=== PATIENT | female | born 1950 | race Caucasian/White ===

== ENCOUNTER → 2023-02-25 | Outpatient (CLI) | payer SELFPAY ==
[2023-02-25 09:53] LABS: Mucous, Urine 0 SEEN /hpf (<or=2+)
[2023-02-25 12:23] LABS: Color, Urine Yellow (Yellow); Glucose, Dipstick Normal (Normal); Ketone-Dipstick Negative (Negative); Leukocyte Esterase-Dipstick 500 /ul (Negative); Nitrite-Dipstick Negative (Negative); Occult Blood-Urine 150 /ul (Negative); Protein-Dipstick 15 mg/dl (Negative); Urine Bilirubin Dipstick Negative (Negative); Urine Clarity Sl. Cloudy (Clear); Urine Urobilinogen Normal (Normal); Urine pH 6.5 (5.0 - 8.0)
[2023-02-25 12:37] LABS: Absolute Lymphocyte Count 1.33 X10^3/uL (0.83-4.51); Absolute Neutrophil Count 5.8 X10^3/uL (2.0-7.7); Basophil# 0.07 X10^3/uL; Basophil% 0.9 % (0-1); Eosinophils% 2.5 % (0-5); Hematocrit 42.3 % (37-47); Hemoglobin 13.6 g/dL (12.0-15.0); Lymphocyte # 1.33 X10^3/ul (0.83-4.51); Lymphocyte % 16.9 % (19-41); Mean Corp Hgb Conc 32.2 g/dL (32-36); Mean Corpuscular Hgb 31.1 pg (27.0-32.0); Mean Corpuscular Volume 96.6 fL (81-99); Mean Platelet Vol. 11.1 fl (6.2-12.0); Monocyte# 0.41 X10^3/uL; Monocyte% 5.2 % (0-10); NRBC Flagged by Analyzer 0 % (0-5); Neutrophil # 5.82 X10^3/uL (2.7-7.7); Neutrophil % 74.2 % (47-70); Platelet Count 226 K/mm3 (150-450); RBC Distribution Width CV 13.4 % (11.6-14.6); RBC Distribution Width SD 48.2 fl (35.1-43.9); Red Blood Count 4.38 M/mm3 (4.2-5.4); White Blood Count 7.9 K/mm3 (4.4-11.0)
[2023-02-25 12:39] LABS: Red Blood Cells-Urine 10-25 SEEN /hpf (0-5); Squamous Epithelial Cells - UA 0-5 SEEN /hpf (5-10); White Blood Cells 25-50 SEEN /hpf (0-5)
[2023-02-25 12:40] LABS: Bacteria 1+ /hpf (None Seen)
[2023-02-25 13:19] LABS: ALB/GLOB Ratio 1.1 RATIO (0.9-2.4); AST(SGOT) 16 U/L (15-37); Alanine Aminotransfer ALT/SGPT 20 U/L (13-56); Albumin, Serum 3.9 g/dL (3.2-5.0); Alkaline Phosphatase 78 U/L (45-117); Anion Gap 6 (5-15); BUN 14 mg/dL (7-18); BUN/Creat Ratio 16.2 RATIO (10-20); Calcium,Total 9.5 mg/dL (8.5-10.1); Chloride 108 mmol/L (98-107); Cholesterol 226 mg/dL (200); Creatinine, Serum 0.87 mg/dL (0.55-1.02); EST Glomerular Filtration Rate 68 mL/min (>60); Est Glom Filt Rate - Afr Amer 83 mL/min (>60); Globulin 3.7 g/dL (2.2-4.2); Glucose 96 mg/dL (74-106); High Density Lipoprotein 80 mg/dL; Potassium 3.9 mmol/L (3.5-5.1); Protein, Total 7.6 g/dL (6.4-8.2); Sodium Level 139 mmol/L (136-145); Triglycerides 111 mg/dL; Very Low Density Lipoprotein 22 mg/dL (5-40)
== END | disposition home or self-care (01) ==
LOC: BIMLAB 09:31
PROVIDERS: Visit Provider Internal Medicine
DX: R10.9 Unspecified abdominal pain (principal); Z13.6 Encounter for screening for cardiovascular disorders
CPT/HCPCS: 36415; 80053; 80061; 81001; 85025

== ENCOUNTER → 2023-06-05 | Outpatient (CLI) | payer SELFPAY ==
[2023-06-05 08:21] LABS: Bacteria 0 SEEN /hpf (None Seen); Mucous, Urine 0 SEEN /hpf (<or=2+); Squamous Epithelial Cells - UA 0 SEEN /hpf (5-10)
[2023-06-05 12:03] LABS: Color, Urine Yellow (Yellow); Glucose, Dipstick Normal (Normal); Ketone-Dipstick Negative (Negative); Leukocyte Esterase-Dipstick Negative /ul (Negative); Nitrite-Dipstick Negative (Negative); Occult Blood-Urine 25 /ul (Negative); Protein-Dipstick Negative (Negative); Urine Bilirubin Dipstick Negative (Negative); Urine Clarity Clear (Clear); Urine Urobilinogen Normal (Normal)
[2023-06-05 12:20] LABS: Red Blood Cells-Urine 0-5 SEEN /hpf (0-5); White Blood Cells 0-5 SEEN /hpf (0-5)
== END | disposition home or self-care (01) ==
LOC: LABSPEC 08:20
PROVIDERS: PCP Internal Medicine; Referring Provider Internal Medicine; Visit Provider Internal Medicine
DX: R10.9 Unspecified abdominal pain (principal); R31.9 Hematuria, unspecified
CPT/HCPCS: 81001; 87086; 87088

== ENCOUNTER → 2023-06-21 | Outpatient (CLI) | payer SELFPAY, OTHER ==
--- NOTE | 2023-06-21 09:43 | US_ITS ---
STUDY: ULTRASOUND TRANSVAGINAL CLINICAL: Female, 73 years old. vaginal bleeding TECHNIQUE: Transvaginal COMPARISON: None. FINDINGS: Increased uterine size measuring 10.3 x 6.3 x 8.5 cm in maximal craniocaudal dimension. There are no myometrial masses. Increased endometrial thickness measuring 38 mm. There are no endometrial masses, with a small amount of fluid in the endometrial cavity. Normal uterine cervix. The ovaries are not visualized.. There is no free fluid in the pelvis. Polycystic ovary disease: No. US/Transvaginal Non- IMPRESSION: Markedly enlarged menopausal uterus with markedly thickening of the endometrial stripe worrisome for mass. Hysteroscopy may be useful. Electronically Signed: Luis A Valenzuela MD at 22:46 EDT ,
--- NOTE | 2023-06-21 09:43 | CT_ITS ---
STUDY: CT ABDOMEN AND PELVIS WITHOUT CONTRAST REASON FOR EXAM: Female, 73 years old. hematuria, vaginal bleeding RADIATION DOSAGE (If Supplied By Facility): CTDIvol = ( 11.87 ) mGy, DLP = ( 616.70 ) mGycm TECHNIQUE: Transaxial images were obtained from the dome of the diaphragm to the symphysis pubis without oral contrast, and without intravenous contrast. Sagittal and coronal images were reconstructed. Individualized dose optimization techniques were used for this CT. COMPARISON: None. FINDINGS: The visualized lung bases are unremarkable. The visualized portions of the heart are within normal limits. Normal liver. Normal gallbladder and extrahepatic biliary system. Normal spleen. Normal pancreas. Normal bilateral adrenal glands. Normal right kidney. Normal left kidney. Normal visualized stomach. Normal small intestine. Normal colon. There is non-visualization of the appendix. Normal abdominal aorta. Normal inferior vena cava. Normal retroperitoneum. Normal urinary bladder. Enlarged heterogeneous uterus. Normal abdominal wall. Normal osseous structures. CT/Abdomen/Pelvis without Cont IMPRESSION: No renal or renal stone. Enlarged heterogeneous uterus. Electronically Signed: Luis A Valenzuela MD at 23:03 EDT ,
== END | disposition home or self-care (01) ==
PROVIDERS: PCP Internal Medicine; Referring Provider Internal Medicine; Visit Provider Internal Medicine
DX: R31.9 Hematuria, unspecified (principal); N93.9 Abnormal uterine and vaginal bleeding, unspecified
CPT/HCPCS: 74176; 76830

== ENCOUNTER → 2024-07-01 | Outpatient (CLI) | payer OTHER, SELFPAY ==
[2024-07-01 12:15] LABS: Absolute Lymphocyte Count 1.13 X10^3/uL (0.83-4.51); Absolute Neutrophil Count 4.1 X10^3/uL (2.0-7.7); Basophil# 0.08 X10^3/uL; Basophil% 1.3 % (0-1); Eosinophil# 0.25 X10^3/uL; Eosinophils% 4.2 % (0-5); Hematocrit 44.3 % (37-47); Lymphocyte # 1.13 X10^3/ul (0.83-4.51); Lymphocyte % 18.8 % (19-41); Mean Corp Hgb Conc 31.6 g/dL (32-36); Mean Corpuscular Hgb 30.7 pg (27.0-32.0); Mean Corpuscular Volume 97.1 fL (81-99); Mean Platelet Vol. 10.5 fl (6.2-12.0); Monocyte# 0.44 X10^3/uL; Monocyte% 7.3 % (0-10); NRBC Flagged by Analyzer 0 % (0-5); Neutrophil # 4.07 X10^3/uL (2.7-7.7); Neutrophil % 67.9 % (47-70); Platelet Count 222 K/mm3 (150-450); RBC Distribution Width CV 13.7 % (11.6-14.6); RBC Distribution Width SD 49.7 fl (35.1-43.9); Red Blood Count 4.56 M/mm3 (4.2-5.4)
[2024-07-01 13:08] LABS: ALB/GLOB Ratio 1.2 RATIO (0.9-2.4); AST(SGOT) 19 U/L (15-37); Alanine Aminotransfer ALT/SGPT 23 U/L (13-56); Albumin, Serum 4.2 g/dL (3.2-5.0); Alkaline Phosphatase 73 U/L (45-117); Anion Gap 4 (5-15); BUN 14 mg/dL (7-18); BUN/Creat Ratio 14.7 RATIO (10-20); Calcium,Total 10.1 mg/dL (8.5-10.1); Chloride 104 mmol/L (98-107); Cholesterol 269 mg/dL (200); Creatinine, Serum 0.95 mg/dL (0.55-1.02); EST Glomerular Filtration Rate 61 mL/min (>60); Est Glom Filt Rate - Afr Amer 74 mL/min (>60); Globulin 3.6 g/dL (2.2-4.2); Glucose 98 mg/dL (74-106); High Density Lipoprotein 96 mg/dL; Potassium 4.6 mmol/L (3.5-5.1); Protein, Total 7.8 g/dL (6.4-8.2); Sodium Level 138 mmol/L (136-145); Triglycerides 120 mg/dL; Very Low Density Lipoprotein 24 mg/dL (5-40)
== END | disposition home or self-care (01) ==
LOC: BIMLAB 09:32
PROVIDERS: PCP Internal Medicine; Referring Provider Nurse Practitioner; Visit Provider Nurse Practitioner
DX: Z00.00 Encounter for general adult medical examination without abnormal findings (principal)
CPT/HCPCS: 36415; 80053; 80061; 85025

== ENCOUNTER → 2025-01-11 | Outpatient (CLI) | payer SELFPAY, OTHER ==
--- NOTE | 2025-01-11 09:15 | PET_ITS ---
EXAM: PET/CT Study CLINICAL HISTORY: 74 y/o F with UTERINE/CERVICAL CANCER, staging. History of grade one-two endometrial cancer diagnosed in June 2023 status post hysterectomy and BSO lymph node sampling. COMPARISON: None. TECHNIQUE: PROCEDURE: Following the intravenous administration of radionucleotide, image acquisition on a dedicated PET/CT unit was performed at one hour post injection. A preliminary CT study encompassing the Skull base, neck, chest, abdomen, pelvis, and proximal thighs was performed for purposes of attenuation correction and anatomic localization. The proximal thighs were also included. The patient's blood glucose level was 124 mg/dL (allowable range: 50-180 mg/dL). RADIOPHARMACEUTICAL: 14.39 mCi 18F-FDG (Fluorodeoxyglucose F18) IV was injected into patient. FINDINGS: Reported avid SUV values (g/mL*) are maximum SUV. Average liver SUV: 2.9 HEAD/NECK: No suspicious hypermetabolic lesions. CHEST: No suspicious hypermetabolic lesions. ABDOMEN: No suspicious hypermetabolic lesions. PELVIS: Ill-defined, hypermetabolic focus along the right lower vaginal wall demonstrating a maximum SUV of 10.2. There are 2 mildly hypermetabolic foci within the right pelvis just posterior to the distal ureter subjacent to pelvic calcifications/surgical clips from prior lymph node dissection, demonstrating a max SUV of 2.5 (see axial fused images 206 and 212). Mild diffuse hypermetabolic uptake throughout the thoracic and lumbar spine. Additional CT findings: Mild coronary artery and thoracic aortic calcifications. Moderate calcific plaque of the aortoiliac vessels. Prior hysterectomy, bilateral salpingo-oophorectomy and lymph node dissection. Surgical clips along the cervical and thoracolumbar spondylosis. PET/PET/CT Tumor Base -Thigh Init IMPRESSION: 1. Ill-defined, hypermetabolic focus along the right lower vaginal wall, compat ible with lower cervical/upper vaginal neoplasm. 2. Mildly hypermetabolic foci within the right lower pelvis subjacent to foci o f calcifications, likely artifactual, however soraida metastatic disease can not be excluded given resolution of PET-CT. Recom mend pelvic MRI for further evaluation. Please note the low-dose CT scan was performed to facilitate PET image reconstr uction and anatomic localization and does not replace a diagnostic CT. Any diagnostic CT requested and performed at the time of the PET will be reported separately. Reading Location: [id number]
== END | disposition home or self-care (01) ==
LOC: ONC 08:45
PROVIDERS: PCP Internal Medicine; Referring Provider Obstetrics & Gynecology Gynecologic Oncology; Visit Provider Obstetrics & Gynecology Gynecologic Oncology
DX: C54.1 Malignant neoplasm of endometrium (principal)
CPT/HCPCS: 78815; A9552

== ENCOUNTER → 2025-01-20 | Outpatient (CLI) | payer OTHER, SELFPAY ==
--- NOTE | 2025-01-20 09:36 | MRI_ITS ---
PROCEDURE: PELVIS W/WO CONTRAST ([id number]), 01/20/2025 REASON FOR EXAM: RECURRENT ENDOMETRIAL CANCER, EVAL FOR DISEASE EXT TECHNIQUE: Multisequence multiplanar MR of the pelvis was performed with and without IV contrast. Contrast: 17 mL Clariscan COMPARISON: 01/11/2025 FINDINGS: Note diffusion sequences were not performed. Variable overall mild motion limitation. Some sequences are mild/moderately motion degraded. Visualized bowel: Grossly unremarkable. Lymph nodes: No overt lymphadenopathy within the field of view. Note that the previous findings just posterior to the distal ureter on preceding PET/CT are probably above the field of view. Vasculature: Grossly unremarkable. Peritoneum: Trace pelvic free fluid. Bladder: Underdistended and suboptimally evaluated. Bladder wall trabeculation suggesting possible chronic bladder outlet obstruction. Abutment by the below findings related to the vagina. Reproductive Organs: Hysterectomy.. Ill-defined T1 dark and T2 intermediate enhancing nodular soft tissue favored along the anterior wall of the mid to upper vagina measures 3.2 x 1.5 x 2.9 cm and probably correlates with the previous PET/CT finding. There is immediate abutment of the posterior most bladder and probably the proximal urethra without clearly preserved fat plane in some areas, however without gross invasion. Ureters are uninvolved and are located above this level. Body Wall: Operative changes.. Bones: Unremarkable. MRI/Pelvis W/WO Contrast IMPRESSION: 1. Exam limited mostly by the lack of diffusion sequences which should be perfo rmed if MR follow-up is pursued. 2. Hysterectomy with 3.2 cm nodular enhancing soft tissue favored along the ant erior wall of the mid to upper vagina probably correlates with the previous PET/CT finding and may reflect the site of reporte d recurrence. Immediate abutment of the posterior bladder and proximal urethra without gross invasion although early/microscopic involvement cannot be excluded given lack of preserved fat planes. Clinical/oncologic follow-up recommended. This should b e amenable to direct exam/tissue sampling. 3. No overt lymphadenopathy within the field of view. Note that the previous fi ndings just posterior to the distal ureter on preceding PET/CT are probably above the field of view. These would be optimall y followed by CT or PET/CT. 4. Trace pelvic free fluid, nonspecific but unexpected in a postmenopausal fema le. 5. Additional description as above. Reading Location: [id number]
== END | disposition home or self-care (01) ==
PROVIDERS: PCP Internal Medicine; Referring Provider Student in an Organized Health Care Education/Training Program; Visit Provider Student in an Organized Health Care Education/Training Program
DX: C54.1 Malignant neoplasm of endometrium (principal)
CPT/HCPCS: 72197; A9575

== ENCOUNTER → 2025-07-19 | Outpatient (CLI) | payer SELFPAY, OTHER ==
--- OUTSIDE RECORDS SUMMARY | 2025-07-19 07:27 | XMS RPT_ITS | CCD ---
Author Organization [facility] Care Team Providers Care Engineering Professor Name Role Phone Dr. Uriel Gipson Attending Provider [phone] Dr. Uriel Gipson Primary Care Provider Dr. Uriel Gipson Referring Provider [phone] Lenny Paulino MD Unavailable Uriel Gipson MD Primary Care Provider Lenny Paulino MD Unavailable Dr. Uriel Gipson MD Primary Care Provider [phone] Dr. Uriel Gipson MD Attending Provider Dr. Uriel Gipson MD Referring Provider Dr. Lenny Paulino MD Attending Provider Dr. Lenny Paulino MD Referring Provider Magnus MELO, Agustina Unavailable Mele MELO, Humaira Unavailable Sara Marrero Attending Provider Unavailable Dr. Timur Blake DO Attending Provider Dr. Timur Blake DO Referring Provider Dr. Anthony Harper MD Attending Provider Dr. Allen Nichols MD Attending Provider Mele MELO, Humaira Unavailable Uriel Gipson MD Primary Care Provider Candida MELO, Dr. Puente Attending Provider MELE, [facility] Attending Unavailable LEONELA, URIEL CHARITY Primary Care Unavailable LEONELA, URIEL CHARITY Primary Care Unavailable [facility], [facility] Attending Unavailable [facility] Referring Unavailable LEONELA, URIEL CHARITY Primary Care [facility] Referring Unavailable LEONELA, URIEL CHARITY Primary Care Unavailable [facility] Referring Unavailable LEONELA, URIEL CHARITY Primary Care Unavailable [facility] Referring Unavailable LEONELA, URIEL CHARITY Primary Care Unavailable [facility], [facility] Referring Unavailable LOENELA, URIEL CHARITY Primary Care Unavailable [facility], [facility] Referring Unavailable LEONELA, URIEL CHARITY Primary Care Unavailable [facility] Referring Unavailable LEONELA, URIEL CHARITY Primary Care Unavailable [facility], [facility] Referring Unavailable LEONELA, URIEL CHARITY Primary Care Unavailable [facility], [facility] Referring Unavailable LEONELA, URIEL CHARITY Primary Care Unavailable [facility] Referring Unavailable LEONELA, URIEL CHARITY Primary Care Unavailable [facility], [facility] Attending Unavailable [facility] Referring Unavailable LEONELA, URIEL CHARITY Primary Care Unavailable AGUSTINA AGUDELO Attending Unavailable LEONELA, URIEL Primary Care Unavailable LOUPILY Referring Unavailable LEONELA, URIEL Primary Care Unavailable PILY BLAKE Referring Unavailable MAGNUSAGUSTINA Attending Unavailable LEONELA, URIEL Primary Care Unavailable LENNY PAULINO Attending Unavailable AGUSTINA AGUDELO Attending Unavailable LEONELA, URIEL Primary Care Unavailable MAGNUSAGUSTINA Referring Unavailable Sturgis, Uriel Referring Unavailable Leonela, Uriel Attending Unavailable Leonela, Uriel Primary Care Unavailable Sturgis, Uriel Primary Care Unavailable Peña Blakee Referring Unavailable Timur Blake Attending Unavailable Timur Blake Attending Unavailable Sturgis, Uriel Primary Care Unavailable Lenny Paulino Referring Unavailable Sturgis, Uriel Primary Care Unavailable Lou Timur Referring Unavailable Peña Blakee Attending Unavailable Sturgis, Uriel Primary Care Unavailable Lou, Timur Referring Unavailable Lou Timur Attending Unavailable Lou, Timur Referring Unavailable Lou, Timur Attending Unavailable Leonela, Uriel Primary Care Unavailable Lenny Paulino Attending Unavailable Leonela, Uriel Primary Care Unavailable Lenny Paulino Referring Unavailable Timur Blake Attending Unavailable Timur Blake Referring Unavailable Sturgis, Uriel Primary Care Unavailable Sturgis, Uriel Primary Care Unavailable Lenny Paulino Attending Unavailable Lenny Paulino Referring Unavailable Timur Blake Attending Unavailable Timur Blake Referring Unavailable Sturgis, Uriel Primary Care Unavailable Timur Blake Referring Unavailable Timur Blake Attending Unavailable Sturgis, Uriel Primary Care Unavailable Timur Blake Attending Unavailable Leonela, Uriel Primary Care Unavailable Timur Blake Referring Unavailable Sturgis, Uriel Referring Unavailable Leonela, Uriel Primary Care Unavailable Anthony Harper Attending Unavailable Timur Blake Attending Unavailable Sturgis, Uriel Primary Care Unavailable Timur Blake Referring Unavailable Sturgis, Uriel Primary Care Unavailable Timur Blake Attending Unavailable Leonela, Uriel Primary Care Unavailable Sara Marrero Attending Unavailable Timur Blake Attending Unavailable Leonela, Uriel Primary Care Unavailable Timur Blake Referring Unavailable Sturgis, Uriel Referring Unavailable Sturgis, Uriel Primary Care Unavailable Timur Blake Attending Unavailable Medications Current Medications Medication Drug Class(es) Dates Sig (Normalized) Sig (Original) apixaban 2.5 mg oral tablet (20 sources) Factor Xa Inhibitor Start: 06-27-2023 End: 01-21-2025 take 1 tablet by mouth twice daily apixaban (Eliquis) 2.5 MG tablet Take 1 tablet (2.5 mg) by mouth 2 times daily for 28 days. 56 tablet 06/27/2023 Active Apple Cider Vinegar (20 sources) APPLE CIDER VINEGAR PO Take by mouth. Active APPLE CIDER VINE GAR PO Take by mouth. 0 Active APPLE CIDER VINE GAR PO Take by mouth. 0 Suspended ascorbic acid 100 mg oral tablet (20 sources) Vitamin C take 1 tablet by brenda th once daily Ascorbic Acid (vitamin C) 100 MG tablet Take 100 mg by mouth daily. Active take 1 tablet by mouth once bertha y ascorbic acid (Vitamin C) 500 mg tablet Take 1 tablet (500 mg) by mouth once daily. Active calcium ascorbate 500 mg oral tablet (9 sources) Start: 02-25-2023 take 1 tablet by mouth once daily Ascorbate Calcium (Vitamin C) 500 mg tablet Active 500 mg PO DAILY February 25, 2023 12:00am calcium carbonate 1500 mg oral tablet (20 sources) Start: 01-26-2025 take 1 tablet by mouth once daily Calcium Carbonate 600 mg calcium (1,500 mg) tablet Active 600 mg PO daily January 26, 2025 12:00am take 1 tablet by mouth twice eda ly calcium carbonate (Os-Wilton) 1,250 mg (500 mg elemental) tablet Take 1 tablet by mouth 2 times daily (morning and late afternoon). Active calcium carbonate 1250 mg / cholecalciferol 200 unt oral tablet (20 sources) Vitamin D take 1 tablet by mouth once daily calcium carbonate-vitamin D3 500 mg-5 mcg (200 unit) tablet Take 1 tablet by mouth once daily. Active calcium citrate 250 mg / cholecalciferol 100 unt oral tablet (14 sources) Vitamin D Calcium Citrate- Vitamin D 250-2.5 MG-MCG tablet Take by mouth. Active chlorhexidine gluconate 40 mg/ml medicated liquid soap (20 sources) Start: chlorhexidine (Hibiclens) 4 % external liquid Indications: Endometrial cancer (Multi) , Preoperative examination Use as directed daily preoperatively for 5 days leading up to surgery, wash body all over not on face or genital region, let sit on skin for 3 minutes before rising. 473 mL 03/15/2025 Active Start: 03-15-2025 chlorhexidine (Peridex) 0.12 % solution Indications: Endometrial cancer (Multi) , Preoperative examination Swish and spit with 15ml of solution the night before and morning of surgery. Do not swallow. 15 mL 03/15/2025 Active cholecalciferol 0.05 mg oral capsule (20 sources) Vitamin D Start: 01-26-2025 take 1 capsule by mouth once daily Cholecalciferol (Vitamin D3) 50 mcg (2,000 unit) capsule Active 50 ug PO daily January 26, 2025 12:00am take 1 capsule by mouth once eda ly cholecalciferol (Vitamin D-3) 25 MCG (1000 UT) capsule Take 1,000 Units by mouth daily. Active cider vinegar 300 mg oral tablet (20 sources) Start: 02-25-2023 apple cider vi otilia 300 mg tablet Apple Cider Vinegar 300 mg tablet Active 450 mg PO February 25, 2023 12:00am 02/25/2023 Active Start: 02-25-2023 Apple Cider Vi otilia Active 450 MG PO February 25, 2023 12:00am cranberry preparation 200 mg oral capsule (20 sources) Non-Standardized Food Allergenic Extract, Non-Standardized Plant Allergenic Extract Start: 02-25-2023 cranberry extract 200 mg capsule Cranberry Extract 200 mg capsule Active 200 mg PO DAILY February 25, 2023 12:00am administer with a meal 02/25/2023 Active Start: 02-25-2023 take 1 capsule by mo uth once daily Cranberry Extract 200 mg capsule Active 200 mg PO DAILY February 25, 2023 12:00am administer with a meal Start: 02-25-2023 take 200 mg by mouth once bertha y Cranberry Extract Active 200 MG PO DAILY February 25, 2023 12:00am administer with a meal CRANBERRY PO Sylvester e by mouth. Active CRANBERRY PO Sylvester e by mouth. 0 Active CRANBERRY PO Sylvester e by mouth. 0 Suspended docusate sodium 100 mg oral capsule (20 sources) Start: 06-26-2023 End: 06-27-2023 take 1 capsule by mouth twice daily docusate sodium (Colace) 100 MG capsule Take 1 capsule (100 mg) by mouth 2 times daily. 20 capsule 06/27/2023 Active echinacea 380 mg capsule (19 sources) Start: 02-25-2023 echinacea 380 mg capsule Echinacea 380 mg capsule Active 760 mg PO DAILY February 25, 2023 12:00am administer with meals 02/25/2023 Active Echinacea (9 sources) Start: 02-25-2023 take 1 capsule by mouth once daily at mealtime Echinacea 380 mg capsule Active 760 mg PO DAILY February 25, 2023 12:00am administer with meals Start: 02-25-2023 take 760 mg by mouth once daily at mealtime Echinacea Active 760 MG PO DAILY February 25, 2023 12:00am administer with meals ibuprofen 200 mg oral tablet (20 sources) Nonsteroidal Anti-inflammatory Drug Start: 03-21-2025 ibuprofen tablet 400 mg Start: 06-26-2023 End: 10-06-2023 take 1 tablet by mouth every six hours ibuprofen 600 MG tablet Take 1 tablet (600 mg) by mouth in the morning and 1 tablet (600 mg) at noon and 1 tablet (600 mg) in the evening and 1 tablet (600 mg) before bedtime. 60 tablet 06/27/2023 Active Magnesium (9 sources) Start: 02-25-2023 take 1 tablet by brenda th once daily Magnesium 250 mg tablet Active 250 mg PO DAILY February 25, 2023 12:00am Start: 02-25-2023 take 250 mg by mouth once bertha y Magnesium Active 250 MG PO DAILY February 25, 2023 12:00am magnesium amino acid chelate 133 mg oral tablet (20 sources) take 1 tablet by mouth once daily magnesium, amino acid chelate, 133 mg tablet Take 1 tablet (133 mg) by mouth once daily. Active magnesium gluconate 550 mg oral tablet (20 sources) take 1 tablet by mouth once daily magnesium 30 MG tablet Take 30 mg by mouth daily. Active mecobalamin 1 mg chewable tablet (9 sources) Start: 02-26-20 take 1 tablet by mouth once daily Mecobalamin (Vitamin B12) 1,000 mcg tablet,chewable Active 1000 ug PO DAILY February 25, 2023 12:00am ondansetron 4 mg oral tablet (2 sources) Serotonin-3 Receptor Antagonist Start: 06-27-20 End: 07-04-20 take 1 tablet by mouth every eight hours as needed for nausea and vomiting ondansetron (Zofran) 4 MG tablet Take 1 tablet (4 mg) by mouth every 8 hours as needed for nausea or vomiting for up to 7 days. 20 tablet 0 06/27/2023 07/04/2023 Active oxyCODONE hydrochloride 5 mg oral tablet (20 sources) Opioid Agonist Start: 03-21-20 25 oxyCODONE (Roxicodone) 5 mg immediate release tablet Indications: Encounter for antineoplastic radiation therapy Take 1 tablet (5 mg) by mouth if needed (take one tablet 30mins before the procedure, do not exceed 10mg in one dose) for up to 8 doses. 8 tablet 03/21/2025 Active Start: 06-27-2023 End: 07-02-2023 take 1 tablet by mouth every six hours as needed for pain oxyCODONE (Roxicodone) 5 MG immediate release tablet Indications: Post-menopausal bleeding Take 1 tablet (5 mg) by mouth every 6 hours as needed for severe pain (7-10) for up to 5 days. 15 tablet 0 06/27/2023 07/02/2023 Active Start: 06-25-2023 End: 06-27-2023 take 1 tablet by mouth every four hours as needed for pain oxyCODONE (Roxicodone) immediate release tablet 5 mg vitamin b12 0.1 mg oral tablet (20 sources) Vitamin B12 take 5 tablets by mouth once daily cyanocobalamin (Vitamin B-12) 100 MCG tablet Take 500 mcg by mouth daily. Active Completed/Discontinued Medications Medication Drug Class(es) Dates Sig (Normalized) Sig (Original) acetaminophen 325 mg oral tablet (20 sources) Start: 01-18-2025 End: 01-21-2025 take 1 tablet by mouth once as needed Acetaminophen (Tylenol) 325 mg tablet Discontinued 325 mg PO ONCE as needed January 18, 2025 12:00am January 21, 2025 8:29am Start: 06-27-2023 take 2 tablets by [facility] every six hours acetaminophen (Tylenol) 500 MG tablet Take 2 tablets (1,000 mg) by mouth in the morning and 2 tablets (1,000 mg) at noon and 2 tablets (1,000 mg) in the evening and 2 tablets (1,000 mg) before bedtime. 30 tablet 06/27/2023 Active Start: 06-25-2023 End: 06-27-2023 take 1 tablet by mouth every eight hours 1,000 mg, Oral, Every 8 hours, First dose on Fri06/25/23 at 1700, Maximum dose of acetaminophen is 4000 mg from all sources in 24 hours. calcium chloride 0.0014 meq/ml / potassium chloride 0.004 meq/ml / sodium chloride 0.103 meq/ml / sodium lactate 0.028 meq/ml injectable solution (4 sources) Start: 06-25-2023 End: 06-26-2023 take 75 mL intravenously every hour 75 mL/hr, IntraVENous, Continuous, Starting on Fri06/25/23 at 1700, For 10 hours Start: 06-25-2023 End: 06-25-2023 lactated Ringer's (LR) infus ion ceFAZolin 2000 mg injection (2 sources) Cephalosporin Antibacterial Start: 06-26-2023 End: 06-26-2023 take 2000 mg intravenously every eight hours 2,000 mg, IntraVENous, Administer over 30 Minutes, Every 8 hours, First dose on Shea 06/26/23 at 0000, For 2 doses, premix bag, Suspected Indication (Select all that apply): Surgical Prophylaxis 0.4 ml enoxaparin sodium 100 mg/ml prefilled syringe (2 sources) Low Molecular Weight Heparin Start: 06-26-2023 End: 06-27-2023 inject 40 mg by subcutaneous injection every twenty-four hours 40 mg, SubCUTAneous, Every 24 hours scheduled (Daily), First dose on Shea 06/26/23 at 0900, Indication of Use: Prophylaxis-DVT/PE, Indications: Prophylaxis of Venous Thromboembolism famotidine 20 mg oral tablet (2 sources) Histamine-2 Receptor Antagonist Start: 06-25-2023 End: 06-25-2023 famotidine (Pepcid) tablet 20 mg gadopiclenol (Vueway) injection 8 mL (2 sources) Start: 03-08-2025 End: 03-08-2025 take 8 mL intravenously once as needed 8 mL, IntraVENous, IMG once PRN, contrast, Starting on Fri03/08/25 at 0900, For 1 dose 1 ml HYDROmorphone hydrochloride 1 mg/ml cartridge (2 sources) Opioid Agonist Start: 06-25-2023 End: 06-25-2023 HYDROmorphone (Dilaudid) injection 0.5 mg 1 ml ketorolac tromethamine 30 mg/ml cartridge (2 sources) Nonsteroidal Anti-inflammatory Drug, Cyclooxygenase Inhibitor Start: 06-26-2023 End: 06-26-2023 15 mg, IntraVENous, Every 6 hours scheduled (4 times per day), First dose on Shea 06/26/23 at 0000, For 4 doses LORazepam 0.5 mg oral tablet (4 sources) Benzodiazepine Start: 03-21-2025 End: 03-21-2025 LORazepam (Ativan) tablet 0.5 mg Start: 03-21-2025 End: 03-21-2025 take 0.5 mg by mouth once 0.5 mg, oral, Once, On Fri at 0900, For 1 dose, 30mins before procedure Start: 03-21-2025 End: 03-21-2025 LORazepam (Ativan) tablet 0. 5 mg Start: 03-21-2025 End: 03-21-2025 take 0.5 mg by mouth once 0.5 mg, oral, Once, On Fri at 0900, For 1 dose, 30mins before procedure ondansetron ODT (Zofran-ODT) disintegrating tablet 4 mg (2 sources) Start: 06-25-2023 End: 06-27-2023 take 1 tablet by mouth every eight hours as needed for nausea and vomiting ondansetron ODT (Zofran-ODT) disintegrating tablet 4 mg polyethylene glycol 3350 [id number] mg powder for oral solution (2 sources) Osmotic Laxative Start: 06-25-2023 End: 06-27-2023 take 17 g by mouth every twenty-four hours as needed for constipation 17 g, Oral, Daily PRN, constipation, Starting on Fri06/25/23 at 1857, Phase II/On Unit, 1st line for treatment of constipation - give scheduled if no bowel movement in past 24 hours. simethicone 80 mg chewable tablet (2 sources) Start: 06-26-2023 End: 06-27-2023 simethicone (Mylicon) chewable tablet 80 mg 5 ml sodium chloride 9 mg/ml injection (6 sources) Start: 06-25-2023 End: 06-27-2023 10 mL, IntraVENous, Every 12 hours scheduled (2 times per day), First dose on Fri06/25/23 at 2100, Phase II/On Unit Start: 06-25-2023 End: 06-27-2023 take 100 mL intravenously every hour as needed, then take 20 mL intravenously every hour as needed 5-250 mL/hr, IntraVENous, PRN, if patient receiving piggyback infusions and maintenance fluids are not ordered OR KVO fluids to protect IV site / prevent frequent line interruptions/ long duration, Starting on Fri06/25/23 at 1857, Phase II/On Unit, For piggyback infusion, administer at same rate as piggyback for a total of 25 mL. Enter 25 mL into dose field and piggyback rate into rate field of order. If piggyback is infusing at a rate less than 100 mL/hr, enter 25 mL into dose field and 100 mL/hr into rate field of order. For KVO fluids, enter rate of 20 mL/hr or less into rate field of order. Start: 06-25-2023 End: 06-27-2023 take 10 mL intravenously once as needed 10 mL, IntraVENous, PRN, line care, Starting on Fri06/25/23 at 1857, Phase II/On Unit, After every IV line use Problems Active Problems Problem Classification Problem Date Documented Date Episodic/Chronic Abdominal pain (2 sources) Unspecified abdominal pain; Translations: [Abdominal pain, unspecified site] 02-25-2023 Episodic Administrative/social admission (1 source) Persons encountering health services in other specified circumstances; Translations: [Other reasons for seeking consultation] 02-25-2023 Episodic Cancer of uterus (20 sources) Malignant neoplasm of endometrium of corpus uteri ; Translations: [Malignant neoplasm of endometrium] Onset: 02-08-2025 01-03-2025 Chronic Comment on above: Discussed Locally re current endometrial cancer, treatment options including Radiation, Radiation + chemotherapy, Chemotherapy and Immunotherapy. She prefers to do Radiation therapy alone now. Reviewed NCCN guidelines. Disorders of lipid metabolism (8 sources) Mixed hyperlipidemia; Translations: [Mixed hyperlipidemia] 12-29-2024 Chronic Genitourinary symptoms and ill-defined conditions (1 source) Hematuria, unspecified; Translations: [Hematuria, unspecified] 06-05-2023 Episodic Maintenance chemotherapy; radiotherapy (4 sources) Patient encounter status; Translations: [Encounter for antineoplastic radiation therapy] Onset: 03-21-2025 03-21-2025 Chronic Menopausal disorders (4 sources) Postmenopausal bleeding; Translations: [Postmenopausal bleeding] 06-25-2023 Chronic Other circulatory disease (2 sources) Bleeding; Translations: [Hemorrhage, not elsewhere classified] 06-25-2023 Episodic Other female genital disorders (1 source) Abnormal uterine and vaginal bleeding, unspecified; Translations: [Other specified noninflammatory disorders of vagina] 06-05-2023 Chronic Other female genital disorders (6 sources) Vaginal lesion; Translations: [Other specified noninflammatory disorders of vagina] 01-03-2025 Episodic Other screening for suspected conditions (not mental disorders or infectious disease) (20 sources) Endometrium thickened; Translations: [Abnormal findings on diagnostic imaging of other specified body structures] Onset: 06-25-2023 06-24-2023 Chronic Other screening for suspected conditions (not mental disorders or infectious disease) (1 source) Encounter for screening for cardiovascular disorders; Translations: [Screening for other and unspecified cardiovascular conditions] 02-25-2023 Episodic Prolapse of female genital organs (1 source) Female genital prolapse, unspecified; Translations: [Unspecified genital prolapse] 06-05-2023 Chronic Residual codes; unclassified (1 source) Procedure and treatment not carried out because of patient's decision for unspecified reasons; Translations: [Surgical or other procedure not carried out because of patient's decision] 02-25-2023 Episodic Residual codes; unclassified (1 source) Immunization not carried out because of patient refusal; Translations: [Vaccination not carried out because of patient refusal] 02-25-2023 Episodic Residual codes; unclassified (8 sources) Colon cancer screening declined; Translations: [Procedure and treatment not carried out because of patient's decision for unspecified reasons] 12-29-2024 Episodic Residual codes; unclassified (8 sources) Medication refused; Translations: [Immunization not carried out because of patient refusal] 12-29-2024 Episodic Secondary malignancies (2 sources) Secondary malignant neoplasm of vagina; Translations: [Secondary malignant neoplasm of genital organs] 01-12-2025 Chronic Unclassified (15 sources) Recurrent carcinoma of endometrium; Translations: [C54.1 - Malignant neoplasm of endometrium] Past or Other Problems Problem Classification Problem Date Documented Date Episodic/Chronic Other female genital disorders (2 sources) Other specified noninflammatory disorders of vagina; Translations: [Other specified noninflammatory disorders of vagina] Onset: 01-03-2025 Episodic Unclassified (20 sources) Onset: 02-08-2025 02-08-2025 Results Test Name Value Interpretation Reference Range Facility 05-20-2025 36 Spoke with patient a nd per her request, order was sent via fax to [facility] for the pet scan. They stated they will call patient to get scheduled after review. [facility] 05-16-2025 36 Pt believes she need s CT before her 07/29 appt but there is no current order. Please call Pt to advise. Thank you [facility] 05-06-2025 36 Spoke to patient and she is going to see Dr. Paulino in July. She is not having any medical issues and is going to postpone that appointment for now with her PCP until she sees Dr. Paulino. [facility] 36 Patient returning mi ssed call, please contact when able, thank you [facility] 36on 05-04-2025 36 Left vm for pt to ca ll back, not sure what pcp appt is for. [facility] 36 Pt has PCP appt same week as her 07/29 appt and wanted to know if she can cancel her PCP appt or if she should still keep it since she will be followed up with here. Please call Pt to discuss. Thank you [facility] Radiation Oncology Visiton 0 04-12-2025 Radiation Oncology Visit [facility] [place] [address] OFFICE VISIT Date of Service: 04/12/25919 MR#: [id number] Acct: [id number] Name: DONI NOVA Jed Rep #: [id number] : 1950 From: Timur Blake DO Age/Sex: 75/F Location: [facility] Status: Signed Intake Vital Signs 03/14/25 08:58 04/12/25 09:21 Height 5 ft 2 in 5 ft 2 in Weight: 181 lb 179 lb 8 oz BMI 33.0 32.8 BP 148/84 H 165/88 H Blood Pressure Location Rt brachial Rt brachial Position Sitting Sitting Respiration 16 16 Pulse 61 55 L Pulse Source Monitor Monitor Temp 96.5 F L 96.9 F L Temperature Source Temporal Artery Temporal Artery Pulse Oximetry (%) 97 97 Oxygen Delivery Method room air room air Intake Visit Reasons: 1 MONTH F/U POST RT Is patient in pain?: Yes (pelvic area) Pain scale (1-10): 5 Allergies No Known Allergies Allergy (Verified 03/14/25 09:01) Medications ???Medication ???Instructions ???Recorded ???Confirmed ???Type apple cider vinegar 300 mg tablet 450 mg PO 02/25/23 04/12/25 Histo ry ascorbate calcium (vitamin C) 500 500 mg PO DAILY 02/25/23 04/12/25 History mg tablet cranberry extract 200 mg capsule 200 mg PO DAILY 02/25/23 04/12/25 History echinacea 380 mg capsule 760 mg PO DAILY 02/25/23 04/12/25 History magnesium 250 mg tablet 250 mg PO DAILY 02/25/23 04/12/25 History mecobalamin (vitamin B12) 1,000 1,000 mcg PO DAILY 02/25/23 History mcg chewable tablet calcium carbonate 600 mg PO QDAY 01/26/25 04/12/25 H istory cholecalciferol (vitamin D3) 50 50 mcg PO QDAY 01/26/25 04/12/25 H istory mcg (2,000 unit) capsule Have you fallen in the past year?: No PFSH PFS Medical History (Updated 04/12/25 @ 09:24 by Aranza Graff) History of brachytherapy Fractured coccyx History of back problems Home Medications ???Medication ???Instructions ???Recorded ???Last Taken ???Type apple cider vinegar 300 mg tablet 450 mg PO 02/25/23 Unknown Histor y ascorbate calcium (vitamin C) 500 500 mg PO DAILY 02/25/23 Unknown History mg tablet cranberry extract 200 mg capsule 200 mg PO DAILY 02/25/23 Unknown H istory echinacea 380 mg capsule 760 mg PO DAILY 02/25/23 Unknown H istory magnesium 250 mg tablet 250 mg PO DAILY 02/25/23 Unknown H istory mecobalamin (vitamin B12) 1,000 1,000 mcg PO DAILY 02/25/23 Unknow n History mcg chewable tablet calcium carbonate 600 mg PO QDAY 01/26/25 Unknown Hi story cholecalciferol (vitamin D3) 50 50 mcg PO QDAY 01/26/25 Unknown Hi story mcg (2,000 unit) capsule Allergy/AdvReac Type Severity Reaction Status Date / Time No Known Allergies Allergy Verified 03/14/25 09:01 Family History Grandmother Breast cancer Father Cancer laryngeal Myocardial infarction, Onset Age: 68 Mother CVA (cerebral vascular accident) Sister Hypertension Other Seizures Surgical History H/O total hysterectomy History of appendectomy History of surgical procedure S/P laparotomy History of back surgery Social History household members: spouse current occupational status: unemployed 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 From 02/07/2025 ??? 03/15/2025 she received salvage EBRT and completed vaginal brachytherapy on 04/01/2025. History of Present Illness: 07/07/2023: Patient completed abdominal hysterectomy and BSO with lymph node sampling for endometrial cancer.??? Pathology demonstrated grade 2 endometrioid carcinoma with myometrial invasion present with a depth of invasion 13/20 mm, there is lower uterine segment involvement, no cervical stromal involvement.??? No lymphatic or vascular invasion.??? 5 pelvic lymph nodes and 2 periaortic lymph nodes were examined and none contained metastatic disease.??? pT1b pN0 01/03/2025: Biopsy of the anterior mid vaginal wall lesion was completed.??? Patient completed vaginal biopsy.??? This demonstrated pathology consistent with endometrioid carcinoma positive for ER and DE. 01/11/2025: Patient completed PET scan.??? This demonstrated ill-defined hypermetabolic (more content not included)... Normal [facility] No Panel Informationon 04-01 Actual Fractions Delivered 5 [facility] Actual Session Delivered Dose 600 cGray [facility] Actual Total Dose 3000 cGray [facility] Course Number 1 [facility] Elapsed Days [facility] Last Date 04/01/2025 [facility] Prescribed Fractional Dose 600 cGray [facility] Prescribed Number of Fractions 5 [facility] Prescribed Total Dose 3000 cGray [facility] Prescription Pattern Comment Multi channel [facility] Start Date 03/21/2025 [facility] Treatment Site [facility] No Panel Informationon 03-30 Actual Fractions Delivered 4 [facility] Actual Session Delivered Dose 600 cGray [facility] Actual Total Dose 2400 cGray [facility] Course Number 1 [facility] Elapsed Days 9 [facility] Last Date 03/30/2025 [facility] Prescribed Fractional Dose 600 cGray [facility] Prescribed Number of Fractions 5 [facility] Prescribed Total Dose 3000 cGray [facility] Prescription Pattern Comment Multi channel [facility] Start Date 03/21/2025 [facility] Treatment Site Vaginal [facility] No Panel Informationon 03-28 Actual Fractions Delivered 3 [facility] Actual Session Delivered Dose 600 cGray [facility] Actual Total Dose 1800 cGray [facility] Course Number 1 [facility] Elapsed Days 7 [facility] Last Date 03/28/2025 [facility] Prescribed Fractional Dose 600 cGray [facility] Prescribed Number of Fractions 5 [facility] Prescribed Total Dose 3000 cGray [facility] Prescription Pattern Comment Multi channel [facility] Start Date 03/21/2025 [facility] Treatment Site Vaginal [facility] No Panel Informationon 03-24 Actual Fractions Delivered 2 [facility] Actual Session Delivered Dose 600 cGray [facility] Actual Total Dose 1200 cGray [facility] Course Number 1 [facility] Elapsed Days 3 [facility] Last Date 03/24/2025 [facility] Prescribed Fractional Dose 600 cGray [facility] Prescribed Number of Fractions 5 [facility] Prescribed Total Dose 3000 cGray [facility] Prescription Pattern Comment Multi channel [facility] Start Date 03/21/2025 [facility] Treatment Site [facility]aginal [facility] MR Prostateon 03-21-2025 These images are not reportable by radiology and will not be interpreted by Radiologists. IMAGING MR TREATMENT PLANNING PROSTA TE PELVISon 03-21-2025 MR TREATMENT PLANNING PROSTATE PELVIS These images are not reportable by radiology and will not be interpreted by Radiologists. Normal [facility] No Panel Informationon 03-21 Actual Fractions Delivered 1 [facility] Actual Session Delivered Dose 600 cGray [facility] Actual Total Dose 600 cGray [facility] Course Number 1 [facility] Elapsed Days 0 [facility] Last Date 03/21/2025 [facility] Prescribed Fractional Dose 600 cGray [facility] Prescribed Number of Fractions 5 [facility] Prescribed Total Dose 3000 cGray [facility] Prescription Pattern Comment Multi channel [facility] Start Date 03/21/2025 [facility] Treatment Site Vaginal Cuff [facility] RAD ONC CT SIM IMAGES ONLYon 03-21-[address] SIM IMAGES ONLY These images are not reportable by radiology and will not be interpreted by Radiologists. Normal [facility] Rad Onc CT Sim Imageson 02-22 These images are not reportable by radiology and will not be interpreted by Radiologists. IMAGING CBC W Auto Differential pane l (Bld)on 03-15-2025 Basophils (Bld) [#/Vol] 0.03 x10*3/uL Normal 0.00-0.10 [facility] Comment on above: Performed By: #### 5 7021-8 #### ALYSSA Hinojosa ([id number]) [facility] ([facility]) [address] [place] [address] Basophils/100 WBC (Bld) 0.7 % Normal 0.0-2.0 [facility] Comment on above: Performed By: #### 5 7021-8 #### ALYSSA Hinojosa ([id number]) [facility] ([facility]) [address] [place] [address] Eosinophils (Bld) [#/Vol] 0.10 x10*3/uL Normal 0.00-0.40 [facility] Comment on above: Performed By: #### 5 7021-8 #### ALYSSA Hinojosa ([id number]) [facility] ([facility]) [address] [place] [address] Eosinophils/100 WBC (Bld) 2.4 % Normal 0.0-6.0 [facility] Comment on above: Performed By: #### 5 7021-8 #### ALYSSA Hinojosa ([id number]) [facility] ([facility]) [address] [place] [address]198 Erythrocyte distribution width (RBC) [Ratio] 14.5 % Normal 11.5-14.5 [facility] Comment on above: Performed By: #### 5 7021-8 #### ALYSSA Hinojosa ([id number]) [facility] ([facility]) [address] [place] [address] 14766 Hematocrit (Bld) [Volume fraction] 41.4 % Normal 36.0-46.0 [facility] Comment on above: Performed By: #### 5 7021-8 #### ALYSSA Hinojosa ([id number]) [facility] ([facility]) [address] [place] [address] 45567 Hemoglobin (Bld) [Mass/Vol] 13.1 g/dL Normal 12.0-16.0 [facility] Comment on above: Performed By: #### 5 7021-8 #### ALYSSA Hinojosa ([id number]) [facility] ([facility]) [address] [place] [address] 74747 Immature granulocytes (Bld) [#/Vol] 0.02 x10*3/uL Normal 0.00-0.50 [facility] Comment on above: Performed By: #### 5 7021-8 #### ALYSSA Hinojosa ([id number]) [facility] ([facility]) [address] [place] [address] 84429 Immature granulocytes/100 WBC (Bld) 0.5 % Normal 0.0-0.9 [facility] Comment on above: Result Comment: Ekta ture Granulocyte Count (IG) includes promyelocytes, myelocytes and metamyelocytes but does not include bands. Percent differential counts (%) should be interpreted in the context of the absolute cell counts (cells/UL). Performed By: #### 5 7021-8 #### ALYSSA Hinojosa ([id number]) [facility] ([facility]) [address] [place] [address] Lymphocytes (Bld) [#/Vol] 0.34 x10*3/uL Low 0.80-3.00 [facility] Comment on above: Performed By: #### 5 7021-8 #### ALYSSA Hinojosa ([id number]) [facility] ([facility]) [address] [place] [address]473 Lymphocytes/100 WBC (Bld) 8.3 % Normal 13.0-44.0 [facility] Comment on above: Performed By: #### 5 7021-8 #### ALYSSA Hinojosa ([id number]) [facility] ([facility]) [address] [place] [address] 66062 MCH (RBC) [Entitic mass] 30.6 pg Normal 26.0-34.0 [facility] Comment on above: Performed By: #### 5 7021-8 #### ALYSSA Hinojosa ([id number]) [facility] ([facility]) [address] [place] [address] MCHC (RBC) [Mass/Vol] 31.6 g/dL Low 32.0-36.0 [facility] Comment on above: Performed By: #### 5 7021-8 #### ALYSSA Hinojosa ([id number]) [facility] ([facility]) [address] [place] [address] MCV (RBC) [Entitic vol] 97 fL Normal 80-100 [facility] Comment on above: Performed By: #### 5 7021-8 #### ALYSSA Hinojosa ([id number]) [facility] ([facility]) [address] [place] [address] Monocytes (Bld) [#/Vol] 0.41 x10*3/uL Normal 0.05-0.80 [facility] Comment on above: Performed By: #### 5 7021-8 #### ALYSSA Hinojosa ([id number]) [facility] ([facility]) [address] [place] [address] 46762 Monocytes/100 WBC (Bld) 10.0 % Normal 2.0-10.0 [facility] Comment on above: Performed By: #### 5 7021-8 #### ALYSSA Hinojosa ([id number]) [facility] ([facility]) [address] [place] [address] 23971 Neutrophils (Bld) [#/Vol] 3.21 x10*3/uL Normal 1.60-5.50 [facility] Comment on above: Result Comment: Perc ent differential counts (%) should be interpreted in the context of the absolute cell counts (cells/uL). Performed By: #### 5 7021-8 #### ALYSSA Hinojosa ([id number]) [facility] ([facility]) [address] [place] [address] 32359 Neutrophils/100 WBC (Bld) 78.1 % Normal 40.0-80.0 [facility] Comment on above: Performed By: #### 5 7021-8 #### ALYSSA Hinojosa ([id number]) [facility] ([facility]) [address] [place] [address] 04801 Nucleated RBC/100 WBC (Bld) [Ratio] 0.0 /100 WBCs Normal 0.0-0.0 [facility] Comment on above: Performed By: #### 5 7021-8 #### ALYSSA Hinojosa ([id number]) [facility] ([facility]) [address] [place] [address] Platelets (Bld) [#/Vol] 187 x10*3/uL Normal 150-450 [facility] Comment on above: Performed By: #### 5 7021-8 #### ALYSSA Hinojosa ([id number]) [facility] ([facility]) [address] [place] [address] 49113 RBC (Bld) [#/Vol] 4.28 x10*6/uL Normal 4.00-5.20 [facility] Comment on above: Performed By: #### 5 7021-8 #### ALYSSA Hinojosa ([id number]) [facility] ([facility]) [address] [place] [address] 63540 WBC (Bld) [#/Vol] 4.1 x10*3/uL Low 4.4-11.3 [facility] Comment on above: Performed By: #### 5 7021-8 #### ALYSSA Hinojosa ([id number]) [facility] ([facility]) [address] [place] [address] 26296 Comprehensive metabolic 2000 panelon 03-15-2025 Albumin BCP dye [Mass/Vol] 4.5 g/dL Normal 3.4-5.0 [facility] Comment on above: Performed By: #### 2 4323-8 #### ALYSSA Hinojosa ([id number]) [facility] ([facility]) [id number] [place] [address] 77171 ALP [Catalytic activity/Vol] 56 U/L Normal 33-136 [facility] Comment on above: Performed By: #### 2 4323-8 #### ALYSSA Hinojosa ([id number]) [facility] ([facility]) [id number] [place] [address] 88815 ALT With P-5'-P [Catalytic activity/Vol] 12 U/L Normal 7-45 [facility] Comment on above: Result Comment: Zoe ents treated with Sulfasalazine may generate falsely decreased results for ALT. Performed By: #### 2 4323-8 #### ALYSSA Hinojosa ([id number]) [facility] ([facility]) [address] [place] [address] Anion gap [Moles/Vol] 14 mmol/L Normal 10-20 [facility] Comment on above: Performed By: #### 2 4323-8 #### ALYSSA Hinojosa ([id number]) [facility] ([facility]) [id number] [place] [address] 32781 AST With P-5'-P [Catalytic activity/Vol] 17 U/L Normal 9-39 [facility] Comment on above: Performed By: #### 2 4323-8 #### ALYSSA Hinojosa ([id number]) [facility] ([facility]) [address] [place] [address] 73790 Bilirubin [Mass/Vol] 1.0 mg/dL Normal 0.0-1.2 [facility] Comment on above: Performed By: #### 2 4323-8 #### ALYSSA Hinojosa ([id number]) [facility] ([facility]) [address] [place] [address] 29706 Calcium [Mass/Vol] 9.9 mg/dL Normal 8.6-10.6 [facility] Comment on above: Performed By: #### 2 4323-8 #### ALYSSA Hinojosa ([id number]) [facility] ([facility]) [address] [place] [address] 06365 Chloride [Moles/Vol] 105 mmol/L Normal 98-107 [facility] Comment on above: Performed By: #### 2 4323-8 #### ALYSSA Hinojosa ([id number]) [facility] ([facility]) [address] [place] [address] 11036 CO2 [Moles/Vol] 25 mmol/L Normal 21-32 [facility] Comment on above: Performed By: #### 2 4323-8 #### ALYSSA Hinojosa ([id number]) [facility] ([facility]) [address] [place] [address] 66102 Creatinine [Mass/Vol] 0.80 mg/dL Normal 0.50-1.05 [facility] Comment on above: Performed By: #### 2 4323-8 #### ALYSSA Hinojosa ([id number]) [facility] ([facility]) [address] [place] [address] 35062 Glomerular filtration rate/1.73 sq M.predicted 77 mL/min/1.73m*2 Normal >60 [facility] Comment on above: Result Comment: Calc ulations of estimated GFR are performed using the 2020 CKD-EPI Study Refit equation without the race variable for the IDMS-Traceable creatinine methods. https://jasn.asnjournals.org/content//ASN.78430 83664 Performed By: #### 2 4323-8 #### ALYSSA Hinojosa ([id number]) [facility] ([facility]) [address] [place] [address] Glucose [Mass/Vol] 104 mg/dL High 74-99 [facility] Comment on above: Performed By: #### 2 4323-8 #### ALYSSA AVITIA L ([id number]) [facility] ([facility]) [address] [place] [address] 06011 Potassium [Moles/Vol] 4.3 mmol/L Normal 3.5-5.3 [facility] Comment on above: Performed By: #### 2 4323-8 #### ALYSSA AVITIA L ([id number]) [facility] ([facility]) [address] [place] [address] 22928 Protein [Mass/Vol] 7.1 g/dL Normal 6.4-8.2 [facility] Comment on above: Performed By: #### 2 4323-8 #### ALYSSA AVITIA L ([id number]) [facility] ([facility]) [address] [place] [address] 79713 Sodium [Moles/Vol] 140 mmol/L Normal 136-145 [facility] Comment on above: Performed By: #### 2 4323-8 #### ALYSSA RAMESHMOTZER L ([id number]) [facility] ([facility]) [address] [place] [address] 80258 Urea nitrogen [Mass/Vol] 14 mg/dL Normal -23 [facility] Comment on above: Performed By: #### 2 4323-8 #### ALYSSA ALONZOTZMICKIE L ([id number]) [facility] ([facility]) [address] [place] [address] 76706 Magnesiumon 03-15-2025 Magnesium [Mass/Vol] 2.40 mg/dL Normal 1.60-2.40 [facility] Comment on above: Performed By: #### 1 9123-9 #### ALYSSA Hinojosa ([id number]) [facility] ([facility]) [address] [place] [address] Phosphateon 03-15-2025 Phosphate [Mass/Vol] 3.9 mg/dL Normal 2.5-4.9 [facility] Comment on above: Performed By: #### 2 777-1 #### ALYSSA Hinojosa ([id number]) [facility] ([facility]) [address] [place] [address] SIM IMAGES ONLYon 03-15-[address] SIM IMAGES ONLY These images are not reportable by radiology and will not be interpreted by Radiologists. [facility] Rad Onc CT Sim Imageson 02-21 These images are not reportable by radiology and will not be interpreted by Radiologists. IMAGING Radiation Oncology Visiton 0 03-15-2025 Radiation Oncology Visit [address] [address] OFFICE VISIT Date of Service: 03/15/2549 MR#: [id number] Acct: [id number] Name: DONI NOVA Rep #: [id number] : 1950 From: Timur Blake DO Age/Sex: 75/F Location: [facility] Status: Signed End of Treatment Summary: Diagnosis: Doni Nova is a 75-year-old female diagnosed with FIGO stage IB (pT1b pN0 M0) endometrioid adenocarcinoma in 2022 status post surgery with CITLALLI/BSO and lymph node sampling (June 2023) now with evidence of biopsy-proven vaginal recurrence status post exam with biopsy (01/03/2025), PET scan (01/11/2025), and MRI pelvis (01/20/2025). Oncologic History: 07/07/2023: Patient completed abdominal hysterectomy and BSO with lymph node sampling for endometrial cancer.??? Pathology demonstrated grade 2 endometrioid carcinoma with myometrial invasion present with a depth of invasion 13/20 mm, there is lower uterine segment involvement, no cervical stromal involvement.??? No lymphatic or vascular invasion.??? 5 pelvic lymph nodes and 2 periaortic lymph nodes were examined and none contained metastatic disease.??? pT1b pN0 01/03/2025: Biopsy of the anterior mid vaginal wall lesion was completed.??? Patient completed vaginal biopsy.??? This demonstrated pathology consistent with endometrioid carcinoma positive for ER and DE. 01/11/2025: Patient completed PET scan.??? This demonstrated ill-defined hypermetabolic focus along the right lower vaginal wall compatible with lower cervical/upper vaginal neoplasm.??? There are mildly hypermetabolic foci within the right lower pelvis subadjacent to the foci of calcifications likely artifactual however soraida metastatic disease cannot be ruled out and recommend MRI pelvis to further evaluate. 01/20/2025: Patient completed MRI pelvis with and without contrast.??? This demonstrated hysterectomy with a 3.2 cm nodular enhancing soft tissue favored to be along the anterior wall of the mid to upper vagina probably correlating with the previous PET finding and likely reflects the site of reported recurrence.??? There is immediate abutment of the posterior bladder and proximal urethra without gross invasion although early microscopic involvement cannot be excluded.??? No overt adenopathy or other metastatic disease is appreciated. Radiation Treatment History: None The patient completed a course of external beam radiotherapy in our department. This treatment was delivered for curative intent. Treatment was given according to the following parameters: DONI NOVA received salvage radiation therapy consisting of 4500 cGy delivered in 25 fractions to the entire length of the vaginal canal, at risk pelvic adenopathy as well as bilateral inguinal lymph node stations and she is planning to proceed with brachytherapy following external beam treatment. She was treated with a VMAT plan using 10 MV photons. The patient did not receive concurrent chemotherapy. Date of First Treatment: 02/07/2025 Date of Last Treatment: 03/15/2025 Total Elapsed Days (including weekend and holidays): 36 Missed Treatments: one due to machine down Response and Tolerance: The patient tolerated this course of radiotherapy well overall. The following radiation related toxicities developed during the course of radiation therapy: * Grade 1 fatigue Total weight change during therapy: N/A Disposition: The patient tolerated the planned course of radiation therapy well without unexpected toxicity in an appropriate time course. I reviewed management of potential toxicities and discussed expected timing for toxicity resolution. I will have DONI follow-up in one month for a routine visit. DONI will maintain follow up with all other providers, she is planned for brachytherapy next week. DONI was instructed to call with any further questions or concerns in the interim. If we can provide any further information on this patient's course of care, please do not hesitate to ask. We would like to thank you very much for allowing us to participate in the care of this patient. Sincerely, Timur Blake DO, MS Microarray Analyst, Department of Radiation Oncology [facility] 03/15/25 0996 Date Timur Blake DO [facility] Signature: Date (if applicable) CC: Dr. Uriel Gipson MD [facility] Staphylococcus aureus.methic illin resistant isolateon 03-15-2025 MRSA isol Org specific cx Ql (Nose) Test: Staphylococcus aureus/MRSA colonization, Culture Specimen Source: Anterior Nares Specimen Type: Swab Specimen Date: 03/15/2025 1003 Result Date: 03/16/2025 1420 Result Status: Final result Abnormal: No Resulting Lab: [facility] [address] [place] [address] CULTURE No Staphylococcus aureus isolated [facility] Comment on above: Performed By: #### 5 2969-3 #### ALYSSA Hinojosa ([id number]) [facility] ([facility]) [id number] [place] [address] Radiation Oncology Visiton 0 03-14-2025 Radiation Oncology Visit [address] [place] [address] OFFICE VISIT Date of Service: 03/14/25 0856 MR#: [id number] Acct: [id number] Name: DONI NOVA Rep #: [id number] : 1950 From: Timur Blake DO Age/Sex: 75/F Location[place] [facility] [place] Status: Signed Intake Vital Signs 01/26/25 08:47 03/14/25 08:58 Height 5 ft 2 in 5 ft 2 in Weight: 181 lb BMI 33.0 BP 148/84 H Blood Pressure Location Rt brachial Position Sitting Respiration 16 Pulse 61 Pulse Source Monitor Temp 96.5 F L Temperature Source Temporal Artery Pulse Oximetry (%) 97 Oxygen Delivery Method room air Intake Visit Reasons: OTV Is patient in pain?: No Allergies No Known Allergies Allergy (Verified 03/14/25 09:01) Medications ???Medication ???Instructions ???Recorded ???Confirmed ???Type apple cider vinegar 300 mg tablet 450 mg PO 02/25/23 03/14/25 Histo ry ascorbate calcium (vitamin C) 500 500 mg PO DAILY 02/25/23 03/14/25 History mg tablet cranberry extract 200 mg capsule 200 mg PO DAILY 02/25/23 03/14/25 History echinacea 380 mg capsule 760 mg PO DAILY 02/25/23 03/14/25 History magnesium 250 mg tablet 250 mg PO DAILY 02/25/23 03/14/25 History mecobalamin (vitamin B12) 1,000 1,000 mcg PO DAILY 02/25/23 History mcg chewable tablet calcium carbonate 600 mg PO QDAY 01/26/25 03/14/25 H istory cholecalciferol (vitamin D3) 50 50 mcg PO QDAY 01/26/25 03/14/25 H istory mcg (2,000 unit) capsule Have you fallen in the past year?: No PFSH PFSH Medical History Fractured coccyx History of back problems Home Medications ???Medication ???Instructions ???Recorded ???Last Taken ???Type apple cider vinegar 300 mg tablet 450 mg PO 02/25/23 Unknown Histor y ascorbate calcium (vitamin C) 500 500 mg PO DAILY 02/25/23 Unknown History mg tablet cranberry extract 200 mg capsule 200 mg PO DAILY 02/25/23 Unknown H istory echinacea 380 mg capsule 760 mg PO DAILY 02/25/23 Unknown H istory magnesium 250 mg tablet 250 mg PO DAILY 02/25/23 Unknown H istory mecobalamin (vitamin B12) 1,000 1,000 mcg PO DAILY 02/25/23 Unknow n History mcg chewable tablet calcium carbonate 600 mg PO QDAY 01/26/25 Unknown Hi story cholecalciferol (vitamin D3) 50 50 mcg PO QDAY 01/26/25 Unknown Hi story mcg (2,000 unit) capsule Allergy/AdvReac Type Severity Reaction Status Date / Time No Known Allergies Allergy Verified 03/14/25 09:01 Family History Grandmother Breast cancer Father Cancer laryngeal Myocardial infarction, Onset Age: 68 Mother CVA (cerebral vascular accident) Sister Hypertension Other Seizures Surgical History H/O total hysterectomy History of appendectomy History of surgical procedure S/P laparotomy History of back surgery Social History household members: spouse current occupational status: unemployed 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 Plan: Plan was made to complete salvage radiation therapy consisting of 4500 cGy delivered in 25 fractions to the entire length of the vaginal canal, at risk pelvic adenopathy as well as bilateral inguinal lymph node stations and she is planning to proceed with brachytherapy following external beam treatment. Treatment Data: Treatment Site: Pelvis Current total dose/Total dose planned: 4320 cGy / 4500 cGy Fraction number: Chemotherapy: none Subjective: Pain: 0 / 10 Fatigue: none Skin: no erythema, rash, desquamation GI: no diarrhea/constipation. No rectal pain or bleeding. No bloating or increased gas. : no increase urinary symptoms. No dysuria or hematuria SHOULDER PUNCHER: essentially no more vaginal bleeding, Objective: Weight: 181 lbs Physical Exam: Gen: NAD Skin: no erythema, rash, desquamation. Labs: None Assessment Plan Assessment/Plan (1) Recurrent carcinoma of endometrium: PLAN: Plan Assessment: Tolerating treatment well overall.??? I reviewed and approved all treatment associated imaging. No t (more content not included)... [facility] 29on 03-11-2025 29 Encounter addended b y: Rosie Hill RN on: 03/11/2025 3:24 PM Actions taken: Clinical Note Signed [facility] Hospital Encounteron 025 Hospital Encounter [id number] Doni Nova 1950 F Date Provider Department Center 03/11/2025 [id number]-YZTAGUSTINA AGUDELO None Family History Problem Relation Age of Onset Stroke Mother Cancer Father Comments: laryngeal Heart attack Father Hypertension Sister Breast cancer Maternal Grandmother Family Status - Relation Status Age at Mother Father Sister Maternal Grandmother Level of Service:74067 DE OFFICE/OUTPATIENT ESTABLISHED MOD MDM 30 MIN [facility] Nursing Noteon 03-11-2025 Nursing Note Patient here at [facility] Rad Onc for follow up to consult with Dr. Agudelo on 01/27/2025. She is currently receiving external pelvic radiation at [facility] - Dr. Blake. She had MRI pelvis on 03/08/2025 and is here to discuss result to facilitate further treatment planning. She denies any vaginal bleeding/discharge, or urination/bowel issues. She reports mild tenderness to margoth area due to radiation. Patient prepped for pelvic exam - this RN assisted Dr. Agudelo with exam . Medications updated via patient recall. [facility] Progress Noteon 03-11-2025 Progress Note RADIATION ONCOLOGY F OLLOW UP PATIENT: Doni Nova DATE OF SERVICE: 03/11/2025 : 1950 AGE: 75 y.o. PRIMARY SITE AND HISTOPATHOLOGY: Problem List Items Addressed This Visit None Cancer Staging No matching staging information was found for the patient. HISTORY OF PRESENT ILLNESS: Doni Nova is a 75 y.o. who presents with history of pT1bN0 grade 2 endometrial cancer now with biopsy-proven anterior vaginal recurrence, who is currently undergoing external beam radiation treatment, here for follow-up. INTERVAL HISTORY: Ms. Nova presents today with and family member. She is doing well and tolerating external beam radiation well with Dr. Blake, with 2 fractions left. She does endorse some loose stools but no urinary symptoms. Interval MRI 03/08 showed significant decrease in size of anterior vaginal wall mass spanning 4.1 cm (similar to prior) and thickness now 0.9 cm from 1.8 cm previously. Anterior vaginal wall thickening abuts the posterior margin of the urethral sphincter complex but no appreciable invasion. Patient has pre-admission testing and procedure scheduled with Dr. Rosenberg at . PAST MEDICAL HISTORY: Medical History[1] PAST SURGICAL HISTORY: Surgical History[2] ALLERGIES: Allergies as of 03/11/2025 (No Known Allergies) MEDICATIONS: Current Medications[3] REVIEW OF SYSTEMS: See HPI ECOG Performance Status: 0 Objective PHYSICAL EXAM: BP (!) 143/76 Pulse 70 Temp 97.1 ?F (36.2 ?C) Resp 16 Ht 5' 2 (1.575 m) Wt 178 lb 12.8 oz (81.1 kg) LMP 06/23/2023 SpO2 98% BMI 32.70 kg/m? /Pain Score: 0 - No pain /Fatigue Assessment: Able to perform daily activities Physical Exam General: alert, no apparent distress, cooperative with exam HEENT: normocephalic, extraocular movements intact, oropharynx clear Cardiac: well-perfused extremities Pulmonary: no respiratory distress Abdomen: soft, non-tender, non-distended Neuro: alert and oriented, thought content appropriate, clear speech Psych: normal mood and affect Pelvic: nodular mass in anterior mid vagina with improvement compared to prior, minimal bleeding IMPRESSION: Doni Nova is a 75 y.o. who presents with history of pT1bN0 grade 2 endometrial cancer now with biopsy-proven anterior vaginal recurrence, who is currently undergoing external beam radiation treatment, here for follow-up. PLAN: Patient has had an excellent response to external beam treatment, with decrease in size of vaginal recurrence. However, given the thickness of residual tumor, I discussed that vaginal cylinder may not be able to encompass entire volume. I recommend interstitial brachytherapy boost. She and her family are amenable and will proceed with scheduled appointments at . She may return to our clinic as needed. I spent total time 30 minutes reviewing previous notes, test results, and face to face with the patient discussing the diagnosis and the treatment plan as well as documenting on the day of the visit. Agustina Agudelo MD [facility] [place] Department of Radiation Oncology is an Accredited Facility of the [employer] ([employer]). This document was completed utilizing speech recognition software. Grammatical errors, random word insertions, pronoun errors, and incomplete sentences are an occasional consequence of this system due to software limitations, ambient noise, and hardware issues. Any formal questions or concerns about the content, text or information contained within the body of this dictation should be directly addressed to the provider for clarification. [1] Past Medical History: Diagnosis Date Back pain Fractured coccyx (HCC) Post-menopausal bleeding [2] Past Surgical History: Procedure Laterality Date APPENDECTOMY BACK SURGERY HYSTERECTOMY LAPAROTOMY EXPLORATORY (HISTORICAL) [3] Current Outpatient Medications Medication Sig Dispense Refill APPLE CIDER VINEGAR PO Take by mouth. Ascorbic Acid (vitamin C) 100 MG tablet Take 100 mg by mouth daily. Calcium Citrate-Vitamin D 250-2.5 MG-MCG tablet Take by mouth. cholecalciferol (Vitamin D-3) 25 MCG (1000 UT) capsule Take 1,000 Units by mouth daily. CRANBERRY PO Take by mouth. cyanocobalamin (Vitamin B-12) 100 MCG tablet Take 500 mcg by mouth daily. magnesium 30 MG tablet Take 30 mg by mouth daily. acetaminophen (Tylenol) 500 MG tablet Take 2 tablets (1,000 mg) by mouth in the morning and 2 tablets (1,000 mg) at noon and 2 tablets (1,000 mg) in the evening and 2 tablets (1,000 mg) before bedtime. (Patient not taking: Reported on 03/11/2025) 30 tablet 0 apixaban (Eliquis) 2.5 MG tablet Take 1 tablet (2.5 mg) by mouth 2 times daily for 28 days. (Patient not taking: Reported on 03/11/2025) 56 tablet 0 docusate sodium (Colace) 100 MG capsule Take 1 capsule (100 mg) by mouth 2 times daily. (Patient not taking: Reported on 01/27/2025) (more content not included)... Normal [facility] Radiation Oncology Visiton 0 03-09-2025 Radiation Oncology Visit [facility] [address] [place] [address] OFFICE VISIT Date of Service: 03/09/2530 MR#: [id number] Acct: [id number] Name: DONI NOVA Rep #: [id number] : 1950 From: Timur Blake DO Age/Sex: 75/F Location: [facility] [place] Status: Signed Intake Vital Signs 01/26/25 08:47 03/09/25 08:32 Height 5 ft 2 in 5 ft 2 in Weight: 180 lb 6 oz BMI 33.0 BP 134/79 H Blood Pressure Location Lt brachial Position Sitting Respiration 18 Pulse 61 Pulse Source Monitor Temp 97.7 F L Temperature Source Temporal Artery Pulse Oximetry (%) 98 Intake Visit Reasons: OTV Is patient in pain?: No Allergies No Known Allergies Allergy (Verified 03/09/25 08:35) Medications ???Medication ???Instructions ???Recorded ???Confirmed ???Type apple cider vinegar 300 mg tablet 450 mg PO 02/25/23 03/09/25 Histo ry ascorbate calcium (vitamin C) 500 500 mg PO DAILY 02/25/23 03/09/25 History mg tablet cranberry extract 200 mg capsule 200 mg PO DAILY 02/25/23 03/09/25 History echinacea 380 mg capsule 760 mg PO DAILY 02/25/23 03/09/25 History magnesium 250 mg tablet 250 mg PO DAILY 02/25/23 03/09/25 History mecobalamin (vitamin B12) 1,000 1,000 mcg PO DAILY 02/25/23 History mcg chewable tablet calcium carbonate 600 mg PO QDAY 01/26/25 03/09/25 H istory cholecalciferol (vitamin D3) 50 50 mcg PO QDAY 01/26/25 03/09/25 H istory mcg (2,000 unit) capsule Have you fallen in the past year?: No PFSH PFSH Medical History Fractured coccyx History of back problems Home Medications ???Medication ???Instructions ???Recorded ???Last Taken ???Type apple cider vinegar 300 mg tablet 450 mg PO 02/25/23 Unknown Histor y ascorbate calcium (vitamin C) 500 500 mg PO DAILY 02/25/23 Unknown History mg tablet cranberry extract 200 mg capsule 200 mg PO DAILY 02/25/23 Unknown H istory echinacea 380 mg capsule 760 mg PO DAILY 02/25/23 Unknown H istory magnesium 250 mg tablet 250 mg PO DAILY 02/25/23 Unknown H istory mecobalamin (vitamin B12) 1,000 1,000 mcg PO DAILY 02/25/23 Unknow n History mcg chewable tablet calcium carbonate 600 mg PO QDAY 01/26/25 Unknown Hi story cholecalciferol (vitamin D3) 50 50 mcg PO QDAY 01/26/25 Unknown Hi story mcg (2,000 unit) capsule Allergy/AdvReac Type Severity Reaction Status Date / Time No Known Allergies Allergy Verified 03/09/25 08:35 Family History Grandmother Breast cancer Father Cancer laryngeal Myocardial infarction, Onset Age: 68 Mother CVA (cerebral vascular accident) Sister Hypertension Other Seizures Surgical History H/O total hysterectomy History of appendectomy History of surgical procedure S/P laparotomy History of back surgery Social History household members: spouse current occupational status: unemployed 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 Plan: Plan was made to complete salvage radiation therapy consisting of 4500 cGy delivered in 25 fractions to the entire length of the vaginal canal, at risk pelvic adenopathy as well as bilateral inguinal lymph node stations and she is planning to proceed with brachytherapy following external beam treatment. Treatment Data: Treatment Site: Pelvis Current total dose/Total dose planned: 3960 cGy / 4500 cGy Fraction number: Chemotherapy: none Subjective: Pain: 0 / 10 Fatigue: none Skin: no erythema, rash, desquamation GI: no diarrhea/constipation. No rectal pain or bleeding. No bloating or increased gas. : no increase urinary symptoms. No dysuria or hematuria SHOULDER PUNCHER: essentially no more vaginal bleeding, Objective: Weight: 180 lbs 6 oz Physical Exam: Gen: NAD Skin: no erythema, rash, desquamation. Labs: None Assessment Plan Assessment/Plan (1) Recurrent carcinoma of endometrium: PLAN: Plan Assessment: Tolerating treatment well overall.??? I reviewed and approved all treatment associated imaging. No treatment associated toxici (more content not included)... Normal [facility] Radiation Oncology Visiton 0 03-02-2025 Radiation Oncology Visit [facility] [address] [place] [id number] OFFICE VISIT Date of Service: 03/02/25 0900 MR#: [id number] Acct: [id number] Name: HEATHERDONI M Rep #: [id number] : 1950 From: Allen Nichols MD Age/Sex: 75/F Location: [facility] [place] Status: Signed Intake Vital Signs 01/26/25 08:47 03/02/25 09:02 Height 5 ft 2 in 5 ft 2 in Weight: 186 lb 4 oz BMI 34.0 BP 156/72 H Blood Pressure Location Rt brachial Position Sitting Respiration 18 Pulse 55 L Pulse Source Monitor Temp 96.9 F L Temperature Source Temporal Artery Pulse Oximetry (%) 98 Oxygen Delivery Method room air Intake Visit Reasons: OTV Is patient in pain?: No Allergies No Known Allergies Allergy (Verified 03/02/25 09:08) Medications ???Medication ???Instructions ???Recorded ???Confirmed ???Type apple cider vinegar 300 mg tablet 450 mg PO 02/25/23 03/02/25 Histo ry ascorbate calcium (vitamin C) 500 500 mg PO DAILY 02/25/23 03/02/25 History mg tablet cranberry extract 200 mg capsule 200 mg PO DAILY 02/25/23 03/02/25 History echinacea 380 mg capsule 760 mg PO DAILY 02/25/23 03/02/25 History magnesium 250 mg tablet 250 mg PO DAILY 02/25/23 03/02/25 History mecobalamin (vitamin B12) 1,000 1,000 mcg PO DAILY 02/25/23 History mcg chewable tablet calcium carbonate 600 mg PO QDAY 01/26/25 03/02/25 H istory cholecalciferol (vitamin D3) 50 50 mcg PO QDAY 01/26/25 03/02/25 H istory mcg (2,000 unit) capsule Have you fallen in the past year?: No PFSH PFSH Medical History Fractured coccyx History of back problems Home Medications ???Medication ???Instructions ???Recorded ???Last Taken ???Type apple cider vinegar 300 mg tablet 450 mg PO 02/25/23 Unknown Histor y ascorbate calcium (vitamin C) 500 500 mg PO DAILY 02/25/23 Unknown History mg tablet cranberry extract 200 mg capsule 200 mg PO DAILY 02/25/23 Unknown H istory echinacea 380 mg capsule 760 mg PO DAILY 02/25/23 Unknown H istory magnesium 250 mg tablet 250 mg PO DAILY 02/25/23 Unknown H istory mecobalamin (vitamin B12) 1,000 1,000 mcg PO DAILY 02/25/23 Unknow n History mcg chewable tablet calcium carbonate 600 mg PO QDAY 01/26/25 Unknown Hi story cholecalciferol (vitamin D3) 50 50 mcg PO QDAY 01/26/25 Unknown Hi story mcg (2,000 unit) capsule Allergy/AdvReac Type Severity Reaction Status Date / Time No Known Allergies Allergy Verified 03/02/25 09:08 Family History Grandmother Breast cancer Father Cancer laryngeal Myocardial infarction, Onset Age: 68 Mother CVA (cerebral vascular accident) Sister Hypertension Other Seizures Surgical History H/O total hysterectomy History of appendectomy History of surgical procedure S/P laparotomy History of back surgery Social History household members: spouse current occupational status: unemployed 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 Plan: Plan was made to complete salvage radiation therapy consisting of 4500 cGy delivered in 25 fractions to the entire length of the vaginal canal, at risk pelvic adenopathy as well as bilateral inguinal lymph node stations and she is planning to proceed with brachytherapy following external beam treatment. Treatment Data: Treatment Site: Pelvis Current total dose/Total dose planned: 3060 cGy / 4500 cGy Fraction number: Chemotherapy: none Subjective: Pain: 0 / 10 Fatigue: none Skin: no erythema, rash, desquamation GI: occasional diarrhea/constipation. No rectal pain or bleeding. No bloating or increased gas. Patient relates that she has gotten Imodium and has it in the house if need be has not used it today : no increase urinary symptoms. No dysuria or hematuria SHOULDER PUNCHER: essentially no more vaginal bleeding, Objective: Weight: 186 lbs 4 oz Physical Exam: Gen: NAD Skin: no erythema, rash, desquamation. Labs: None Assessment Plan Assessment/Plan (1) Recurrent carcinoma of endometrium: (more content not included)... Normal [facility] Radiation Oncology Visiton 0 02-23-2025 Radiation Oncology Visit [facility] [place] [place] [address] OFFICE VISIT Date of Service: 02/23/25921 MR#: [id number] Acct: [id number] Name: DONI NOVA Rep #: [id number] : 1950 From: Timur Blake DO Age/Sex: 75/F Location: [facility] [place] Status: Signed Intake Vital Signs 01/26/25 08:47 02/16/25 09:26 02/23/25 09:24 Height 5 ft 2 in 5 ft 2 in 5 ft 2 in Weight: 181 lb 7 oz 182 lb 6 oz BMI 33.2 33.3 BP 150/84 H 168/89 H Blood Pressure Location Rt brachial Rt brachial Position Sitting Sitting Respiration 16 16 Pulse 64 61 Pulse Source Monitor Monitor Temp 96.9 F L 97.1 F L Temperature Source Temporal Artery Temporal Artery Pulse Oximetry (%) 96 98 Oxygen Delivery Method room air room air Intake Visit Reasons: OTV Is patient in pain?: No Allergies No Known Allergies Allergy (Verified 02/23/25 09:25) Medications ???Medication ???Instructions ???Recorded ???Confirmed ???Type apple cider vinegar 300 mg tablet 450 mg PO 02/25/23 02/23/25 Histo ry ascorbate calcium (vitamin C) 500 500 mg PO DAILY 02/25/23 02/23/25 History mg tablet cranberry extract 200 mg capsule 200 mg PO DAILY 02/25/23 02/23/25 History echinacea 380 mg capsule 760 mg PO DAILY 02/25/23 02/23/25 History magnesium 250 mg tablet 250 mg PO DAILY 02/25/23 02/23/25 History mecobalamin (vitamin B12) 1,000 1,000 mcg PO DAILY 02/25/23 History mcg chewable tablet calcium carbonate 600 mg PO QDAY 01/26/25 02/23/25 H istory cholecalciferol (vitamin D3) 50 50 mcg PO QDAY 01/26/25 02/23/25 H istory mcg (2,000 unit) capsule Have you fallen in the past year?: No PFSH PFSH Medical History Fractured coccyx History of back problems Home Medications ???Medication ???Instructions ???Recorded ???Last Taken ???Type apple cider vinegar 300 mg tablet 450 mg PO 02/25/23 Unknown Histor y ascorbate calcium (vitamin C) 500 500 mg PO DAILY 02/25/23 Unknown History mg tablet cranberry extract 200 mg capsule 200 mg PO DAILY 02/25/23 Unknown H istory echinacea 380 mg capsule 760 mg PO DAILY 02/25/23 Unknown H istory magnesium 250 mg tablet 250 mg PO DAILY 02/25/23 Unknown H istory mecobalamin (vitamin B12) 1,000 1,000 mcg PO DAILY 02/25/23 Unknow n History mcg chewable tablet calcium carbonate 600 mg PO QDAY 01/26/25 Unknown Hi story cholecalciferol (vitamin D3) 50 50 mcg PO QDAY 01/26/25 Unknown Hi story mcg (2,000 unit) capsule Allergy/AdvReac Type Severity Reaction Status Date / Time No Known Allergies Allergy Verified 02/23/25 09:25 Family History Grandmother Breast cancer Father Cancer laryngeal Myocardial infarction, Onset Age: 68 Mother CVA (cerebral vascular accident) Sister Hypertension Other Seizures Surgical History H/O total hysterectomy History of appendectomy History of surgical procedure S/P laparotomy History of back surgery Social History household members: spouse current occupational status: unemployed 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 Plan: Plan was made to complete salvage radiation therapy consisting of 4500 cGy delivered in 25 fractions to the entire length of the vaginal canal, at risk pelvic adenopathy as well as bilateral inguinal lymph node stations and she is planning to proceed with brachytherapy following external beam treatment. Treatment Data: Treatment Site: Pelvis Current total dose/Total dose planned: 2160 cGy / 4500 cGy Fraction number: Chemotherapy: none Subjective: Pain: 0 / 10 Fatigue: none Skin: no erythema, rash, desquamation GI: no diarrhea/constipation. No rectal pain or bleeding. No bloating or increased gas : no increase urinary symptoms. No dysuria or hematuria SHOULDER PUNCHER: essentially no more vaginal bleeding, Objective: Weight: 182 lbs 6 oz Physical Exam: Gen: NAD Skin: no erythema, rash, desquamation. Labs: None Assessment Plan Assessment/Plan (1) Recurrent carcinoma of endomet (more content not included)... Normal [facility] Radiation Oncology Visiton 0 02-16-2025 Radiation Oncology Visit [facility] [address] [place] [address]. [place] [address] OFFICE VISIT Date of Service: 02/16/25923 MR#: [id number] Acct: [id number] Name: DONI NOVA Rep #: [id number] : 1950 From: Timur Blake DO Age/Sex: 75/F Location[place] [facility] Status: Signed Intake Vital Signs 01/26/25 08:47 02/16/25 09:26 Height 5 ft 2 in 5 ft 2 in Weight: 181 lb 7 oz BMI 33.2 BP 150/84 H Blood Pressure Location Rt brachial Position Sitting Respiration 16 Pulse 64 Pulse Source Monitor Temp 96.9 F L Temperature Source Temporal Artery Pulse Oximetry (%) 96 Oxygen Delivery Method room air Intake Visit Reasons: OTV Is patient in pain?: No Allergies No Known Allergies Allergy (Verified 02/16/25 09:25) Medications ???Medication ???Instructions ???Recorded ???Confirmed ???Type apple cider vinegar 300 mg tablet 450 mg PO 02/25/23 02/16/25 Histo ry ascorbate calcium (vitamin C) 500 500 mg PO DAILY 02/25/23 02/16/25 History mg tablet cranberry extract 200 mg capsule 200 mg PO DAILY 02/25/23 02/16/25 History echinacea 380 mg capsule 760 mg PO DAILY 02/25/23 02/16/25 History magnesium 250 mg tablet 250 mg PO DAILY 02/25/23 02/16/25 History mecobalamin (vitamin B12) 1,000 1,000 mcg PO DAILY 02/25/23 History mcg chewable tablet calcium carbonate 600 mg PO QDAY 01/26/25 02/16/25 H istory cholecalciferol (vitamin D3) 50 50 mcg PO QDAY 01/26/25 02/16/25 H istory mcg (2,000 unit) capsule Have you fallen in the past year?: No PFSH PFSH Medical History Fractured coccyx History of back problems Home Medications ???Medication ???Instructions ???Recorded ???Last Taken ???Type apple cider vinegar 300 mg tablet 450 mg PO 02/25/23 Unknown Histor y ascorbate calcium (vitamin C) 500 500 mg PO DAILY 02/25/23 Unknown History mg tablet cranberry extract 200 mg capsule 200 mg PO DAILY 02/25/23 Unknown H istory echinacea 380 mg capsule 760 mg PO DAILY 02/25/23 Unknown H istory magnesium 250 mg tablet 250 mg PO DAILY 02/25/23 Unknown H istory mecobalamin (vitamin B12) 1,000 1,000 mcg PO DAILY 02/25/23 Unknow n History mcg chewable tablet calcium carbonate 600 mg PO QDAY 01/26/25 Unknown Hi story cholecalciferol (vitamin D3) 50 50 mcg PO QDAY 01/26/25 Unknown Hi story mcg (2,000 unit) capsule Allergy/AdvReac Type Severity Reaction Status Date / Time No Known Allergies Allergy Verified 02/16/25 09:25 Family History Grandmother Breast cancer Father Cancer laryngeal Myocardial infarction, Onset Age: 68 Mother CVA (cerebral vascular accident) Sister Hypertension Other Seizures Surgical History H/O total hysterectomy History of appendectomy History of surgical procedure S/P laparotomy History of back surgery Social History household members: spouse current occupational status: unemployed 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 Plan: Plan was made to complete salvage radiation therapy consisting of 4500 cGy delivered in 25 fractions to the entire length of the vaginal canal, at risk pelvic adenopathy as well as bilateral inguinal lymph node stations and she is planning to proceed with brachytherapy following external beam treatment. Treatment Data: Treatment Site: Pelvis Current total dose/Total dose planned: 1260 cGy / 4500 cGy Fraction number: Chemotherapy: none Subjective: Pain: 0 / 10 Fatigue: none Skin: no erythema, rash, desquamation GI: no diarrhea/constipation. No rectal pain or bleeding. No bloating or increased gas : no increase urinary symptoms. No dysuria or hematuria SHOULDER PUNCHER: mild vaginal bleeding, lessening Objective: Weight: 181 lbs 7 oz Physical Exam: Gen: NAD Skin: no erythema, rash, desquamation. Labs: None Assessment Plan Assessment/Plan (1) Recurrent carcinoma of endometrium: PLAN: Plan Assessment: Tolerating treatment well overall.??? I reviewed and approved all treatment associated imagin (more content not included)... Normal [facility] Radiation Oncology Visiton 0 02-09-2025 Radiation Oncology Visit [facility] [address] [place] [address] OFFICE VISIT Date of Service: 02/09/25915 MR#: [id number] Acct: [id number] Name: DONI NOVA Rep #: [id number] : 1950 From: Timur Blake DO Age/Sex: 75/F Location[place] [facility] [place] Status: Signed Intake Vital Signs 01/26/25 08:47 02/09/25 09:18 Height 5 ft 2 in 5 ft 2 in Weight: 184 lb 8 oz 183 lb 1 oz BMI 33.7 33.5 BP 177/100 H 162/79 H Blood Pressure Location Lt brachial Rt brachial Position Sitting Sitting Respiration 16 18 Pulse 74 67 Pulse Source Monitor Monitor Temp 97.7 F L 96.7 F L Temperature Source Temporal Artery Temporal Artery Pulse Oximetry (%) 98 99 Oxygen Delivery Method room air room air Intake Visit Reasons: OTV Is patient in pain?: No Allergies No Known Allergies Allergy (Verified 02/09/25 09:18) Medications ???Medication ???Instructions ???Recorded ???Confirmed ???Type apple cider vinegar 300 mg tablet 450 mg PO 02/25/23 02/09/25 Histo ry ascorbate calcium (vitamin C) 500 500 mg PO DAILY 02/25/23 02/09/25 History mg tablet cranberry extract 200 mg capsule 200 mg PO DAILY 02/25/23 02/09/25 History echinacea 380 mg capsule 760 mg PO DAILY 02/25/23 02/09/25 History magnesium 250 mg tablet 250 mg PO DAILY 02/25/23 02/09/25 History mecobalamin (vitamin B12) 1,000 1,000 mcg PO DAILY 02/25/23 History mcg chewable tablet calcium carbonate 600 mg PO QDAY 01/26/25 02/09/25 H istory cholecalciferol (vitamin D3) 50 50 mcg PO QDAY 01/26/25 02/09/25 H istory mcg (2,000 unit) capsule Have you fallen in the past year?: No PFSH PFSH Medical History Fractured coccyx History of back problems Home Medications ???Medication ???Instructions ???Recorded ???Last Taken ???Type apple cider vinegar 300 mg tablet 450 mg PO 02/25/23 Unknown Histor y ascorbate calcium (vitamin C) 500 500 mg PO DAILY 02/25/23 Unknown History mg tablet cranberry extract 200 mg capsule 200 mg PO DAILY 02/25/23 Unknown H istory echinacea 380 mg capsule 760 mg PO DAILY 02/25/23 Unknown H istory magnesium 250 mg tablet 250 mg PO DAILY 02/25/23 Unknown H istory mecobalamin (vitamin B12) 1,000 1,000 mcg PO DAILY 02/25/23 Unknow n History mcg chewable tablet calcium carbonate 600 mg PO QDAY 01/26/25 Unknown Hi story cholecalciferol (vitamin D3) 50 50 mcg PO QDAY 01/26/25 Unknown Hi story mcg (2,000 unit) capsule Allergy/AdvReac Type Severity Reaction Status Date / Time No Known Allergies Allergy Verified 02/09/25 09:18 Family History Grandmother Breast cancer Father Cancer laryngeal Myocardial infarction, Onset Age: 68 Mother CVA (cerebral vascular accident) Sister Hypertension Other Seizures Surgical History H/O total hysterectomy History of appendectomy History of surgical procedure S/P laparotomy History of back surgery Social History household members: spouse current occupational status: unemployed 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 Plan: Plan was made to complete salvage radiation therapy consisting of 4500 cGy delivered in 25 fractions to the entire length of the vaginal canal, at risk pelvic adenopathy as well as bilateral inguinal lymph node stations and she is planning to proceed with brachytherapy following external beam treatment. Treatment Data: Treatment Site: Pelvis Current total dose/Total dose planned: 540 cGy / 4500 cGy Fraction number: Chemotherapy: none Subjective: Pain: 0 / 10 Fatigue: none Skin: no erythema, rash, desquamation GI: no diarrhea/constipation. No rectal pain or bleeding. No bloating or increased gas : no increase urinary symptoms. No dysuria or hematuria SHOULDER PUNCHER: mild vaginal bleeding, lessening Objective: Weight: 183 lbs 1 oz Physical Exam: Gen: NAD Skin: no erythema, rash, desquamation. Labs: None Assessment Plan Assessment/Plan (1) Recurrent carcinoma of endometrium: PLAN: Plan Assessment (more content not included)... Normal [facility] 37on 01-27-2025 37 Oncology Binder given Normal [facility] Cancer Antigen 125on 025 CA 125 15.4 U/mL Normal 0.0-38.1 [facility] Comment on above: Result Comment: Yi De Electrochemiluminescence Immunoassay (ECLIA) Values obtained with different assay methods or kits cannot be used interchangeably. Results cannot be interpreted as absolute evidence of the presence or absence of malignant disease. Performed at: [employer] [address] [id number] Manager Advanced: Anand Menard PhD, Phone: [phone] Performed By: #### L 3100.5000 #### [facility] [address] [place], [place], [address] Hospital Encounteron 025 Hospital Encounter [id number] Doni Nova 1950 F Date Provider Department Center 01/27/2025 [id number]-QRFAGUSTINA AGUDELO None Family History Problem Relation Age of Onset Stroke Mother Cancer Father Comments: laryngeal Heart attack Father Hypertension Sister Breast cancer Maternal Grandmother Family Status - Relation Status Age at Mother Father Sister Maternal Grandmother Level of Service:32890 DE OFFICE/OUTPATIENT [facility] 60 MINUTES Reason for Visit and Comments: Consult [484] - Consult with Dr. Agudelo. Normal [facility] Nursing Noteon 01-27-2025 Nursing Note Here alone at [facility] Ra cotton for consult with Dr. Agudelo. She reports good energy and denies pain. She was having severe lower abdominal pain and bleeding and was diagnosed with endometrial cancer in June 2023. She was treated with hysterectomy and bx. She had follow up with Dr. Waters in [place] who referred her to Dr. Paulino. She will have a PET Scan in the future - not scheduled as of yet. She denies any other hx of cancer, chemo, radiation. She denies any implantable devices/pacemaker. Medications reviewed and updated via patient recall. Normal [facility] Cancer antigen 125 (CA-125) measurementOrdered By: Anthony Harper on 01-26-2025 Cancer antigen 125 (CA-125) measurement 15.4 U/mL 0.0-38.1 [facility] Comment on above: [facility] El ectrochemiluminescence Immunoassay(ECLIA)Values obtained with different assay methods or kits cannotbe used interchangeably. Results cannot be interpreted asabsolute evidence of the presence or absence of malignantdisease.Performed at: [address] [id number] Director: Anand Menard PhD, Phone: [phone] Oncology Visit Reporton Oncology Visit Report [facility] [place] [address] OFFICE VISIT Date of Service: 01/26/25 0840 MR#: [id number] Acct: [id number] Name: DONI NOVA Rep #: [id number] : 1950 From: Anthony Harper MD Age/Sex: 74/F Location: [facility] [place] Status: Signed HPI Subjective Date of Service 01/26/25 Chief Complaint Referred for Recurrent endometrial cancer management. History of Present Illness 74-year-old woman was diagnosed with stage Ib grade 1-2 endometrial cancer in June 2023. She underwent hysterectomy, BSO with lymph nodes sampling on 06/25/2023. Pathology showed endometrioid adenocarcinoma grade 2, percentage of myometrial invasion was 65%, MMR positive, lymph nodes negative followed by observation. Observation was done after surgery. She noticed vaginal bleed and was found to have a vaginal mass, biopsy on 01/03/2025 showed endometrioid carcinoma. She is now referred to see if she will do chemotherapy with radiation therapy. She feels well. 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 [employer] Smoking Status: Never smoker Electronic Cigarette Use: not used alcohol intake: never substance use type: does not use what type of physical activity do you participate in: none do you feel safe at home: Yes ROS Constitutional Constitutional: Reports systems reviewed and no addt'l complaints, except as documented Eyes Eyes: Reports systems reviewed and no addt'l complaints, except as documented ENT HEENT: Reports systems reviewed and no addt'l complaints, except as documented Cardiovascular Cardiovascular: Reports systems reviewed and no addt'l complaints, except as documented Respiratory/Chest Respiratory/Chest: Reports systems reviewed and no addt'l complaints, except as documented Gastrointestinal Gastrointestinal: Reports systems reviewed and no addt'l complaints, except as documented Genitourinary Genitourinary: Reports systems reviewed and no addt'l complaints, except as documented Musculoskeletal Musculoskeletal: Reports systems reviewed and no addt'l complaints, except as documented Integumentary Integumentary: Reports systems reviewed and no addt'l complaints, except as documented Neurologic Neurologic: Reports systems reviewed and no addt'l complaints, except as documented Psychiatric Psychiatric: Reports systems reviewed and no addt'l complaints, except as documented Endocrine Endocrinology: Reports systems reviewed and no addt'l complaints, except as documented Hematologic/Lymphatic Hematologic/Lymphatic: Reports systems reviewed and no addt'l complaints, except as documented Allergic/Immunologic Allergic/Immunologic: Reports systems reviewed and no addt'l complaints, except as documented Intake Vital Signs 12/29/24 08:12 01/21/25 08:25 01/26/25 08:41 01/26/25 08:47 Height 5 ft 2 in 5 ft 2 in 5 ft 2 in 5 ft 2 in Weight: 83.688 kg BMI 33.7 BP 177/100 H Blood Pressure Location Lt brachial Position Sitting Respiration 16 Pulse 74 Pulse Source Monitor Temp 97.7 F L Temperature Source Temporal Artery Pulse Oximetry (%) 98 Oxygen Delivery Method room air Intake Is patient in pain?: No Allergies No Known Allergies Allergy (Verified 01/26/25 08:44) Medications ???Medication ???Instructions ???Recorded ???Confirmed ???Type apple cider vinegar 300 mg tablet 450 mg PO 02/25/23 01/21/25 Histo ry ascorbate calcium (vitamin C) 500 500 mg PO DAILY 02/25/23 01/21/25 History mg tablet cranberry extract 200 mg capsule 200 mg PO DAILY 02/25/23 01/21/25 History echinacea 380 mg capsule 760 mg PO DAILY 02/25/23 01/21/25 History magnesium 250 mg tablet 250 mg PO DAILY 02/25/23 01/21/25 History mecobalamin (vitamin B12) 1,000 1,000 mcg PO DAILY 02/25/23 History mcg chewable tablet calcium carbonate 600 mg PO QDAY 01/26/25 01/26/25 H istory cholecalciferol (vitamin D3) 50 50 mcg PO QDAY 01/26/25 01/26/25 H istory mcg (2,000 unit) capsule Have you fallen in the past year?: No Central Venous Access Central Venous Access: No Exam Physical Exam Const alert, oriented x3 a (more content not included)... Normal [facility] Radiation Oncology Visiton 0 01-21-2025 Radiation Oncology Visit [facility] [address] [place] [address] OFFICE VISIT Date of Service: 01/21/25822 MR#: [id number] Acct: [id number] Name: HEATHERDONI M Rep #: [id number] : 1950 From: Timur Blake DO Age/Sex: 74/F Location: [facility] [place] Status: Signed Intake Vital Signs 12/29/24 08:12 01/21/25 08:25 Height 5 ft 2 in 5 ft 2 in Weight: 184 lb 9 oz BMI 33.7 BP 165/89 H Blood Pressure Location Rt brachial Position Sitting Respiration 16 Pulse 60 Pulse Source Monitor Temp 96.6 F L Temperature Source Temporal Artery Pulse Oximetry (%) 98 Oxygen Delivery Method room air Intake Visit Reasons: ENDOMETRIAL CA Is patient in pain?: No Allergies No Known Allergies Allergy (Unverified 01/21/25 08:29) Medications ???Medication ???Instructions ???Recorded ???Confirmed ???Type apple cider vinegar 300 mg tablet 450 mg PO 02/25/23 01/21/25 Histo ry ascorbate calcium (vitamin C) 500 500 mg PO DAILY 02/25/23 01/21/25 History mg tablet cranberry extract 200 mg capsule 200 mg PO DAILY 02/25/23 01/21/25 History echinacea 380 mg capsule 760 mg PO DAILY 02/25/23 01/21/25 History magnesium 250 mg tablet 250 mg PO DAILY 02/25/23 01/21/25 History mecobalamin (vitamin B12) 1,000 1,000 mcg PO DAILY 02/25/23 History mcg chewable tablet Have you fallen in the past year?: No PFSH PFSH Medical History Fractured coccyx History of back problems Home Medications ???Medication ???Instructions ???Recorded ???Last Taken ???Type apple cider vinegar 300 mg tablet 450 mg PO 02/25/23 Unknown Histor y ascorbate calcium (vitamin C) 500 500 mg PO DAILY 02/25/23 Unknown History mg tablet cranberry extract 200 mg capsule 200 mg PO DAILY 02/25/23 Unknown H istory echinacea 380 mg capsule 760 mg PO DAILY 02/25/23 Unknown H istory magnesium 250 mg tablet 250 mg PO DAILY 02/25/23 Unknown H istory mecobalamin (vitamin B12) 1,000 1,000 mcg PO DAILY 02/25/23 Unknow n History mcg chewable tablet Allergy/AdvReac Type Severity Reaction Status Date / Time No Known Allergies Allergy Unverified 01/21/25 08:29 Family History Grandmother Breast cancer Father Cancer laryngeal Myocardial infarction, Onset Age: 68 Mother CVA (cerebral vascular accident) Sister Hypertension Other Seizures Surgical History H/O total hysterectomy History of appendectomy History of surgical procedure S/P laparotomy History of back surgery Social History household members: spouse current occupational status: unemployed 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 [employer] Smoking Status: Never smoker Electronic Cigarette Use: not used alcohol intake: never substance use type: does not use what type of physical activity do you participate in: none do you feel safe at home: Yes Referring Provider: Lenny Paulino MD Diagnosis: Doni Nova is a 74-year-old female diagnosed with FIGO stage IB (pT1b pN0 M0) endometrioid adenocarcinoma in 2022 status post surgery with CITLALLI/BSO and lymph node sampling (June 2023) now with evidence of biopsy-proven vaginal recurrence status post exam with biopsy (01/03/2025), PET scan (01/11/2025), and MRI pelvis (01/20/2025). History of Present Illness: 07/07/2023: Patient completed abdominal hysterectomy and BSO with lymph node sampling for endometrial cancer.??? Pathology demonstrated grade 2 endometrioid carcinoma with myometrial invasion present with a depth of invasion 13/20 mm, there is lower uterine segment involvement, no cervical stromal involvement.??? No lymphatic or vascular invasion.??? 5 pelvic lymph nodes and 2 periaortic lymph nodes were examined and none contained metastatic disease.??? pT1b pN0 01/03/2025: Biopsy of the anterior mid vaginal wall lesion was completed.??? Patient completed vaginal biopsy.??? This demonstrated pathology consistent with endometrioid carcinoma positive for ER and DE. 01/11/2025: Patient completed PET scan.??? This demonstrated ill-defined hypermetabolic focus along the right lower vaginal wall compatible with lower cervical/upper vaginal neoplasm.??? There are mildly hypermetabolic foci within the right lower pelvis subadjacent to the foci of calcifications likely artifactual however soraida metastatic disease cannot be ruled out and recommend MRI pelvis to further evaluate. 01/20/2025: Patient completed MRI pelvis with and without contrast.??? This demonstrated hysterectomy with a 3.2 cm nodular enhancing soft tissue favored to be along the anterior wall of the mid to upper vagina probably correlat (more content not included)... Normal [facility] Pelvis W/WO Contraston 01-20 Pelvis W/WO Contrast [facility] [address] [place] [address] Pelvis W/WO Contrast MR#: [id number] Acct: [id number] Name: DONI NOVA Rep #: [id number] : 1950 F 74 From: Baljinder Rae MD PCP: Dr. Uriel Gipson MD Status: REG CLI Study: Pelvis W/WO Contrast Date of Exam: 01/20/25 Exam# [id number] Ordering Dr: Timur Blake DO PROCEDURE: PELVIS W/WO CONTRAST ([id number]), 01/20/2025 REASON FOR EXAM: RECURRENT ENDOMETRIAL CANCER, EVAL FOR DISEASE EXT TECHNIQUE: Multisequence multiplanar MR of the pelvis was performed with and without IV contrast. Contrast: 17 mL Clariscan COMPARISON: 01/11/2025 FINDINGS: Note diffusion sequences were not performed. Variable overall mild motion limitation. Some sequences are mild/moderately motion degraded. Visualized bowel: Grossly unremarkable. Lymph nodes: No overt lymphadenopathy within the field of view. Note that the previous findings just posterior to the distal ureter on preceding PET/CT are probably above the field of view. Vasculature: Grossly unremarkable. Peritoneum: Trace pelvic free fluid. Bladder: Underdistended and suboptimally evaluated. Bladder wall trabeculation suggesting possible chronic bladder outlet obstruction. Abutment by the below findings related to the vagina. Reproductive Organs: Hysterectomy.. Ill-defined T1 dark and T2 intermediate enhancing nodular soft tissue favored along the anterior wall of the mid to upper vagina measures 3.2 x 1.5 x 2.9 cm and probably correlates with the previous PET/CT finding. There is immediate abutment of the posterior most bladder and probably the proximal urethra without clearly preserved fat plane in some areas, however without gross invasion. Ureters are uninvolved and are located above this level. Body Wall: Operative changes.. Bones: Unremarkable. MRI/Pelvis W/WO Contrast IMPRESSION: 1. Exam limited mostly by the lack of diffusion sequences which should be performed if MR follow-up is pursued. 2. Hysterectomy with 3.2 cm nodular enhancing soft tissue favored along the anterior wall of the mid to upper vagina probably correlates with the previous PET/CT finding and may reflect the site of reported recurrence. Immediate abutment of the posterior bladder and proximal urethra without gross invasion although early/microscopic involvement cannot be excluded given lack of preserved fat planes. Clinical/oncologic follow-up recommended. This should be amenable to direct exam/tissue sampling. 3. No overt lymphadenopathy within the field of view. Note that the previous findings just posterior to the distal ureter on preceding PET/CT are probably above the field of view. These would be optimally followed by CT or PET/CT. 4. Trace pelvic free fluid, nonspecific but unexpected in a postmenopausal female. 5. Additional description as above. Reading Location: [id number] CC: Dr. Uriel Gipson MD; Dr. Timur Blake DO [employer] Workflow Consultant: Signed Normal [place] [id number] 01-18-2025 36 Pt called with PET [place] [id number] 01-12-[address] Blake at [phone] via [employer]fax. Confirmation scanned within media [facility] 36 ----- Message from Rodney Paulino MD sent at 01/12/2025 2:31 PM EDT ----- Plz fax to Dr Timur Blake Rad Onc at [facility] ----- Message ----- From: [employer] Janet UserPadmini Sent: 01/12/2025 9:31 AM EDT To: Lenny Paulino MD [facility] 36 [email or web address] [facility] PET/CT Tumor Base -Thigh Ini ton 01-11-2025 PET/CT Tumor Base -Thigh Init [facility] [facility] Imaging Services [address] [place] [address] PET/CT Tumor Base -Thigh Init MR#: [id number] Acct: [id number] Name: DONI NOVA Rep #: [id number] : 1950 F 74 From: Sheree Bronson nd, MD PCP: Dr. Uriel Gipson MD Status: REG CLI Study: PET/CT Tumor Base -Thigh Init Date of Exam: Exam# [id number] Ordering Dr: Lenny Paulino MD EXAM: PET/CT Study CLINICAL HISTORY: 74 y/o F with UTERINE/CERVICAL CANCER, staging. History of grade one-two endometrial cancer diagnosed in June 2023 status post hysterectomy and BSO lymph node sampling. COMPARISON: None. TECHNIQUE: PROCEDURE: Following the intravenous administration of radionucleotide, image acquisition on a dedicated PET/CT unit was performed at one hour post injection. A preliminary CT study encompassing the Skull base, neck, chest, abdomen, pelvis, and proximal thighs was performed for purposes of attenuation correction and anatomic localization. The proximal thighs were also included. The patient's blood glucose level was 124 mg/dL (allowable range: 50-180 mg/dL). RADIOPHARMACEUTICAL: 14.39 mCi 18F-FDG (Fluorodeoxyglucose F18) IV was injected into patient. FINDINGS: Reported avid SUV values (g/mL*) are maximum SUV. Average liver SUV: 2.9 HEAD/NECK: No suspicious hypermetabolic lesions. CHEST: No suspicious hypermetabolic lesions. ABDOMEN: No suspicious hypermetabolic lesions. PELVIS: Ill-defined, hypermetabolic focus along the right lower vaginal wall demonstrating a maximum SUV of 10.2. There are 2 mildly hypermetabolic foci within the right pelvis just posterior to the distal ureter subjacent to pelvic calcifications/surgical clips from prior lymph node dissection, demonstrating a max SUV of 2.5 (see axial fused images 206 and 212). Mild diffuse hypermetabolic uptake throughout the thoracic and lumbar spine. Additional CT findings: Mild coronary artery and thoracic aortic calcifications. Moderate calcific plaque of the aortoiliac vessels. Prior hysterectomy, bilateral salpingo-oophorectomy and lymph node dissection. Surgical clips along the cervical and thoracolumbar spondylosis. PET/PET/CT Tumor Base -Thigh Init IMPRESSION: 1. Ill-defined, hypermetabolic focus along the right lower vaginal wall, compatible with lower cervical/upper vaginal neoplasm. 2. Mildly hypermetabolic foci within the right lower pelvis subjacent to foci of calcifications, likely artifactual, however soraida metastatic disease can not be excluded given resolution of PET-CT. Recommend pelvic MRI for further evaluation. Please note the low-dose CT scan was performed to facilitate PET image reconstruction and anatomic localization and does not replace a diagnostic CT. Any diagnostic CT requested and performed at the time of the PET will be reported separately. Reading Location: PSYCHIATRIC CC: Dr. Uriel Gipson MD; Dr. Lenny Paulino MD [employer] Workflow Consultant: Signed Normal [facility] Office Visiton 01-03-2025 Follow-up visit [id number] Doni Nova 1950 F Date Provider Department Center 01/03/2025 [id number] PAULINO J [facility] SHOULDER PUNCHER None Family History Problem Relation Age of Onset Stroke Mother Cancer Father Comments: laryngeal Heart attack Father Hypertension Sister Breast cancer Maternal Grandmother Family Status - Relation Status Age at Mother Father Sister Maternal Grandmother Level of Service:10597 DE OFFICE/OUTPATIENT ESTABLISHED LOW MDM 20 MIN (25) Reason for Visit and Comments: Endometrial Cancer [562] Normal [facility] Progress Noteon 01-03-2025 Progress Note Casting Plug Assembler was offere d to the patient for exam. Patient accepted, medical office technology instructor in room during exam Pt left without second BP. Normal [facility] Progress Note Surg CC: stage I B g rade 1-2 endometrial cancer HPI: 74 y.o. Doni Nova female with a stage I B grade 1-2 endometrial cancer diagnosed in June 2023. She was treated with hysterectomy BSO lymph node sampling followed by observation. 2 months of VB, notices mostly when going to the bathroom. Denies any vaginal pain, pelvic pain, denies any difficulty passing her water. Patient underwent surveillance visit was found to have friable tissue in the vagina Denies any unintended weight loss. Past Medical History: Diagnosis Date Back pain Fractured coccyx (HCC) Post-menopausal bleeding Past Surgical History: Procedure Laterality Date APPENDECTOMY BACK SURGERY LAPAROTOMY EXPLORATORY (HISTORICAL) Social History Socioeconomic History Marital status: Tobacco Use Smoking status: Never Smokeless tobacco: Never Substance and Sexual Activity Alcohol use: Never Drug use: Never Current Outpatient Medications Medication Sig Dispense Refill acetaminophen (Tylenol) 500 MG tablet Take 2 tablets (1,000 mg) by mouth in the morning and 2 tablets (1,000 mg) at noon and 2 tablets (1,000 mg) in the evening and 2 tablets (1,000 mg) before bedtime. (Patient not taking: Reported on 07/11/2023) 30 tablet 0 apixaban (Eliquis) 2.5 MG tablet Take 1 tablet (2.5 mg) by mouth 2 times daily for 28 days. 56 tablet 0 APPLE CIDER VINEGAR PO Take by mouth. Ascorbic Acid (vitamin C) 100 MG tablet Take 100 mg by mouth daily. CRANBERRY PO Take by mouth. cyanocobalamin (Vitamin B-12) 100 MCG tablet Take 500 mcg by mouth daily. docusate sodium (Colace) 100 MG capsule Take 1 capsule (100 mg) by mouth 2 times daily. (Patient not taking: Reported on 07/11/2023) 20 capsule 0 ibuprofen 600 MG tablet Take 1 tablet (600 mg) by mouth in the morning and 1 tablet (600 mg) at noon and 1 tablet (600 mg) in the evening and 1 tablet (600 mg) before bedtime. 60 tablet 0 magnesium 30 MG tablet Take 30 mg by mouth daily. No current facility-administered medications for this visit. Review of Systems Genitourinary: Positive for vaginal bleeding. Negative for pelvic pain and vaginal pain. Patient has no known allergies. LMP 06/23/2023 Physical Exam Vitals and nursing note reviewed. Exam conducted with a unemployment insurance hearing officer present. Constitutional: Appearance: Normal appearance. Abdominal: General: Abdomen is flat. Palpations: Abdomen is soft. There is no mass. Hernia: No hernia is present. Genitourinary: General: Normal vulva. Labia: Right: No lesion. Left: No lesion. Urethra: No urethral lesion. Vagina: Lesions present. Comments: In the anterior mid vaginal wall is an approximately 4 cm nodular recurrent carcinoma. Mobile, not fixed to pubic bone Lymphadenopathy: Upper Body: Right upper body: No supraclavicular adenopathy. Left upper body: No supraclavicular adenopathy. Lower Body: No right inguinal adenopathy. No left inguinal adenopathy. Neurological: Mental Status: She is alert. Psychiatric: Mood and Affect: Mood normal. Behavior: Behavior normal. 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 If evidence of other systemic spread would also need chemotherapy. All the patient's and 's questions were answered to the best my ability and total time spent in [id number]-[id number] counseling review of EMR was 25 minutes [facility] 36on 12-30-2024 36 Patient to call back with availability [facility] 36on 12-29-2024 36 LVM to schedule foll ow up with Dr. Paulino next week [facility] [address] Jenkins 's office stated that pelvic exam was performed and the tissue was friable and there was minor bleeding. Office note to be faxed. Will route to provider once it comes in. With further questions, callback is [phone] [facility] 36 [place] from [facility] on Internal Medicine called to report Pt has changes seen in pelvic exam and Dr will be faxing office notes for possible exam/consult here. Thank you [facility] Internal Medicine Office Vis jl 12-28-2024 Internal Medicine Office Visit [facility] [address] [place] [address] [place] [address] OFFICE VISIT Date of Service: 12/29/24 MR#: [id number] Acct: [id number] Name: DONI NOVA Rep #: [id number] : 1950 Provider: Dr. Uriel simpson MD Age/Sex: 74/F Location: [facility] Status: Signed Intake Vital Signs 07/01/24 08:55 12/29/24 08:12 Height 5 ft 2 in 5 ft 2 in Weight: 187 lb BMI 34.2 BP 132/80 H Blood Pressure Location Lt brachial Position Sitting Respiration 18 Pulse 64 Pulse Source Monitor Temp 97.8 F Temp Source Temporal Pulse Oximetry (%) 98 Oxygen Delivery Method room air Intake Visit Reasons: 6 M Chief Complaint: 6 M Is patient in pain?: No Allergies No Known Allergies Allergy (Unverified 12/29/24 08:11) Medications ???Medication ???Instructions ???Recorded ???Confirmed ???Type apple cider vinegar 300 mg tablet 450 mg PO 02/25/23 12/29/24 Histo ry ascorbate calcium (vitamin C) 500 500 mg PO DAILY 02/25/23 12/29/24 History mg tablet cranberry extract 200 mg capsule 200 mg PO DAILY 02/25/23 12/29/24 History echinacea 380 mg capsule 760 mg PO DAILY 02/25/23 12/29/24 History magnesium 250 mg tablet 250 mg PO DAILY 02/25/23 12/29/24 History mecobalamin (vitamin B12) 1,000 1,000 mcg PO DAILY 02/25/23 History mcg chewable tablet Have you fallen in the past year?: No 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 1. Little interest or pleasure in doing things: not at all 2. Feeling down, depressed, or hopeless: not at all 3. Trouble falling or staying asleep, or sleeping too much: not at all 4. Feeling tired or having little energy: not at all 5. Poor appetite or overeating: not at all 6. Feeling bad about yourself - or that you are a failure or have let yourself and your family down: not at all 7. Trouble concentrating on things, such as reading the newspaper or watching television: not at all 8. Moving or speaking so slowly that other people could have noticed? - Or the opposite - being so fidgety or restless that you have been moving around a lot more than usual: not at all 9. Thoughts that you would be better off or of hurting yourself in some way: not at all Total score: 0 If you checked off any problems, how difficult have these problems made it for you to do your work, take care of things at home, or get along with other people?: not difficult at all Source: Developed by Drs. Kota Short, Candy Merlos, Homero Olivera and colleagues, with an educational amelia from [employer] HPI HPI Chief Complaint: 6 M Details: DONI NOVA, is a 74 F who presents to the office today for a follow up. She is up to date on her routine blood work and previously declined any colon cancer screening. She has her mammogram scheduled in March. She previously declined any immunizations. She doesn't smoke and doesn't take any prescription medications. She reports she is eating healthy and is trying to stay active. The patient has a history of endometrial cancer s/p total hysterectomy. It was recommended she complete pelvic exams every 6 months for continued monitoring and is here to complete that today. She reports she hasn't been having any problems such as bleeding or discharge, nor any pelvic pain. She states she thinks she has a 'wart' in her pelvic area that bleeds occasionally. She has no questions or concerns at this time. Medications reviewed: Yes Doni likes to exercises by doing home exercises. They watch their diet for sodium, low fat, and low cholesterol most of the time. List of current specialists seen: None End of life planning discussed including patient's advanced directive wishes: I am willing to follow Doni's advanced directives PHQ-2/Depression screen (more content not included)... Normal [facility] ABO and Rh group Confirm Nom (Bld)on 06-25-2023 ABO group Nom (Bld) B [employer] D Ag Ql (RBC) Positive [facility] [employer] Blood type and Crossmatch pa ceci (Bld)on 06-25-2023 ABO group Nom (Bld) B [facility] [employer] Blood group antibody screen GEL Ql Negative [employer] D Ag Ql (RBC) Positive [facility] [employer] CBC panel Auto (Bld)on 06-25 Erythrocyte distribution width (RBC) [Ratio] 13.9 % 11.5 - 14.5 % [employer] Hematocrit (Bld) [Volume fraction] 41.7 % 35.0 - 47.0 % [facility] Hemoglobin (Bld) [Mass/Vol] 14.2 g/dL 11.7 - 16.0 g/dL [facility] Interpretation and review of laboratory results Normal [facility] MCH (RBC) [Entitic mass] 31.4 pg 26.0 - 34.0 pg [facility] MCHC (RBC) [Mass/Vol] 33.9 % 32.0 - 36.0 % [facility] MCV (RBC) [Entitic vol] 92.6 fL 80.0 - 98.0 fL [facility] Platelet mean volume (Bld) [Entitic vol] 8.1 fL 7.4 - 12.4 fL [facility] Platelets (Bld) [#/Vol] 244 10*3/uL 140 - 440 10*3/uL [facility] RBC (Bld) [#/Vol] 4.51 10*6/uL 3.8 - 5.20 10*6/uL [facility] WBC (Bld) [#/Vol] 9.4 10*3/uL 3.6 - 10.7 10*3/uL [facility] Basophil percentageOrdered B y: Uriel Gipson on 06-05-2023 Basophil percentage 0-5 SEEN /hpf 0-5 [facility] Bilirubin Test strip Ql (U)O rdered By: Uriel Gipson on 06-05-2023 Bilirubin Ql (U) Negative Negative [facility] Culture, urineOrdered By: Al reic Gipson on 06-05-2023 Bacteria identified Cx Nom (U) Positive [facility] Ketones Test strip Ql (U)Ord ered By: Uriel Leonela on 06-05-2023 Ketones Ql (U) Negative Negative [facility] Mucus LM Ql (Urine sed)Order ed By: Urieleric Gipson on 06-05-2023 Mucus Ql (Urine sed) 0 SEEN /hpf [facility] Nitrite Test strip Ql (U)Ord ered By: Uriel Leonela on 06-05-2023 Nitrite Ql (U) Negative Negative [facility] Protein Test strip Ql (U)Ord ered By: Uriel Leonela on 09-14-2023 Protein Ql (U) Negative Negative [facility] Squamous epithelial cells de tection in urine sediment by light microscopyOrdered By: Uriel Gipson on 06-05-2023 Epithelial cells.squamous LM Ql (Urine sed) 0 SEEN /hpf 5-10 [facility] Urine blood detectionOrdered By: Uriel Gipson on 06-05-2023 RBC Ql (U) 25 /ul Negative [facility] RBC Ql (U) 0-5 SEEN /hpf 0-5 [facility] Urine clarityOrdered By: John Gipson on 06-05-2023 Clarity (U) Clear Clear [facility] Urine color determinationOrd ered By: Uriel Gipson on 06-05-2023 Color (U) Yellow Yellow [facility] Urine glucose detectionOrder ed By: Uriel Gipson on 06-05-2023 Glucose Ql (U) Normal mg/dl Normal [facility] Urine leukocyte esterase det ection by dipstickOrdered By: Uriel Gipson on 06-05-2023 Leukocyte esterase Test strip Ql (U) Negative Negative [facility] Urine pHOrdered By: Uriel chaparro on 06-05-2023 pH (U) 7.0 [pH] 5.0 - 8.0 [facility] Urine sediment bacteria coun t by microscopy (number/high power field)Ordered By: Uriel Gipson on 06-05-2023 Bacteria LM.HPF (Urine sed) [#/Area] 0 /[HPF] None Seen [facility] Urine specific gravity measu rementOrdered By: Uriel Gipson on 06-05-2023 Specific gravity (U) [Rel density] 1.010 1.002-1.030 [facility] Urobilinogen Auto test strip Ql (U)Ordered By: Uriel Gipson on 06-05-2023 Urobilinogen Ql (U) Normal mg/dl Normal [facility] Absolute lymphocyte countOrd ered By: Uriel Gipson on 02-25-2023 Lymphocytes Auto (Unsp spec) [#/Vol] 1.33 10*3/uL 0.83-4.51 [facility] Basophil percentageOrdered B y: Uriel Gipson on 02-25-2023 Basophil percentage 25-50 SEEN /hpf 0-5 [facility] Basophils/100 WBC (Bld) 0.9 % 0-1 [facility] Bilirubin [Mass/Vol] 1.00 mg/dL 0.20-1.00 [facility] Comment on above: For patients on eltr ombopag therapy, use of [employer] [place] TBIL is not recommended. Chloride [Moles/Vol] 108 mmol/L 98-107 [facility] Cholesterol [Mass/Vol] 226 mg/dL <200 [facility] Comment on above: <200 mg/dL Desirable 200-240 mg/dL Borderline >240 mg/dL High Risk Eosinophils/100 WBC (Bld) 2.5 % 0-5 [facility] Glucose [Mass/Vol] 96 mg/dL 74-106 [facility] Neutrophils (Bld) [#/Vol] 5.8 10*3/uL 2.0-7.7 [facility] Neutrophils/100 WBC (Bld) 74.2 % 47-70 [facility] Potassium [Moles/Vol] 3.9 mmol/L 3.5-5.1 [facility] Protein [Mass/Vol] 7.6 g/dL 6.4-8.2 [facility] Sodium [Moles/Vol] 139 mmol/L 136-145 [facility] Triglyceride [Mass/Vol] 111 mg/dL <199 [facility] Comment on above: The drugs N-Acetylcy steine and Metamizole may falsely depress this assay.Serum Triglycerides Reference Interval Normal <150 mg/dL Borderline high 150 - 199 mg/dL High 200 - 499 mg/dL Very High > or = 500 mg/dL WBC (Bld) [#/Vol] 7.9 10*3/uL 4.4-11.0 [facility] Bilirubin Test strip Ql (U)O rdered By: Uriel Gipson on 02-25-2023 Bilirubin Ql (U) Negative Negative [facility] Blood erythrocytes count (nu mber/volume)Ordered By: Uriel Gipson on 02-25-2023 RBC (Bld) [#/Vol] 4.38 10*6/uL 4.2-5.4 [facility] Blood hemoglobin measurement (mass/volume)Ordered By: Uriel Gipson on 02-25-2023 Hemoglobin (Bld) [Mass/Vol] 13.6 g/dL 12.0-15.0 [facility] Blood lymphocytes/100 leukoc ytesOrdered By: Uriel Gipson on 02-25-2023 Lymphocytes/100 WBC (Bld) 16.9 % 19-41 [facility] Blood monocytes/100 leukocyt esOrdered By: Uriel Gipson on 02-25-2023 Monocytes/100 WBC (Bld) 5.2 % 0-10 [facility] Blood platelet mean volumeOr dered By: Uriel Gipson on 02-25-2023 Platelet mean volume (Bld) [Entitic vol] 11.1 fL 6.2-12.0 [facility] Determination of erythrocyte mean corpuscular volume (MCV)Ordered By: Uriel Gipson on 02-25-2023 MCV (RBC) [Entitic vol] 96.6 fL 81-99 [facility] Hematocrit Auto (Bld) [Volum e fraction]Ordered By: Uriel Gipson on 02-25-2023 Hematocrit (Bld) [Volume fraction] 42.3 % 37-47 [facility] Ketones Test strip Ql (U)Ord ered By: Uriel Gipson on 02-25-2023 Ketones Ql (U) Negative Negative [facility] Laboratory - Chemistry and C hemistry - challengeOrdered By: Uriel Gipson on 02-25-2023 ALP [Catalytic activity/Vol] 78 U/L 45-117 [facility] ALT [Catalytic activity/Vol] 20 U/L 13-56 [facility] CO2 [Moles/Vol] 25.0 mmol/L 21.0-32.0 [facility] Globulin (S) [Mass/Vol] 3.7 g/dL 2.2-4.2 [facility] Urea nitrogen/Creatinine [Mass ratio] 16.2 mg/mg 10-20 [facility] - Hematology and Cell countsOrdered By: Uriel Gipson on 02-25-2023 Erythrocyte distribution width (RBC) [Entitic vol] 48.2 fL 35.1-43.9 [facility] Erythrocyte distribution width (RBC) [Ratio] 13.4 % 11.6-14.6 [facility] Immature granulocytes/100 WBC (Bld) 0.300 % 0.0-0.9 [facility] Comment on above: IG% - Immature Granu locytes (promyelocytes, myelocytes and metamyelocytes) > 1% indicates that a LEFT SHIFT is Present. MCH (RBC) [Entitic mass] 31.1 pg 27.0-32.0 [facility] Nucleated RBC/100 WBC (Bld) [Ratio] 0 % 0-5 [facility] MCHC Auto (RBC) [Mass/Vol]Or dered By: Uriel Gipson on 02-25-2023 MCHC (RBC) [Mass/Vol] 32.2 g/dL 32-36 [facility] Mucus LM Ql (Urine sed)Order ed By: Uriel Gipson on 02-25-2023 Mucus Ql (Urine sed) 0 SEEN /hpf [facility] Nitrite Test strip Ql (U)Ord ered By: Uriel Gipson on 02-25-2023 Nitrite Ql (U) Negative Negative [facility] No Panel InformationOrdered By: Uriel Gipson on 02-25-2023 Estimated GFR (MDRD) Amer 83 mL/min >60 [facility] Comment on above: GFR Calc Estimated GFR (MDRD) Non-Af Amer 68 mL/min >60 [facility] Comment on above: Non- GFR Calc Platelets bldOrdered By: John Gipson on 02-25-2023 Platelets (Bld) [#/Vol] 226 10*3/uL 150-450 [facility] Protein Test strip Ql (U)Ord ered By: Uriel Gipson on 02-25-2023 Protein Ql (U) 15 mg/dl Negative [facility] Serum or plasma albumin jose martin urement (mass/volume)Ordered By: Uriel Gipson on 02-25-2023 Albumin [Mass/Vol] 3.9 g/dL 3.2-5.0 [facility] Serum or plasma albumin/glob ulin mass ratioOrdered By: Uriel Gipson on 02-25-2023 Albumin/Globulin [Mass ratio] 1.1 {ratio} 0.9-2.4 [facility] Serum or plasma calcium jose martin urement (mass/volume)Ordered By: Uriel Gipson on 02-25-2023 Calcium [Mass/Vol] 9.5 mg/dL 8.5-10.1 [facility] Serum or plasma cholesterol in HDL measurement (mass/volume)Ordered By: Uriel Gipson on 02-25-2023 Cholesterol in HDL [Mass/Vol] 80 mg/dL >40 [facility] Comment on above: The drugs N-Acetylcy steine and Metamizole may falsely depress this assay. Reference Range HDL <40 mg/dL Low HDL Cholesterol HDL >or= 60 mg/dL High HDL Cholesterol Serum or plasma cholesterol in VLDL measurement (mass/volume)Ordered By: Uriel Gipson on 02-25-2023 Cholesterol in VLDL [Mass/Vol] 22 mg/dL 5-40 [facility] Serum or plasma creatinine m easurement (mass/volume)Ordered By: Uriel Gipson on 02-25-2023 Creatinine [Mass/Vol] 0.87 mg/dL 0.55-1.02 [facility] Comment on above: The validity of the calculated GFR & GFRAA in patients over 70 years has not been determined. Clinical correlation is essential. Serum or plasma low density lipoprotein (LDL) cholesterol measurement (mass/volume)Ordered By: Uriel Gipson on 02-25-2023 Cholesterol in LDL [Mass/Vol] 124 mg/dL 0-130 [facility] Serum or plasma urea nitroge n measurement (mass/volume)Ordered By: Uriel Gipson on 02-25-2023 Urea nitrogen [Mass/Vol] 14 mg/dL 7-18 [facility] Squamous epithelial cells de tection in urine sediment by light microscopyOrdered By: Uriel Gipson on 02-25-2023 Epithelial cells.squamous LM Ql (Urine sed) 0-5 SEEN /hpf 5-10 [facility] Thin prep Papanicolaou smear with manual screeningOrdered By: Uriel Gipson on 02-25-2023 Thin prep Papanicolaou smear with manual screening 16 U/L 15-37 [facility] Thin prep Papanicolaou smear with manual screening 6 5-15 [facility] Urine blood detectionOrdered By: Uriel Gipson on 02-25-2023 RBC Ql (U) 150 /ul Negative [facility] RBC Ql (U) 10-25 SEEN /hpf 0-5 [facility] Urine clarityOrdered By: John Gipson on 02-25-2023 Clarity (U) Sl. Cloudy Clear [facility] Urine color determinationOrd ered By: Uriel Gipson on 02-25-2023 Color (U) Yellow Yellow [facility] Urine glucose detectionOrder ed By: Uriel Gipson on 02-25-2023 Glucose Ql (U) Normal mg/dl Normal [facility] Urine leukocyte esterase det ection by dipstickOrdered By: Uriel Gipson on 02-25-2023 Leukocyte esterase Test strip Ql (U) 500 /ul Negative [facility] Urine pHOrdered By: Uriel chaparro on 02-25-2023 pH (U) 6.5 [pH] 5.0 - 8.0 [facility] Urine sediment bacteria coun t by microscopy (number/high power field)Ordered By: Uriel Gipson on 02-25-2023 Bacteria LM.HPF (Urine sed) [#/Area] 1 /[HPF] None Seen [facility] Urine specific gravity measu rementOrdered By: Uriel Gipson on 02-25-2023 Specific gravity (U) [Rel density] 1.010 1.002-1.030 [facility] Urobilinogen Auto test strip Ql (U)Ordered By: Uriel Gipson on 02-25-2023 Urobilinogen Ql (U) Normal mg/dl Normal [facility] Vital Signs Date Time Vital Sign Value Performing Clinician Facility 05-03-2025 10:34-0400 Body mass index (BMI) [Ratio] 32.96 kg/m2 Humaira Rosenberg MD Work Phone: [facility] 05-03-2025 10:34-0400 Body temperature 97.3 [degF] Humaira Rosenberg MD Work Phone: [facility] 05-03-2025 10:34-0400 Body weight 81.74 kg Humaira Rosenberg MD Work Phone: [facility] 05-03-2025 10:34-0400 Diastolic blood pressure 77 mm[Hg] Humaira Rosenberg MD Work Phone: [facility] 05-03-2025 10:34-0400 Heart rate 71 /min Humaira Rosenberg MD Work Phone: [facility] 05-03-2025 10:34-0400 Respiratory rate 18 /min Humaira Rosenberg MD Work Phone: [facility] 05-03-2025 10:34-0400 SaO2% (BldA) [Mass fraction] 96 % Humaira Rosenberg MD Work Phone: [facility] 05-03-2025 10:34-0400 Systolic blood pressure 184 mm[Hg] Humiara Rosenberg MD Work Phone: [facility] 04-12-2025 09:21-0400 Body height 157.[address] Uriel Gipson MD Work Phone: [facility] 04-12-2025 09:21-0400 Body mass index (BMI) [Ratio] 32.8 kg/m2 Dr. Uriel Gipson MD Work Phone: [facility] 04-12-2025 09:21-0400 Body temperature 96.9 [degF] Dr. Uriel Gipson MD Work Phone: [facility] 04-12-2025 09:21-0400 Body weight 81.[address] Uriel Gipson MD Work Phone: [facility] 04-12-2025 09:21-0400 Diastolic blood pressure 88 mm[Hg] Dr. Uriel Gipson MD Work Phone: [facility] 04-12-2025 09:21-0400 Heart rate 55 /min Dr. Uriel Gipson MD Work Phone: [facility] 04-12-2025 09:21-0400 Respiratory rate 16 /min Dr. Uriel Gipson MD Work Phone: [facility] 04-12-2025 09:21-0400 SaO2% (BldA) [Mass fraction] 97 % Dr. Uriel Gipson MD Work Phone: [facility] 04-12-2025 09:21-0400 Systolic blood pressure 165 mm[Hg] Dr. Uriel Gipson MD Work Phone: [facility] 03-21-2025 08:27-0400 Body temperature 97.5 [degF] [facility] 03-21-2025 08:27-0400 Diastolic blood pressure 63 mm[Hg] [facility] 03-21-2025 08:27-0400 Heart rate 75 /min [facility] 03-21-2025 08:27-0400 Respiratory rate 18 /min [facility] 03-21-2025 08:27-0400 SaO2% (BldA) [Mass fraction] 98 % [facility] 03-21-2025 08:27-0400 Systolic blood pressure 144 mm[Hg] [facility] 03-21-2025 08:20-0400 Body temperature 97.5 [degF] [facility] 03-21-2025 08:20-0400 Diastolic blood pressure 63 mm[Hg] [facility] 03-21-2025 08:20-0400 Heart rate 75 /min [facility] 03-21-2025 08:20-0400 Respiratory rate 18 /min [facility] 03-21-2025 08:20-0400 SaO2% (BldA) [Mass fraction] 98 % [facility] 03-21-2025 08:20-0400 Systolic blood pressure 144 mm[Hg] [facility] 03-15-2025 10:29-0400 Body mass index (BMI) [Ratio] 32.74 kg/m2 Humaira Rosenberg MD Work Phone: [facility] 03-15-2025 10:29-0400 Body temperature 97.9 [degF] Humaira Rosenberg MD Work Phone: [facility] 03-15-2025 10:29-0400 Body weight 81.19 kg Humaira Rosenberg MD Work Phone: [facility] 03-15-2025 10:29-0400 Diastolic blood pressure 80 mm[Hg] Humaira Rosenberg MD Work Phone: [facility] 03-15-2025 10:29-0400 Heart rate 58 /min Humaira Rosenberg MD Work Phone: [facility] 03-15-2025 10:29-0400 Respiratory rate 18 /min Humaira Rosenberg MD Work Phone: [facility] 03-15-2025 10:29-0400 SaO2% (BldA) [Mass fraction] 98 % Humaira Rosenberg MD Work Phone: [facility] 03-15-2025 10:29-0400 Systolic blood pressure 136 mm[Hg] Humaira Rosenberg MD Work Phone: [facility] 03-14-2025 08:58-0400 Body height 157.[address] Uriel Gipson MD Work Phone: [facility] 03-14-2025 08:58-0400 Body mass index (BMI) [Ratio] 33 kg/m2 Dr. Uriel Gipson MD Work Phone: [facility] 03-14-2025 08:58-0400 Body temperature 96.5 [degF] Dr. Uriel Gipson MD Work Phone: [facility] 03-14-2025 08:58-0400 Body weight 82.[address] Uriel Gipson MD Work Phone: [facility] 03-14-2025 08:58-0400 Diastolic blood pressure 84 mm[Hg] Dr. Uriel Gipson MD Work Phone: [facility] 03-14-2025 08:58-0400 Heart rate 61 /min Dr. Uriel Gipson MD Work Phone: [facility] 03-14-2025 08:58-0400 Respiratory rate 16 /min Dr. Uriel Gipson MD Work Phone: [facility] 03-14-2025 08:58-0400 SaO2% (BldA) [Mass fraction] 97 % Dr. Uriel Gipson MD Work Phone: [facility] 03-14-2025 08:58-0400 Systolic blood pressure 148 mm[Hg] Dr. Uriel Gipson MD Work Phone: [facility] 03-11-2025 10:41-0400 Body height 157.5 cm Agustina Agudelo MD Work Phone: [facility] 03-11-2025 10:41-0400 Body mass index (BMI) [Ratio] 32.7 kg/m2 Agustina Agudelo MD Work Phone: [facility] 03-11-2025 10:41-0400 Body temperature 97.11 [degF] Agustina Agudelo MD Work Phone: [facility] 03-11-2025 10:41-0400 Body weight 81.1 kg Agustina Agudelo MD Work Phone: [facility] 03-11-2025 10:41-0400 Diastolic blood pressure 76 mm[Hg] Agustina Agudelo MD Work Phone: [facility] 03-11-2025 10:41-0400 Heart rate 70 /min Agustina Agudelo MD Work Phone: [facility] 03-11-2025 10:41-0400 Respiratory rate 16 /min Agustina Agudelo MD Work Phone: [facility] 03-11-2025 10:41-0400 SaO2% (BldA) [Mass fraction] 98 % Agustina Agudelo MD Work Phone: [facility] 03-11-2025 10:41-0400 Systolic blood pressure 143 mm[Hg] Agustina Agudelo MD Work Phone: [facility] 03-09-2025 08:32-0400 Body height 157.[address] Ureil Gipson MD Work Phone: [facility] 03-09-2025 08:32-0400 Body mass index (BMI) [Ratio] 33 kg/m2 Dr. Uriel Gipson MD Work Phone: [facility] 03-09-2025 08:32-0400 Body temperature 97.7 [degF] Dr. Uriel Gipson MD Work Phone: [facility] 03-09-2025 08:32-0400 Body weight 81.[address] Uriel Gipson MD Work Phone: [facility] 03-09-2025 08:32-0400 Diastolic blood pressure 79 mm[Hg] Dr. Uriel Gipson MD Work Phone: [facility] 03-09-2025 08:32-0400 Heart rate 61 /min Dr. Uriel Gipson MD Work Phone: [facility] 03-09-2025 08:32-0400 Respiratory rate 18 /min Dr. Uriel Gipson MD Work Phone: [facility] 03-09-2025 08:32-0400 SaO2% (BldA) [Mass fraction] 98 % Dr. Uriel Gipson MD Work Phone: [facility] 03-09-2025 08:32-0400 Systolic blood pressure 134 mm[Hg] Dr. Uriel Gipson MD Work Phone: [facility] 03-02-2025 09:02-0400 Body height 157.[address] Uriel Gipson MD Work Phone: [facility] 03-02-2025 09:02-0400 Body mass index (BMI) [Ratio] 34 kg/m2 Dr. Uriel Gipson MD Work Phone: [facility] 03-02-2025 09:02-0400 Body temperature 96.9 [degF] Dr. Uriel Gipson MD Work Phone: [facility] 03-02-2025 09:02-0400 Body weight 84.[address] Uriel Gipson MD Work Phone: [facility] 03-02-2025 09:02-0400 Diastolic blood pressure 72 mm[Hg] Dr. Uriel Gipson MD Work Phone: [facility] 03-02-2025 09:02-0400 Heart rate 55 /min Dr. Uriel Gipson MD Work Phone: [facility] 03-02-2025 09:02-0400 Respiratory rate 18 /min Dr. Uriel Gipson MD Work Phone: [facility] 03-02-2025 09:02-0400 SaO2% (BldA) [Mass fraction] 98 % Dr. Uriel Gipson MD Work Phone: [facility] 03-02-2025 09:02-0400 Systolic blood pressure 156 mm[Hg] Dr. Uriel Gipson MD Work Phone: [facility] 02-23-2025 09:24-0400 Body height 157.[address] Uriel Gipson MD Work Phone: [facility] 02-23-2025 09:24-0400 Body mass index (BMI) [Ratio] 33.3 kg/m2 Dr. Uriel Gipson MD Work Phone: [facility] 02-23-2025 09:24-0400 Body temperature 97.1 [degF] Dr. Uriel Gipson MD Work Phone: [facility] 02-23-2025 09:24-0400 Body weight 82.[address] Uriel Gipson MD Work Phone: [facility] 02-23-2025 09:24-0400 Diastolic blood pressure 89 mm[Hg] Dr. Uriel Gipson MD Work Phone: [facility] 02-23-2025 09:24-0400 Heart rate 61 /min Dr. Uriel Gipson MD Work Phone: [facility] 02-23-2025 09:24-0400 Respiratory rate 16 /min Dr. Uriel Gipson MD Work Phone: [facility] 02-23-2025 09:24-0400 SaO2% (BldA) [Mass fraction] 98 % Dr. Uriel Gipson MD Work Phone: [facility] 02-23-2025 09:24-0400 Systolic blood pressure 168 mm[Hg] Dr. Uriel Gipson MD Work Phone: [facility] 02-16-2025 09:26-0400 Body height 157.[address] Uriel Gipson MD Work Phone: [facility] 02-16-2025 09:26-0400 Body mass index (BMI) [Ratio] 33.2 kg/m2 Dr. Uriel Gipson MD Work Phone: [facility] 02-16-2025 09:26-0400 Body temperature 96.9 [degF] Dr. Uriel Gipson MD Work Phone: [facility] 02-16-2025 09:26-0400 Body weight 82.[address] Uriel Gipson MD Work Phone: [facility] 02-16-2025 09:26-0400 Diastolic blood pressure 84 mm[Hg] Dr. Uriel Gipson MD Work Phone: [facility] 02-16-2025 09:26-0400 Heart rate 64 /min Dr. Uriel Gipson MD Work Phone: [facility] 02-16-2025 09:26-0400 Respiratory rate 16 /min Dr. Uriel Gipson MD Work Phone: [facility] 02-16-2025 09:26-0400 SaO2% (BldA) [Mass fraction] 96 % Dr. Uriel Gipson MD Work Phone: [facility] 02-16-2025 09:26-0400 Systolic blood pressure 150 mm[Hg] Dr. Uriel Gipson MD Work Phone: [facility] 02-09-2025 09:18-0400 Body height 157.[address] Uriel Gipson MD Work Phone: [facility] 02-09-2025 09:18-0400 Body mass index (BMI) [Ratio] 33.5 kg/m2 Dr. Uriel Gipson MD Work Phone: [facility] 02-09-2025 09:18-0400 Body temperature 96.7 [degF] Dr. Uriel Gipson MD Work Phone: [facility] 02-09-2025 09:18-0400 Body weight 83.[address] Uriel Gipson MD Work Phone: [facility] 02-09-2025 09:18-0400 Diastolic blood pressure 79 mm[Hg] Dr. Uriel Gipson MD Work Phone: [facility] 02-09-2025 09:18-0400 Heart rate 67 /min Dr. Uriel Gipson MD Work Phone: [facility] 02-09-2025 09:18-0400 Respiratory rate 18 /min Dr. Uriel Gipson MD Work Phone: [facility] 02-09-2025 09:18-0400 SaO2% (BldA) [Mass fraction] 99 % Dr. Uriel Gipson MD Work Phone: [facility] 02-09-2025 09:18-0400 Systolic blood pressure 162 mm[Hg] Dr. Uriel Gipson MD Work Phone: [facility] 02-08-2025 09:41-0400 Body temperature 97.2 [degF] Humaira Rosenberg MD Work Phone: [facility] 02-08-2025 09:41-0400 Body weight 82.3 kg Humaira Rosenberg MD Work Phone: [facility] 02-08-2025 09:41-0400 Diastolic blood pressure 85 mm[Hg] Humaira Rosenberg MD Work Phone: [facility] 02-08-2025 09:41-0400 Heart rate 68 /min Humaira Rosenberg MD Work Phone: [facility] 02-08-2025 09:41-0400 Respiratory rate 18 /min Humaira Rosenberg MD Work Phone: [facility] 02-08-2025 09:41-0400 SaO2% (BldA) [Mass fraction] 98 % Humaira Rosenberg MD Work Phone: [facility] 02-08-2025 09:41-0400 Systolic blood pressure 183 mm[Hg] Humaira Rosenberg MD Work Phone: [facility] 01-27-2025 09:04-0400 Body height 157.5 cm Agustina Agudelo MD Work Phone: [employer] [facility] 01-27-2025 09:04-0400 Body mass index (BMI) [Ratio] 33.43 kg/m2 Agustina Agudelo MD Work Phone: [facility] 01-27-2025 09:04-0400 Body temperature 98.01 [degF] Agustina Agudelo MD Work Phone: [facility] 01-27-2025 09:04-0400 Body weight 82.92 kg Agustina Agudelo MD Work Phone: [facility] 01-27-2025 09:04-0400 Diastolic blood pressure 76 mm[Hg] Agustina Agudelo MD Work Phone: [facility] 01-27-2025 09:04-0400 Heart rate 66 /min Agustina Agudelo MD Work Phone: [facility] 01-27-2025 09:04-0400 Respiratory rate 18 /min Agustina Agudelo MD Work Phone: [facility] 01-27-2025 09:04-0400 SaO2% (BldA) [Mass fraction] 95 % Agustina Agudelo MD Work Phone: [facility] 01-27-2025 09:04-0400 Systolic blood pressure 160 mm[Hg] Agustina Agudelo MD Work Phone: [facility] 01-26-2025 08:47-0400 Body mass index (BMI) [Ratio] 33.7 kg/m2 Dr. Uriel Gipson MD Work Phone: [facility] 01-26-2025 08:47-0400 Body temperature 97.7 [degF] Dr. Uriel Gipson MD Work Phone: [facility] 01-26-2025 08:47-0400 Body weight 83.[address] Uriel Gipson MD Work Phone: [facility] 01-26-2025 08:47-0400 Diastolic blood pressure 100 mm[Hg] Dr. Uriel Gipson MD Work Phone: [facility] 01-26-2025 08:47-0400 Heart rate 74 /min Dr. Uriel Gipson MD Work Phone: [facility] 01-26-2025 08:47-0400 Respiratory rate 16 /min Dr. Uriel Gipson MD Work Phone: [facility] 01-26-2025 08:47-0400 SaO2% (BldA) [Mass fraction] 98 % Dr. Uriel Gipson MD Work Phone: [facility] 01-26-2025 08:47-0400 Systolic blood pressure 177 mm[Hg] Dr. Uriel Gipson MD Work Phone: [facility] 01-21-2025 08:25-0400 Body mass index (BMI) [Ratio] 33.7 kg/m2 Dr. Uriel Gipson MD Work Phone: [facility] 01-21-2025 08:25-0400 Body temperature 96.6 [degF] Dr. Uriel Gipson MD Work Phone: [facility] 01-21-2025 08:25-0400 Body weight 83.[address] Uriel Gipson MD Work Phone: [facility] 01-21-2025 08:25-0400 Diastolic blood pressure 89 mm[Hg] Dr. Uriel Gipson MD Work Phone: [facility] 01-21-2025 08:25-0400 Heart rate 60 /min Dr. Uriel Gipson MD Work Phone: [facility] 01-21-2025 08:25-0400 Respiratory rate 16 /min Dr. Uriel Gipson MD Work Phone: [facility] 01-21-2025 08:25-0400 SaO2% (BldA) [Mass fraction] 98 % Dr. Uriel Gipson MD Work Phone: [facility] 01-21-2025 08:25-0400 Systolic blood pressure 165 mm[Hg] Dr. Uriel Gipson MD Work Phone: [facility] 01-03-2025 13:20-0400 Body height 157.5 cm Lenny Paulino MD Work Phone: [facility] 01-03-2025 13:20-0400 Body mass index (BMI) [Ratio] 33.97 kg/m2 Lenny Paulino MD Work Phone: [facility] 01-03-2025 13:20-0400 Body weight 84.28 kg Lenny Paulino MD Work Phone: [facility] 01-03-2025 13:20-0400 Diastolic blood pressure 100 mm[Hg] Lenny Paulino MD Work Phone: [facility] 01-03-2025 13:20-0400 Heart rate 76 /min Lenny Paulino MD Work Phone: [facility] 01-03-2025 13:20-0400 SaO2% (BldA) [Mass fraction] 96 % Lenny Paulino MD Work Phone: [facility] 01-03-2025 13:20-0400 Systolic blood pressure 180 mm[Hg] Lenny Paulino MD Work Phone: [facility] 12-29-2024 08:12-0400 Body height 157.[address] Uriel Gipson MD Work Phone: [facility] 12-29-2024 08:12-0400 Body mass index (BMI) [Ratio] 34.2 kg/m2 Dr. Uriel Gipson MD Work Phone: [facility] 12-29-2024 08:12-0400 Body temperature 97.8 [degF] Dr. Uriel Gipson MD Work Phone: [facility] 12-29-2024 08:12-0400 Body weight 84.[address] Uriel Gipson MD Work Phone: [facility] 12-29-2024 08:12-0400 Diastolic blood pressure 80 mm[Hg] Dr. Uriel Gipson MD Work Phone: [facility] 12-29-2024 08:12-0400 Heart rate 64 /min Dr. Uriel Gipson MD Work Phone: [facility] 12-29-2024 08:12-0400 Respiratory rate 18 /min Dr. Uriel Gipson MD Work Phone: [facility] 12-29-2024 08:12-0400 SaO2% (BldA) [Mass fraction] 98 % Dr. Uriel Gipson MD Work Phone: [facility] 12-29-2024 08:12-0400 Systolic blood pressure 132 mm[Hg] Dr. Uriel Gipson MD Work Phone: [facility] 06-27-2023 05:10-0400 Body temperature 97.9 [degF] Lenny Paulino MD Work Phone: [facility] 06-27-2023 05:10-0400 Diastolic blood pressure 69 mm[Hg] Lenny Paulino MD Work Phone: [facility] 06-27-2023 05:10-0400 Heart rate 58 /min Lenny Paulino MD Work Phone: [facility] 06-27-2023 05:10-0400 Respiratory rate 20 /min Lenny Paulino MD Work Phone: [facility] 06-27-2023 05:10-0400 SaO2% (BldA) [Mass fraction] 94 % Lenny Paulino MD Work Phone: [facility] 06-27-2023 05:10-0400 Systolic blood pressure 136 mm[Hg] Lenny Paulino MD Work Phone: [facility] 06-25-2023 10:04-0400 Body height 157.5 cm Lenny Paulino MD Work Phone: [facility] 06-25-2023 10:04-0400 Body mass index (BMI) [Ratio] 32.92 kg/m2 Lenny Paulino MD Work Phone: [facility] 06-25-2023 10:04-0400 Body weight 81.65 kg Lenny Paulino MD Work Phone: [facility] 06-25-2023 08:29-0400 Body height 157.5 cm Lenny Paulino MD Work Phone: [facility] 06-25-2023 08:29-0400 Body mass index (BMI) [Ratio] 26.7 kg/m2 Lenny Paulino MD Work Phone: [facility] 06-25-2023 08:29-0400 Body weight 66.22 kg Lenny Paulino MD Work Phone: [facility] 06-25-2023 08:29-0400 Diastolic blood pressure 80 mm[Hg] Lenny Paulino MD Work Phone: [facility] 06-25-2023 08:29-0400 Heart rate 71 /min Lenny Paulino MD Work Phone: [facility] 06-25-2023 08:29-0400 Systolic blood pressure 179 mm[Hg] Lenny Paulino MD Work Phone: [facility] 06-05-2023 07:31-0400 Body height 157.[address] Uriel Gipson Work Phone: [facility] 06-05-2023 07:31-0400 Body mass index (BMI) [Ratio] 33.6 kg/m2 Dr. Uriel Gipson Work Phone: [facility] 06-05-2023 07:31-0400 Body temperature 98.2 [degF] Dr. Uriel Gipson Work Phone: [facility] 06-05-2023 07:31-0400 Body weight 83.[address] Uriel Gipson Work Phone: [facility] 06-05-2023 07:31-0400 Diastolic blood pressure 78 mm[Hg] Dr. Uriel Gipson Work Phone: [facility] 06-05-2023 07:31-0400 Heart rate 51 /min Dr. Uriel Gipson Work Phone: [facility] 06-05-2023 07:31-0400 Respiratory rate 18 /min Dr. Uriel Gipson Work Phone: [facility] 06-05-2023 07:31-0400 SaO2% (BldA) [Mass fraction] 98 % Dr. Uriel Gipson Work Phone: [facility] 06-05-2023 07:31-0400 Systolic blood pressure 112 mm[Hg] Dr. Uriel Gipson Work Phone: [facility] 02-25-2023 08:33-0400 Body mass index (BMI) [Ratio] 34.4 kg/m2 Dr. Uriel Gipson Work Phone: [facility] 02-25-2023 08:33-0400 Body temperature 97.6 [degF] Dr. Uriel Gipson Work Phone: [facility] 02-25-2023 08:33-0400 Body weight 85.[address] Uriel Gipson Work Phone: [facility] 02-25-2023 08:33-0400 Diastolic blood pressure 82 mm[Hg] Dr. Uriel Gipson Work Phone: [facility] 02-25-2023 08:33-0400 Heart rate 62 /min Dr. Uriel Gipson Work Phone: [facility] 02-25-2023 08:33-0400 Respiratory rate 14 /min Dr. Uriel Gipson Work Phone: [facility] 02-25-2023 08:33-0400 SaO2% (BldA) [Mass fraction] 99 % Dr. Uriel Gipson Work Phone: [facility] 02-25-2023 08:33-0400 Systolic blood pressure 140 mm[Hg] Dr. Uriel Gipson Work Phone: [facility] Encounters Encounter Date Encounter Type Care Provider Facility Start: 07-19-2025 ambulatory Uriel Gipson Facility :[facility] Start: 05-16-2025 End: 05-16-2025 Orders Only Lenny Paulino MD Work Phone: [facility] [place] Comment on above: Endometrial cancer ( CMS/HCC) (HCC) (Primary Dx) Start: 05-04-2025 End: 05-04-2025 Telephone encounter Lenny Paulino MD Work Phone: [facility] [place] Start: 05-03-2025 End: 05-03-2025 Office outpatient visit 40 minutes Humaira Rosenberg MD Work Phone: [facility] Comment on above: Endometrial cancer ( Multi) Start: 05-03-2025 End: 05-03-2025 Subsequent hospital visit by physician Humaira Rosenberg MD Work Phone: [facility] Comment on above: Endometrial cancer ( Multi) Start: 05-03-2025 End: 05-03-2025 ambulatory [facility] Start: 04-12-2025 End: 04-12-[address] Timur Blake [facility] Work Phone: Start: 04-12-2025 End: 04-12-[address] Uriel Gipson MD Work Phone: [facility] Start: 04-01-2025 End: 04-01-2025 Subsequent hospital visit by physician [facility] Comment on above: Malignant neoplasm o f overlapping sites of corpus uteri (Multi) Start: 04-01-2025 End: 04-01-2025 [facility] Start: 03-30-2025 End: 03-30-2025 Subsequent hospital visit by physician [facility] Comment on above: Malignant neoplasm o f overlapping sites of corpus uteri (Multi) Start: 03-30-2025 End: 03-30-2025 ambulatory [facility] Start: 03-28-2025 End: 03-28-2025 Subsequent hospital visit by physician [facility] Comment on above: Malignant neoplasm o f overlapping sites of corpus uteri (Multi) Start: 03-28-2025 End: 03-28-2025 ambulatory [facility] Start: 03-24-2025 End: 03-24-2025 Subsequent hospital visit by physician [facility] Comment on above: Malignant neoplasm o f overlapping sites of corpus uteri (Multi) Start: 03-24-2025 End: 03-24-2025 [facility] Start: 03-22-2025 Non-patient / Non-visit Dr. Cindi mccann MD -[facility] Work Phone: Start: 03-21-2025 End: 03-21-2025 Subsequent hospital visit by physician [facility] Start: 03-21-2025 End: 03-21-2025 [facility] Start: 03-21-2025 End: 03-21-2025 Subsequent hospital visit by physician [facility] Comment on above: Encounter for antine oplastic radiation therapy (Primary Dx); Malignant neoplasm of overlapping sites of corpus uteri (Multi) Endometrial cancer ( Multi) Start: 03-21-2025 End: 03-21-2025 [facility] Start: 03-21-2025 End: 03-21-2025 [facility] Start: 03-21-2025 End: 03-21-2025 Subsequent hospital visit by physician Rad External Film [facility] Comment on above: Primary malignant ne oplasm of overlapping sites of corpus uteri (Multi) Start: 03-15-[address] Timur Stephen on DO -Radiation Oncology Start: 03-15-2025 End: 03-15-2025 Office outpatient visit 40 minutes Humaira Rosenberg MD Work Phone: [facility] Comment on above: Endometrial cancer ( Multi) (Primary Dx) Start: 03-15-2025 End: 03-15-2025 Subsequent hospital visit by physician Humaira Rosenberg MD Work Phone: [facility] Comment on above: Arrived Start: 03-15-2025 Non-patient / Non-visit Dr. Timur bowman DO [facility] Work Phone: Start: 03-15-2025 End: 03-15-2025 ambulatory HUMAIRA [facility] Start: 03-15-2025 End: 03-15-2025 ambulatory URIEL [facility] Start: 03-15-2025 End: 03-15-2025 Encounter for other preprocedural examination [facility] Start: 03-15-2025 End: 03-15-2025 Subsequent hospital visit by physician Rad External Film [facility] [employer] Comment on above: Malignant neoplasm o f overlapping sites of corpus uteri (Multi) Start: 03-14-[address] Timur Stephen on DO -Radiation Oncology Start: 03-14-2025 End: 03-14-[address] Timur [facility] Work Phone: Start: 03-14-2025 End: 03-14-[address] Uriel Gipson MD Work Phone: [facility] Work Phone: Start: 03-11-2025 End: 03-11-2025 Office outpatient visit 25 minutes Agustina Agudelo MD Work Phone: [facility] [place] Comment on above: Recurrent carcinoma of endometrium (HCC) (Primary Dx) Start: 03-11-2025 End: 03-11-2025 ambulatory [facility] Start: 03-09-[address] Timur Stephen on DO -Radiation Oncology Start: 03-09-2025 End: 03-09-[address] [facility] Work Phone: Start: 03-09-2025 End: 03-09-[address] Uriel Gipson MD Work Phone: [employer] Work Phone: Start: 03-08-2025 End: 03-08-2025 Subsequent hospital visit by physician Agustina Agudelo MD Work Phone: [facility] [address] [facility] Comment on above: Recurrent carcinoma of endometrium (HCC) Start: 03-08-2025 End: 03-08-2025 ambulatory [facility] Start: 03-02-[address] Timur Stephen on DO -Radiation Oncology Start: 03-02-2025 End: 03-02-[address] Allen Nichols MD -[facility] Work Phone: Start: 03-02-2025 End: 03-02-[address] Uriel Gipson MD Work Phone: [employer] [facility] Work Phone: Start: 02-23-[address] Timur Stephen on DO -Radiation Oncology Start: 02-23-2025 End: 02-23-[address] Timur Blake DO [facility] Work Phone: Start: 02-23-2025 End: 02-23-[address] Uriel Gipson MD Work Phone: [employer] Work Phone: Start: 02-16-2025 End: 02-16-[address] Uriel Gipson MD Work Phone: [employer] Work Phone: Start: 02-16-2025 End: 02-16-[address] [facility] Work Phone: Start: 02-09-[address] Timur Stephen on DO -Radiation Oncology Start: 02-09-2025 End: 02-09-[address] [facility] Work Phone: Start: 02-09-2025 End: 02-09-[address] Uriel Gipson MD Work Phone: [employer] [facility] Work Phone: Comment on above: Recurrent carcinoma of endometrium (HCC) (Primary Dx) Start: 02-08-2025 End: 02-08-2025 Office outpatient new 60 minutes Humaira Rosenberg MD Work Phone: [facility] Comment on above: Endometrial cancer ( Multi) (Primary Dx) Start: 02-08-2025 End: 02-08-2025 ambulatory [facility] Start: 02-03-2025 ambulatory Timur Blake Facility: [facility] Start: 02-03-2025 Non-patient / Non-visit Dr. Timur bowman DO [facility] Start: 01-27-2025 End: 01-27-2025 Office outpatient new 60 minutes Agustina Agudelo MD Work Phone: [facility] [place] Comment on above: Recurrent carcinoma of endometrium (HCC) (Primary Dx) Start: 01-27-2025 End: 01-27-2025 ambulatory [facility] Start: 01-26-2025 ambulatory [facility] Facility: [facility] Start: 01-26-2025 Non-patient / Non-visit Dr. Timur bowman DO [facility] Start: 01-26-2025 End: 01-26-[address] Anthony Harper MD -[facility] Work Phone: Start: 01-26-2025 End: 01-26-2025 ambulatory Uriel Leonela Facility:[facility] Start: 01-21-2025 End: 01-21-[address] Timur Blake DO [facility] Work Phone: Start: 01-21-2025 End: 01-21-2025 ambulatory Timur Lou Facility:[facility] Start: 01-20-2025 End: 01-20-[address] Timur Blake DO [facility] Work Phone: Start: 01-20-2025 End: 01-20-2025 ambulatory Timur Blake Facility:[facility] Start: 01-18-2025 Non-patient / Non-visit Sara hart -[facility] Work Phone: Start: 01-18-2025 ambulatory [facility] Facility :[facility] Start: 01-18-2025 End: 01-18-2025 Telephone encounter Lenny Paulino MD Work Phone: [facility] On[facility] [place] Start: 01-12-2025 End: 01-12-2025 Telephone encounter Lenny Paulino MD Work Phone: [facility] Comment on above: Endometrial cancer ( CMS/HCC) (HCC) (Primary Dx); Secondary malignancy of vagina (CMS/HCC) (HCC) Start: 01-11-2025 End: 01-11-[address] Uriel Gipson MD Work Phone: [facility] Work Phone: Start: 01-11-2025 End: 01-11-[address] Lenny Paulino MD -[facility] Start: 01-11-2025 End: 01-11-2025 ambulatory Lenny Paulino Facility:[facility] Start: 01-03-2025 End: 01-03-2025 Office outpatient visit 15 minutes Lenny Paulino MD Work Phone: [facility] Comment on above: Endometrial cancer ( CMS/HCC) (HCC) (Primary Dx); Vaginal lesion Start: 01-03-2025 End: 01-03-2025 ambulatory [facility] Start: 12-29-2024 End: 12-29-2024 Telephone encounter Lenny Paulino MD Work Phone: [facility] On[facility] Start: 12-29-2024 End: 12-29-[address] Uriel Gipson MD -[facility] Work Phone: Start: 12-29-2024 End: 12-29-2024 ambulatory [facility] Facility:[facility] Start: 07-01-[address] Fay Gipson MD Work Phone: [facility] Start: 07-08-2023 Telephone encounter Lenny Paulino MD Work Phone: [facility] Gynecologic Oncology Start: 06-25-2023 Telephone encounter Lenny Paulino MD Work Phone: [facility] Comment on above: surgery scheduling ( Scheduled at [facility]) Start: 06-25-2023 End: 06-27-2023 Evaluation and management of inpatient Lenny Paulino MD Work Phone: [facility] Comment on above: Increased endometria l stripe thickness (Primary Dx); Bleeding; Post-menopausal bleeding Start: 06-25-2023 End: 06-25-2023 Office outpatient new 30 minutes Lenny Paulino MD Work Phone: [facility]nec[facility] Comment on above: Increased endometria l stripe thickness (Primary Dx); PMB (postmenopausal bleeding) Start: 06-24-2023 Telephone encounter Lenny Paulino MD Work Phone: [facility]nec[facility] Comment on above: new pt appt needed Start: 06-05-2023 End: 06-05-[address] Uriel Gipson Work Phone: [facility] Work Phone: Start: 06-05-2023 End: 06-05-[address] Uriel Gipson Work Phone: [facility] Work Phone: Start: 02-25-2023 End: 02-25-[address] Uriel Gipson Work Phone: [facility] Start: 02-25-2023 End: 02-25-[address] Uriel Gipson Work Phone: [facility] Work Phone: Procedures Date Procedure Procedure Detail Performing Clinician Start: 04-01-2025 RAD ONC MSQ TREATMEN T SUMMARY Darshan Jung MD Work Phone: Start: 07-09-2025 RAD ONC MSQ TREATMEN T SUMMARY Darshan Jung MD Work Phone: Start: 03-28-2025 RAD ONC MSQ TREATMEN T SUMMARY Darshan Jung MD Work Phone: Start: 03-24-2025 RAD ONC MSQ TREATMEN T SUMMARY Darshan Jung MD Work Phone: Start: 03-21-2025 RAD ONC MSQ TREATMEN T SUMMARY Darshan Jung MD Work Phone: Start: 03-21-2025 MR Prostate Humaira sosa MD Work Phone: Start: 03-21-[address] SIM IMAGES ONLY Humaira Rosenberg MD Work Phone: Start: 03-15-[address] SIM IMAGES ONLY Humaira Rosenberg MD Work Phone: Start: 01-20-2025 MRI of pelvis with contrast Dr. Uriel Gipson MD Work Phone: Start: 01-11-2025 Positron emission tomography with computed tomography Dr. Uriel Gipson MD Work Phone: Start: 06-25-2023 End: 06-25-2023 Exploratory laparotomy celiotomy w/wo biopsy spx Lenny Paulino MD Work Phone: Start: 06-25-2023 End: 06-25-2023 Inj radioactive tracer for id of sentinel node Lenny Paulino MD Work Phone: Start: 06-25-2023 ABO and Rh group [Ty pe] in Blood by Confirmatory method Lenny Paulino MD Work Phone: Start: 06-25-2023 Blood count complete automated Lenny Paulino MD Work Phone: Start: 06-25-2023 Blood typing serologic abo Lenny Paulino MD Work Phone: Start: 06-05-[address] Dax Gipson Work Phone: Plan of Treatment Date Care Activity Detail Author Start: 2026 RSV Immunization for Adults (1 - 1-dose 75+ series) RSV Immunization for Adults (1 - 1-dose 75+ series) [facility] Start: 07-29-2025 End: 07-29-2025 Patient encounter procedure 07/29/2025 8:30 AM EST Office Visit [facility] [place] [address] [place] [phone] Lenny Paulino MD [address] [place] [address] [facility] [place] Start: 07-06-2025 End: 05-16-2026 PET+CT Bone from skull base to mid-thigh W 18F-NaF IV PET/CT skull base to mid thigh Imaging Routine Endometrial cancer (CMS/HCC) (HCC) Expected: 07/06/2025, Expires: 05/16/2026 [facility] Work Phone: Comment on above: Expected: 07/06/2025 , Expires: 05/16/2026 Start: 05-23-2025 Influenza vaccination S [facility] Start: 05-09-2025 End: 05-09-2025 Patient encounter procedure 05/09/2025 9:00 AM EDT Appointment [facility] [address] [place] [address] Leia Trevizo, [facility] [address] Department [place] [address] [facility] Start: 04-01-2025 End: 04-01-2025 Patient encounter procedure 04/01/2025 9:30 AM EDT Appointment [facility] [address] [place] [address] [facility] Start: 03-30-2025 End: 03-30-2025 Patient encounter procedure 03/30/2025 12:00 PM EDT Appointment [facility] [address] [place] [address] [facility] Start: 03-28-2025 End: 03-28-2025 Patient encounter procedure 03/28/2025 2:30 PM EDT Appointment [facility] [address] [place] [address] [facility] Start: 03-28-2025 End: 08-11-2025 BRACHYTHERAPY Brachytherapy Procedures Routine Endometrial cancer (Multi) Expected: 03/28/2025 (Approximate), Expires: 08/11/2025 [facility] Work Phone: Comment on above: Expected: 03/28/2025 (Approximate), Expires: 08/11/2025 Start: 03-28-2025 End: 02-08-2026 MR Prostate MR treatment planning prostate pelvis Imaging Routine Endometrial cancer (Multi) Expected: 03/28/2025 (Approximate), Expires: 02/08/2026 [facility] Work Phone: Comment on above: Expected: 03/28/2025 (Approximate), Expires: 02/08/2026 Start: 03-24-2025 End: 03-24-2025 Patient encounter procedure 03/24/2025 10:00 AM EDT Appointment [facility] [address] [place] [address] [facility] Start: 03-23-2025 End: 03-23-2025 Patient encounter procedure [facility] Start: 03-22-2025 End: 03-22-2025 Patient encounter procedure [facility] Start: 03-21-2025 End: 03-21-2025 Patient encounter procedure [facility] Start: 03-14-2025 End: 02-08-2026 MR Pelvis WO and W contrast IV MR pelvis w and wo IV contrast Imaging Routine Endometrial cancer (Multi) Expected: 03/14/2025 (Approximate), Expires: 02/08/2026 [facility] Work Phone: Comment on above: Expected: 03/14/2025 (Approximate), Expires: 02/08/2026 Start: 03-11-2025 End: 03-11-2025 Patient encounter procedure 03/11/2025 10:30 AM EDT Appointment [facility] [place] [address] [place] [phone] Agustina Aguedlo MD [address] [place] [address] [facility] [place] Start: 03-08-2025 End: 03-08-2025 Patient encounter procedure 03/08/2025 8:45 AM EDT Appointment [facility] [address] [place] [phone] Agustina Agudelo MD [address], [place] [id number] [facility] [address] Start: 03-07-2025 End: 02-09-2026 MR Pelvis WO and W contrast IV MR pelvis w and wo contrast Imaging Routine Recurrent carcinoma of endometrium (HCC) Expected: 03/07/2025, Expires: 02/09/2026 [facility] Work Phone: Comment on above: Expected: 03/07/2025 , Expires: 02/09/2026 Start: 03-02-2025 End: 02-09-2026 Creatinine [Mass/volume] in Serum or Plasma Creatinine, Serum Lab Routine Recurrent carcinoma of endometrium (HCC) Expected: 03/02/2025 (Approximate), Expires: 02/09/2026 [facility] Comment on above: Expected: 03/02/2025 (Approximate), Expires: 02/09/2026 Start: 01-20-2025 Patient referral [facility] Work Phone: Start: 01-11-2025 Positron emission tomography with computed tomography [facility] Start: 01-03-2025 End: 01-03-2026 Biopsy vaginal Biopsy vaginal Procedures Routine Endometrial cancer (CMS/HCC) (HCC) Vaginal lesion Expected: 01/03/2025 (Approximate), Expires: 01/03/2026 [facility] Comment on above: Expected: 01/03/2025 (Approximate), Expires: 01/03/2026 Start: 01-03-2025 End: 01-03-2026 PET+CT Bone from skull base to mid-thigh W 18F-NaF IV PET/CT skull base to mid thigh Imaging Routine Endometrial cancer (CMS/HCC) (HCC) Vaginal lesion Expected: 01/03/2025, Expires: 01/03/2026 [facility] Comment on above: Expected: 01/03/2025 , Expires: 01/03/2026 Start: 01-03-2025 End: 01-03-2026 Tissue exam Tissue exam Pathology and Cytology Routine Endometrial cancer (CMS/HCC) (HCC) Vaginal lesion Expected: 01/03/2025 (Approximate), Expires: 01/03/2026 [facility] Work Phone: Comment on above: Expected: 01/03/2025 (Approximate), Expires: 01/03/2026 Start: 01-03-2025 End: 01-03-2025 Patient encounter procedure 01/03/2025 1:30 PM EDT Office Visit [facility] [place] [address] [place] [address] Lenny Paulino MD [address] [place], [place] [id number] [facility] [place] Start: 05-23-2024 COVID-19 Vaccine ( season) COVID-19 Vaccine ( season) [facility] Start: 07-11-2023 End: 07-11-2023 Patient encounter procedure 07/11/2023 9:45 AM EDT Office Visit [facility]ologic [facility] [address] [place] [phone] Lenny Paulino MD [address] [place], [place] [id number] [facility] Start: 06-25-2023 End: 06-25-2023 Exploratory laparotomy celiotomy w/wo biopsy spx EXPLORATORY LAPAROTOMY Bleeding Post-menopausal bleeding 06/25/2023 3:09 PM EDT [facility] Operating Room Start: 06-25-2023 End: 06-25-2023 Inj radioactive tracer for id of sentinel node LYMPHANGIOGRAPHY FOR IDENTIFICATION SENTINEL NODE Bleeding Post-menopausal bleeding 06/25/2023 3:09 PM EDT [facility] Operating Room Start: 05-23-2023 Influenza vaccination Influenza Vacc ine (#1) [facility] Start: 02-02-2016 Pneumococcal Vaccine : 65+ Years (1 - PCV) Pneumococcal Vaccine: 65+ Years (1 - PCV) [facility] Start: 02-02-2016 Screening for osteoporosis Bone Density Scan [facility] Start: 2011 RSV High Risk: (Elde rly (60+) or Population) (1 - Risk 60-74 years 1-dose series) RSV High Risk: (Elderly (60+) or Population) (1 - Risk 60-74 years 1-dose series) [facility] Start: 2001 Pneumococcal Vaccine : 50+ Years (1 of 1 - PCV) Pneumococcal Vaccine: 50+ Years (1 of 1 - PCV) [facility] Start: 2001 Zoster Vaccines (1 o f 2) Zoster Vaccines (1 of 2) [facility] Start: 1991 Screening for malign ant neoplasm of breast Mammogram [facility] Start: 1973 DTaP/Tdap/Td Vaccine s (1 - Tdap) DTaP/Tdap/Td Vaccines (1 - Tdap) [facility] Start: 1970 DTaP/Tdap/Td Vaccine s (1 - Tdap) DTaP/Tdap/Td Vaccines (1 - Tdap) [facility] Start: 1970 Pneumococcal vaccination Pneumococcal Vaccine (1 of 2 - PCV) [facility] Start: 1970 Zoster Vaccines (1 o f 2) Zoster Vaccines (1 of 2) [facility] Start: 1969 Diabetes mellitus screening Diabetes Screening [facility] Start: 1969 Hepatitis C screening Hepatitis C Sc reening [facility] Start: 1963 Depression Screening Depression Scre ening [facility] Start: 02-02-1956 COVID-19 Vaccine (#1) COVID-19 Vacci ne (#1) [facility] Start: 02-02-1952 MMR Vaccines (1 of 1 - Standard series) MMR Vaccines (1 of 1 - Standard series) [facility] Start: 1951 COVID-19 Vaccine (#1) COVID-19 Vacci ne (#1) [facility] Start: 1951 Examination of skin Derm Melanoma Sk in Check [facility] Start: 1951 Lipid panel Lipid Panel [facility] Start: 1951 Screening for malign ant neoplasm of colon [facility] Start: 1951 Screening for osteoporosis Bone Density Scan [facility] Start: 1951 Skin Cancer Screening Skin Cancer Sc reening [facility] Start: 1951 Yearly Adult Physical Yearly Adult P hysical [facility] Cancer Ag 125 [Units/volume] in Serum or Plasma [facility] CT Abdomen and Pelvi s WO contrast [facility] End: 03-08-2025 MR Pelvis WO and W contrast IV [facility] Work Phone: Comment on above: Once for 1 Occurrenc es starting 03/08/2025 until 03/08/2025 Patient referral [facility] Work Phone: Rad Onc Intent to Treat Rad Onc Intent to Treat Radiation Oncology Routine Endometrial cancer (Multi) Ordered: 02/08/2025 [facility] Service Area Work Phone: Comment on above: Ordered: 02/08/2025 Tissue exam [facility] Work Phone: Comment on above: Release Upon Orderin g for 1 Occurrences starting 06/25/2023, 1 completed US Pelvis transvaginal [facility] Payers Date Payer Category Payer Unknown [id number] [id number] Self-pay 2024 Unknown [id number] 2023 [employer] [id number] 2023 Unknown [id number] 2022 Unknown [facility] FUN D [facility] FUND [id number] 2022-Present [phone] [place] [address] Commercial [id number] 09-22-2022 Commercial Managed C are - HMO 114 [id number] 1950 Unknown [id number] 2.16.840.1.398539.3.579. 2.1244 1951 Unknown [id number] 2.16.840.1.106351.3.579. 2.1244 1951 Unknown [id number] 2.16.840.1.771940.3.579. 2.1244 1951 Unknown [id number] 2.16.840.1.856217.3.579. 2.1244 1951 Unknown [id number] 2.16.840.1.730137.3.579. 2.1244 1951 Unknown [id number] 2.16.840.1.648021.3.579. 2.1244 1951 Unknown [id number] 2.16.840.1.879647.3.579. 2.1244 1951 Unknown [id number] 2.16.840.1.179725.3.579. 2.1244 1951 Unknown [id number] 2.16.840.1.356531.3.579. 2.1244 1951 Unknown [id number] 2.16.840.1.958821.3.579. 2.1244 1951 Unknown [id number] 2.16.840.1.762452.3.579. 2.12441 Unknown [id number] 2.16.840.1.582011.3.579. 2.1245 1951 Unknown [id number] 2.16.840.1.006118.3.579. 2.1245 Unknown [id number] 2.16.840.1.012853.3.579. 2.462 Unknown [id number] 2.16840.1.281443.3.579. 2.462 Unknown [id number] 2.840.1.668101.3.579. 2.462 Unknown [id number] 2.840.1.986975.3.579. 2.462 Unknown [id number] 2.840.1.082005.3.579. 2.462 Unknown [id number] 2.840.1.856000.3.579. 2.462 Unknown [id number] 2.840.1.809550.3.579. 2.462 Unknown [id number] 2.840.1.926911.3.579. 2.462 Unknown [id number] 2.840.1.802061.3.579. 2.462 Unknown [id number] 2.840.1.542419.3.579. 2.462 Unknown [id number] 2.840.1.009174.3.579. 2.462 Unknown [id number] 2.840.1.680610.3.579. 2.462 Unknown [id number] 2.840.1.799736.3.579. 2.462 Unknown [id number] 2.16840.1.729236.3.579. 2.462 Unknown [id number] 2.16840.1.296456.3.579. 2.462 Unknown [id number] 2.840.1.271519.3.579. 2.462 Unknown [id number] 2.16.840.1.084590.3.579. 2.462 Unknown [id number] 2.16.840.1.629705.3.579. 2.462 Social History Date Type Detail Facility Start: 06-04-2023 Tobacco smoking stat us NHIS Unknown if ever smoked [facility] Start: 1950 Sex Assigned At Female [facility] Start: 06-24-2023 End: 02-08-2025 Tobacco smoking status NHIS Never smoked tobacco [facility] Start: 06-24-2023 End: 02-08-2025 Tobacco use and exposure Smokeless tobacco non-user [facility] Start: 06-25-2023 End: 01-27-2025 Alcohol intake Lifetime non-drinker (finding) [facility] Start: 06-25-2023 End: 01-27-2025 History of Social function [facility] Start: 06-25-2023 End: 01-27-2025 Tobacco use panel [facility] Start: 1950 Sex Assigned At Not on file [facility] Start: 06-23-2023 End: 01-17-2025 Sex Female (finding) [facility] Start: 01-29-2025 End: 02-08-2025 Exposure to SARS-CoV-2 (event) Not sure [facility] Start: 2025 Sex Female [facility] Functional Status Date Assessment Result Facility 02-08-2025 Patient [facility] ionnaire 2 item (PHQ-2) [Reported] [facility] Work Phone: 02-08-2025 [facility] 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 They stated they will call patient to get scheduled after review. [facility] 05-20-2025 Miscellaneous Notes Spoke with patient and per her request, order was sent via fax to [facility] for the pet scan. They stated they will call patient to get scheduled after review. Pt believes she needs CT before her 07/29 appt but there is no current order. Please call Pt to advise. Thank you Spoke to patient and she is going to see Dr. Paulino in July. She is not having any medical issues and is going to postpone that appointment for now with her PCP until she sees Dr. Paulino. Patient returning missed call, please contact when able, thank you Left vm for pt to call back, not sure what pcp appt is for. Pt has PCP appt same week as her 07/29 appt and wanted to know if she can cancel her PCP appt or if she should still keep it since she will be followed up with here. Please call Pt to discuss. Thank you documented in this encounter [facility] 05-16-2025 Telephone encounter Note Pt believes she needs CT before her 07/29 appt but there is no current order. Please call Pt to advise. Thank you [facility] 05-16-2025 Miscellaneous Notes Pt believes she needs CT before her 07/29 appt but there is no current order. Please call Pt to advise. Thank you Spoke to patient and she is going to see Dr. Paulino in July. She is not having any medical issues and is going to postpone that appointment for now with her PCP until she sees Dr. Paulino. Patient returning missed call, please contact when able, thank you Left vm for pt to call back, not sure what pcp appt is for. Pt has PCP appt same week as her 07/29 appt and wanted to know if she can cancel her PCP appt or if she should still keep it since she will be followed up with here. Please call Pt to discuss. Thank you documented in this encounter [facility] 05-06-2025 Telephone encounter Note Spoke to patient and she is going to see Dr. Paulino in July. She is not having any medical issues and is going to postpone that appointment for now with her PCP until she sees Dr. Paulino. [facility] 05-06-2025 Miscellaneous Notes Spoke to patient and she is going to see Dr. Paulino in July. She is not having any medical issues and is going to postpone that appointment for now with her PCP until she sees Dr. Paulino. Patient returning missed call, please contact when able, thank you Left vm for pt to call back, not sure what pcp appt is for. Pt has PCP appt same week as her 07/29 appt and wanted to know if she can cancel her PCP appt or if she should still keep it since she will be followed up with here. Please call Pt to discuss. Thank you documented in this encounter [facility] 05-06-2025 Telephone encounter Note Patient returning missed call, please contact when able, thank you [facility] 05-04-2025 Telephone encounter Note Left vm for pt to call back, not sure what pcp appt is for. [facility] 05-04-2025 Miscellaneous Notes Left vm for pt to call back, not sure what pcp appt is for. Pt has PCP appt same week as her 07/29 appt and wanted to know if she can cancel her PCP appt or if she should still keep it since she will be followed up with here. Please call Pt to discuss. Thank you documented in this encounter [facility] 05-04-2025 Telephone encounter Note Pt has PCP appt same week as her 07/29 appt and wanted to know if she can cancel her PCP appt or if she should still keep it since she will be followed up with here. Please call Pt to discuss. Thank you [facility] 05-03-2025 History of Present illness Narrative Images from the original note were not included. Radiation Oncology Outpatient Follow Up Patient Name: Doni Nova : 1950 Referring Provider: Agustina Agudelo MD Care Team: Pily Blake DO, Radiation Oncology, [facility] Agustina Agudelo MD, Radiation Oncology, [facility] Lenny Paulino MD, Gynecology Oncology, [facility] Date of Service: 05/03/2025 Diagnosis: -06/2023: Endometrial cancer, status post CITLALLI/BSO/LND, [id number], Grade 1-2, FIGO stage IB (MMI 65%, positive for lower uterine segment involvement, no cervical stromal involvement, no LVSI, 0/5 pelvic LNs, 0/2 para-aortic LNs). -12/2024: Recurrence of endometrial cancer in the anterior vaginal wall, confirmed by biopsy. She now presents for a follow up visit. Interval History: Since completion of she is overall doing well. She has had continued improvement of her daily activities. Skin irritation from radiation has improved. She continues to have urinary urgency and occasional incontinence, at her baseline. She has continued to have some tendency towards loose bowel movements. Denies any new bowel symptoms. She has not resumed any sexual activity. Prior Radiotherapy: Yes. Whole pelvic RT, 45 Gy in 25 fractions followed by vaginal brachytherapy 30Gy in 5 fractions completed on 04/01/2025 Current Systemic Treatment: No Presence of Pacemaker or ICD: No Past Medical History: Medical History[1] Past Surgical History: Surgical History[2] Family History: Cancer-related family history includes Breast cancer in her maternal grandmother. Social History: Social History[3] Allergies: Allergies[4] Medications: Current Medications[5] Review of Systems: Please see accompanying RN note. The patient's current pain level was assessed. They report currently having a pain of 0 out of 10. They feel their pain is under control without the use of pain medications. The patient does not have a documented plan of care to address pain. Performance Status: The Karnofsky performance scale today is 90, Able to carry on normal activity; minor signs or symptoms of disease (ECOG equivalent 0). OBJECTIVE Physical Exam: BP (!) 184/77 Pulse 71 Temp 36.3 C (97.3 F) (Temporal) Resp 18 Wt 81.7 kg (180 lb 3.2 oz) SpO2 96% BMI 32.96 kg/m Physical Exam Constitutional: General: She is not in acute distress. Appearance: She is not toxic-appearing. HENT: Head: Normocephalic and atraumatic. Eyes: General: No scleral icterus. Pulmonary: Effort: No respiratory distress. Breath sounds: No wheezing. Abdominal: General: There is no distension. Tenderness: There is no abdominal tenderness. Genitourinary: Comments: Examined in presence of unemployment insurance hearing officer (resident and RN). External genitalia: Normal external genitalia, no vulvar masses or lesions Introitus: no blood, discharge at introitus, Very minimal radiation dermatitis. Speculum examination shows a flat lesion/scar tissue involving middle-vagina, anterior wall on right side, spanning from 10 O'Clock to 1 O'Clock. The lesion appears completely flattened. There is no bleeding from this lesion. Digital examination confirms above finding of a flat lesion with central scarring/tenderness with surrounding indurated edge. Posterior wall is uninvolved. s/p hysterectomy: cervix, uterus and adnexae surgically absent GIFTY: Deferred Musculoskeletal: General: No tenderness. Right lower leg: No edema. Left lower leg: No edema. Lymphadenopathy: Cervical: No cervical adenopathy. Skin: Coloration: Skin is not jaundiced. Findings: No bruising. Neurological: General: No focal deficit present. Mental Status: She is oriented to person, place, and time. Mental status is at baseline. Cranial Nerves: No cranial nerve deficit. Psychiatric: Mood and Affect: Mood normal. Behavior: Behavior normal. Cancer History: -10/2022: Presented with progressive vaginal bleeding and abdominal cramps. -05/2023: Pelvic ultrasound showed uterus measuring 10 cm in size with a 38 mm endometrial stripe. -05/2023: CT abdomen revealed an enlarged uterus. -06/25/2023: CITLALLI/BL BSO/SLND performed by Dr. Paulino (Gynecologic Oncology) at [facility] . Endometrioid carcinoma, [id number], Grade 1-2, FIGO stage IB (MMI 65%, positive for lower uterine segment involvement, no cervical stromal involvement, no LVSI, 0/5 pelvic LNs, 0/2 para-aortic LNs). No adjuvant treatment. Patient underwent surveillance. -11/2024: Presented with vaginal bleeding. Biopsy 01/03/2025 confirmed recurrence of endometrial cancer in the anterior vaginal wall, positive ER/DE, dMMR (positive for MLH1) -01/11/2025: PET/CT at [facility] showed an ill-defined, hypermetabolic focus along the right lower vaginal wall (SUV 10.2), compatible with a lower cervical/upper vaginal neoplasm. Additionally, there were two mildly hypermetabolic foci within the right pelvis, just posterior to the distal ureter, subjacent to pelvic calcifications/surgical clips (SUV 2.5). Mild diffuse hypermetabolic uptake was also noted throughout the thoracic and lumbar spine.. -01/20/2025: Pelvic MRI revealed a 3.2 cm nodule in the right lower vaginal wall, correlating with PET/CT findings. There was immediate abutment of the posterior bladder and proximal urethra without gross invasion, though early microscopic involvement could not be excluded. No distant metastases. -01/2025: Consulted by Dr. Pily Blake at [place]; plan for EBRT to the pelvis (starting on 02/07). - 01/27/2025 s/b Dr. Agudelo on 01/27/2025 for evaluation of adjuvant brachytherapy. Based on the tumor size and possible indication for interstitial brachytherapy, she was referred to Dr. Rosenberg at [facility] for further evaluation. Pathology Review: The pertinent pathology results were reviewed and discussed with the patient. 06/25/2023 Final Diagnosis A. UTERUS WITH BILATERAL OVARIES AND FALLOPIAN TUBES, HYSTERECTOMY AND BILATERAL SALPINGO-OOPHORECTOMY: - ENDOMETRIOID ADENOCARCINOMA, FIGO GRADE 2. - BENIGN CERVIX. - MYOMETRIUM WITH LEIOMYOMA. - BILATERAL OVARIES WITH CORPORA ALBICANTIA AND RIGHT WITH DYSTROPHIC CALCIFICATIONS AND BENIGN SIMPLE CYST. - BENIGN BILATERAL FALLOPIAN TUBES. B. LYMPH NODE, LEFT PELVIC, DISSECTION: - THREE LYMPH NODES NEGATIVE FOR METASTATIC CARCINOMA (0/3). C. LYMPH NODE, RIGHT PARA-AORTIC, DISSECTION: - TWO LYMPH NODES NEGATIVE FOR METASTATIC CARCINOMA (0/2). D. LYMPH NODE, RIGHT PELVIC, DISSECTION: - TWO LYMPH NODES NEGATIVE FOR METASTATIC CARCINOMA (0/2) Synoptic Checklist ENDOMETRIUM ENDOMETRIUM: HYSTERECTOMY - A 8th Edition - Protocol posted: 09/04/2022 SPECIMEN Procedure: Total hysterectomy and bilateral salpingo-oophorectomy Specimen Integrity: Opened TUMOR Tumor Site: Endometrium Histologic Type: Endometrioid carcinoma, NOS Histologic Grade: FIGO grade 2 Two-Tier Grading System: Low grade (encompassing FIGO 1 and 2) Myometrial Invasion: Present Depth of Myometrial Invasion: 13 mm Myometrial Thickness: 20 mm Percentage of Myometrial Invasion: 65 % Adenomyosis: Not identified Uterine Serosa Involvement: Not identified Lower Uterine Segment Involvement: Present, myoinvasive Cervical Stromal Involvement: Not identified Other Tissue / Organ Involvement: Not applicable Peritoneal / Ascitic Fluid: Not submitted / unknown Lymphatic and / or Vascular Invasion: Not identified REGIONAL LYMPH NODES Regional Lymph Node Status: : All regional lymph nodes negative for tumor cells Lymph Nodes Examined: Total Number of Pelvic Nodes Examined: 5 Total Number of Para-aortic Nodes Examined: 2 pTNM CLASSIFICATION (AJCC 8th Edition) Reporting of pT, pN, and (when applicable) pM categories is based on information available to the pathologist at the time the report is issued. As per the AJCC (Chapter 1, 8th Ed.) it is the managing physician's responsibility to establish the final pathologic stage based upon all pertinent information, including but potentially not limited to this pathology report. 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: A12 Endometrium Biomarker Reporting Template (Added in Addendum) ENDOMETRIUM: BIOMARKER REPORTING TEMPLATE - A Protocol posted: 06/01/2019 Test(s) Performed: Immunohistochemistry (IHC) Testing for Mismatch Repair (MMR) Proteins: MLH1: Loss of nuclear expression Immunohistochemistry (IHC) Testing for Mismatch Repair (MMR) Proteins: MSH2: Intact nuclear expression Immunohistochemistry (IHC) Testing for Mismatch Repair (MMR) Proteins: MSH6: Intact nuclear expression Immunohistochemistry (IHC) Testing for Mismatch Repair (MMR) Proteins: PMS2: Loss of nuclear expression Addendum 2 MLH1 Promoter Methylation Analysis: MLH1 Methylation - POSITIVE 01/03/2025 Final Diagnosis A. VAGINA, BIOPSY: - COMPATIBLE WITH ENDOMETRIOID CARCINOMA. Comment: The patient's history of known primary is noted. The malignant cells stain positive with ER and DE. These findings are most compatible with a gynecologic origin. Imaging Review: The pertinent imaging results were reviewed and discussed with the patient. MR pelvis w and wo IV contrast 03/08/2025 1. Positive treatment response. Anterior vaginal wall mass has significantly decreased in size since prior, previously measuring up to 1.8 cm x 2.9 cm transverse and now measuring up to 0.9 cm x 2.0 cm. 2. No evidence of tumor invasion of the posterior bladder wall or the urethral sphincter complex. 3. No evidence of metastatic disease within the pelvis. Laboratory Review: There are no laboratory contraindications to radiation therapy. The pertinent lab results were reviewed and discussed with the patient. ASSESSMENT: Ms. Nova is a 75-year-old female who was initially diagnosed with pT1bN0, Grade 2 endometrial cancer, FIGO Stage IB (MMI 65%, positive for lower uterine segment involvement, no cervical stromal involvement, 0/5 pelvic lymph nodes, 0/2 para-aortic lymph nodes). She underwent CITLALLI, BSO, and SLND on 06/25/2023. She presented with a biopsy-proven recurrence in the anterior vaginal wall and has undergone a course of pelvic radiation 45Gy/25fx and followed by vaginal brachytherapy 30Gy/5fx completed on 04/01/2025. PLAN: Ms. Nova's pertinent history, exam, imaging and pathology details were reviewed. Accompanied by . We have discussed her follow up plans. She will require a repeat MRI pelvis in 2 months from now to follow up treatment response. She will require vaginal contrast for MRI. We will contact her local team for further information. She will also see Leia Trevizo CNP for a follow up visit in 2 months. We reviewed the use of vaginal dilator. Detailed instructions were provided. Provided guidance regarding resuming sexual activity and other physical activities. She knows to call with questions or concerns. Pain Management: Procedure under oral sedation. Social Work: No acute needs Nutrition: No acute needs The patient was provided our contact information. LONGITUDINAL CARE, EXTRA EFFORT/ [id number]: The patient will be followed longitudinally by providers (including APPs) in the department of radiation oncology for monitoring treatment effects during and after radiation. Additional effort needed in the setting of coordination of care with local providers and treatment planning. Total time: 40 min Prep: 5 min In-room: 25 min Chartin min Care coordination: [address] Rosenberg. Moon Maharaj MD PhD, PGY-3, Radiation Oncology For Humaira Rosenberg MD, MMM Senior Attending Physician, [facility] Professor, [employer] [place]: [employer], To Te[employer], To [employer]. Phone (after hours): [phone] RN partner: Daniela Lagos Radiation Oncology (scheduling): Niki Blue Proton Therapy (scheduling): Marisol Vinson Brachytherapy (scheduling): Sheree Bernal ATTENDING ADDENDUM: I saw and evaluated the patient with the resident. I personally obtained the castelan and critical portions of the history and physical exam and directly counseled the patient of the treatment plan. I reviewed the resident documentation and discussed the patient with the resident. I agree with the resident's medical decision making as documented in the note. [1] Past Medical History: Diagnosis Date Endometrial cancer (Multi) Lumbar disc disease Obesity Vision loss glasses [2] Past Surgical History: Procedure Laterality Date HYSTERECTOMY LUMBAR DISC SURGERY [3] Social History Tobacco Use Smoking status: Never Smokeless tobacco: Never Substance Use Topics Alcohol use: Never Drug use: Never [4] No Known Allergies [5] Current Outpatient Medications: apple cider vinegar 300 mg tablet, Apple Cider Vinegar 300 mg tablet Active 450 mg PO February 25, 2023 12:00am, Disp: , Rfl: ascorbic acid (Vitamin C) 500 mg tablet, Take 1 tablet (500 mg) by mouth once daily., Disp: , Rfl: calcium carbonate (Os-Wilton) 1,250 mg (500 mg elemental) tablet, Take 1 tablet by mouth 2 times daily (morning and late afternoon)., Disp: , Rfl: calcium carbonate-vitamin D3 500 mg-5 mcg (200 unit) tablet, Take 1 tablet by mouth once daily., Disp: , Rfl: chlorhexidine (Hibiclens) 4 % external liquid, Use as directed daily preoperatively for 5 days leading up to surgery, wash body all over not on face or genital region, let sit on skin for 3 minutes before rising., Disp: 473 mL, Rfl: 0 chlorhexidine (Peridex) 0.12 % solution, Swish and spit with 15ml of solution the night before and morning of surgery. Do not swallow., Disp: 15 mL, Rfl: 0 cholecalciferol (Vitamin D-3) 25 mcg (1,000 units) capsule, Take 1 capsule (1,000 Units) by mouth once daily., Disp: , Rfl: cranberry extract 200 mg capsule, Cranberry Extract 200 mg capsule Active 200 mg PO DAILY February 25, 2023 12:00am administer with a meal, Disp: , Rfl: cyanocobalamin (Vitamin B-12) 100 mcg tablet, Take 5 tablets (500 mcg) by mouth once daily., Disp: , Rfl: echinacea 380 mg capsule, Echinacea 380 mg capsule Active 760 mg PO DAILY February 25, 2023 12:00am administer with meals, Disp: , Rfl: magnesium, amino acid chelate, 133 mg tablet, Take 1 tablet (133 mg) by mouth once daily., Disp: , Rfl: oxyCODONE (Roxicodone) 5 mg immediate release tablet, Take 1 tablet (5 mg) by mouth if needed (take one tablet 30mins before the procedure, do not exceed 10mg in one dose) for up to 8 doses., Disp: 8 tablet, Rfl: 0 Current Facility-Administered Medications: ibuprofen tablet 400 mg, 400 mg, oral, Once, Moon Maharaj MD oxyCODONE (Roxicodone) immediate release tablet 5 mg, 5 mg, oral, Once, Moon Maharaj MD documented in this encounter [facility] Work Phone: 04-01-2025 Note [facility] Prescribed Technique HDR Procedure [facility] RADIATION ONCOLOGY 04-01-2025 Note [facility] Prescribed Technique HDR Procedure [facility] RADIATION ONCOLOGY 03-30-2025 Note [facility] Prescribed Technique HDR Procedure [facility] RADIATION ONCOLOGY 03-30-2025 Note [facility] Prescribed Technique HDR Procedure [facility] RADIATION ONCOLOGY 03-28-2025 Note [facility] Prescribed Technique HDR Procedure [facility] RADIATION ONCOLOGY 03-28-2025 Note [facility] Prescribed Technique HDR Procedure [facility] RADIATION ONCOLOGY 03-24-2025 Note [facility] Prescribed Technique HDR Procedure [facility] RADIATION ONCOLOGY 03-24-2025 Note [facility] Prescribed Technique HDR Procedure [facility] RADIATION ONCOLOGY 03-21-2025 Note [facility] Prescribed Technique HDR Procedure [facility] RADIATION ONCOLOGY 03-21-2025 Note [facility] Prescribed Technique HDR Procedure [facility] RADIATION ONCOLOGY 03-15-2025 History of Present illness Narrative Formatting of this note might be differe nt from the original. Radiation Oncology Nursing Note Pain: The patient's current pain level was assessed. They report currently having a pain of 0 out of 10. They feel their pain is under control with the use of pain medications. Review of Systems: Review of Systems Constitutional: Positive for fatigue. HENT: Negative. Eyes: Negative. Respiratory: Negative. Cardiovascular: Negative. Gastrointestinal: Positive for diarrhea (looser stools). Endocrine: Negative. Genitourinary: Negative for bladder incontinence, dysuria, frequency, vaginal bleeding and vaginal discharge. Musculoskeletal: Negative. Skin: Negative. Neurological: Negative. Hematological: Negative. Psychiatric/Behavioral: Negative. Patient here with her for her FUV for brachytherapy. Patient has tolerated EBRT well, with only mild looser stools and some fatigue. Patient denies vaginal discharge or bleeding, and any change in urinary habits. Cosigned by Humaira Rosenberg MD at 03/17/2025 11:18 PM EDT Images from the original note were not included. Radiation Oncology Outpatient Follow Up Patient Name: Doni Nova : 1950 Referring Provider: Agustina Agudelo MD Care Team: Pily Blake DO, Radiation Oncology, [facility] Agustina Agudelo MD, Radiation Oncology, [facility] Lenny Paulino MD, Gynecology Oncology, [facility] Date of Service: 03/15/2025 Diagnosis: -06/2023: Endometrial cancer, status post CITLALLI/BSO/LND, [id number], Grade 1-2, FIGO stage IB (MMI 65%, positive for lower uterine segment involvement, no cervical stromal involvement, no LVSI, 0/5 pelvic LNs, 0/2 para-aortic LNs). -12/2024: Recurrence of endometrial cancer in the anterior vaginal wall, confirmed by biopsy. History of Present Illness: Ms. Nova is a 75-year-old female who is otherwise healthy presents with a diagnosis of recurrent endometrial cancer. Shee presents to discuss role of interstitial brachytherapy. Interval History: Will complete pelvic radiation today under the care of Dr. Blake. Has mild loose stools and mild fatigue. No vaginal bleeding, discharge. No symptoms. PAT completed today. She reports having good energy levels and is able to perform her daily exercises. Her appetite is good. Denies chest pain, shortness of breath, nausea, or vomiting. EOT MRI per below. MR pelvis w and wo IV contrast 03/08/2025 1. Positive treatment response. Anterior vaginal wall mass has significantly decreased in size since prior, previously measuring up to 1.8 cm x 2.9 cm transverse and now measuring up to 0.9 cm x 2.0 cm. 2. No evidence of tumor invasion of the posterior bladder wall or the urethral sphincter complex. 3. No evidence of metastatic disease within the pelvis. Cancer History: -10/2022: Presented with progressive vaginal bleeding and abdominal cramps. -05/2023: Pelvic ultrasound showed uterus measuring 10 cm in size with a 38 mm endometrial stripe. -05/2023: CT abdomen revealed an enlarged uterus. -06/25/2023: CITLALLI/BL BSO/SLND performed by Dr. Paulino (Gynecologic Oncology) at [facility] . Endometrioid carcinoma, [id number], Grade 1-2, FIGO stage IB (MMI 65%, positive for lower uterine segment involvement, no cervical stromal involvement, no LVSI, 0/5 pelvic LNs, 0/2 para-aortic LNs). No adjuvant treatment. Patient underwent surveillance. -11/2024: Presented with vaginal bleeding. Biopsy 01/03/2025 confirmed recurrence of endometrial cancer in the anterior vaginal wall, positive ER/DE, dMMR (positive for MLH1) -01/11/2025: PET/CT at [facility] showed an ill-defined, hypermetabolic focus along the right lower vaginal wall (SUV 10.2), compatible with a lower cervical/upper vaginal neoplasm. Additionally, there were two mildly hypermetabolic foci within the right pelvis, just posterior to the distal ureter, subjacent to pelvic calcifications/surgical clips (SUV 2.5). Mild diffuse hypermetabolic uptake was also noted throughout the thoracic and lumbar spine.. -01/20/2025: Pelvic MRI revealed a 3.2 cm nodule in the right lower vaginal wall, correlating with PET/CT findings. There was immediate abutment of the posterior bladder and proximal urethra without gross invasion, though early microscopic involvement could not be excluded. No distant metastases. -01/2025: Consulted by Dr. Pily Blake at [place]; plan for EBRT to the pelvis (starting on 02/07). - 01/27/2025 s/b Dr. Agudelo on 01/27/2025 for evaluation of adjuvant brachytherapy. Based on the tumor size and possible indication for interstitial brachytherapy, she was referred to Dr. Rosenberg at [facility] for further evaluation. Pathology Review: The pertinent pathology results were reviewed and discussed with the patient. 06/25/2023 Final Diagnosis A. UTERUS WITH BILATERAL OVARIES AND FALLOPIAN TUBES, HYSTERECTOMY AND BILATERAL SALPINGO-OOPHORECTOMY: - ENDOMETRIOID ADENOCARCINOMA, FIGO GRADE 2. - BENIGN CERVIX. - MYOMETRIUM WITH LEIOMYOMA. - BILATERAL OVARIES WITH CORPORA ALBICANTIA AND RIGHT WITH DYSTROPHIC CALCIFICATIONS AND BENIGN SIMPLE CYST. - BENIGN BILATERAL FALLOPIAN TUBES. B. LYMPH NODE, LEFT PELVIC, DISSECTION: - THREE LYMPH NODES NEGATIVE FOR METASTATIC CARCINOMA (0/3). C. LYMPH NODE, RIGHT PARA-AORTIC, DISSECTION: - TWO LYMPH NODES NEGATIVE FOR METASTATIC CARCINOMA (0/2). D. LYMPH NODE, RIGHT PELVIC, DISSECTION: - TWO LYMPH NODES NEGATIVE FOR METASTATIC CARCINOMA (0/2) Synoptic Checklist ENDOMETRIUM ENDOMETRIUM: HYSTERECTOMY - A 8th Edition - Protocol posted: 09/04/2022 SPECIMEN Procedure: Total hysterectomy and bilateral salpingo-oophorectomy Specimen Integrity: Opened TUMOR Tumor Site: Endometrium Histologic Type: Endometrioid carcinoma, NOS Histologic Grade: FIGO grade 2 Two-Tier Grading System: Low grade (encompassing FIGO 1 and 2) Myometrial Invasion: Present Depth of Myometrial Invasion: 13 mm Myometrial Thickness: 20 mm Percentage of Myometrial Invasion: 65 % Adenomyosis: Not identified Uterine Serosa Involvement: Not identified Lower Uterine Segment Involvement: Present, myoinvasive Cervical Stromal Involvement: Not identified Other Tissue / Organ Involvement: Not applicable Peritoneal / Ascitic Fluid: Not submitted / unknown Lymphatic and / or Vascular Invasion: Not identified REGIONAL LYMPH NODES Regional Lymph Node Status: : All regional lymph nodes negative for tumor cells Lymph Nodes Examined: Total Number of Pelvic Nodes Examined: 5 Total Number of Para-aortic Nodes Examined: 2 pTNM CLASSIFICATION (AJCC 8th Edition) Reporting of pT, pN, and (when applicable) pM categories is based on information available to the pathologist at the time the report is issued. As per the AJCC (Chapter 1, 8th Ed.) it is the managing physician's responsibility to establish the final pathologic stage based upon all pertinent information, including but potentially not limited to this pathology report. 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: A12 Endometrium Biomarker Reporting Template (Added in Addendum) ENDOMETRIUM: BIOMARKER REPORTING TEMPLATE - A Protocol posted: 06/01/2019 Test(s) Performed: Immunohistochemistry (IHC) Testing for Mismatch Repair (MMR) Proteins: MLH1: Loss of nuclear expression Immunohistochemistry (IHC) Testing for Mismatch Repair (MMR) Proteins: MSH2: Intact nuclear expression Immunohistochemistry (IHC) Testing for Mismatch Repair (MMR) Proteins: MSH6: Intact nuclear expression Immunohistochemistry (IHC) Testing for Mismatch Repair (MMR) Proteins: PMS2: Loss of nuclear expression Addendum 2 MLH1 Promoter Methylation Analysis: MLH1 Methylation - POSITIVE 01/03/2025 Final Diagnosis A. VAGINA, BIOPSY: - COMPATIBLE WITH ENDOMETRIOID CARCINOMA. Comment: The patient's history of known primary is noted. The malignant cells stain positive with ER and DE. These findings are most compatible with a gynecologic origin. Prior Radiotherapy: Yes. Scheduled to finish whole pelvic RT, 45 Gy in 25 fractions Current Systemic Treatment: No Presence of Pacemaker or ICD: No Past Medical History: Medical History[1] Past Surgical History: Surgical History[2] Family History: Cancer-related family history includes Breast cancer in her maternal grandmother. Social History: Social History[3] Allergies: Allergies[4] Medications: Current Medications[5] Review of Systems: Please see accompanying RN note. The patient's current pain level was assessed. They report currently having a pain of 0 out of 10. They feel their pain is under control without the use of pain medications. The patient does not have a documented plan of care to address pain. Performance Status: The Karnofsky performance scale today is 90, Able to carry on normal activity; minor signs or symptoms of disease (ECOG equivalent 0). OBJECTIVE Physical Exam: BP 136/80 Pulse 58 Temp 36.6 C (97.9 F) (Oral) Resp 18 Wt 81.2 kg (179 lb) SpO2 98% BMI 32.74 kg/m Physical Exam Constitutional: General: She is not in acute distress. Appearance: She is not toxic-appearing. HENT: Head: Normocephalic and atraumatic. Eyes: General: No scleral icterus. Pulmonary: Effort: No respiratory distress. Breath sounds: No wheezing. Abdominal: General: There is no distension. Tenderness: There is no abdominal tenderness. Genitourinary: Comments: Examined in presence of unemployment insurance hearing officer (RN). External genitalia: Normal external genitalia, no vulvar masses or lesions Introitus: no blood, discharge at introitus, Very minimal radiation dermatitis. Speculum examination shows a flat lesion involving middle-vagina, anterior wall on right side, spanning from 10 O'Clock to 1 O'Clock. The lesion has central depression of an ulcerated skin. Digital examination confirms above finding of a flat lesion with central ulceration with surrounding indurated edge. Overalll lesion thickness seems less than 5 mm. The lesion doesn't involve proximal vaginal cuff and stops short of introitus by 1-2 cm. Posterior wall is uninvolved. s/p hysterectomy: cervix, uterus and adnexae surgically absent GIFTY: Deferred Musculoskeletal: General: No tenderness. Right lower leg: No edema. Left lower leg: No edema. Lymphadenopathy: Cervical: No cervical adenopathy. Skin: Coloration: Skin is not jaundiced. Findings: No bruising. Neurological: General: No focal deficit present. Mental Status: She is oriented to person, place, and time. Mental status is at baseline. Cranial Nerves: No cranial nerve deficit. Psychiatric: Mood and Affect: Mood normal. Behavior: Behavior normal. Laboratory Review: There are no laboratory contraindications to radiation therapy. The pertinent lab results were reviewed and discussed with the patient. ASSESSMENT: Ms. Nova is a 75-year-old female who was initially diagnosed with pT1bN0, Grade 2 endometrial cancer, FIGO Stage IB (MMI 65%, positive for lower uterine segment involvement, no cervical stromal involvement, 0/5 pelvic lymph nodes, 0/2 para-aortic lymph nodes). She underwent CITLALLI, BSO, and SLND on 06/25/2023. She presented with a biopsy-proven recurrence in the anterior vaginal wall and has undergone a course of pelvic radiation. She is due for final fraction today. She presents to discuss brachytherapy boost. PLAN: Ms. Nova's pertinent history, exam, imaging and pathology details were reviewed. Accompanied by . Treatment recommendations/Alternatives: NCCN Guidelines were applicable to guide this patients treatment plan. We reviewed the standard of care management for vaginal cuff recurrence from her endometrial cancer. She has had an excellent response to chemoradiation. Based on clinical and imaging examination, she can be treated with vaginal brachytherapy (VBT) using a multichannel cylinder. Radiation treatment logistics: VBT will be performed as 5 separate out-patient procedures. No sedation or anesthesia will be needed. Topical lidocaine application will be used as needed. An initial simulation/mapping that will involve a planning CT scan with the treatment device will be done as a stand-alone appointment or in combination with the first treatment session. The radiation will be planned for a target EQD2 dose of 70-80 Gy to HRCTV. Higher dose will be planned if achievable. We will treat her with comfortably full bladder. I reviewed instructions for bowel routine to allow empty rectum prior to the simulation and for each treatments. She was encouraged to use OTC stool softeners/ laxatives as needed. We then reviewed possible side effects (Acute and long-term). Common and uncommon side effects with risks as relevant for her case were discussed. Risk of vaginal stenosis and impact on sexual function reviewed. Because of the location, she will be at a high risk of urinary/bladder toxicity including stricture, ulceration and fistulization. She will be given a dilator post-treatment. Treatment alternatives including external radiation or chemotherapy were reviewed, but unlikely to be curative. After detailed discussion of risks/benefits/goals/alternatives, patient confirmed her intent to proceed. Orders placed: None new. Network location: The patient will be treated at the [facility] location. Simulation will be done at the [facility] location. Pain Management: Procedure under oral sedation. Social Work: No acute needs Nutrition: No acute needs The patient was provided our contact information. LONGITUDINAL CARE, EXTRA EFFORT/ [id number]: The patient will be followed longitudinally by providers (including APPs) in the department of radiation oncology for monitoring treatment effects during and after radiation. Additional effort needed in the setting of coordination of care with local providers and treatment planning. Humaira Rosenberg MD, MMM Senior Attending Physician, [facility] [place] Professor, [facility] [employer] [place]: To Heal, To Teach, To Discover. Phone (after hours): [phone] RN partner: Daniela Lagos Radiation Oncology (scheduling): Niki Blue Proton Therapy (scheduling): Marisol Vinson Brachytherapy (scheduling): Sheree Bernal [1] Past Medical History: Diagnosis Date Endometrial cancer (Multi) Lumbar disc disease Obesity Vision loss glasses [2] Past Surgical History: Procedure Laterality Date HYSTERECTOMY LUMBAR DISC SURGERY [3] Social History Tobacco Use Smoking status: Never Smokeless tobacco: Never Substance Use Topics Alcohol use: Never Drug use: Never [4] No Known Allergies [5] Current Outpatient Medications: apple cider vinegar 300 mg tablet, Apple Cider Vinegar 300 mg tablet Active 450 mg PO February 25, 2023 12:00am, Disp: , Rfl: ascorbic acid (Vitamin C) 500 mg tablet, Take 1 tablet (500 mg) by mouth once daily., Disp: , Rfl: calcium carbonate (Os-Wilton) 1,250 mg (500 mg elemental) tablet, Take 1 tablet by mouth 2 times daily (morning and late afternoon)., Disp: , Rfl: calcium carbonate-vitamin D3 500 mg-5 mcg (200 unit) tablet, Take 1 tablet by mouth once daily., Disp: , Rfl: chlorhexidine (Hibiclens) 4 % external liquid, Use as directed daily preoperatively for 5 days leading up to surgery, wash body all over not on face or genital region, let sit on skin for 3 minutes before rising., Disp: 473 mL, Rfl: 0 chlorhexidine (Peridex) 0.12 % solution, Swish and spit with 15ml of solution the night before and morning of surgery. Do not swallow., Disp: 15 mL, Rfl: 0 cholecalciferol (Vitamin D-3) 25 mcg (1,000 units) capsule, Take 1 capsule (1,000 Units) by mouth once daily., Disp: , Rfl: cranberry extract 200 mg capsule, Cranberry Extract 200 mg capsule Active 200 mg PO DAILY February 25, 2023 12:00am administer with a meal, Disp: , Rfl: cyanocobalamin (Vitamin B-12) 100 mcg tablet, Take 5 tablets (500 mcg) by mouth once daily., Disp: , Rfl: echinacea 380 mg capsule, Echinacea 380 mg capsule Active 760 mg PO DAILY February 25, 2023 12:00am administer with meals, Disp: , Rfl: magnesium, amino acid chelate, 133 mg tablet, Take 1 tablet (133 mg) by mouth once daily., Disp: , Rfl: documented in this encounter [facility] Work Phone: 03-14-2025 Progress note [facility] 03-14-2025 Progress note Note Date/Time March 14, 2025 9:15am [facility] [address] [address] OFFICE VISIT Date of Service: 03/14/25 0856 MR#: [id number] Acct: [id number] Name: DONI NOVA Rep #: [id number] : 1950 From: Timur garcia DO Age/Sex: 75/F Location: [facility] Status: Signed Intake Vital Signs 01/26/25 08:47 03/14/25 08:58 Height 5 ft 2 in 5 ft 2 in Weight: 181 lb BMI 33.0 BP 148/84 H Blood Pressure Location Rt brachial Position Sitting Respiration 16 Pulse 61 Pulse Source Monitor Temp 96.5 F L Temperature Source Temporal Artery Pulse Oximetry (%) 97 Oxygen Delivery Method room air Intake Visit Reasons: OTV Is patient in pain?: No Allergies No Known Allergies Allergy (Verified 03/14/25 09:01) Medications ?Medication ?Instructions ?Recorded ?Confirmed ?Type apple cider vinegar 300 mg tablet 450 mg PO 02/25/23 0 03/14/25 History ascorbate calcium (vitamin C) 500 500 mg PO DAILY 03/1403/14/25 History mg tablet cranberry extract 200 mg capsule 200 mg PO DAILY 02/2503/14/25 History echinacea 380 mg capsule 760 mg PO DAILY 02/25/23 History magnesium 250 mg tablet 250 mg PO DAILY 02/25/23 History mecobalamin (vitamin B12) 1,000 1,000 mcg PO DAILY 03/1403/14/25 History mcg chewable tablet calcium carbonate 600 mg PO QDAY 01/26/2502/21 History cholecalciferol (vitamin D3) 50 50 mcg PO QDAY 5 03/14/25 History mcg (2,000 unit) capsule Have you fallen in the past year?: No PFSH PFSH Medical History Fractured coccyx History of back problems Home Medications ?Medication ?Instructions ?Recorded ?Last Taken ?Type apple cider vinegar 300 mg tablet 450 mg PO 02/25/23 U nknown History ascorbate calcium (vitamin C) 500 500 mg PO DAILY 03/14 Unknown History mg tablet cranberry extract 200 mg capsule 200 mg PO DAILY 02/25 Unknown History echinacea 380 mg capsule 760 mg PO DAILY 02/25/23 Unk nown History magnesium 250 mg tablet 250 mg PO DAILY 02/25/23 Unk nown History mecobalamin (vitamin B12) 1,000 1,000 mcg PO DAILY 03/14 Unknown History mcg chewable tablet calcium carbonate 600 mg PO QDAY 01/26/25 Unkn own History cholecalciferol (vitamin D3) 50 50 mcg PO QDAY 5 Unknown History mcg (2,000 unit) capsule Allergy/AdvReac Type Severity Reaction Status Date / Time No Known Allergies Allergy Verified 03/14/25 09:01 Family History Grandmother Breast cancer Father Cancer laryngeal Myocardial infarction, Onset Age: 68 Mother CVA (cerebral vascular accident) Sister Hypertension Other Seizures Surgical History H/O total hysterectomy History of appendectomy History of surgical procedure S/P laparotomy History of back surgery Social History household members: spouse current occupational status: unemployed 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 Plan: Plan was made to complete salvage radiation therapy consisting of 4500 cGy delivered in 25 fractions to the entire length of the vaginal canal, at risk pelvic adenopathy as well as bilateral inguinal lymph node stations and she is planning to proceed with brachytherapy following external beam treatment. Treatment Data: Treatment Site: Pelvis Current total dose/Total dose planned: 4320 cGy / 4500 cGy Fraction number: Chemotherapy: none Subjective: Pain: 0 / 10 Fatigue: none Skin: no erythema, rash, desquamation GI: no diarrhea/constipation. No rectal pain or bleeding. No bloating or increased gas. : no increase urinary symptoms. No dysuria or hematuria SHOULDER PUNCHER: essentially no more vaginal bleeding, Objective: Weight: 181 lbs Physical Exam: Gen: NAD Skin: no erythema, rash, desquamation. Labs: None Assessment & Plan Assessment/Plan (1) Recurrent carcinoma of endometrium: PLAN: Plan Assessment: Tolerating treatment well overall.? I reviewed and approved all treatment associated imaging. No treatment associated toxicities are noted at this time MRI suggesting likely interstitial brachy Plan: Continue treatment as planned.? I have reviewed potential treatment associated toxicities as well as timing for resolution and management. Skin: Skin care reviewed, continue lotion prn Follow up in one month or sooner if needed. Thank you for allowing me to participate in the management and care of your patient. If I may answer any questions in the interim, please do not hesitate tocontact me at any time. Timur Blake DO, MS Microarray Analyst, Department of Radiation Oncology [facility] Coding Level of Care Code Radiation Tx Management x5 Diagnoses Recurrent carcinoma of endometrium C54.1 03/14/25 0915 <Electronically signed by Timur Blake DO> Date _ Timur Blake DO Cosigner Signature: Date (if applicable) CC: ~ [employer] Work Phone: [phone] 189-786006-20-2025 History of Present illness Narrative* Agustina Agudelo MD - 03/11/2025 10:30 AM EDT RADIATION ONCOLOGY FOLLOW UP PATIENT: Doni Nova DATE OF SERVICE: 03/11/2025 : 1950 AGE: 75 y.o. PRIMARY SITE AND HISTOPATHOLOGY: Problem List Items Addressed This Visit None Cancer Staging No matching staging information was found for the patient. HISTORY OF PRESENT ILLNESS: Doni Nova is a 75 y.o. who presents with history of pT1bN0 grade 2 endometrial cancer now with biopsy-proven anterior vaginal recurrence, who is currently undergoing external beam radiation treatment, here for follow-up. INTERVAL HISTORY: Ms. Nova presents today with and family member. She is doing well and tolerating external beam radiation well with Dr. Blake, with 2 fractions left. She does endorse some loose stools but no urinary symptoms. Interval MRI 03/08 showed significant decrease in size of anterior vaginal wall mass spanning 4.1 cm (similar to prior) and thickness now 0.9 cm from 1.8 cm previously. Anterior vaginal wall thickening abuts the posterior margin of the urethral sphincter complex but no appreciable invasion. Patient has pre-admission testing and procedure scheduled with Dr. Rosenberg at . PAST MEDICAL HISTORY: Medical History[1] PAST SURGICAL HISTORY: Surgical History[2] ALLERGIES: Allergies as of 03/11/2025 (No Known Allergies) MEDICATIONS: Current Medications[3] REVIEW OF SYSTEMS: See HPI ECOG Performance Status: 0 Objective PHYSICAL EXAM: BP (!) 143/76 Pulse 70 Temp 97.1 F (36.2 C) Resp 16 Ht 5' 2 (1.575 m) Wt 178 lb 12.8 oz (81.1 kg) LMP 06/23/2023 SpO2 98% BMI 32.70 kg/m /Pain Score: 0 - No pain /Fatigue Assessment: Able to perform daily activities Physical Exam General: alert, no apparent distress, cooperative with exam HEENT: normocephalic, extraocular movements intact, oropharynx clear Cardiac: well-perfused extremities Pulmonary: no respiratory distress Abdomen: soft, non-tender, non-distended Neuro: alert and oriented, thought content appropriate, clear speech Psych: normal mood and affect Pelvic: nodular mass in anterior mid vagina with improvement compared to prior, minimal bleeding IMPRESSION: Doni Nova is a 75 y.o. who presents with history of pT1bN0 grade 2 endometrial cancernow with biopsy-proven anterior vaginal recurrence, who is currently undergoing external beam radiation treatment, here for follow-up. PLAN: Patient has had an excellent response to external beam treatment, with decrease in size of vaginal recurrence. However, given the thickness of residual tumor, I discussed that vaginal cylinder may not be able to encompass entire volume. I recommend interstitial brachytherapy boost. She and her family are amenable and will proceed with scheduled appointments at . She may return to our clinic as needed. I spent total time 30 minutes reviewing previous notes, test results, and face to face with the patient discussing the diagnosis and the treatment plan as well as documenting on the day of the visit. Agustina Agudelo MD [facility] [place] Department of Radiation Oncology is an Accredited Facility of the [employer] ([employer]). This document was completed utilizing speech recognition software. Grammatical errors, random word insertions, pronoun errors, and incomplete sentences are an occasional consequence of this system due to software limitations, ambient noise, and hardware issues. Any formal questions or concerns about the content, text or information contained within the body of this dictation should be directly addressed to the provider for clarification. [1] Past Medical History: Diagnosis Date Back pain Fractured coccyx (HCC) Post-menopausal bleeding [2] Past Surgical History: Procedure Laterality Date APPENDECTOMY BACK SURGERY HYSTERECTOMY LAPAROTOMY EXPLORATORY (HISTORICAL) [3] Current Outpatient Medications Medication Sig Dispense Refill APPLE CIDER VINEGAR PO Take by mouth. Ascorbic Acid (vitamin C) 100 MG tablet Take 100 mg by mouth daily. Calcium Citrate-Vitamin D 250-2.5 MG-MCG tablet Take by mouth. cholecalciferol (Vitamin D-3) 25 MCG (1000 UT) capsule Take 1,000 Units by mouth daily. CRANBERRY PO Take by mouth. cyanocobalamin (Vitamin B-12) 100 MCG tablet Take 500 mcg by mouth daily. magnesium 30 MG tablet Take 30 mg by mouth daily. acetaminophen (Tylenol) 500 MG tablet Take 2 tablets (1,000 mg) by mouth in the morning and 2 tablets (1,000 mg) at noon and 2 tablets (1,000 mg) in the evening and 2 tablets (1,000 mg) before bedtime. (Patient not taking: Reported on 03/11/2025) 30 tablet 0 apixaban (Eliquis) 2.5 MG tablet Take 1 tablet (2.5 mg) by mouth 2 times daily for 28 days. (Patient not taking: Reported on 03/11/2025) 56 tablet 0 docusate sodium (Colace) 100 MG capsule Take 1 capsule (100 mg) by mouth 2 times daily. (Patient not taking: Reported on 01/27/2025) 20 capsule 0 ibuprofen 600 MG tablet Take 1 tablet (600 mg) by mouth in the morning and 1 tablet (600 mg) at noon and 1 tablet (600 mg) in the evening and 1 tablet (600 mg) before bedtime. (Patient not taking: Reported on 01/27/2025) 60 tablet 0 No current facility-administered medications for this encounter. documented in this [facility]06-20-2025 Miscellaneous Notes* Addendum Note - Rosie Hill RN - 03/11/2025 10:30 AM EDTEncounter addended by: Rosie Hill RN on: 03/11/2025 3:24 PM Actions taken: Clinical Note Signed documented in this [facility]06-20-2025 Note* Addendum Note - Rosie Hill RN - 03/11/2025 10:30 AM EDTEncounter addended by: Rosie Hill RN on: 03/11/2025 3:24 PM Actions taken: Clinical Note [facility]igned [id number]* Addendum Note - Rosie Hill RN - 03/11/2025 10:30 AM EDTEncounter addended by: Rosie Hill RN on: 03/11/2025 3:24 PM Actions taken: Clinical Note Signed [id number] Nurse Note* Rosie Hill RN - 03/11/2025 10:30 AM EDT Patient here at [facility] for follow up to consult with Dr. Agudelo on 01/27/2025. She is currently receiving external pelvic radiation at [facility] - Dr. Blake. She had MRI pelvis on03/08/2025 and is here to discuss result to facilitate further treatment planning. She denies any vaginal bleeding/discharge, or urination/bowel issues. She reports mild tenderness to margoth area due toradiation. Patient prepped for pelvic exam - this RN assisted Dr. Agudelo with exam . Medications updated via patient recall. [id number] Nurse Note* Rosie Hill RN - 03/11/2025 10:30 AM EDT Patient here at [facility] for follow up to consult with Dr. Agudelo on 01/27/2025. She is currently receiving external pelvic radiation at [facility] - Dr. Blake. She had MRI pelvis on03/08/2025 and is here to discuss result to facilitate further treatment planning. She denies any vaginal bleeding/discharge, or urination/bowel issues. She reports mild tenderness to margoth area due toradiation. Patient prepped for pelvic exam - this RN assisted Dr. Agudelo with exam . Medications updated via patient recall. documented in this [facility]06-18-2025 [facility] [address] [place] [address]. [place] [address] OFFICE VISIT Date of Service: 03/09/25829 MR#: [id number] Acct: [id number] Name: DONI NOVA Rep #: [id number] : 1950 From: Timur garcia DO Age/Sex: 75/F Location: [facility] [place] Status: Signed Intake Vital Signs 01/26/25 08:47 03/09/25 08:32 Height 5 ft 2 in 5 ft 2 in Weight: 180 lb 6 oz BMI 33.0 BP 134/79 H Blood Pressure Location Lt brachial Position Sitting Respiration 18 Pulse 61 Pulse Source Monitor Temp 97.7 F L Temperature Source Temporal Artery Pulse Oximetry (%) 98 Intake Visit Reasons: OTV Is patient in pain?: No Allergies No Known Allergies Allergy (Verified 03/09/25 08:35) Medications ?Medication ?Instructions ?Recorded ?Confirmed ?Type apple cider vinegar 300 mg tablet 450 mg PO 02/25/23 0 03/09/25 History ascorbate calcium (vitamin C) 500 500 mg PO DAILY 03/1403/09/25 History mg tablet cranberry extract 200 mg capsule 200 mg PO DAILY 02/2503/09/25 History echinacea 380 mg capsule 760 mg PO DAILY 02/25/23 History magnesium 250 mg tablet 250 mg PO DAILY 02/25/23 History mecobalamin (vitamin B12) 1,000 1,000 mcg PO DAILY 03/1403/09/25 History mcg chewable tablet calcium carbonate 600 mg PO QDAY 01/26/2502/20 History cholecalciferol (vitamin D3) 50 50 mcg PO QDAY 5 03/09/25 History mcg (2,000 unit) capsule Have you fallen in the past year?: No PFSH PFSH Medical History Fractured coccyx History of back problems Home Medications ?Medication ?Instructions ?Recorded ?Last Taken ?Type apple cider vinegar 300 mg tablet 450 mg PO 02/25/23 U nknown History ascorbate calcium (vitamin C) 500 500 mg PO DAILY 03/14 Unknown History mg tablet cranberry extract 200 mg capsule 200 mg PO DAILY 02/25 Unknown History echinacea 380 mg capsule 760 mg PO DAILY 02/25/23 Unk nown History magnesium 250 mg tablet 250 mg PO DAILY 02/25/23 Unk nown History mecobalamin (vitamin B12) 1,000 1,000 mcg PO DAILY 03/14 Unknown History mcg chewable tablet calcium carbonate 600 mg PO QDAY 01/26/25 Unkn own History cholecalciferol (vitamin D3) 50 50 mcg PO QDAY 5 Unknown History mcg (2,000 unit) capsule Allergy/AdvReac Type Severity Reaction Status Date / Time No Known Allergies Allergy Verified 03/09/25 08:35 Family History Grandmother Breast cancer Father Cancer laryngeal Myocardial infarction, Onset Age: 68 Mother CVA (cerebral vascular accident) Sister Hypertension Other Seizures Surgical History H/O total hysterectomy History of appendectomy History of surgical procedure S/P laparotomy History of back surgery Social History household members: spouse current occupational status: unemployed 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 Plan: Plan was made to complete salvage radiation therapy consisting of 4500 cGy delivered in 25 fractions to the entire length of the vaginal canal, at risk pelvic adenopathy as well as bilateral inguinallymph node stations and she is planning to proceed with brachytherapy following external beam treatment. Treatment Data: Treatment Site: Pelvis Current total dose/Total dose planned: 3960 cGy / 4500 cGy Fraction number: Chemotherapy: none Subjective: Pain: 0 / 10 Fatigue: none Skin: no erythema, rash, desquamation GI: no diarrhea/constipation. No rectal pain or bleeding. No bloating or increased gas. : no increase urinary symptoms. No dysuria or hematuria SHOULDER PUNCHER: essentially no more vaginal bleeding, Objective: Weight: 180 lbs 6 oz Physical Exam: Gen: NAD Skin: no erythema, rash, desquamation. Labs: None Assessment & Plan Assessment/Plan (1) Recurrent carcinoma of endometrium: PLAN: Plan Assessment: Tolerating treatment well overall.? I reviewed and approved all treatment associated imaging. No treatment associated toxicities are noted at this time MRI yesterday to determine brachy approach Plan: Continue treatment as planned.? I have reviewed potential treatment associated toxicities as well as timing for resolution and management. Skin: Skin care reviewed, continue lotion prn Follow up next week or sooner if needed. Thank you for allowing me to participate in the management and care of your patient. If I may answer any questions in the interim, please do not hesitate tocontact me at any time. Timur Blake DO, MS Microarray Analyst, Department of Radiation Oncology [facility] Coding Level of Care Code Radiation Tx Management x5 Diagnoses Recurrent carcinoma of endometrium C54.1 03/09/25 0858 DO> Date _ Timur Blake DO Cosigner Signature: Date (if applicable) CC: ~ [facility]06-18-2025 Progress note Author Timur Lou [facility] Note Date/Time March 09, 2025 8:58 am [facility] [address] [place] [id number] OFFICE VISIT Date of Service: 03/09/25829 MR#: [id number] Acct: [id number] Name: DONI NOVA Rep #: [id number] : 1950 From: Timur garcia DO Age/Sex: 75/F Location: [facility] [place] Status: Signed Intake Vital Signs 01/26/25 08:47 03/09/25 08:32 Height 5 ft 2 in 5 ft 2 in Weight: 180 lb 6 oz BMI 33.0 BP 134/79 H Blood Pressure Location Lt brachial Position Sitting Respiration 18 Pulse 61 Pulse Source Monitor Temp 97.7 F L Temperature Source Temporal Artery Pulse Oximetry (%) 98 Intake Visit Reasons: OTV Is patient in pain?: No Allergies No Known Allergies Allergy (Verified 03/09/25 08:35) Medications ?Medication ?Instructions ?Recorded ?Confirmed ?Type apple cider vinegar 300 mg tablet 450 mg PO 02/25/23 0 03/09/25 History ascorbate calcium (vitamin C) 500 500 mg PO DAILY 03/1403/09/25 History mg tablet cranberry extract 200 mg capsule 200 mg PO DAILY 02/2503/09/25 History echinacea 380 mg capsule 760 mg PO DAILY 02/25/23 History magnesium 250 mg tablet 250 mg PO DAILY 02/25/23 History mecobalamin (vitamin B12) 1,000 1,000 mcg PO DAILY 03/1403/09/25 History mcg chewable tablet calcium carbonate 600 mg PO QDAY 01/26/2502/20 History cholecalciferol (vitamin D3) 50 50 mcg PO QDAY 5 03/09/25 History mcg (2,000 unit) capsule Have you fallen in the past year?: No PFSH PFSH Medical History Fractured coccyx History of back problems Home Medications ?Medication ?Instructions ?Recorded ?Last Taken ?Type apple cider vinegar 300 mg tablet 450 mg PO 02/25/23 U nknown History ascorbate calcium (vitamin C) 500 500 mg PO DAILY 03/14 Unknown History mg tablet cranberry extract 200 mg capsule 200 mg PO DAILY 02/25 Unknown History echinacea 380 mg capsule 760 mg PO DAILY 02/25/23 Unk nown History magnesium 250 mg tablet 250 mg PO DAILY 02/25/23 Unk nown History mecobalamin (vitamin B12) 1,000 1,000 mcg PO DAILY 03/14 Unknown History mcg chewable tablet calcium carbonate 600 mg PO QDAY 01/26/25 Unkn own History cholecalciferol (vitamin D3) 50 50 mcg PO QDAY 5 Unknown History mcg (2,000 unit) capsule Allergy/AdvReac Type Severity Reaction Status Date / Time No Known Allergies Allergy Verified 03/09/25 08:35 Family History Grandmother Breast cancer Father Cancer laryngeal Myocardial infarction, Onset Age: 68 Mother CVA (cerebral vascular accident) Sister Hypertension Other Seizures Surgical History H/O total hysterectomy History of appendectomy History of surgical procedure S/P laparotomy History of back surgery Social History household members: spouse current occupational status: unemployed 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 Plan: Plan was made to complete salvage radiation therapy consisting of 4500 cGy delivered in 25 fractions to the entire length of the vaginal canal, at risk pelvic adenopathy as well as bilateral inguinal lymph node stations and she is planning to proceed with brachytherapy following external beam treatment. Treatment Data: Treatment Site: Pelvis Current total dose/Total dose planned: 3960 cGy / 4500 cGy Fraction number: Chemotherapy: none Subjective: Pain: 0 / 10 Fatigue: none Skin: no erythema, rash, desquamation GI: no diarrhea/constipation. No rectal pain or bleeding. No bloating or increased gas. : no increase urinary symptoms. No dysuria or hematuria SHOULDER PUNCHER: essentially no more vaginal bleeding, Objective: Weight: 180 lbs 6 oz Physical Exam: Gen: NAD Skin: no erythema, rash, desquamation. Labs: None Assessment & Plan Assessment/Plan (1) Recurrent carcinoma of endometrium: PLAN: Plan Assessment: Tolerating treatment well overall.? I reviewed and approved all treatment associated imaging. No treatment associated toxicities are noted at this time MRI yesterday to determine brachy approach Plan: Continue treatment as planned.? I have reviewed potential treatment associated toxicities as well as timing for resolution and management. Skin: Skin care reviewed, continue lotion prn Follow up next week or sooner if needed. Thank you for allowing me to participate in the management and care of your patient. If I may answer any questions in the interim, please do not hesitate tocontact me at any time. Timur Blake DO, MS Microarray Analyst, Department of Radiation Oncology [facility] Coding Level of Care Code Radiation Tx Management x5 Diagnoses Recurrent carcinoma of endometrium C54.1 03/09/25 0858 <Electronically signed by Timur Blake DO> Date _ Timur Blake DO [facility] Signature: Date (if applicable) CC: ~ [facility] Work Phone: 1(161) 523-482306-11-2025 Progress [facility] [place] [address] OFFICE VISIT Date of Service: 03/02/25899 MR#: [id number] Acct: [id number] Name: DONI NOVA Rep #: [id number] : 1950 From: Allen shaikh MD Age/Sex: 75/F Location: [facility] [place] Status: Signed Intake Vital Signs 01/26/25 08:47 03/02/25 09:02 Height 5 ft 2 in 5 ft 2 in Weight: 186 lb 4 oz BMI 34.0 BP 156/72 H Blood Pressure Location Rt brachial Position Sitting Respiration 18 Pulse 55 L Pulse Source Monitor Temp 96.9 F L Temperature Source Temporal Artery Pulse Oximetry (%) 98 Oxygen Delivery Method room air Intake Visit Reasons: OTV Is patient in pain?: No Allergies No Known Allergies Allergy (Verified 03/02/25 09:08) Medications ?Medication ?Instructions ?Recorded ?Confirmed ?Type apple cider vinegar 300 mg tablet 450 mg PO 02/25/23 0 03/02/25 History ascorbate calcium (vitamin C) 500 500 mg PO DAILY 03/1403/02/25 History mg tablet cranberry extract 200 mg capsule 200 mg PO DAILY 02/2503/02/25 History echinacea 380 mg capsule 760 mg PO DAILY 02/25/2308/16 History magnesium 250 mg tablet 250 mg PO DAILY 02/25/2308/16 History mecobalamin (vitamin B12) 1,000 1,000 mcg PO DAILY 03/1403/02/25 History mcg chewable tablet calcium carbonate 600 mg PO QDAY 01/26/2502/20 History cholecalciferol (vitamin D3) 50 50 mcg PO QDAY 5 03/02/25 History mcg (2,000 unit) capsule Have you fallen in the past year?: No PFSH PFSH Medical History Fractured coccyx History of back problems Home Medications ?Medication ?Instructions ?Recorded ?Last Taken ?Type apple cider vinegar 300 mg tablet 450 mg PO 02/25/23 U nknown History ascorbate calcium (vitamin C) 500 500 mg PO DAILY 03/14 Unknown History mg tablet cranberry extract 200 mg capsule 200 mg PO DAILY 02/25 Unknown History echinacea 380 mg capsule 760 mg PO DAILY 02/25/23 Unk nown History magnesium 250 mg tablet 250 mg PO DAILY 02/25/23 Unk nown History mecobalamin (vitamin B12) 1,000 1,000 mcg PO DAILY 03/14 Unknown History mcg chewable tablet calcium carbonate 600 mg PO QDAY 01/26/25 Unkn own History cholecalciferol (vitamin D3) 50 50 mcg PO QDAY 5 Unknown History mcg (2,000 unit) capsule Allergy/AdvReac Type Severity Reaction Status Date / Time No Known Allergies Allergy Verified 03/02/25 09:08 Family History Grandmother Breast cancer Father Cancer laryngeal Myocardial infarction, Onset Age: 68 Mother CVA (cerebral vascular accident) Sister Hypertension Other Seizures Surgical History H/O total hysterectomy History of appendectomy History of surgical procedure S/P laparotomy History of back surgery Social History household members: spouse current occupational status: unemployed 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 Plan: Plan was made to complete salvage radiation therapy consisting of 4500 cGy delivered in 25 fractions to the entire length of the vaginal canal, at risk pelvic adenopathy as well as bilateral inguinallymph node stations and she is planning to proceed with brachytherapy following external beam treatment. Treatment Data: Treatment Site: Pelvis Current total dose/Total dose planned: 3060 cGy / 4500 cGy Fraction number: Chemotherapy: none Subjective: Pain: 0 / 10 Fatigue: none Skin: no erythema, rash, desquamation GI: occasional diarrhea/constipation. No rectal pain or bleeding. No bloating or increased gas. Patient relates that she has gotten Imodium and has it in thehouse if need be has not used it today : no increase urinary symptoms. No dysuria or hematuria SHOULDER PUNCHER: essentially no more vaginal bleeding, Objective: Weight: 186 lbs 4 oz Physical Exam: Gen: NAD Skin: no erythema, rash, desquamation. Labs: None Assessment & Plan Assessment/Plan (1) Recurrent carcinoma of endometrium: PLAN: Plan Assessment: Tolerating treatment well overall.? I reviewed and approved all treatment associated imaging. No treatment associated toxicities are noted at this time Plan: Continue treatment as planned.? I have reviewed potential treatment associated toxicities as well as timing for resolution and management. I have specifically reviewed with her the best way to deal with diarrhea using Imodium this weekendif need be. For now we will hold off. Skin: Skin care reviewed, continue lotion prn Follow up next week or sooner if needed. Thank you for allowing me to participate in the management and care of your patient. If I may answer any questions in the interim, please do not hesitate tocontact me at any time. Assessment & Plan Assessment/Plan (1) Recurrent carcinoma of endometrium: Coding Level of Care Code Radiation Tx Management x5 Diagnoses Recurrent carcinoma of endometrium C54.1 03/02/25 0918 shayy MELO> Date _ [facility]: Date (if applicable) CC: ~ [facility]06-11-2025 Progress note Author Allen Nichols [facility] Note Date/Time March 02, 2025 9:18 am [facility] [address] [address] OFFICE VISIT Date of Service: 03/02/25899 MR#: [id number] Acct: [id number] Name: DONI NOVA Rep #: [id number] : 1950 From: Allen shaikh MD Age/Sex: 75/F Location: [facility] [place] Status: Signed Intake Vital Signs 01/26/25 08:47 03/02/25 09:02 Height 5 ft 2 in 5 ft 2 in Weight: 186 lb 4 oz BMI 34.0 BP 156/72 H Blood Pressure Location Rt brachial Position Sitting Respiration 18 Pulse 55 L Pulse Source Monitor Temp 96.9 F L Temperature Source Temporal Artery Pulse Oximetry (%) 98 Oxygen Delivery Method room air Intake Visit Reasons: OTV Is patient in pain?: No Allergies No Known Allergies Allergy (Verified 03/02/25 09:08) Medications ?Medication ?Instructions ?Recorded ?Confirmed ?Type apple cider vinegar 300 mg tablet 450 mg PO 02/25/23 0 03/02/25 History ascorbate calcium (vitamin C) 500 500 mg PO DAILY 03/1403/02/25 History mg tablet cranberry extract 200 mg capsule 200 mg PO DAILY 02/2503/02/25 History echinacea 380 mg capsule 760 mg PO DAILY 02/25/2308/16 History magnesium 250 mg tablet 250 mg PO DAILY 02/25/2308/16 History mecobalamin (vitamin B12) 1,000 1,000 mcg PO DAILY 03/1403/02/25 History mcg chewable tablet calcium carbonate 600 mg PO QDAY 01/26/2502/20 History cholecalciferol (vitamin D3) 50 50 mcg PO QDAY 5 03/02/25 History mcg (2,000 unit) capsule Have you fallen in the past year?: No PFSH PFSH Medical History Fractured coccyx History of back problems Home Medications ?Medication ?Instructions ?Recorded ?Last Taken ?Type apple cider vinegar 300 mg tablet 450 mg PO 02/25/23 U nknown History ascorbate calcium (vitamin C) 500 500 mg PO DAILY 03/14 Unknown History mg tablet cranberry extract 200 mg capsule 200 mg PO DAILY 02/25 Unknown History echinacea 380 mg capsule 760 mg PO DAILY 02/25/23 Unk nown History magnesium 250 mg tablet 250 mg PO DAILY 02/25/23 Unk nown History mecobalamin (vitamin B12) 1,000 1,000 mcg PO DAILY 03/14 Unknown History mcg chewable tablet calcium carbonate 600 mg PO QDAY 01/26/25 Unkn own History cholecalciferol (vitamin D3) 50 50 mcg PO QDAY 5 Unknown History mcg (2,000 unit) capsule Allergy/AdvReac Type Severity Reaction Status Date / Time No Known Allergies Allergy Verified 03/02/25 09:08 Family History Grandmother Breast cancer Father Cancer laryngeal Myocardial infarction, Onset Age: 68 Mother CVA (cerebral vascular accident) Sister Hypertension Other Seizures Surgical History H/O total hysterectomy History of appendectomy History of surgical procedure S/P laparotomy History of back surgery Social History household members: spouse current occupational status: unemployed 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 Plan: Plan was made to complete salvage radiation therapy consisting of 4500 cGy delivered in 25 fractions to the entire length of the vaginal canal, at risk pelvic adenopathy as well as bilateral inguinal lymph node stations and she is planning to proceed with brachytherapy following external beam treatment. Treatment Data: Treatment Site: Pelvis Current total dose/Total dose planned: 3060 cGy / 4500 cGy Fraction number: Chemotherapy: none Subjective: Pain: 0 / 10 Fatigue: none Skin: no erythema, rash, desquamation GI: occasional diarrhea/constipation. No rectal pain or bleeding. No bloating or increased gas. Patient relates that she has gotten Imodium and has it in thehouse if need be has not used it today : no increase urinary symptoms. No dysuria or hematuria SHOULDER PUNCHER: essentially no more vaginal bleeding, Objective: Weight: 186 lbs 4 oz Physical Exam: Gen: NAD Skin: no erythema, rash, desquamation. Labs: None Assessment & Plan Assessment/Plan (1) Recurrent carcinoma of endometrium: PLAN: Plan Assessment: Tolerating treatment well overall.? I reviewed and approved all treatment associated imaging. No treatment associated toxicities are noted at this time Plan: Continue treatment as planned.? I have reviewed potential treatment associated toxicities as well as timing for resolution and management. I have specifically reviewed with her the best way to deal with diarrhea using Imodium this weekend if need be. For now we will hold off. Skin: Skin care reviewed, continue lotion prn Follow up next week or sooner if needed. Thank you for allowing me to participate in the management and care of your patient. If I may answer any questions in the interim, please do not hesitate tocontact me at any time. Assessment & Plan Assessment/Plan (1) Recurrent carcinoma of endometrium: Coding Level of Care Code Radiation Tx Management x5 Diagnoses Recurrent carcinoma of endometrium C54.1 03/02/25 0918 <Electronically signed by Allen lucas MD> Date _ Allen Perez Signature: Date (if applicable) CC: ~ [facility] Work Phone: [phone]) 319-513706-04-2025 Progress [facility] [place] [address] OFFICE VISIT Date of Service: 02/23/25921 MR#: [id number] Acct: [id number] Name: DONI NOVA Rep #: [id number] : 1950 From: Timur garcia DO Age/Sex: 75/F Location: [facility] [place] Status: Signed Intake Vital Signs 01/26/25 08:47 02/16/25 09:26 02/23/25 09:24 Height 5 ft 2 in 5 ft 2 in 5 ft 2 in Weight: 181 lb 7 oz 182 lb 6 oz BMI 33.2 33.3 BP 150/84 H 168/89 H Blood Pressure Location Rt brachial Rt brachial Position Sitting Sitting Respiration 16 16 Pulse 64 61 Pulse Source Monitor Monitor Temp 96.9 F L 97.1 F L Temperature Source Temporal Artery Temporal Artery Pulse Oximetry (%) 96 98 Oxygen Delivery Method room air room air Intake Visit Reasons: OTV Is patient in pain?: No Allergies No Known Allergies Allergy (Verified 02/23/25 09:25) Medications ?Medication ?Instructions ?Recorded ?Confirmed ?Type apple cider vinegar 300 mg tablet 450 mg PO 02/25/23 0 02/23/25 History ascorbate calcium (vitamin C) 500 500 mg PO DAILY 03/1402/23/25 History mg tablet cranberry extract 200 mg capsule 200 mg PO DAILY 02/2502/23/25 History echinacea 380 mg capsule 760 mg PO DAILY 02/25/2301/14 History magnesium 250 mg tablet 250 mg PO DAILY 02/25/2301/14 History mecobalamin (vitamin B12) 1,000 1,000 mcg PO DAILY 03/1402/23/25 History mcg chewable tablet calcium carbonate 600 mg PO QDAY 01/26/2501/14 History cholecalciferol (vitamin D3) 50 50 mcg PO QDAY 5 02/23/25 History mcg (2,000 unit) capsule Have you fallen in the past year?: No PFSH PFSH Medical History Fractured coccyx History of back problems Home Medications ?Medication ?Instructions ?Recorded ?Last Taken ?Type apple cider vinegar 300 mg tablet 450 mg PO 02/25/23 U nknown History ascorbate calcium (vitamin C) 500 500 mg PO DAILY 03/14 Unknown History mg tablet cranberry extract 200 mg capsule 200 mg PO DAILY 02/25 Unknown History echinacea 380 mg capsule 760 mg PO DAILY 02/25/23 Unk nown History magnesium 250 mg tablet 250 mg PO DAILY 02/25/23 Unk nown History mecobalamin (vitamin B12) 1,000 1,000 mcg PO DAILY 03/14 Unknown History mcg chewable tablet calcium carbonate 600 mg PO QDAY 01/26/25 Unkn own History cholecalciferol (vitamin D3) 50 50 mcg PO QDAY 5 Unknown History mcg (2,000 unit) capsule Allergy/AdvReac Type Severity Reaction Status Date / Time No Known Allergies Allergy Verified 02/23/25 09:25 Family History Grandmother Breast cancer Father Cancer laryngeal Myocardial infarction, Onset Age: 68 Mother CVA (cerebral vascular accident) Sister Hypertension Other Seizures Surgical History H/O total hysterectomy History of appendectomy History of surgical procedure S/P laparotomy History of back surgery Social History household members: spouse current occupational status: unemployed 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 Plan: Plan was made to complete salvage radiation therapy consisting of 4500 cGy delivered in 25 fractions to the entire length of the vaginal canal, at risk pelvic adenopathy as well as bilateral inguinallymph node stations and she is planning to proceed with brachytherapy following external beam treatment. Treatment Data: Treatment Site: Pelvis Current total dose/Total dose planned: 2160 cGy / 4500 cGy Fraction number: Chemotherapy: none Subjective: Pain: 0 / 10 Fatigue: none Skin: no erythema, rash, desquamation GI: no diarrhea/constipation. No rectal pain or bleeding. No bloating or increased gas : no increase urinary symptoms. No dysuria or hematuria SHOULDER PUNCHER: essentially no more vaginal bleeding, Objective: Weight: 182 lbs 6 oz Physical Exam: Gen: NAD Skin: no erythema, rash, desquamation. Labs: None Assessment & Plan Assessment/Plan (1) Recurrent carcinoma of endometrium: PLAN: Plan Assessment: Tolerating treatment well overall.? I reviewed and approved all treatment associated imaging. No treatment associated toxicities are noted at this time Plan: Continue treatment as planned.? I have reviewed potential treatment associated toxicities as well as timing for resolution and management. Skin: Skin care reviewed, continue lotion prn Follow up next week or sooner if needed. Thank you for allowing me to participate in the management and care of your patient. If I may answer any questions in the interim, please do not hesitate tocontact me at any time. Timur Blake DO, MS Microarray Analyst, Department of Radiation Oncology [facility] Coding Level of Care Code Radiation Tx Management x5 Diagnoses Recurrent carcinoma of endometrium C54.1 02/23/25 0938 DO> Date _ Timur Mckenzieston DO [facility] Signature: Date (if applicable) CC: ~ [facility]05-28-2025 Progress [facility] [address] [place] [address] OFFICE VISIT Date of Service: 02/16/25923 MR#: [id number] Acct: [id number] Name: DONI NOVA Rep #: [id number] : 1950 From: Timur garcia DO Age/Sex: 75/F Location[place] [facility] [place] Status: Signed Intake Vital Signs 01/26/25 08:47 02/16/25 09:26 Height 5 ft 2 in 5 ft 2 in Weight: 181 lb 7 oz BMI 33.2 BP 150/84 H Blood Pressure Location Rt brachial Position Sitting Respiration 16 Pulse 64 Pulse Source Monitor Temp 96.9 F L Temperature Source Temporal Artery Pulse Oximetry (%) 96 Oxygen Delivery Method room air Intake Visit Reasons: OTV Is patient in pain?: No Allergies No Known Allergies Allergy (Verified 02/16/25 09:25) Medications ?Medication ?Instructions ?Recorded ?Confirmed ?Type apple cider vinegar 300 mg tablet 450 mg PO 02/25/23 0 02/16/25 History ascorbate calcium (vitamin C) 500 500 mg PO DAILY 03/1402/16/25 History mg tablet cranberry extract 200 mg capsule 200 mg PO DAILY 02/2502/16/25 History echinacea 380 mg capsule 760 mg PO DAILY 02/25/23 History magnesium 250 mg tablet 250 mg PO DAILY 02/25/23 History mecobalamin (vitamin B12) 1,000 1,000 mcg PO DAILY 03/1402/16/25 History mcg chewable tablet calcium carbonate 600 mg PO QDAY 01/26/2501/21 History cholecalciferol (vitamin D3) 50 50 mcg PO QDAY 5 02/16/25 History mcg (2,000 unit) capsule Have you fallen in the past year?: No PFSH PFSH Medical History Fractured coccyx History of back problems Home Medications ?Medication ?Instructions ?Recorded ?Last Taken ?Type apple cider vinegar 300 mg tablet 450 mg PO 02/25/23 U nknown History ascorbate calcium (vitamin C) 500 500 mg PO DAILY 03/14 Unknown History mg tablet cranberry extract 200 mg capsule 200 mg PO DAILY 02/25 Unknown History echinacea 380 mg capsule 760 mg PO DAILY 02/25/23 Unk nown History magnesium 250 mg tablet 250 mg PO DAILY 02/25/23 Unk nown History mecobalamin (vitamin B12) 1,000 1,000 mcg PO DAILY 03/14 Unknown History mcg chewable tablet calcium carbonate 600 mg PO QDAY 01/26/25 Unkn own History cholecalciferol (vitamin D3) 50 50 mcg PO QDAY 5 Unknown History mcg (2,000 unit) capsule Allergy/AdvReac Type Severity Reaction Status Date / Time No Known Allergies Allergy Verified 02/16/25 09:25 Family History Grandmother Breast cancer Father Cancer laryngeal Myocardial infarction, Onset Age: 68 Mother CVA (cerebral vascular accident) Sister Hypertension Other Seizures Surgical History H/O total hysterectomy History of appendectomy History of surgical procedure S/P laparotomy History of back surgery Social History household members: spouse current occupational status: unemployed 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 Plan: Plan was made to complete salvage radiation therapy consisting of 4500 cGy delivered in 25 fractions to the entire length of the vaginal canal, at risk pelvic adenopathy as well as bilateral inguinallymph node stations and she is planning to proceed with brachytherapy following external beam treatment. Treatment Data: Treatment Site: Pelvis Current total dose/Total dose planned: 1260 cGy / 4500 cGy Fraction number: Chemotherapy: none Subjective: Pain: 0 / 10 Fatigue: none Skin: no erythema, rash, desquamation GI: no diarrhea/constipation. No rectal pain or bleeding. No bloating or increased gas : no increase urinary symptoms. No dysuria or hematuria SHOULDER PUNCHER: mild vaginal bleeding, lessening Objective: Weight: 181 lbs 7 oz Physical Exam: Gen: NAD Skin: no erythema, rash, desquamation. Labs: None Assessment & Plan Assessment/Plan (1) Recurrent carcinoma of endometrium: PLAN: Plan Assessment: Tolerating treatment well overall.? I reviewed and approved all treatment associated imaging. No treatment associated toxicities are noted at this time Plan: Continue treatment as planned.? I have reviewed potential treatment associated toxicities as well as timing for resolution and management. Skin: Skin care reviewed, continue lotion prn Follow up next week or sooner if needed. Thank you for allowing me to participate in the management and care of your patient. If I may answer any questions in the interim, please do not hesitate tocontact me at any time. Timur Blake DO, MS Microarray Analyst, Department of Radiation Oncology [facility] Coding Level of Care Code Radiation Tx Management x5 Diagnoses Recurrent carcinoma of endometrium C54.1 02/16/25 0946 DO> Date _ Timur Blake DO [employer] Signature: Date (if applicable) CC: ~ [facility]05-28-2025 Progress note Author Timur [facility] Note Date/Time February 16, 2025 9:46a m [facility] [address] [place] [address] OFFICE VISIT Date of Service: 02/16/25923 MR#: [id number] Acct: [id number] Name: DONI NOVA Rep #: [id number] : 1950 From: Timur garcia DO Age/Sex: 75/F Location: [facility] [place] Status: Signed Intake Vital Signs 01/26/25 08:47 02/16/25 09:26 Height 5 ft 2 in 5 ft 2 in Weight: 181 lb 7 oz BMI 33.2 BP 150/84 H Blood Pressure Location Rt brachial Position Sitting Respiration 16 Pulse 64 Pulse Source Monitor Temp 96.9 F L Temperature Source Temporal Artery Pulse Oximetry (%) 96 Oxygen Delivery Method room air Intake Visit Reasons: OTV Is patient in pain?: No Allergies No Known Allergies Allergy (Verified 02/16/25 09:25) Medications ?Medication ?Instructions ?Recorded ?Confirmed ?Type apple cider vinegar 300 mg tablet 450 mg PO 02/25/23 0 02/16/25 History ascorbate calcium (vitamin C) 500 500 mg PO DAILY 03/1402/16/25 History mg tablet cranberry extract 200 mg capsule 200 mg PO DAILY 02/2502/16/25 History echinacea 380 mg capsule 760 mg PO DAILY 02/25/23 History magnesium 250 mg tablet 250 mg PO DAILY 02/25/23 History mecobalamin (vitamin B12) 1,000 1,000 mcg PO DAILY 03/1402/16/25 History mcg chewable tablet calcium carbonate 600 mg PO QDAY 01/26/2501/21 History cholecalciferol (vitamin D3) 50 50 mcg PO QDAY 02/16/25 History mcg (2,000 unit) capsule Have you fallen in the past year?: No PFSH PFSH Medical History Fractured coccyx History of back problems Home Medications ?Medication ?Instructions ?Recorded ?Last Taken ?Type apple cider vinegar 300 mg tablet 450 mg PO 02/25/23 U nknown History ascorbate calcium (vitamin C) 500 500 mg PO DAILY 03/14 Unknown History mg tablet cranberry extract 200 mg capsule 200 mg PO DAILY 02/25 Unknown History echinacea 380 mg capsule 760 mg PO DAILY 02/25/23 Unk nown History magnesium 250 mg tablet 250 mg PO DAILY 02/25/23 Unk nown History mecobalamin (vitamin B12) 1,000 1,000 mcg PO DAILY 03/14 Unknown History mcg chewable tablet calcium carbonate 600 mg PO QDAY 01/26/25 Unkn own History cholecalciferol (vitamin D3) 50 50 mcg PO QDAY 5 Unknown History mcg (2,000 unit) capsule Allergy/AdvReac Type Severity Reaction Status Date / Time No Known Allergies Allergy Verified 02/16/25 09:25 Family History Grandmother Breast cancer Father Cancer laryngeal Myocardial infarction, Onset Age: 68 Mother CVA (cerebral vascular accident) Sister Hypertension Other Seizures Surgical History H/O total hysterectomy History of appendectomy History of surgical procedure S/P laparotomy History of back surgery Social History household members: spouse current occupational status: unemployed 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 Plan: Plan was made to complete salvage radiation therapy consisting of 4500 cGy delivered in 25 fractions to the entire length of the vaginal canal, at risk pelvic adenopathy as well as bilateral inguinal lymph node stations and she is planning to proceed with brachytherapy following external beam treatment. Treatment Data: Treatment Site: Pelvis Current total dose/Total dose planned: 1260 cGy / 4500 cGy Fraction number: Chemotherapy: none Subjective: Pain: 0 / 10 Fatigue: none Skin: no erythema, rash, desquamation GI: no diarrhea/constipation. No rectal pain or bleeding. No bloating or increased gas : no increase urinary symptoms. No dysuria or hematuria SHOULDER PUNCHER: mild vaginal bleeding, lessening Objective: Weight: 181 lbs 7 oz Physical Exam: Gen: NAD Skin: no erythema, rash, desquamation. Labs: None Assessment & Plan Assessment/Plan (1) Recurrent carcinoma of endometrium: PLAN: Plan Assessment: Tolerating treatment well overall.? I reviewed and approved all treatment associated imaging. No treatment associated toxicities are noted at this time Plan: Continue treatment as planned.? I have reviewed potential treatment associated toxicities as well as timing for resolution and management. Skin: Skin care reviewed, continue lotion prn Follow up next week or sooner if needed. Thank you for allowing me to participate in the management and care of your patient. If I may answer any questions in the interim, please do not hesitate tocontact me at any time. Timur Blake DO, MS Microarray Analyst, Department of Radiation Oncology [facility] Coding Level of Care Code Radiation Tx Management x5 Diagnoses Recurrent carcinoma of endometrium C54.1 02/16/25 0946 <Electronically signed by Timur Blake DO> Date _ Timur Watts Signature: Date (if applicable) CC: ~ [employer] Work Phone: 1(698) 549-619205-21-2025 Progress [facility] [address] [place] [address] OFFICE VISIT Date of Service: 02/09/25915 MR#: [id number] Acct: [id number] Name: DONI NOVA Rep #: [id number] : 1950 From: Timur Mckenziejacqueline garcia DO Age/Sex: 75/F Location[place] [facility] [place] Status: Signed Intake Vital Signs 01/26/25 08:47 02/09/25 09:18 Height 5 ft 2 in 5 ft 2 in Weight: 184 lb 8 oz 183 lb 1 oz BMI 33.7 33.5 BP 177/100 H 162/79 H Blood Pressure Location Lt brachial Rt brachial Position Sitting Sitting Respiration 16 18 Pulse 74 67 Pulse Source Monitor Monitor Temp 97.7 F L 96.7 F L Temperature Source Temporal Artery Temporal Artery Pulse Oximetry (%) 98 99 Oxygen Delivery Method room air room air Intake Visit Reasons: OTV Is patient in pain?: No Allergies No Known Allergies Allergy (Verified 02/09/25 09:18) Medications ?Medication ?Instructions ?Recorded ?Confirmed ?Type apple cider vinegar 300 mg tablet 450 mg PO 02/25/23 0 02/09/25 History ascorbate calcium (vitamin C) 500 500 mg PO DAILY 03/1402/09/25 History mg tablet cranberry extract 200 mg capsule 200 mg PO DAILY 02/2502/09/25 History echinacea 380 mg capsule 760 mg PO DAILY 02/25/23 History magnesium 250 mg tablet 250 mg PO DAILY 02/25/23 History mecobalamin (vitamin B12) 1,000 1,000 mcg PO DAILY 03/1402/09/25 History mcg chewable tablet calcium carbonate 600 mg PO QDAY 01/26/2501/21 History cholecalciferol (vitamin D3) 50 50 mcg PO QDAY 02/09/25 History mcg (2,000 unit) capsule Have you fallen in the past year?: No PFSH PFSH Medical History Fractured coccyx History of back problems Home Medications ?Medication ?Instructions ?Recorded ?Last Taken ?Type apple cider vinegar 300 mg tablet 450 mg PO 02/25/23 U nknown History ascorbate calcium (vitamin C) 500 500 mg PO DAILY 03/14 Unknown History mg tablet cranberry extract 200 mg capsule 200 mg PO DAILY 02/25 Unknown History echinacea 380 mg capsule 760 mg PO DAILY 02/25/23 Unk nown History magnesium 250 mg tablet 250 mg PO DAILY 02/25/23 Unk nown History mecobalamin (vitamin B12) 1,000 1,000 mcg PO DAILY 03/14 Unknown History mcg chewable tablet calcium carbonate 600 mg PO QDAY 01/26/25 Unkn own History cholecalciferol (vitamin D3) 50 50 mcg PO QDAY 5 Unknown History mcg (2,000 unit) capsule Allergy/AdvReac Type Severity Reaction Status Date / Time No Known Allergies Allergy Verified 02/09/25 09:18 Family History Grandmother Breast cancer Father Cancer laryngeal Myocardial infarction, Onset Age: 68 Mother CVA (cerebral vascular accident) Sister Hypertension Other Seizures Surgical History H/O total hysterectomy History of appendectomy History of surgical procedure S/P laparotomy History of back surgery Social History household members: spouse current occupational status: unemployed 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 Plan: Plan was made to complete salvage radiation therapy consisting of 4500 cGy delivered in 25 fractions to the entire length of the vaginal canal, at risk pelvic adenopathy as well as bilateral inguinallymph node stations and she is planning to proceed with brachytherapy following external beam treatment. Treatment Data: Treatment Site: Pelvis Current total dose/Total dose planned: 540 cGy / 4500 cGy Fraction number: Chemotherapy: none Subjective: Pain: 0 / 10 Fatigue: none Skin: no erythema, rash, desquamation GI: no diarrhea/constipation. No rectal pain or bleeding. No bloating or increased gas : no increase urinary symptoms. No dysuria or hematuria SHOULDER PUNCHER: mild vaginal bleeding, lessening Objective: Weight: 183 lbs 1 oz Physical Exam: Gen: NAD Skin: no erythema, rash, desquamation. Labs: None Assessment & Plan Assessment/Plan (1) Recurrent carcinoma of endometrium: PLAN: Plan Assessment: Tolerating treatment well overall.? I reviewed and approved all treatment associated imaging. No treatment associated toxicities are noted at this time Plan: Continue treatment as planned.? I have reviewed potential treatment associated toxicities as well as timing for resolution and management. Skin: Skin care reviewed, continue lotion prn Follow up next week or sooner if needed. Thank you for allowing me to participate in the management and care of your patient. If I may answer any questions in the interim, please do not hesitate tocontact me at any time. Timur Blake DO, MS Microarray Analyst, Department of Radiation Oncology [facility] Coding Level of Care Code Radiation Tx Management x5 Diagnoses Recurrent carcinoma of endometrium C54.1 02/09/25 0934 DO> Date _ Timur Blake DO Cosigner Signature: Date (if applicable) CC: ~ [facility]05-21-2025 Progress note Author Timur Blake [facility] Note Date/Time February 09, 2025 9:34a m [facility] [place] [address] [place] [address] OFFICE VISIT Date of Service: 02/09/25915 MR#: [id number] Acct: [id number] Name: DONI NOVA Rep #: [id number] : 1950 From: Timur garcia DO Age/Sex: 75/F Location: [facility] [place] Status: Signed Intake Vital Signs 01/26/25 08:47 02/09/25 09:18 Height 5 ft 2 in 5 ft 2 in Weight: 184 lb 8 oz 183 lb 1 oz BMI 33.7 33.5 BP 177/100 H 162/79 H Blood Pressure Location Lt brachial Rt brachial Position Sitting Sitting Respiration 16 18 Pulse 74 67 Pulse Source Monitor Monitor Temp 97.7 F L 96.7 F L Temperature Source Temporal Artery Temporal Artery Pulse Oximetry (%) 98 99 Oxygen Delivery Method room air room air Intake Visit Reasons: OTV Is patient in pain?: No Allergies No Known Allergies Allergy (Verified 02/09/25 09:18) Medications ?Medication ?Instructions ?Recorded ?Confirmed ?Type apple cider vinegar 300 mg tablet 450 mg PO 02/25/23 0 02/09/25 History ascorbate calcium (vitamin C) 500 500 mg PO DAILY 03/1402/09/25 History mg tablet cranberry extract 200 mg capsule 200 mg PO DAILY 02/2502/09/25 History echinacea 380 mg capsule 760 mg PO DAILY 02/25/23 History magnesium 250 mg tablet 250 mg PO DAILY 02/25/23 History mecobalamin (vitamin B12) 1,000 1,000 mcg PO DAILY 03/1402/09/25 History mcg chewable tablet calcium carbonate 600 mg PO QDAY 01/26/2501/21 History cholecalciferol (vitamin D3) 50 50 mcg PO QDAY 02/09/25 History mcg (2,000 unit) capsule Have you fallen in the past year?: No PFSH PFSH Medical History Fractured coccyx History of back problems Home Medications ?Medication ?Instructions ?Recorded ?Last Taken ?Type apple cider vinegar 300 mg tablet 450 mg PO 02/25/23 U nknown History ascorbate calcium (vitamin C) 500 500 mg PO DAILY 03/14 Unknown History mg tablet cranberry extract 200 mg capsule 200 mg PO DAILY 02/25 Unknown History echinacea 380 mg capsule 760 mg PO DAILY 02/25/23 Unk nown History magnesium 250 mg tablet 250 mg PO DAILY 02/25/23 Unk nown History mecobalamin (vitamin B12) 1,000 1,000 mcg PO DAILY 03/14 Unknown History mcg chewable tablet calcium carbonate 600 mg PO QDAY 01/26/25 Unkn own History cholecalciferol (vitamin D3) 50 50 mcg PO QDAY 5 Unknown History mcg (2,000 unit) capsule Allergy/AdvReac Type Severity Reaction Status Date / Time No Known Allergies Allergy Verified 02/09/25 09:18 Family History Grandmother Breast cancer Father Cancer laryngeal Myocardial infarction, Onset Age: 68 Mother CVA (cerebral vascular accident) Sister Hypertension Other Seizures Surgical History H/O total hysterectomy History of appendectomy History of surgical procedure S/P laparotomy History of back surgery Social History household members: spouse current occupational status: unemployed 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 Plan: Plan was made to complete salvage radiation therapy consisting of 4500 cGy delivered in 25 fractions to the entire length of the vaginal canal, at risk pelvic adenopathy as well as bilateral inguinal lymph node stations and she is planning to proceed with brachytherapy following external beam treatment. Treatment Data: Treatment Site: Pelvis Current total dose/Total dose planned: 540 cGy / 4500 cGy Fraction number: Chemotherapy: none Subjective: Pain: 0 / 10 Fatigue: none Skin: no erythema, rash, desquamation GI: no diarrhea/constipation. No rectal pain or bleeding. No bloating or increased gas : no increase urinary symptoms. No dysuria or hematuria SHOULDER PUNCHER: mild vaginal bleeding, lessening Objective: Weight: 183 lbs 1 oz Physical Exam: Gen: NAD Skin: no erythema, rash, desquamation. Labs: None Assessment & Plan Assessment/Plan (1) Recurrent carcinoma of endometrium: PLAN: Plan Assessment: Tolerating treatment well overall.? I reviewed and approved all treatment associated imaging. No treatment associated toxicities are noted at this time Plan: Continue treatment as planned.? I have reviewed potential treatment associated toxicities as well as timing for resolution and management. Skin: Skin care reviewed, continue lotion prn Follow up next week or sooner if needed. Thank you for allowing me to participate in the management and care of your patient. If I may answer any questions in the interim, please do not hesitate tocontact me at any time. Timur Blake DO, MS Microarray Analyst, Department of Radiation Oncology [facility] Coding Level of Care Code Radiation Tx Management x5 Diagnoses Recurrent carcinoma of endometrium C54.1 02/09/25 0934 <Electronically signed by Timur Blake DO> Date _ Timur Blake DO Cosigner Signature: Date (if applicable) CC: ~ [employer] Work Phone: 1(148) 237-820005-20-2025 History of Present illness Narrative* Humaira Rosenberg MD - 02/08/2025 10:00 AM EDT Radiation Oncology Outpatient Consult Patient Name: Doni Nova : 1950 Referring Provider: Agustina Agudelo MD Care Team: Pily Blake DO, Radiation Oncology, [facility] Agustina Agudelo MD, Radiation Oncology, [facility] Lenny Paulino MD, Gynecology Oncology, [facility] Date of Service: 02/08/2025 Diagnosis: -06/2023: Endometrial cancer, status post CITLALLI/BSO/LND, [id number], Grade 1-2, FIGO stage IB (MMI 65%,positive for lower uterine segment involvement, no cervical stromal involvement, no LVSI, 0/5 pelvic LNs, 0/2 para-aortic LNs). -12/2024: Recurrence of endometrial cancer in the anterior vaginal wall, confirmed by biopsy. History of Present Illness: Ms. Nova is a 75-year-old female who is otherwise healthy presents with a diagnosis of recurrent endometrial cancer. Shee presents to discuss role of interstitial brachytherapy. Cancer History: -10/2022: Presented with progressive vaginal bleeding and abdominal cramps. -05/2023: Pelvic ultrasound showed uterus measuring 10 cm in size with a 38 mm endometrial stripe. -05/2023: CT abdomen revealed an enlarged uterus. -06/25/2023: CITLALLI/BL BSO/SLND performed by Dr. Paulino (Gynecologic Oncology) at [facility] . Endometrioid carcinoma, [id number], Grade 1-2, FIGO stage IB (MMI 65%, positive for lower uterine segment involvement, no cervical stromal involvement, no LVSI, 0/5 pelvic LNs, 0/2 para-aortic LNs). No adjuvant treatment. Patient underwent surveillance. -11/2024: Presented with vaginal bleeding. Biopsy 01/03/2025 confirmed recurrence of endometrial cancer in the anterior vaginal wall, positive ER/DE, dMMR (positive for MLH1) -01/11/2025: PET/CT at [facility] showed an ill-defined, hypermetabolic focus along the right lower vaginal wall (SUV 10.2), compatible with a lower cervical/upper vaginal neoplasm. Additionally,there were two mildly hypermetabolic foci within the right pelvis, just posterior to the distal uret er, subjacent to pelvic calcifications/surgical clips (SUV 2.5). Mild diffuse hypermetabolic uptakewas also noted throughout the thoracic and lumbar spine.. -01/20/2025: Pelvic MRI revealed a 3.2 cm nodule in the right lower vaginal wall, correlating with PET/CT findings. There was immediate abutment of the posterior bladder and proximal urethra without gross invasion, though early microscopic involvement could not be excluded. No distant metastases. -01/2025: Consulted by Dr. Pily Blake at [place]; plan for EBRT to the pelvis (starting on 02/07). - 01/27/2025 s/b Dr. Agudelo on 01/27/2025 for evaluation of adjuvant brachytherapy. Based on the tumor size and possible indication for interstitial brachytherapy, she was referred to Dr. Rosenberg at [facility] for further evaluation. Today, the patient presented with her and [id number]. She began radiation therapy yesterday under the care of Dr. Blake and currently has no complaints or concerns. She reports having good energy levels and is able to perform her daily exercises. Her appetite is good. She reports occasional blood when wiping but denies chest pain, shortness of breath, nausea, or vomiting. Fatigue [X] None [] Grade 1 fatigue: Relieved by rest [] Grade 2 fatigue: Not relieved by rest; limiting instrumental ADL [] Grade 3 fatigue: Not relieved by rest, limiting self care ADL GI: Bowel complaints: -Bleeding no -Frequency no -Incontinence no -Pain no : Urinary complaints -Bleeding no -Frequency no -Incontinence no Sexually active: no Time since sexually active: few years Onset of menses 13 Onset of menopause: can't remember Pathology Review: The pertinent pathology results were reviewed and discussed with the patient. 06/25/2023 Final Diagnosis A. UTERUS WITH BILATERAL OVARIES AND FALLOPIAN TUBES, HYSTERECTOMY AND BILATERAL SALPINGO-OOPHORECTOMY: - ENDOMETRIOID ADENOCARCINOMA, FIGO GRADE 2. - BENIGN CERVIX. - MYOMETRIUM WITH LEIOMYOMA. - BILATERAL OVARIES WITH CORPORA ALBICANTIA AND RIGHT WITH DYSTROPHIC CALCIFICATIONS AND BENIGN SIMPLE CYST. - BENIGN BILATERAL FALLOPIAN TUBES. B. LYMPH NODE, LEFT PELVIC, DISSECTION: - THREE LYMPH NODES NEGATIVE FOR METASTATIC CARCINOMA (0/3). C. LYMPH NODE, RIGHT PARA-AORTIC, DISSECTION: - TWO LYMPH NODES NEGATIVE FOR METASTATIC CARCINOMA (0/2). D. LYMPH NODE, RIGHT PELVIC, DISSECTION: - TWO LYMPH NODES NEGATIVE FOR METASTATIC CARCINOMA (0/2) Synoptic Checklist ENDOMETRIUM ENDOMETRIUM: HYSTERECTOMY - A 8th Edition - Protocol posted: 09/04/2022 SPECIMEN Procedure: Total hysterectomy and bilateral salpingo-oophorectomy Specimen Integrity: Opened TUMOR Tumor Site: Endometrium Histologic Type: Endometrioid carcinoma, NOS Histologic Grade: FIGO grade 2 Two-Tier Grading System: Low grade (encompassing FIGO 1 and 2) Myometrial Invasion: Present Depth of Myometrial Invasion: 13 mm Myometrial Thickness: 20 mm Percentage of Myometrial Invasion: 65 % Adenomyosis: Not identified Uterine Serosa Involvement: Not identified Lower Uterine Segment Involvement: Present, myoinvasive Cervical Stromal Involvement: Not identified Other Tissue / Organ Involvement: Not applicable Peritoneal / Ascitic Fluid: Not submitted / unknown Lymphatic and / or Vascular Invasion: Not identified REGIONAL LYMPH NODES Regional Lymph Node Status: : All regional lymph nodes negative for tumor cells Lymph Nodes Examined: Total Number of Pelvic Nodes Examined: 5 Total Number of Para-aortic Nodes Examined: 2 pTNM CLASSIFICATION (AJCC 8th Edition) Reporting of pT, pN, and (when applicable) pM categories is based on information available to the pathologist at the time the report is issued. As per the AJCC (Chapter 1, 8th Ed.) it is the managingphysician's responsibility to establish the final pathologic stage based upon all pertinent information, including but potentially not limited to this pathology report. 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: A12 Endometrium Biomarker Reporting Template (Added in Addendum) ENDOMETRIUM: BIOMARKER REPORTING TEMPLATE - A Protocol posted: 06/01/2019 Test(s) Performed: Immunohistochemistry (IHC) Testing for Mismatch Repair (MMR) Proteins: MLH1: Loss of nuclear expression Immunohistochemistry (IHC) Testing for Mismatch Repair (MMR) Proteins: MSH2: Intact nuclear expression Immunohistochemistry (IHC) Testing for Mismatch Repair (MMR) Proteins: MSH6: Intact nuclear expression Immunohistochemistry (IHC) Testing for Mismatch Repair (MMR) Proteins: PMS2: Loss of nuclear expression Addendum 2 MLH1 Promoter Methylation Analysis: MLH1 Methylation - POSITIVE 01/03/2025 Final Diagnosis A. VAGINA, BIOPSY: - COMPATIBLE WITH ENDOMETRIOID CARCINOMA. Comment: The patient's history of known primary is noted. The malignant cells stain positive with ER and DE. These findings are most compatible with a gynecologic origin. Prior Radiotherapy: No, just started as HPI Current Systemic Treatment: No Presence of Pacemaker or ICD: No Past Medical History: Medical History[1] Past Surgical History: Surgical History[2] Family History: Cancer-related family history includes Breast cancer in her maternal grandmother. Social History: Social History[3] Allergies: Allergies[4] Medications: Current Medications[5] Review of Systems: Please see accompanying RN note. The patient's current pain level was assessed. They report currently having a pain of 0 out of 10. They feel their pain is under control without the use of pain medications. The patient does not havea documented plan of care to address pain. Performance Status: The Karnofsky performance scale today is 90, Able to carry on normal activity; minor signs or symptoms of disease (ECOG equivalent 0). OBJECTIVE Physical Exam: BP (!) 183/85 Pulse 68 Temp 36.2 C (97.2 F) (Temporal) Resp 18 Wt 82.3 kg (181 lb 7 oz) SpO2 98% Physical Exam Constitutional: General: She is not in acute distress. Appearance: She is not toxic-appearing. HENT: Head: Normocephalic and atraumatic. Eyes: General: No scleral icterus. Pulmonary: Effort: No respiratory distress. Breath sounds: No wheezing. Abdominal: General: There is no distension. Tenderness: There is no abdominal tenderness. Genitourinary: Comments: Examined in presence of unemployment insurance hearing officer (RN and resident). External genitalia: Normal external genitalia, no vulvar masses or lesions Introitus: no blood, discharge at introitus Speculum examination shows a fleshy appearing elongated lesion occupying middle- vagina, anterior wall on right side, spanning from 8 O'Clock to 12 O'Clock. Digital examination confirms above finding of a fleshy vaginal mass. The lesion doesn't involve proximal vaginal cuff and stops short of introitus by 1.5-2 cm. Posterior wall is uninvolved. s/p hysterectomy: cervix, uterus and adnexae surgically absent GIFTY: Deferred Musculoskeletal: General: No tenderness. Right lower leg: No edema. Left lower leg: No edema. Lymphadenopathy: Cervical: No cervical adenopathy. Skin: Coloration: Skin is not jaundiced. Findings: No bruising. Neurological: General: No focal deficit present. Mental Status: She is oriented to person, place, and time. Mental status is at baseline. Cranial Nerves: No cranial nerve deficit. Psychiatric: Mood and Affect: Mood normal. Behavior: Behavior normal. Laboratory Review: There are no laboratory contraindications to radiation therapy. The pertinent lab results were reviewed and discussed with the patient. ASSESSMENT: Ms. Nova is a 75-year-old female who was initially diagnosed with pT1bN0, Grade 2 endometrial cancer, FIGO Stage IB (MMI 65%, positive for lower uterine segment involvement, no cervical stromal involvement, 0/5 pelvic lymph nodes, 0/2 para-aortic lymph nodes). She underwent CITLALLI, BSO, and SLND on 06/25/2023. She now presents with a biopsy-proven recurrence in the anterior vaginal wall to discuss intracavitary/interstitial brachytherapy as part of salvage radiation treatment. PLAN: Ms. Nova's pertinent history, exam, imaging and pathology details were reviewed. Accompanied by and [id number]. Treatment recommendations/Alternatives: NCCN Guidelines were applicable to guide this patients treatment plan. We reviewed the standard of care management for vaginal cuff recurrence from her endometrial cancer Based on the examination and biopsy results, we agree with Dr. Blake's treatment plan ([facility] Radiation Oncology) to proceed with whole pelvic radiation therapy to be followed by brachytherapy boost. The specific type of brachytherapy (intracavitary cylinder brachytherapy versus interstitial brachy therapy) will be determined based on the treatment response. In her consultation with Dr. Paulino (Gynecologic Oncology at [facility]), systemic therapy is not planned. Treatment alternatives including external radiation or chemotherapy were reviewed, but unlikely to be curative. Radiation treatment logistics: We then focused our attention regarding logistics, rationale and potential risks with template-based interstitial brachytherapy which will be performed 1-3 weeks after completion of her pelvic radiation. The procedure will be done under general anesthesia in the operating room under US guidance. Options for pain control include epidural support or IV Patient Controlled Analgesia. She is leaning towards avoiding epidural. She will have a urinary catheter placed which will remain for the durationof treatment. She will receive 5 treatments over three days including BID treatments on D2 and D3. She will be admitted for 3-4 days. At the end of treatment the instrument will be removed. During her hospital stay she will be cared for by the [facility] oncology service for pain control, hydration/calorie management, DVT prophylaxis and local care. She will likely need to stay in the hospitaluntil after the epidural has been removed, and she is able to self-ambulate and urinate. We then discussed the risks associated with template-based interstitial brachytherapy including additional procedure/anesthesia related complications of bleeding and infection. There is risk of DVT due to need to stay bed-bound for the duration of treatment. Hence, she will be receiving anti-coagulants and pneumatic compression bandages for legs. Acute and long-term radiation toxicities reviewed including impact on sexual function, possibilities of radiation cystitis, proctitis or enteritis with ulceration, bleeding, stricture or fistula that could significantly impact her quality of life. Measures to reduce these serious risks including use of cautious image-guided brachytherapy practices,daily CT scans to confirm implant geometry and needle positions, prescribing to HR-CTV per GEC-ESTRO and ABS guidelines After detailed discussion of risks/benefits/goals/alternatives, patient tentatively signed the informed consent. I will relay above plan to Dr. Agudelo and Dr Blake with whom we will coordinate timing of EOT MRI and brachytherapy. We recommend proceeding with -EBRT with Dr. Blake at [facility] -Plan week 5 for EOT MRI and exam. This could be done either at [facility] by Dr. Agudelo or here at [facility]. Orders placed: 1) Radon intent to treat: Brachytherapy Network location: The patient will be treated at the [facility] location. Simulation will be done at the [facility] location. Pain Management: Procedure under sedation, epidural support. Social Work: No acute needs Nutrition: No acute needs The patient was provided our contact information. Seen and Discussed with attending faculty, Dr. Rosenberg Orders Placed This Encounter Procedures Rad Onc Intent to Treat Is this for a new course of treatment?: Yes [1] Treatment Goal: Curative [18009] Treatment Site: Vagina [[id number]] Laterality: Midline [4] Treatment Technique: Brachytherapy [16921] Edmundo Olmos MD PGY-5, Radiation Oncology 02/08/2025 1:27 PM ATTENDING ADDENDUM: I saw and evaluated the patient with the resident. I personally obtained the castelan and critical portions of the history and physical exam and directly counseled the patient of the treatment plan. I reviewed the resident documentation and discussed the patient with the resident. I agree with the resident's medical decision making as documented in the note. Humaira Rosenberg MD, MMM Senior Attending Physician, [facility] Professor, [employer] [place]: To [facility], To Te[facility], [employer] [facility]. Phone (after hours): [phone] RN partner: Daniela Lagos Radiation Oncology (scheduling): Niki Blue Proton Therapy (scheduling): Marisol Vinson Brachytherapy (scheduling): Sheree Joda LONGITUDINAL CARE, EXTRA EFFORT/ [id number]: The patient will be followed longitudinally by providers (including APPs) in the department of radiation oncology for monitoring treatment effects during and after radiation. Additional effort needed in the setting of coordination of care with local providersand treatment planning. [1] Past Medical History: Diagnosis Date Endometrial cancer (Multi) [2] Past Surgical History: Procedure Laterality Date HYSTERECTOMY [3] Social History Tobacco Use Smoking status: Never Smokeless tobacco: Never Substance Use Topics Alcohol use: Never Drug use: Never [4] No Known Allergies [5] Current Outpatient Medications: ascorbic acid (Vitamin C) 500 mg tablet, Take 1 tablet (500 mg) by mouth once daily., Disp: , Rfl: calcium carbonate (Os-Wilton) 1,250 mg (500 mg elemental) tablet, Take 1 tablet by mouth 2 times daily(morning and late afternoon)., Disp: , Rfl: calcium carbonate-vitamin D3 500 mg-5 mcg (200 unit) tablet, Take 1 tablet by mouth once daily., Disp: , Rfl: magnesium, amino acid chelate, 133 mg tablet, Take 1 tablet (133 mg) by mouth once daily., Disp: , Rfl: * Daniela Lagos RN - 02/08/2025 10:00 AM EDT Radiation Oncology Nursing Note Prior Radiotherapy: No No radiation treatments to show. (Treatments may have been administered in another system.) Current Systemic Treatment: No Presence of Pacemaker or ICD: No History of Autoimmune or Connective Tissue Disorders: No Pain: The patient's current pain level was assessed. They report currently having a pain of 0 out of 10. They feel their pain is under control without the use of pain medications. Review of Systems: Review of Systems Constitutional: Negative. HENT: Negative. Eyes: Negative. Respiratory: Negative. Cardiovascular: Negative. Gastrointestinal: Negative. Genitourinary: Positive for vaginal bleeding (with bowel movements when wiping). Musculoskeletal: Negative. Skin: Negative. Neurological: Negative. Hematological: Negative. Psychiatric/Behavioral: Negative. Patient here with her and [id number] to discuss brachytherapy for endometrial cancer. Patient's only complaint it bleeding from the tumor with bowel movements. Patient started EBRT yesterday. Cosigned by Humaira Rosenberg MD at 02/08/2025 9:50 PM EDT documented in this [facility] Work Phone: [phone] 328-195505-08-2025 Consult note* Agustina Agudelo MD - 01/27/2025 9:00 AM EDT RADIATION ONCOLOGY INITIAL CONSULTATION PATIENT: Doni Nova DATE OF SERVICE: 01/27/25 : 1950 AGE: 74 y.o. PRIMARY SITE AND HISTOPATHOLOGY: Problem List Items Addressed This Visit None Cancer Staging No matching staging information was found for the patient. HISTORY OF PRESENT ILLNESS: Doni Nova is a 74 year old female who presents with recurrent endometrial cancer who presents to discuss intracavitary brachytherapy as part of salvage radiation treatment. Patient first presented with postmenopausal bleeding 06/2023. She underwent total abdominal hysterectomy, bilateral salpingo-oophorectomy, and sentinel lymph node dissection with Dr. Paulino 06/25/2023. Surgical pathology revealed grade 2 endometrioid endometrial carcinoma invading 13/20 mm with lower uterine segment involvement but no cervical stromal involvement, 0/[address] and 0/2 periaorticLN, pT1b N0. No adjuvant treatment recommended. Patient continue surveillance with local providers, but developed recurrent vaginal bleeding and returned for follow-up here at [facility] 01/03/2025. Exam showed anterior mid vaginal wall 4 cm nodular mass,mobile and not fixed. Biopsy consistent with recurrent endometrioid carcinoma. 01/11/25 PET/CT performed at [facility] revealed ill-defined, hypermetabolic focus along the right lower vaginal wall, SUV 10.2, compatible with lower cervical/upper vaginal neoplasm. There are 2 mildly hypermetabolic foci within the right pelvis just posterior to distal ureter subjacent to pelvic calci fication/surgical clips, SUV 2.5. Mild diffuse hypermetabolic uptake throughout the thoracic and lumbar spine. 01/20/25 MR Pelvis showed 3.2 cm nodular enhancing soft tissue mass in anterior wall of vagina correlating with PET/CT. There is immediate abutment of the posterior bladder and proximal urethra withoutgross invasion although early microscopic involvement cannot be excluded. Patient was seen by radiation oncologist Dr. Timur Blake at [facility], who is planning for externalbeam radiation treatment to start 02/07. Patient presents with her . She reports bleeding has improved and denies pain. PAST MEDICAL HISTORY: Past Medical History: Diagnosis Date Back pain Fractured coccyx (HCC) Post-menopausal bleeding PAST SURGICAL HISTORY: Past Surgical History: Procedure Laterality Date APPENDECTOMY BACK SURGERY HYSTERECTOMY LAPAROTOMY EXPLORATORY (HISTORICAL) OB History Para Term AB Living 4 4 4 0 0 4 SAB IAB Ectopic Multiple Live Births 0 0 0 0 0 # Outcome Date GA Lbr Ricardo/2nd Weight Sex Type Anes PTL Lv 4 Term 3 Term 2 Term 1 Term Age at Menarche: 16 Age at first : 22 Age at first live : 21 Months : Age at menopause: 51 SOCIAL HISTORY: Social History Socioeconomic History Marital status: Spouse name: Not on file Number of children: Not on file Years of education: Not on file Highest education level: Not on file Occupational History Not on file Tobacco Use Smoking status: Never Smokeless tobacco: Never Substance and Sexual Activity Alcohol use: Never Drug use: Never Sexual activity: Not on file Other Topics Concern Not on file Social History Narrative Not on file Social Drivers of Health Financial Resource Strain: Not on file Food Insecurity: Not on file Transportation Needs: Not on file Physical Activity: Not on file Stress: Not on file Social Connections: Not on file Intimate Partner Violence: Not on file Housing Stability: Not on file FAMILY HISTORY: Family History Problem Relation Name Age of Onset Stroke Mother Cancer Father laryngeal Heart attack Father Hypertension Sister Breast cancer Maternal Grandmother ALLERGIES: Allergies as of 01/27/2025 (No Known Allergies) MEDICATIONS: Current Outpatient Medications Medication Sig Dispense Refill APPLE CIDER VINEGAR PO Take by mouth. Ascorbic Acid (vitamin C) 100 MG tablet Take 100 mg by mouth daily. Calcium Citrate-Vitamin D 250-2.5 MG-MCG tablet Take by mouth. cholecalciferol (Vitamin D-3) 25 MCG (1000 UT) capsule Take 1,000 Units by mouth daily. CRANBERRY PO Take by mouth. cyanocobalamin (Vitamin B-12) 100 MCG tablet Take 500 mcg by mouth daily. magnesium 30 MG tablet Take 30 mg by mouth daily. acetaminophen (Tylenol) 500 MG tablet Take 2 tablets (1,000 mg) by mouth in the morning and 2 tablets (1,000 mg) at noon and 2 tablets (1,000 mg) in the evening and 2 tablets (1,000 mg) before bedtime. (Patient not taking: Reported on 07/11/2023) 30 tablet 0 apixaban (Eliquis) 2.5 MG tablet Take 1 tablet (2.5 mg) by mouth 2 times daily for 28 days. 56 tablet 0 docusate sodium (Colace) 100 MG capsule Take 1 capsule (100 mg) by mouth 2 times daily. (Patient not taking: Reported on 01/27/2025) 20 capsule 0 ibuprofen 600 MG tablet Take 1 tablet (600 mg) by mouth in the morning and 1 tablet (600 mg) at noon and 1 tablet (600 mg) in the evening and 1 tablet (600 mg) before bedtime. (Patient not taking: Reported on 01/27/2025) 60 tablet 0 No current facility-administered medications for this encounter. SUMMARY OF SIGNIFICIANT X-RAY/LABORATORY FINDINGS: See HPI REVIEW OF SYSTEMS: See HPI ECOG Performance Status: 0 Objective PHYSICAL EXAM: BP (!) 160/76 Pulse 66 Temp 98 F (36.7 C) Resp 18 Ht 5' 2 (1.575 m) Wt 182 lb 12.8 oz (82.9 kg) LMP 06/23/2023 SpO2 95% BMI 33.43 kg/m Pain Score: 0 - No pain Fatigue Assessment: Able to perform daily activities Physical Exam General: alert, no apparent distress, cooperative with exam HEENT: normocephalic, extraocular movements intact, oropharynx clear Cardiac: well-perfused extremities Pulmonary: no respiratory distress Abdomen: soft, non-tender, non-distended Neuro: alert and oriented, thought content appropriate, clear speech Psych: normal 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 who presents with history of pT1bN0 grade 2 endometrial cancernow with biopsy-proven anterior vaginal recurrence, who presents to discuss intracavitary brachytherapy as part of salvage radiation treatment. PLAN: After reviewing Ms. Nova's medical records, interviewing and examining her, and reviewing all pertinent diagnostic data, I agree with recommendation for external beam pelvic radiation followed by brachytherapy boost. I discussed intracavitary vaginal cylinder versus referral for interstitial brachytherapy, and I discussed the logistics and possible side effects of vaginal cylinder brachytherapy.I would recommend an MRI at week 4-5 of EBRT, and discussed that intracavitary brachy is an option if there is excellent response with minimal residual disease. However, given size on exam and imaging, I would recommend referral to to establish and evaluate for interstitial brachytherapy. The pat miguel and her are amenable to this plan. We will place referral and follow-up on MRI towardsend of EBRT course. We thank you for the consultation. I spent total time 60 minutes reviewing previous notes, test results, and face to face with the patient discussing the diagnosis and the treatment plan as well as documenting on the day of the visit. Agustina Agudelo MD [facility] Department of Radiation Oncology is an Accredited Facility of the [employer] ([employer]). This document was completed utilizing speech recognition software. Grammatical errors, random word insertions, pronoun errors, and incomplete sentences are an occasional consequence of this system due to software limitations, ambient noise, and hardware issues. Any formal questions or concerns about the content, text or information contained within the body of this dictation should be directly addressed to the provider for clarification. [facility] [id number] Consult note* Agustina Agudelo MD - 01/27/2025 9:00 AM EDT RADIATION ONCOLOGY INITIAL CONSULTATION PATIENT: Doni Nova DATE OF SERVICE: 01/27/25 : 1950 AGE: 74 y.o. PRIMARY SITE AND HISTOPATHOLOGY: Problem List Items Addressed This Visit None Cancer Staging No matching staging information was found for the patient. HISTORY OF PRESENT ILLNESS: Doni Nova is a 74 year old female who presents with recurrent endometrial cancer who presents to discuss intracavitary brachytherapy as part of salvage radiation treatment. Patient first presented with postmenopausal bleeding 06/2023. She underwent total abdominal hysterectomy, bilateral salpingo-oophorectomy, and sentinel lymph node dissection with Dr. Paulino 06/25/2023. Surgical pathology revealed grade 2 endometrioid endometrial carcinoma invading 13/20 mm with lower uterine segment involvement but no cervical stromal involvement, 0/[address] and 0/2 periaorticLN, pT1b N0. No adjuvant treatment recommended. Patient continue surveillance with local providers, but developed recurrent vaginal bleeding and returned for follow-up here at [facility] 01/03/2025. Exam showed anterior mid vaginal wall 4 cm nodular mass,mobile and not fixed. Biopsy consistent with recurrent endometrioid carcinoma. 01/11/25 PET/CT performed at [facility] revealed ill-defined, hypermetabolic focus along the right lower vaginal wall, SUV 10.2, compatible with lower cervical/upper vaginal neoplasm. There are 2 mildly hypermetabolic foci within the right pelvis just posterior to distal ureter subjacent to pelvic calci fication/surgical clips, SUV 2.5. Mild diffuse hypermetabolic uptake throughout the thoracic and lumbar spine. 01/20/25 MR Pelvis showed 3.2 cm nodular enhancing soft tissue mass in anterior wall of vagina correlating with PET/CT. There is immediate abutment of the posterior bladder and proximal urethra withoutgross invasion although early microscopic involvement cannot be excluded. Patient was seen by radiation oncologist Dr. Timur Blake at [place], who is planning for externalbeam radiation treatment to start 02/07. Patient presents with her . She reports bleeding has improved and denies pain. PAST MEDICAL HISTORY: Past Medical History: Diagnosis Date Back pain Fractured coccyx (HCC) Post-menopausal bleeding PAST SURGICAL HISTORY: Past Surgical History: Procedure Laterality Date APPENDECTOMY BACK SURGERY HYSTERECTOMY LAPAROTOMY EXPLORATORY (HISTORICAL) OB History Para Term AB Living 4 4 4 0 0 4 SAB IAB Ectopic Multiple Live Births 0 0 0 0 0 # Outcome Date GA Lbr Ricardo/2nd Weight Sex Type Anes PTL Lv 4 Term 3 Term 2 Term 1 Term Age at Menarche: 16 Age at first : 22 Age at first live : 21 Months : Age at menopause: 51 SOCIAL HISTORY: Social History Socioeconomic History Marital status: Spouse name: Not on file Number of children: Not on file Years of education: Not on file Highest education level: Not on file Occupational History Not on file Tobacco Use Smoking status: Never Smokeless tobacco: Never Substance and Sexual Activity Alcohol use: Never Drug use: Never Sexual activity: Not on file Other Topics Concern Not on file Social History Narrative Not on file Social Drivers of Health Financial Resource Strain: Not on file Food Insecurity: Not on file Transportation Needs: Not on file Physical Activity: Not on file Stress: Not on file Social Connections: Not on file Intimate Partner Violence: Not on file Housing Stability: Not on file FAMILY HISTORY: Family History Problem Relation Name Age of Onset Stroke Mother Cancer Father laryngeal Heart attack Father Hypertension Sister Breast cancer Maternal Grandmother ALLERGIES: Allergies as of 01/27/2025 (No Known Allergies) MEDICATIONS: Current Outpatient Medications Medication Sig Dispense Refill APPLE CIDER VINEGAR PO Take by mouth. Ascorbic Acid (vitamin C) 100 MG tablet Take 100 mg by mouth daily. Calcium Citrate-Vitamin D 250-2.5 MG-MCG tablet Take by mouth. cholecalciferol (Vitamin D-3) 25 MCG (1000 UT) capsule Take 1,000 Units by mouth daily. CRANBERRY PO Take by mouth. cyanocobalamin (Vitamin B-12) 100 MCG tablet Take 500 mcg by mouth daily. magnesium 30 MG tablet Take 30 mg by mouth daily. acetaminophen (Tylenol) 500 MG tablet Take 2 tablets (1,000 mg) by mouth in the morning and 2 tablets (1,000 mg) at noon and 2 tablets (1,000 mg) in the evening and 2 tablets (1,000 mg) before bedtime. (Patient not taking: Reported on 07/11/2023) 30 tablet 0 apixaban (Eliquis) 2.5 MG tablet Take 1 tablet (2.5 mg) by mouth 2 times daily for 28 days. 56 tablet 0 docusate sodium (Colace) 100 MG capsule Take 1 capsule (100 mg) by mouth 2 times daily. (Patient not taking: Reported on 01/27/2025) 20 capsule 0 ibuprofen 600 MG tablet Take 1 tablet (600 mg) by mouth in the morning and 1 tablet (600 mg) at noon and 1 tablet (600 mg) in the evening and 1 tablet (600 mg) before bedtime. (Patient not taking: Reported on 01/27/2025) 60 tablet 0 No current facility-administered medications for this encounter. SUMMARY OF SIGNIFICIANT X-RAY/LABORATORY FINDINGS: See HPI REVIEW OF SYSTEMS: See HPI ECOG Performance Status: 0 Objective PHYSICAL EXAM: BP (!) 160/76 Pulse 66 Temp 98 F (36.7 C) Resp 18 Ht 5' 2 (1.575 m) Wt 182 lb 12.8 oz (82.9 kg) LMP 06/23/2023 SpO2 95% BMI 33.43 kg/m Pain Score: 0 - No pain Fatigue Assessment: Able to perform daily activities Physical Exam General: alert, no apparent distress, cooperative with exam HEENT: normocephalic, extraocular movements intact, oropharynx clear Cardiac: well-perfused extremities Pulmonary: no respiratory distress Abdomen: soft, non-tender, non-distended Neuro: alert and oriented, thought content appropriate, clear speech 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 who presents with history of pT1bN0 grade 2 endometrial cancernow with biopsy-proven anterior vaginal recurrence, who presents to discuss intracavitary brachytherapy as part of salvage radiation treatment. PLAN: After reviewing Ms. Nova's medical records, interviewing and examining her, and reviewing all pertinent diagnostic data, I agree with recommendation for external beam pelvic radiation followed by brachytherapy boost. I discussed intracavitary vaginal cylinder versus referral for interstitial brachytherapy, and I discussed the logistics and possible side effects of vaginal cylinder brachytherapy.I would recommend an MRI at week 4-5 of EBRT, and discussed that intracavitary brachy is an option if there is excellent response with minimal residual disease. However, given size on exam and imaging, I would recommend referral to to establish and evaluate for interstitial brachytherapy. The pat miguel and her are amenable to this plan. We will place referral and follow-up on MRI towardsend of EBRT course. We thank you for the consultation. I spent total time 60 minutes reviewing previous notes, test results, and face to face with the patient discussing the diagnosis and the treatment plan as well as documenting on the day of the visit. Agustina Agudelo MD [facility] Department of Radiation Oncology is an Accredited Facility of the [employer] ([employer]). This document was completed utilizing speech recognition software. Grammatical errors, random word insertions, pronoun errors, and incomplete sentences are an occasional consequence of this system due to software limitations, ambient noise, and hardware issues. Any formal questions or concerns about the content, text or information contained within the body of this dictation should be directly addressed to the provider for clarification. documented in this [facility]05-08-2025 Hospital Discharge instructions* Patient Instructions* Rosie Hill RN - 01/27/2025 9:00 AM EDT Oncology Binder given * Attachments The following attachments cannot be sent through Care Everywhere. * Radiation Therapy, External (Yakut) documented in this [facility]05-08-2025 NoteRADIATION ONCOLOGY INITIAL CONSULTATION PATIENT: Doni Nova DATE OF SERVICE: 01/27/25 : 1950 AGE: 74 y.o. PRIMARY SITE AND HISTOPATHOLOGY: Problem List Items Addressed This Visit None Cancer Staging No matching staging information was found for the patient. HISTORY OF PRESENT ILLNESS: Doni Nova is a 74 year old female who presents with recurrent endometrial cancer who presents to discuss intracavitary brachytherapy as part of salvage radiation treatment. Patient first presented with postmenopausal bleeding 06/2023. She underwent total abdominal hysterectomy, bilateral salpingo-oophorectomy, and sentinel lymph node dissection with Dr. Paulino 06/25/2023. Surgical pathology revealed grade 2 endometrioid endometrial carcinoma invading 13/20 mm with lower uterine segment involvement but no cervical stromal involvement, 0/[address] and 0/[address], pT1b N0. No adjuvant treatment recommended. Patient continue surveillance with local providers, but developed recurrent vaginal bleeding and returned for follow-up here at [facility] 01/03/2025. Exam showed anterior mid vaginal wall 4 cm nodular mass, mobile and not fixed. Biopsy consistent with recurrent endometrioid carcinoma. 01/11/25 PET/CT performed at [place] revealed ill-defined, hypermetabolic focus along the right lower vaginal wall, SUV 10.2, compatible with lower cervical/upper vaginal neoplasm. There are 2 mildly hypermetabolic foci within the right pelvis just posterior to distal ureter subjacent to pelvic calcification/surgical clips, SUV 2.5. Mild diffuse hypermetabolic uptake throughout the thoracic and lumbar spine. 01/20/25 MR Pelvis showed 3.2 cm nodular enhancing soft tissue mass in anterior wall of vagina correlating with PET/CT. There is immediate abutment of the posterior bladder and proximal urethra without gross invasion although early microscopic involvement cannot be excluded. Patient was seen by radiation oncologist Dr. Timur Blake at [place], who is planning for external beam radiation treatment to start 02/07. Patient presents with her . She reports bleeding has improved and denies pain. PAST MEDICAL HISTORY: Past Medical History: Diagnosis Date Back pain Fractured coccyx (HCC) Post-menopausal bleeding PAST SURGICAL HISTORY: Past Surgical History: Procedure Laterality Date APPENDECTOMY BACK SURGERY HYSTERECTOMY LAPAROTOMY EXPLORATORY (HISTORICAL) OB History Para Term AB Living 4 4 4 0 0 4 SAB IAB Ectopic Multiple Live Births 0 0 0 0 0 # Outcome Date GA Lbr Ricardo/2nd Weight Sex Type Anes PTL Lv 4 Term 3 Term 2 Term 1 Term Age at Menarche: 16 Age at first : 22 Age at first live : 21 Months : Age at menopause: 51 SOCIAL HISTORY: Social History Socioeconomic History Marital status: Spouse name: Not on file Number of children: Not on file Years of education: Not on file Highest education level: Not on file Occupational History Not on file Tobacco Use Smoking status: Never Smokeless tobacco: Never Substance and Sexual Activity Alcohol use: Never Drug use: Never Sexual activity: Not on file Other Topics Concern Not on file Social History Narrative Not on file Social Drivers of Health Financial Resource Strain: Not on file Food Insecurity: Not on file Transportation Needs: Not on file Physical Activity: Not on file Stress: Not on file Social Connections: Not on file Intimate Partner Violence: Not on file Housing Stability: Not on file FAMILY HISTORY: Family History Problem Relation Name Age of Onset Stroke Mother Cancer Father laryngeal Heart attack Father Hypertension Sister Breast cancer Maternal Grandmother ALLERGIES: Allergies as of 01/27/2025 (No Known Allergies) MEDICATIONS: Current Outpatient Medications Medication Sig Dispense Refill APPLE CIDER VINEGAR PO Take by mouth. Ascorbic Acid (vitamin C) 100 MG tablet Take 100 mg by mouth daily. Calcium Citrate-Vitamin D 250-2.5 MG-MCG tablet Take by mouth. cholecalciferol (Vitamin D-3) 25 MCG (1000 UT) capsule Take 1,000 Units by mouth daily. CRANBERRY PO Take by mouth. cyanocobalamin (Vitamin B-12) 100 MCG tablet Take 500 mcg by mouth daily. magnesium 30 MG tablet Take 30 mg by mouth daily. acetaminophen (Tylenol) 500 MG tablet Take 2 tablets (1,000 mg) by mouth in the morning and 2 tablets (1,000 mg) at noon and 2 tablets (1,000 mg) in the evening and 2 tablets (1,000 mg) before bedtime. (Patient not taking: Reported on 07/11/2023) 30 tablet 0 apixaban (Eliquis) 2.5 MG tablet Take 1 tablet (2.5 mg) by mouth 2 times daily for 28 days. 56 tablet 0 docusate sodium (Colace) 100 MG capsule Take 1 capsule (100 mg) by mouth 2 times daily. (Patient not taking: Reported on 01/27/2025) 20 capsule 0 ibuprofen 600 MG tablet Take 1 tablet (600 m (more content not included)...[facility] [id number] Nurse Note* Rosie Hill RN - 01/27/2025 9:00 AM EDT Here alone at [facility] for consult with Dr. Agudelo. She reports good energy and denies pain. She was having severe lower abdominal pain and bleeding and was diagnosed with endometrial cancer in June 2023. She was treated with hysterectomy and bx. She had follow up with Dr. Waters in [place] who referred her to Dr. Paulino. She will have a PET Scan in the future - not scheduled as of yet. She denies any other hx of cancer, chemo, radiation. She denies any implantable devices/pacemaker. Medications reviewed and updated via patient recall. [id number] Nurse Note* Rosie Hill RN - 01/27/2025 9:00 AM EDT Here alone at [facility] for consult with Dr. Agudelo. She reports good energy and denies pain. She was having severe lower abdominal pain and bleeding and was diagnosed with endometrial cancer in June 2023. She was treated with hysterectomy and bx. She had follow up with Dr. Waters in [place] who referred her to Dr. Paulino. She will have a PET Scan in the future - not scheduled as of yet. She denies any other hx of cancer, chemo, radiation. She denies any implantable devices/pacemaker. Medications reviewed and updated via patient recall. documented in this [facility]04-29-2025 Telephone encounter Note* Telephone Encounter - Lenny Paulino MD - 01/18/2025 10:25 AM EDT Pt called with PET [id number] Miscellaneous Notes* Telephone Encounter - Lenny Paulino MD - 01/18/2025 10:25 AM EDT Pt called with PET documented in this [facility]04-23-2025 Telephone encounter Note* Telephone Encounter - Hay Godoy - 01/12/2025 4:00 PM EDT Faxed to Dr. Blake at [phone] via [employer]. Confirmation scanned within media [facility] [id number] Telephone encounter Note* Telephone Encounter - Hay Godoy - 01/12/2025 4:00 PM EDT ----- Message from Lenny Paulino MD sent at 01/12/2025 2:31 PM EDT ----- Plz fax to Dr Timur Blake Rad Onc at [facility] ----- Message ----- From: [employer] User Wiliammichael Sent: 01/12/2025 9:31 AM EDT To: Lenny Paulino MD [facility] [id number] Miscellaneous Notes* Telephone Encounter - Hay Jayne - 01/12/2025 4:00 PM EDT Faxed to Dr. Blake at [phone] via [employer]. Confirmation scanned within media * Telephone Encounter - Hay Godoy - 01/12/2025 4:00 PM EDT ----- Message from Lenny Paulino MD sent at 01/12/2025 2:31 PM EDT ----- Plz fax to Dr Timur Blake Rad Onc at [facility] ----- Message ----- From: [employer] UserPadmini Sent: 01/12/2025 9:31 AM EDT To: Lenny Paulino MD documented in this encounterSOhio[facility] [id number] Telephone encounter Note* Telephone Encounter - Lenny Paulino MD - 01/12/2025 11:59 AM EDT [email or web address] [place] [id number] Miscellaneous Notes* Telephone Encounter - Lenny Paulino MD - 01/12/2025 11:59 AM EDT [email or web address] documented in this [facility]04-14-2025 History of Present illness Narrative* Lenny Paulino MD - 01/03/2025 1:30 PM EDT Surg CC: stage I B grade 1-2 endometrial cancer HPI: 74 y.o. Doni Nova female with a stage I B grade 1-2 endometrial cancer diagnosed in June 2023. She was treated with hysterectomy BSO lymph node sampling followed by observation. 2 months of VB, notices mostly when going to the bathroom. Denies any vaginal pain, pelvic pain, denies any difficulty passing her water. Patient underwent surveillance visit was found to have friable tissue in the vagina Denies any unintended weight loss. Past Medical History: Diagnosis Date Back pain Fractured coccyx (HCC) Post-menopausal bleeding Past Surgical History: Procedure Laterality Date APPENDECTOMY BACK SURGERY LAPAROTOMY EXPLORATORY (HISTORICAL) Social History Socioeconomic History Marital status: Tobacco Use Smoking status: Never Smokeless tobacco: Never Substance and Sexual Activity Alcohol use: Never Drug use: Never Current Outpatient Medications Medication Sig Dispense Refill acetaminophen (Tylenol) 500 MG tablet Take 2 tablets (1,000 mg) by mouth in the morning and 2 tablets (1,000 mg) at noon and 2 tablets (1,000 mg) in the evening and 2 tablets (1,000 mg) before bedtime. (Patient not taking: Reported on 07/11/2023) 30 tablet 0 apixaban (Eliquis) 2.5 MG tablet Take 1 tablet (2.5 mg) by mouth 2 times daily for 28 days. 56 tablet 0 APPLE CIDER VINEGAR PO Take by mouth. Ascorbic Acid (vitamin C) 100 MG tablet Take 100 mg by mouth daily. CRANBERRY PO Take by mouth. cyanocobalamin (Vitamin B-12) 100 MCG tablet Take 500 mcg by mouth daily. docusate sodium (Colace) 100 MG capsule Take 1 capsule (100 mg) by mouth 2 times daily. (Patient not taking: Reported on 07/11/2023) 20 capsule 0 ibuprofen 600 MG tablet Take 1 tablet (600 mg) by mouth in the morning and 1 tablet (600 mg) at noon and 1 tablet (600 mg) in the evening and 1 tablet (600 mg) before bedtime. 60 tablet 0 magnesium 30 MG tablet Take 30 mg by mouth daily. No current facility-administered medications for this visit. Review of Systems Genitourinary: Positive for vaginal bleeding. Negative for pelvic pain and vaginal pain. Patient has no known allergies. LMP 06/23/2023 Physical Exam Vitals and nursing note reviewed. Exam conducted with a unemployment insurance hearing officer present. Constitutional: Appearance: Normal appearance. Abdominal: General: Abdomen is flat. Palpations: Abdomen is soft. There is no mass. Hernia: No hernia is present. Genitourinary: General: Normal vulva. Labia: Right: No lesion. Left: No lesion. Urethra: No urethral lesion. Vagina: Lesions present. Comments: In the anterior mid vaginal wall is an approximately 4 cm nodular recurrent carcinoma. Mobile, not fixed to pubic bone Lymphadenopathy: Upper Body: Right upper body: No supraclavicular adenopathy. Left upper body: No supraclavicular adenopathy. Lower Body: No right inguinal adenopathy. No left inguinal adenopathy. Neurological: Mental Status: She is alert. Psychiatric: Mood and Affect: Mood normal. Behavior: Behavior normal. Procedure note; using Tischler biopsy forceps biopsies of the mass were obtained from the vaginal wall and sent to pathology Assessment: Consistent with recurrent cancer in the anterior mid vaginal wall Plan: Discussed with patient and her that we will obtain a PET scan, if this is an isolatedrecurrence would recommend radiation therapy which can be done in [place]. If evidence of other systemic spread would also need chemotherapy. All the patient's and 's questions were answered to the best my ability and total time spent in [id number] counseling review of EMR was 25 minutes * Jaqui Mckenzie MA - 01/03/2025 1:30 PM EDT Casting Plug Assembler was offered to the patient for exam. Patient accepted, medical office technology instructor in room during exam Pt left without second BP. documented in this [facility]04-10-2025 Telephone encounter Note* Telephone Encounter - Hay Jayne - 12/30/2024 11:54 AM EDT Patient to call back with availability [facility] [id number] Miscellaneous Notes* Telephone Encounter - Hay Godoy - 12/30/2024 11:54 AM EDT Patient to call back with availability * Telephone Encounter - Hay Godoy - 12/29/2024 12:51 PM EDT LVM to schedule follow up with Dr. Paulino next week * Telephone Encounter - Hay Kingelidia - 12/29/2024 10:55 AM EDT Mamta from Dr. Jenkins's office stated that pelvic exam was performed and the tissue was friable and there was minor bleeding. Office note to be faxed. Will route to provider once it comes in. With further questions, callback is [phone] * Telephone Encounter - Serene Groves - 12/29/2024 10:44 AM EDT [place] from [facility] called to report Pt has changes seen in pelvic exam and Katt be faxing office notes for possible exam/consult here. Thank you documented in this encounterSOhioHealth O'Bleness [id number] Telephone encounter Note* Telephone Encounter - Hay Jayne - 12/29/2024 12:51 PM EDT LVM to schedule follow up with Dr. Paulino next week [place] [id number] Miscellaneous Notes* Telephone Encounter - Hay Godoy - 12/29/2024 12:51 PM EDT LVM to schedule follow up with Dr. Paulino next week * Telephone Encounter - Hay Kingelidia - 12/29/2024 10:55 AM EDT Mamta from Dr. Jenkins's office stated that pelvic exam was performed and the tissue was friable and there was minor bleeding. Office note to be faxed. Will route to provider once it comes in. With further questions, callback is [phone] * Telephone Encounter - Serene Germain - 12/29/2024 10:44 AM EDT [place] from [facility] called to report Pt has changes seen in pelvic exam and Katt be faxing office notes for possible exam/consult here. Thank you documented in this encounterSOhioHealth O'Blen[facility] [id number] Telephone encounter Note* Telephone Encounter - Hay Kingelidia - 12/29/2024 10:55 AM EDT Mamta from Dr. Jenkins's office stated that pelvic exam was performed and the tissue was friable and there was minor bleeding. Office note to be faxed. Will route to provider once it comes in. With further questions, callback is [phone] [facility] [id number] Telephone encounter Note* Telephone Encounter - Serene Groves - 12/29/2024 10:44 AM EDT [place] from [facility] called to report Pt has changes seen in pelvic exam and Katt swain faxing office notes for possible exam/consult here. Thank you [place] [id number] Evaluation note* Diagnosis Onset Date Resolution Status Admit Date Colon cancer screening declined none active December 29, 2024 8:06am Immunization declined noneactive Apr il 2024 8:06am Annual physical exam noneactive Apri l 2024 8:06am Mixed hyperlipidemia noneactive Apri l 2024 8:06am Endometrial cancer noneactive December 29, 2024 8:06am [facility] Work Phone: 1(263) 168-158604-09-2025 Evaluation note* Diagnosis Onset Date Resolution Status Admit Date Colon cancer screening declined none active December 29, 2024 8:06am Immunization declined noneactive Apr il 2024 8:06am Annual physical exam noneactive Apri l 2024 8:06am Mixed hyperlipidemia noneactive Apri l 2024 8:06am Endometrial cancer noneactive December 29, 2024 8:06am Recurrent carcinoma of endometrium acute January 21, 2025 8: 16am Recurrent carcinoma of endometrium acute January 26, 2025 7: 40am Recurrent carcinoma of endometrium acute February 09, 2025 8 :34am [facility] [facility] Work Phone: 1(805) 124-747604-09-2025 Evaluation note* Diagnosis Onset Date Resolution Status Admit Date Colon cancer screening declined none active December 29, 2024 8:06am Immunization declined noneactive Apr il 2024 8:06am Annual physical exam noneactive Apri l 2024 8:06am Mixed hyperlipidemia noneactive Apri l 2024 8:06am Endometrial cancer noneactive December 29, 2024 8:06am Recurrent carcinoma of endometrium acute January 21, 2025 8: 16am Recurrent carcinoma of endometrium acute January 26, 2025 7: 40am Recurrent carcinoma of endometrium acute February 09, 2025 8 :34am Recurrent carcinoma of endometrium acute February 16, 2025 8 :40am [facility] [employer] Work Phone: 1(562) 722-351704-09-2025 Evaluation note* Diagnosis Onset Date Resolution Status Admit Date Colon cancer screening declined none active December 29, 2024 8:06am Immunization declined noneactive Apr il 2024 8:06am Annual physical exam noneactive Apri l 2024 8:06am Mixed hyperlipidemia noneactive Apri l 2024 8:06am Endometrial cancer noneactive December 29, 2024 8:06am Recurrent carcinoma of endometrium acute January 21, 2025 8: 16am Recurrent carcinoma of endometrium acute January 26, 2025 7: 40am Recurrent carcinoma of endometrium acute February 09, 2025 8 :34am Recurrent carcinoma of endometrium acute February 16, 2025 8 :40am Recurrent carcinoma of endometrium acute February 23, 2025 8 :30am Recurrent carcinoma of endometrium acute March 02, 2025 8:40am [facility] Work Phone: 1(158) 880-663204-09-2025 Evaluation note* Diagnosis Onset Date Resolution Status Admit Date Colon cancer screening declined none active December 29, 2024 8:06am Immunization declined noneactive Apr id 2024 8:06am Annual physical exam noneactive Apri l 2024 8:06am Mixed hyperlipidemia noneactive Apri l 2024 8:06am Endometrial cancer noneactive December 29, 2024 8:06am Recurrent carcinoma of endometrium acute January 21, 2025 8: 16am Recurrent carcinoma of endometrium acute January 26, 2025 7: 40am Recurrent carcinoma of endometrium acute February 09, 2025 8 :34am Recurrent carcinoma of endometrium acute February 16, 2025 8 :40am Recurrent carcinoma of endometrium acute February 23, 2025 8 :30am [facility] Work Phone: 1(116) 209-863504-09-2025 Evaluation note* Diagnosis Onset Date Resolution Status Admit Date Colon cancer screening declined none active December 29, 2024 8:06am Immunization declined noneactive Apr 2024 8:06am Annual physical exam noneactive Apri l 2024 8:06am Mixed hyperlipidemia noneactive Apri l 2024 8:06am Endometrial cancer noneactive December 29, 2024 8:06am Recurrent carcinoma of endometrium acute January 21, 2025 8: 16am Recurrent carcinoma of endometrium acute January 26, 2025 7: 40am Recurrent carcinoma of endometrium acute February 09, 2025 8 :34am Recurrent carcinoma of endometrium acute February 16, 2025 8 :40am Recurrent carcinoma of endometrium acute February 23, 2025 8 :30am Recurrent carcinoma of endometrium acute March 02, 2025 8:40am Recurrent carcinoma of endometrium acute March 09, 2025 8:02am [facility] Work Phone: [phone] Evaluation note* Diagnosis Onset Date Resolution Status Admit Date Colon cancer screening declined none active December 29, 2024 8:06am Immunization declined noneactive Apr il 2024 8:06am Annual physical exam noneactive Apri l 2024 8:06am Mixed hyperlipidemia noneactive Apri l 2024 8:06am Endometrial cancer noneactive December 29, 2024 8:06am Recurrent carcinoma of endometrium acute January 21, 2025 8: 16am Recurrent carcinoma of endometrium acute January 26, 2025 7: 40am Recurrent carcinoma of endometrium acute February 09, 2025 8 :34am Recurrent carcinoma of endometrium acute February 16, 2025 8 :40am Recurrent carcinoma of endometrium acute February 23, 2025 8 :30am Recurrent carcinoma of endometrium acute March 02, 2025 8:40am Recurrent carcinoma of endometrium acute March 09, 2025 8:02am Recurrent carcinoma of endometrium acute March 14, 2025 8:44am [facility] Work Phone: [phone] Telephone encounter Note* Telephone Encounter - Hermila Gant RN - 07/28/2023 11:28 AM EST Called pt back with lymph nodes were negative. [id number] Miscellaneous Notes* Telephone Encounter - Hermila Gant RN - 07/28/2023 11:28 AM EST Called pt back with lymph nodes were negative. * Telephone Encounter - Hermila Gant RN - 07/28/2023 8:49 AM EST Called pt and she is doing well from surgery on 06/25/23. Pt states Dr. Paulino told her that her lymph nodes were hard and she is questioning the reason why they were hard. Pt would like call back. * Telephone Encounter - Katie Richardson - 07/28/2023 8:32 AM EST Patient mentioned that she had surgery 4 weeks ago (Jun 25). Patient mentioned that some of her lymph nodes are hard. Patient wants to know the cause of them to be hard. Patient would like a call back. * Telephone Encounter - Lenny Paulino MD - 07/08/2023 9:28 AM EDT Pt called with path documented in this [facility]11-06-2023 Telephone encounter Note* Telephone Encounter - Hermila Gant RN - 07/28/2023 8:49 AM EST Called pt and she is doing well from surgery on 06/25/[address]. [address] Paulino told her that her lymph nodes were hard and she is questioning the reason why they were hard. Pt would like call back. [id number] Telephone encounter Note* Telephone Encounter - Katie Richardson - 07/28/2023 8:32 AM EST Patient mentioned that she had surgery 4 weeks ago (Jun 25). Patient mentioned that some of her lymph nodes are hard. Patient wants to know the cause of them to be hard. Patient would like a call back. [id number] Telephone encounter Note* Telephone Encounter - Lenny Paulino MD - 07/08/2023 9:28 AM EDT Pt called with path [place] [id number] Miscellaneous Notes* Telephone Encounter - Lenny Paulino MD - 07/08/2023 9:28 AM EDT Pt called with path documented in this [facility]10-06-2023 Hospital course Narrative* Lenny Paulino MD - 06/27/2023 10:23 AM EDT Images from the original note were not included. 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 female , admitted for postoperative care following the above procedures. The surgery itself was uncomplicated. Patient continued to meet postoperative goals during admission and was deemed stable for discharge on postoperative day 2. Follow up in 2 weeks. Discharge instructions reviewed and questions answered. Course of patient: normal Discharge to: Home Wound Care: keep wound clean and dry Recommendations on Discharge: Medications: Medication List START taking these medications acetaminophen 500 MG tablet Commonly known as: Tylenol Take 2 tablets (1,000 mg) by mouth in the morning and 2 tablets (1,000 mg) at noon and 2 tablets (1,000 mg) in the evening and 2 tablets (1,000 mg) before bedtime. apixaban 2.5 MG tablet Commonly known as: Eliquis Take 1 tablet (2.5 mg) by mouth 2 times daily for 28 days. docusate sodium 100 MG capsule Commonly known as: Colace Take 1 capsule (100 mg) by mouth 2 times daily. ibuprofen 600 MG tablet Take 1 tablet (600 mg) by mouth in the morning and 1 tablet (600 mg) at noon and 1 tablet (600 mg) in the evening and 1 tablet (600 mg) before bedtime. ondansetron 4 MG tablet Commonly known as: Zofran Take 1 tablet (4 mg) by mouth every 8 hours as needed for nausea or vomiting for up to 7 days. oxyCODONE 5 MG immediate release tablet Commonly known as: Roxicodone Take 1 tablet (5 mg) by mouth every 6 hours as needed for severe pain (7-10) for up to 5 days. CONTINUE taking these medications APPLE CIDER VINEGAR PO CRANBERRY PO cyanocobalamin 100 MCG tablet Commonly known as: Vitamin B-12 magnesium 30 MG tablet vitamin C 100 MG tablet Where to Get Your Medications These medications were sent to [address] [address] acetaminophen 500 MG tablet apixaban 2.5 MG tablet docusate sodium 100 MG capsule ibuprofen 600 MG tablet ondansetron 4 MG tablet oxyCODONE 5 MG immediate release tablet Activity: pelvic rest for at least 6 weeks (until cleared by physician), no heavy lifting greater than 15lbs, no driving while on analgesics Diet: Regular Follow up: [address] Paulino Condition on discharge: good and stable Discharge Date: 06/27/2023 Comments: Home care, Follow-up care, restrictions reviewed. Beverly Benjamin MD 06/27/2023, 10:23 AM documented in this [facility]10-06-2023 History of Present illness Narrative* Leia Anand - 06/27/2023 8:39 AM EDT Nutrition rescreen completed. Chart reviewed. Patient to be monitored and followed by the diet solar energy technician. NGA Barrientos * Beverly Benjamin MD - 06/27/2023 5:30 AM EDT Images from the original note were not included. SHOULDER P[facility]CH[facility] Progress Note Date: 06/27/2023 Time: 5:31 AM Doni Nova 73 y.o. female , POD # 2 s/p CITLALLI, BSO, Bilateral LND Patient seen and examined. She have no complaints. Pain is controlled. Patient is tolerating oral intake. She is urinating. She denies any vaginal bleeding. She is ambulating without difficulty. She is passing flatus. She denies Fever/Chills, Chest Pain, SOB, N/V. Vitals: Vitals: 06/26/23 1118 06/26/23 1705 06/26/23 2258 06/27/23 0510 BP: 130/64 (!) 152/76 (!) 156/85 136/69 BP Location: Left arm Left arm Right arm Left arm Patient Position: Lying Lying Lying Lying Pulse: 66 64 67 58 Resp: 16 20 20 20 Temp: 36.9 C (98.5 F) 36.7 C (98.1 F) 36.6 C (97.8 F) 36.6 C (97.9 F) TempSrc: Temporal Temporal Temporal Temporal SpO2: 95% 95% 97% 94% Weight: Height: Physical Exam: Gen: NAD, alert and cooperative HEENT: Normocephalic, atraumatic, EOMI, MMM Resp: No in crease work of breathing Abd: soft, NT/ND, no rebound, no guarding. present BS Incisions: Midline vertical incision C/D/I covered with steri strips, small bruising at the distal apex of the incision, no sign of hematoma Ext: No LE edema, no calf tenderness or swelling Medications: Current Facility-Administered Medications: acetaminophen (Tylenol) tablet 1,000 mg, 1,000 mg, Oral, q8h, Beverly Benjamin MD, 1,000 mg at 06/26/23 174 docusate sodium (Colace) capsule 100 mg, 100 mg, Oral, BID, Beverly Benjamin MD, 100 mg at 06/26/23 205 enoxaparin (Lovenox) syringe 40 mg, 40 mg, SubCUTAneous, Daily, Beverly Benjamin MD, 40 mg at 06/26/23 0949 ibuprofen tablet 600 mg, 600 mg, Oral, q6h, Beverly Benjamin MD, 600 mg at 06/27/23 0407 ondansetron ODT (Zofran-ODT) disintegrating tablet 4 mg, 4 mg, Oral, q8h PRN OR ondansetron (Zofran) injection 4 mg, 4 mg, IntraVENous, q6h PRN, Beverly Benjamin MD oxyCODONE (Roxicodone) immediate release tablet 5 mg, 5 mg, Oral, q4h PRN OR oxyCODONE (Roxicodone) immediate release tablet 10 mg, 10 mg, Oral, q4h PRN, Beverly Benjamin MD polyethylene glycol (PEG) 3350 (Miralax) packet 17 g, 17 g, Oral, Daily PRN, Beverly Benjamin MD simethicone (Mylicon) chewable tablet 80 mg, 80 mg, Oral, PRN, Beverly Benjamin MD sodium chloride 0.9 % infusion, 5-250 mL/hr, IntraVENous, PRN, Beverly Benjamin MD sodium chloride 0.9% (NS) flush 10 mL, 10 mL, IntraVENous, 2 times per day, Beverly Benjamin MD, 10 mL at 06/26/232054 sodium chloride 0.9% (NS) flush 10 mL, 10 mL, IntraVENous, PRN, Beverly Benjamin MD Labs: Admission on 06/25/2023 Component Date Value Ref Range Status Auto WBC 06/25/2023 9.4 3.6 - 10.7 10*3/uL Final RBC 06/25/2023 4.51 3.8 - 5.20 10*6/uL Final Hemoglobin 06/25/2023 14.2 11.7 - 16.0 g/dL Final Hematocrit 06/25/2023 41.7 35.0 - 47.0 % Final MCV 06/25/2023 92.6 80.0 - 98.0 fL Final MCH 06/25/2023 31.4 26.0 - 34.0 pg Final MCHC 06/25/2023 33.9 32.0 - 36.0 % Final RDW 06/25/2023 13.9 11.5 - 14.5 % Final Platelets 06/25/2023 244 140 - 440 10*3/uL Final MPV 06/25/2023 8.1 7.4 - 12.4 fL Final ABO Grouping 06/25/2023 B Final Antibody Screen 06/25/2023 NEG Final Rh Type 06/25/2023 POS Final ABO Grouping 06/25/2023 B Final Rh Type 06/25/2023 POS Final ] Assessment/Plan: Doni Nova 73 y.o. female , POD #2 s/p CITLALLI, BSO, Bilateral LND Post op state - Doing well, vitals stable - Voiding without difficulty - Encourage ambulation and use of incentive spirometer - Pain controlled: yes - DVT Proph:Lovenox, plan to dc home with eliquis for 28 days - Abx: s/p 24 hrs of ancef - Diet: General - IVF: Hep Locked - Disposition: DC home today Endometrial Cancer - Presented with PMB, cervical stenosis - Underwent CITLALLI, BSO, Lymph node dissection on 06/25, with intra-op grossly positive lymph nodes - Final path pending Plan to be d/w Dr. Paulino Please page the [facility] SHOULDER P[facility]CH[facility] ONC Call RES group via Secure Chat for any questions or concerns. Beverly Benjamin MD 06/27/2023, 5:31 AM Associated attestation - Lenny Paulino MD - 06/27/2023 11:09 AM EDT Patient doing well after surgery. Okay to discharge to home * Beverly Benjamin MD - 06/26/2023 5:41 AM EDT Images from the original note were not included. [facility]CH[facility] ONC Progress Note Date: 06/26/2023 Time: 5:42 AM Doni Nova 73 y.o. female , POD # 1 s/p CITLALLI BSO Bilateral LND. Patient seen and examined. She has no complaints. Pain is controlled. Patient is tolerating oral intake. She is urinating. She denies any vaginal bleeding. She is ambulating without difficulty. She is passing flatus. She denies Fever/Chills, Chest Pain, SOB, N/V. Vitals: Vitals: 06/25/23 1800 06/25/23 1815 06/25/23 2353 06/26/23 0533 BP: (!) 141/74 (!) 146/75 (!) 141/79 (!) 144/70 BP Location: Right arm Left arm Pulse: 63 65 73 60 Resp: 18 17 Temp: 36.5 C (97.7 F) 36.6 C (97.9 F) TempSrc: Temporal Temporal SpO2: 95% 99% 95% 95% Weight: Height: Intake/Output: Current Shift: I/O this shift: In: 200 [P.O.:200] Out: 1400 [Urine:1400] Physical Exam: Gen: NAD, alert and cooperative HEENT: Normocephalic, atraumatic, EOMI, MMM Resp: CTABL, no WRR Card: RRR, no murmur Abd: soft, NT/ND, no rebound, no guarding. present BS Incisions: Vertical midline incision dressing in place without strikethrough Ext: No LE edema, no calf tenderness or swelling, SCDs in place bilaterally Medications: Current Facility-Administered Medications: acetaminophen (Tylenol) tablet 1,000 mg, 1,000 mg, Oral, q8h, Beverly Benjamin MD ceFAZolin in dextrose 4% (Ancef) IVPB 2,000 mg, 2,000 mg, IntraVENous, q8h, Beverly Benjamin MD, Stopped at 06/26/23 0033 enoxaparin (Lovenox) syringe 40 mg, 40 mg, SubCUTAneous, Daily, Beverly Benjamin MD HYDROmorphone (Dilaudid) injection 0.25 mg, 0.25 mg, IntraVENous, q3h PRN OR HYDROmorphone (Dilaudid) injection 0.5 mg, 0.5 mg, IntraVENous, q3h PRN, Beverly Benjamin MD ketorolac (Toradol) injection 15 mg, 15 mg, IntraVENous, 4 times per day, Beverly Benjamin MD, 15 mg at 06/25/23 0574 ondansetron ODT (Zofran-ODT) disintegrating tablet 4 mg, 4 mg, Oral, q8h PRN OR ondansetron (Zofran) injection 4 mg, 4 mg, IntraVENous, q6h PRN, Beverly Benjamin MD oxyCODONE (Roxicodone) immediate release tablet 5 mg, 5 mg, Oral, q4h PRN OR oxyCODONE (Roxicodone) immediate release tablet 10 mg, 10 mg, Oral, q4h PRN, Beverly Benjamin MD polyethylene glycol (PEG) 3350 (Miralax) packet 17 g, 17 g, Oral, Daily PRN, Beverly Benjamin MD sodium chloride 0.9 % infusion, 5-250 mL/hr, IntraVENous, PRN, Beverly Benjamin MD sodium chloride 0.9% (NS) flush 10 mL, 10 mL, IntraVENous, 2 times per day, Beverly Benjamin MD sodium chloride 0.9% (NS) flush 10 mL, 10 mL, IntraVENous, PRN, Beverly Benjamin MD Labs: Admission on 06/25/2023 Component Date Value Ref Range Status Auto WBC 06/25/2023 9.4 3.6 - 10.7 10*3/uL Final RBC 06/25/2023 4.51 3.8 - 5.20 10*6/uL Final Hemoglobin 06/25/2023 14.2 11.7 - 16.0 g/dL Final Hematocrit 06/25/2023 41.7 35.0 - 47.0 % Final MCV 06/25/2023 92.6 80.0 - 98.0 fL Final MCH 06/25/2023 31.4 26.0 - 34.0 pg Final MCHC 06/25/2023 33.9 32.0 - 36.0 % Final RDW 06/25/2023 13.9 11.5 - 14.5 % Final Platelets 06/25/2023 244 140 - 440 10*3/uL Final MPV 06/25/2023 8.1 7.4 - 12.4 fL Final ABO Grouping 06/25/2023 B Final Antibody Screen 06/25/2023 NEG Final Rh Type 06/25/2023 POS Final ABO Grouping 06/25/2023 B Final Rh Type 06/25/2023 POS Final Assessment/Plan: Doni Nova 73 y.o. female , POD #1 s/p CITLALLI BSO Bilateral LND Post Op Status - Doing well, vitals stable - Catheter removed. Voiding without difficulty - Encourage ambulation and use of incentive spirometer - Pain controlled: yes - Labs/Imaging: Tissue exam of uterus and lymph nodes pending - DVT Proph: Lovenox - Abx: Ancef x 24 hrs - Diet: Regular diet - Disposition: Continue inpatient management Endometrial Cancer - Presented with PMB, cervical stenosis - Underwent CITLALLI, BSO, Lymph node dissection on 06/25, with intra-op grossly positive lymph nodes - Final path pending Plan to be d/w Dr. Paulino Please page the [facility] SH[facility]CH[facility] ONC Call RES group via Secure Chat for any questions or concerns. Lisetjeffery Blandon 06/26/2023, 5:42 AM Patient was seen and examined. Note was edited to reflect changes. POD#1 CITLALLI, BSO, Bilateral LND. Doing well, salazar out, pain well controlled. Beverly Benjamin MD 06/26/2023 6:21 AM Associated attestation - Lenny Paulino MD - 06/26/2023 4:46 PM EDT Patient rounded with residents today. Doing well. Continue postop care documented in this [facility]10-06-2023 Hospital Discharge instructions* Discharge Instructions* Beverly Benjamin MD - 06/27/2023 5:33 AM EDT Please follow your post operative care instructions given to you by your Youth Coordinator Oncologist's office at your pre operative visit. Please call the office with questions or concerns and be sure to follow up at your scheduled post operative visit. 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 Name/Contact Information: Jame Nova ([facility]), Camryn Cognition/Language: WFL - Within Functional Limits Permission given to speak with patient ocean import representative/caregiver as indicated: Yes Confirmation of Payer with patient/family: Yes Payer Name: [facility] [place]: Confirmation of Primary Care Physician: Confirmed PCP Name: Uriel Gipson MD Seen in last 2 years?: Yes Primary Caregiver: Self If assistance needed, confirmed caregiver ready, willing and able to care for patient at discharge:Yes Confirmed with: Jame (hus) and Camryn (dtr) Living Arrangements Current Residence: House Number of Floors 1 Number of Entry Steps: 1 Bed/Bath Levels: Both first floor Facility: Facility Name: Plan to Return: Lives with: Spouse/significant other Support Systems: Spouse/significant other, Children, Family members, Friends/neighbors Activities of Daily Living Ambulation: Independent Bathing/Dressing: Independent Elimination/Continence/Toileting: Independent Feeding: Independent Who Assists with Activities of Daily Living: Instrumental Activities of Daily Living Prescription Coverage: Yes Pharmacy Used: [facility] Medication Management: Independent Transportation/Shopping: Independent Transportation Mode: (Horse/carriage) Needs Assistance with Transportation at Discharge: No, Comments (family/friends to transport) Meal Preparation: Independent Laundry/Cleaning: Independent Finances/Bill Paying: Independent Communication: Independent Types of Care Services/Equipment Utilized Care Services: Dialysis Type: NA Durable Medical Equipment: Patient's Goal/Discharge Plan Patient expects to be discharged to: Home with /family Discharge Planning Actions: Continue to follow, No needs identified Patient's Choice Rights and [employer] and Collaborative Relationships Disclosed as Indicated for Post-Acute Care: Interdisciplinary Team Engagement: Social Work Referral for: Additional Information: Chart reviewed. Patient admitted to s/p [facility] BSO. Reg diet, IVABX, pain management, voiding trials. Initial Assessment: Spoke with patient and family at bedside. Introduced myself and role as TCC. Patient and family states that they have a confirmed ride home. Patient and family have not questions or concerns at this time. Discharge Plan: Home with family. Transport per family. Will continue to follow with . 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 Name/Contact Information: Jame Nova ([facility] Camryn Cognition/Language: WFL - Within Functional Limits Permission given to speak with patient ocean import representative/caregiver as indicated: Yes Confirmation of Payer with patient/family: Yes Payer Name: [facility] [employer] [facility] : Confirmation of Primary Care Physician: Confirmed PCP Name: Uriel Gipson MD Seen in last 2 years?: Yes Primary Caregiver: Self If assistance needed, confirmed caregiver ready, willing and able to care for patient at discharge:Yes Confirmed with: Jame ([facility]) and Camryn (dtr) Living Arrangements Current Residence: House Number of Floors 1 Number of Entry Steps: 1 Bed/Bath Levels: Both first floor Facility: Facility Name: Plan to Return: Lives with: Spouse/significant other Support Systems: Spouse/significant other, Children, Family members, Friends/neighbors Activities of Daily Living Ambulation: Independent Bathing/Dressing: Independent Elimination/Continence/Toileting: Independent Feeding: Independent Who Assists with Activities of Daily Living: Instrumental Activities of Daily Living Prescription Coverage: Yes Pharmacy Used: [facility] Medication Management: Independent Transportation/Shopping: Independent Transportation Mode: (Horse/carriage) Needs Assistance with Transportation at Discharge: No, Comments (family/friends to transport) Meal Preparation: Independent Laundry/Cleaning: Independent Finances/Bill Paying: Independent Communication: Independent Types of Care Services/Equipment Utilized Care Services: Dialysis Type: NA Durable Medical Equipment: Patient's Goal/Discharge Plan Patient expects to be discharged to: Home with /family Discharge Planning Actions: Continue to follow, No needs identified Patient's Choice Rights and [employer] and Collaborative Relationships Disclosed as Indicated for Post-Acute Care: Interdisciplinary Team Engagement: Social Work Referral for: Additional Information: Chart reviewed. Patient admitted to s/p [facility] BSO. Reg diet, IVABX, pain management, voiding trials. Initial Assessment: Spoke with patient and family at bedside. Introduced myself and role as TCC. Patient and family states that they have a confirmed ride home. Patient and family have not questions or concerns at this time. Discharge Plan: Home with family. Transport per family. Will continue to follow with SW. 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 Name/Contact Information: Jame Nova (eryn), Camryn Cognition/Language: WFL - Within Functional Limits Permission given to speak with patient ocean import representative/caregiver as indicated: Yes Confirmation of Payer with patient/family: Yes Payer Name: [employer] : Confirmation of Primary Care Physician: Confirmed PCP Name: Uriel Gipson MD Seen in last 2 years?: Yes Primary Caregiver: Self If assistance needed, confirmed caregiver ready, willing and able to care for patient at discharge:Yes Confirmed with: Jame (eryn) kendell Cowan (dtr) Living Arrangements Current Residence: House Number of Floors 1 Number of Entry Steps: 1 Bed/Bath Levels: Both first floor Facility: Facility Name: Plan to Return: Lives with: Spouse/significant other Support Systems: Spouse/significant other, Children, Family members, Friends/neighbors Activities of Daily Living Ambulation: Independent Bathing/Dressing: Independent Elimination/Continence/Toileting: Independent Feeding: Independent Who Assists with Activities of Daily Living: Instrumental Activities of Daily Living Prescription Coverage: Yes Pharmacy Used: [facility] Medication Management: Independent Transportation/Shopping: Independent Transportation Mode: (Horse/carriage) Needs Assistance with Transportation at Discharge: No, Comments (family/friends to transport) Meal Preparation: Independent Laundry/Cleaning: Independent Finances/Bill Paying: Independent Communication: Independent Types of Care Services/Equipment Utilized Care Services: Dialysis Type: NA Durable Medical Equipment: Patient's Goal/Discharge Plan Patient expects to be discharged to: Home with /family Discharge Planning Actions: Continue to follow, No needs identified Patient's Choice Rights and [employer] and Collaborative Relationships Disclosed as Indicated for Post-Acute Care: Interdisciplinary Team Engagement: Social Work Referral for: Additional Information: Chart reviewed. Patient admitted to s/p [facility] BSO. Reg diet, IVABX, pain management, voiding trials. Initial Assessment: Spoke with patient and family at bedside. Introduced myself and role as TCC. Patient and family states that they have a confirmed ride home. Patient and family have not questions or concerns at this time. Discharge Plan: Home with family. Transport per family. Will continue to follow with SW. Bee Blackburn RN * Perioperative Nursing Note - Nickie Rodriguez RN - 06/25/2023 6:15 PM EDT Updated family with room number * Perioperative Nursing Note - Nickie Rodriguez RN - 06/25/2023 6:13 PM EDT Report to bill * Perioperative Nursing Note - Leia Rios RN - 06/25/2023 5:28 PM EDT Patient family/visitor updated by RN at this time. * Op Note - Lenny Paulino MD - 06/25/2023 3:09 PM EDT Date of surgery 06/25/2023 Preoperative diagnosis postmenopausal bleeding Postoperative diagnosis endometrial cancer, secondary cancer of pelvic lymph nodes Surgery performed was [facility]/BSO lymph node dissection Surgeon [facility] anesthesia General Description of findings; the patient did have a large uterine cancer comprising most of the endometrium. There did appear to be grossly positive left and right pelvic nodes. No positive periaortic nodes were noted. No intra-abdominal pathology was noted. Description of operation Patient identified brought to the operating room and after ministration of general anesthesia underwent abdominal perineal vaginal prep and drape in the supine position, Salazar cath was placed in the bladder. Using a knife a lower midline incision was made sharp divide down through the skin and thenusing Bovie cautery for the subcutaneous tissue and the fascia. Peritoneal cavity is then opened sharply. The Aung wound retractor was placed. The bowel was packed out of the pelvis using wet lap sponges and the Bookwalter retractor was used. The right left pelvic sidewalls are open by opening upthe round ligaments through coagulation, ureters were identified the ovarian vessels were skeletonized above the ureter coagulated the Enseal device and divided. Grossly positive lymph nodes noted onthe right left pelvic sidewalls. The bladder flap was then dissected inferiorly allowing uterine vessels to be coagulated and divided using the Enseal device. Switching to straight Zeppelin's the cardinal ligaments were serially clamped cut and tied with 0 Vicryl transfixion sutures. Vaginal cuff and crossclamped with curved Zeppelin sharply divided uterus cervix tubes and ovaries handed off the field this up was replaced with 0 Vicryl transfixion sutures and the cuff was closed with an interrupted 0 Vicryl [id number]. Pararectal and paravesical spaces were further opened, lymph node dissection was then performed identifying and removing both grossly positive lymph nodes involving the right left pelvic sidewalls. A right periaortic lymph node was also resected. This was done using monopolar and bipolar cautery. The pelvis was irrigated upper abdominal expiration was normal all sponges needles and instruments ports correct to the surgeon at the end the case the Aung wound retractor was removed and the defect in the fascia was closed with a running #1 PDS in a loop mass closuresystem followed by interrupted #1 PDS in the subcutaneous tissue followed by subcuticular 3-0 Monocryl on the skin. She was taken to cover room in stable condition with EBL about 150 cc. * Brief Op Note - Lenny Paulino MD - 06/25/2023 3:09 PM EDT Date: 06/25/2023 Location: [facility] OR Name: Doni Nova, : 1950, Diagnosis Pre-op Diagnosis * Bleeding [R58] * Post-menopausal bleeding [N95.0] Post-op Diagnosis * Bleeding [R58] * Post-menopausal bleeding [N95.0] Procedures [facility] Surgeons * Lenny Paulion - Primary Procedure Summary Anesthesia: General ASA: II Estimated Blood Loss: 75 mL Drains: Urethral Catheter Straight-tip 16 Fr. (Active) Specimens ID Source Type Tests Collected By Collected At Frozen? Priority Lab ID 1 Uterus Tissue TISSUE EXAM Lenny Paulino MD 06/25/23 1604 No Routine Description: UTERUS, CERVIX, BILATERAL FALLOPIAN TUBES & OVARIES Comment: WEIGHT: 287g 2 Lymph Node Tissue TISSUE EXAM Lenny Paulino MD 06/25/23 1609 No Routine Description: LEFT PELVIC LYMPH NODE 3 Lymph Node Tissue TISSUE EXAM Lenny Paulino MD 06/25/23 1614 No Routine Description: RIGHT PARA AORTIC LYMPH NODE 4 Lymph Node Tissue TISSUE EXAM Lenny Paulino MD 06/25/23 1618 No Routine Description: RIGHT PELVIC LYMPH NODE Implants Staff: Television Tube Inspector: Anita Blank RN Relief Scrub: Sherly Myrick; Rebecca Bowden Findings: positive nodes Complications: None; patient tolerated the procedure well. Specimens Collected: Order Name Source Comment Collection Info Order Time CBC (HEMOGRAM) Blood, Venous Collected By: Carina Jones RN 06/25/2023 10:01 AM BLOOD TYPE AND SCREEN GEL Blood, Venous HOLD. Specimen is valid for 3 days - nurse to verify valid specimen Collected By: Carina Jones RN 06/25/2023 10:01 AM TISSUE EXAM Uterus Pre-op diagnosis: Bleeding [R58] Collected By: Lenny Paulino MD 06/25/2023 4:05 PM Wound Class: Class II: Clean-Contaminated Blood Products: None Prophylactic Antibiotics: Procedure appropriate prophylactic antibiotic(s) given within 1 hour of surgical incision (two hours if receiving Vancomycin or flouroquinolone) documented in this [facility]10-04-2023 Note* Perioperative Nursing Note - Nickie Rodriguez RN - 06/25/2023 6:15 PM EDT Updated family with room number [place] [id number] Note* Perioperative Nursing Note - Nickie Rodriguez RN - 06/25/2023 6:15 PM EDT Updated family with room number [place] [id number] Note* Perioperative Nursing Note - Nickie Rodriguez RN - 06/25/2023 6:13 PM EDT Report to bill [place] [id number] Note* Perioperative Nursing Note - Nickie Rodriguez RN - 06/25/2023 6:13 PM EDT Report to bill [place] [id number] Note* Perioperative Nursing Note - Leia Rios RN - 06/25/2023 5:28 PM EDT Patient family/visitor updated by RN at this time. [place] [id number] Note* Perioperative Nursing Note - Leia Rios RN - 06/25/2023 5:28 PM EDT Patient family/visitor updated by RN at this time. [id number] Attending History and physical note* Lenny Pauilno MD - 06/25/2023 3:09 PM EDT H&P reviewed. The patient was examined and there are no changes to the H&P. Source Note - Lenny Paulino MD - 06/25/2023 9:00 AM EDT Images from the original note were not included. HPI: Doni Nova is a pleasant 73 y.o. female who presents in consultation from Dr. Tirado for further evaluation and management of postmenopausal bleeding with thickened endometrial stripe. She initiallypresented with Postmenopausal bleeding that started back in October. Patient underwent a CT scan of the abdomen pelvis which does show an enlarged uterus. Ultrasound shows a uterus that measures 10 cm in size witha 38 mm endometrial stripe. First noted PMB in Oct, initially was just a small amount with spotting. However, over the last month has become much more steady. She states yesterday she had very heavy flow that filled up the toilet bowl associated with heavy cramping. The patient was very concerned and considered going into theemergency room. She states the bleeding has slowed down a little bit now. Has become worse with heavy flow with cramps. She denies any abdominal pain or distention, change in appetite, denies any change in weight. Patient is otherwise healthy, denies any history of MT DVT or pulmonary embolism. The patient is very scared to go home due to the amount of bleeding she has had over the last 2 days. Patient is here today with her son and . They are very concerned about going home today. Shehad a large amount of bleeding and they do live [place] a fairly [place] site. Past Medical History: Diagnosis Date Back pain Fractured coccyx (HCC) Past Surgical History: Procedure Laterality Date APPENDECTOMY BACK SURGERY LAPAROTOMY EXPLORATORY (HISTORICAL) Surgery for abdominal wall laxity Family History Problem Relation Name Age of Onset Stroke Mother Cancer Father laryngeal Heart attack Father Hypertension Sister Breast cancer Maternal Grandmother No colon or uterine cancer Social History Socioeconomic History Marital status: Tobacco Use Smoking status: Never Smokeless tobacco: Never Substance and Sexual Activity Alcohol use: Never Drug use: Never Current Outpatient Medications Medication Sig Dispense Refill APPLE CIDER VINEGAR PO Take by mouth. Ascorbic Acid (vitamin C) 100 MG tablet Take 100 mg by mouth daily. CRANBERRY PO Take by mouth. cyanocobalamin (Vitamin B-12) 100 MCG tablet Take 500 mcg by mouth daily. magnesium 30 MG tablet Take 30 mg by mouth 2 times daily. No current facility-administered medications for this visit. Allergies as of 06/25/2023 (No Known Allergies) Review of Systems: Review of Systems Constitutional: Negative for appetite change and unexpected weight change. Gastrointestinal: Negative for abdominal distention and abdominal pain. Genitourinary: Positive for pelvic pain and vaginal bleeding. Hematological: Negative for adenopathy. BP (!) 179/80 Pulse 71 Ht 1.575 m (5' 2) Wt 66.2 kg (146 lb) LMP 06/23/2023 BMI 26.70 kg/m Physical Exam: Physical Exam Vitals and nursing note reviewed. Exam conducted with a unemployment insurance hearing officer present. Constitutional: Appearance: Normal appearance. Cardiovascular: Rate and Rhythm: Normal rate. Rhythm irregular. Pulmonary: Effort: Pulmonary effort is normal. Breath sounds: Normal breath sounds. Abdominal: General: Abdomen is flat. A surgical scar is present. Palpations: Abdomen is soft. Comments: Well-healed lower transverse incision Genitourinary: General: Normal vulva. Labia: Right: No lesion. Left: No lesion. Urethra: No urethral lesion. Vagina: Bleeding present. Cervix: Cervical bleeding present. No lesion. Uterus: Enlarged and tender. Adnexa: Right adnexa normal and left adnexa normal. Comments: Uterus is about 10 to 12 weeks size. The cervical os is completely closed. Moderate amount of blood in the vaginal vault. No cervical lesions noted. Musculoskeletal: Right lower leg: No edema. Left lower leg: No edema. Lymphadenopathy: Upper Body: Right upper body: No supraclavicular adenopathy. Left upper body: No supraclavicular adenopathy. Lower Body: No right inguinal adenopathy. No left inguinal adenopathy. Skin: General: Skin is warm and dry. Neurological: Mental Status: She is alert. Psychiatric: Mood and Affect: Mood normal. Behavior: Behavior normal. CT scan has been reviewed showing a somewhat enlarged uterus. Ultrasound is also personally been reviewed and it does show a large amount of tissue inside the endometrial cavity, very suspicious for endometrial cancer Labs: No components found for: CBC No components found for: CMP Pathology: : ASSESSMENT/PLAN: Diagnosis Plan 1. Increased endometrial stripe thickness 2. PMB (postmenopausal bleeding) Cervical stenosis precluding endometrial biopsy. The patient and her are very hesitant to go home due to the amount of bleeding that they have and they do live in a fairly remote site. We diddiscuss admitting to the hospital today, undergoing [facility]/BSO possible lymph node sampling. Discussedrisk of major abdominal surgery to include bleeding infection and damage to other organs. Total time spent in evaluation of patient coordination of care with operating room and admission as well as personal counseling with patient was 35 minutes a decision for surgery was also made today. [facility] [id number] Note* Op Note - Lenny Paulino MD - 06/25/2023 3:09 PM EDT Date of surgery 06/25/2023 Preoperative diagnosis postmenopausal bleeding Postoperative diagnosis endometrial cancer, secondary cancer of pelvic lymph nodes Surgery performed was [facility]/BSO lymph node dissection Surgeon [facility] anesthesia General Description of findings; the patient did have a large uterine cancer comprising most of the endometrium. There did appear to be grossly positive left and right pelvic nodes. No positive periaortic nodes were noted. No intra-abdominal pathology was noted. Description of operation Patient identified brought to the operating room and after ministration of general anesthesia underwent abdominal perineal vaginal prep and drape in the supine position, Salazar cath was placed in the bladder. Using a knife a lower midline incision was made sharp divide down through the skin and thenusing Bovie cautery for the subcutaneous tissue and the fascia. Peritoneal cavity is then opened sharply. The Aung wound retractor was placed. The bowel was packed out of the pelvis using wet lap sponges and the Bookwalter retractor was used. The right left pelvic sidewalls are open by opening upthe round ligaments through coagulation, ureters were identified the ovarian vessels were skeletonized above the ureter coagulated the Enseal device and divided. Grossly positive lymph nodes noted onthe right left pelvic sidewalls. The bladder flap was then dissected inferiorly allowing uterine vessels to be coagulated and divided using the Enseal device. Switching to straight Zeppelin's the cardinal ligaments were serially clamped cut and tied with 0 Vicryl transfixion sutures. Vaginal cuff and crossclamped with curved Zeppelin sharply divided uterus cervix tubes and ovaries handed off the field this up was replaced with 0 Vicryl transfixion sutures and the cuff was closed with an interrupted 0 Vicryl [id number]. Pararectal and paravesical spaces were further opened, lymph node dissection was then performed identifying and removing both grossly positive lymph nodes involving the right left pelvic sidewalls. A right periaortic lymph node was also resected. This was done using monopolar and bipolar cautery. The pelvis was irrigated upper abdominal expiration was normal all sponges needles and instruments ports correct to the surgeon at the end the case the Aung wound retractor was removed and the defect in the fascia was closed with a running #1 PDS in a loop mass closuresystem followed by interrupted #1 PDS in the subcutaneous tissue followed by subcuticular 3-0 Monocryl on the skin. She was taken to cover room in stable condition with EBL about 150 cc. [id number] [facility]* Brief Op Note - Lenny Paulino MD - 06/25/2023 3:09 PM EDT Date: 06/25/2023 Location: [facility] OR Name: Doni Nova, : 1950, Diagnosis Pre-op Diagnosis * Bleeding [R58] * Post-menopausal bleeding [N95.0] Post-op Diagnosis * Bleeding [R58] * Post-menopausal bleeding [N95.0] Procedures [facility] Surgeons * Lenny Paulino - Primary Procedure Summary Anesthesia: General ASA: II Estimated Blood Loss: 75 mL Drains: Urethral Catheter Straight-tip 16 Fr. (Active) Specimens ID Source Type Tests Collected By Collected At Frozen? Priority Lab ID 1 Uterus Tissue TISSUE EXAM Lenny Paulino MD 06/25/23 1604 No Routine Description: UTERUS, CERVIX, BILATERAL FALLOPIAN TUBES & OVARIES Comment: WEIGHT: 287g 2 Lymph Node Tissue TISSUE EXAM Lenny Paulion MD 06/25/23 1609 No Routine Description: LEFT PELVIC LYMPH NODE 3 Lymph Node Tissue TISSUE EXAM Lenny Paulino MD 06/25/23 1614 No Routine Description: RIGHT PARA AORTIC LYMPH NODE 4 Lymph Node Tissue TISSUE EXAM Lenny Paulino MD 06/25/23 1618 No Routine Description: RIGHT PELVIC LYMPH NODE Implants Staff: Television Tube Inspector: Anita Blank RN Relief Scrub: Sherly Myrick; Rebecca Bowden Findings: positive nodes Complications: None; patient tolerated the procedure well. Specimens Collected: Order Name Source Comment Collection Info Order Time CBC (HEMOGRAM) Blood, Venous Collected By: Carina Jones RN 06/25/2023 10:01 AM BLOOD TYPE AND SCREEN GEL Blood, Venous HOLD. Specimen is valid for 3 days - nurse to verify valid specimen Collected By: Carina Jones RN 06/25/2023 10:01 AM TISSUE EXAM Uterus Pre-op diagnosis: Bleeding [R58] Collected By: Lenny Paulino MD 06/25/2023 4:05 PM Wound Class: Class II: Clean-Contaminated Blood Products: None Prophylactic Antibiotics: Procedure appropriate prophylactic antibiotic(s) given within 1 hour of surgical incision (two hours if receiving Vancomycin or flouroquinolone) [facility] [id number] Note* Op Note - Lenny Paulino MD - 06/25/2023 3:09 PM EDT Date of surgery 06/25/2023 Preoperative diagnosis postmenopausal bleeding Postoperative diagnosis endometrial cancer, secondary cancer of pelvic lymph nodes Surgery performed was [facility]/BSO lymph node dissection Surgeon [facility] anesthesia General Description of findings; the patient did have a large uterine cancer comprising most of the endometrium. There did appear to be grossly positive left and right pelvic nodes. No positive periaortic nodes were noted. No intra-abdominal pathology was noted. Description of operation Patient identified brought to the operating room and after ministration of general anesthesia underwent abdominal perineal vaginal prep and drape in the supine position, Salazar cath was placed in the bladder. Using a knife a lower midline incision was made sharp divide down through the skin and thenusing Bovie cautery for the subcutaneous tissue and the fascia. Peritoneal cavity is then opened sharply. The Aung wound retractor was placed. The bowel was packed out of the pelvis using wet lap sponges and the Bookwalter retractor was used. The right left pelvic sidewalls are open by opening upthe round ligaments through coagulation, ureters were identified the ovarian vessels were skeletonized above the ureter coagulated the Enseal device and divided. Grossly positive lymph nodes noted onthe right left pelvic sidewalls. The bladder flap was then dissected inferiorly allowing uterine vessels to be coagulated and divided using the Enseal device. Switching to straight Zeppelin's the cardinal ligaments were serially clamped cut and tied with 0 Vicryl transfixion sutures. Vaginal cuff and crossclamped with curved Zeppelin sharply divided uterus cervix tubes and ovaries handed off the field this up was replaced with 0 Vicryl transfixion sutures and the cuff was closed with an interrupted 0 Vicryl [id number]. Pararectal and paravesical spaces were further opened, lymph node dissection was then performed identifying and removing both grossly positive lymph nodes involving the right left pelvic sidewalls. A right periaortic lymph node was also resected. This was done using monopolar and bipolar cautery. The pelvis was irrigated upper abdominal expiration was normal all sponges needles and instruments ports correct to the surgeon at the end the case the Aung wound retractor was removed and the defect in the fascia was closed with a running #1 PDS in a loop mass closuresystem followed by interrupted #1 PDS in the subcutaneous tissue followed by subcuticular 3-0 Monocryl on the skin. She was taken to cover room in stable condition with EBL about 150 cc. [id number] Note* Brief Op Note - Lenny Paulino MD - 06/25/2023 3:09 PM EDT Date: 06/25/2023 Location: [facility] OR Name: Doni Nova : 1950, Diagnosis Pre-op Diagnosis * Bleeding [R58] * Post-menopausal bleeding [N95.0] Post-op Diagnosis * Bleeding [R58] * Post-menopausal bleeding [N95.0] Procedures [facility] Surgeons * Lenny Paulino - Primary Procedure Summary Anesthesia: General ASA: II Estimated Blood Loss: 75 mL Drains: Urethral Catheter Straight-tip 16 Fr. (Active) Specimens ID Source Type Tests Collected By Collected At Frozen? Priority Lab ID 1 Uterus Tissue TISSUE EXAM Lenny Paulino MD 06/25/23 160 No Routine Description: UTERUS, CERVIX, BILATERAL FALLOPIAN TUBES & OVARIES Comment: WEIGHT: 287g 2 Lymph Node Tissue TISSUE EXAM Lenny Paulino MD 06/25/23 1609 No Routine Description: LEFT PELVIC LYMPH NODE 3 Lymph Node Tissue TISSUE EXAM Lenny Paulino MD 06/25/23 1614 No Routine Description: RIGHT PARA AORTIC LYMPH NODE 4 Lymph Node Tissue TISSUE EXAM Lenny Paulino MD 06/25/23 1618 No Routine Description: RIGHT PELVIC LYMPH NODE Implants Staff: Television Tube Inspector: Anita Blank RN Relief Scrub: Sherly Bowden Findings: positive nodes Complications: None; patient tolerated the procedure well. Specimens Collected: Order Name Source Comment Collection Info Order Time CBC (HEMOGRAM) Blood, Venous Collected By: Carina Jones RN 06/25/2023 10:01 AM BLOOD TYPE AND SCREEN GEL Blood, Venous HOLD. Specimen is valid for 3 days - nurse to verify valid specimen Collected By: Carina Jones RN 06/25/2023 10:01 AM TISSUE EXAM Uterus Pre-op diagnosis: Bleeding [R58] Collected By: Lenny Paulino MD 06/25/2023 4:05 PM Wound Class: Class II: Clean-Contaminated Blood Products: None Prophylactic Antibiotics: Procedure appropriate prophylactic antibiotic(s) given within 1 hour of surgical incision (two hours if receiving Vancomycin or flouroquinolone) [facility] [id number] History and physical note* Lenny Paulino MD - 06/25/2023 3:09 PM EDT H&P reviewed. The patient was examined and there are no changes to the H&P. Source Note - Lenny Paulino MD - 06/25/2023 9:00 AM EDT Images from the original note were not included. HPI: Doni Nova is a pleasant 73 y.o. female who presents in consultation from Dr. Tirado for further evaluation and management of postmenopausal bleeding with thickened endometrial stripe. She initiallypresented with Postmenopausal bleeding that started back in October. Patient underwent a CT scan of the abdomen pelvis which does show an enlarged uterus. Ultrasound shows a uterus that measures 10 cm in size witha 38 mm endometrial stripe. First noted PMB in Oct, initially was just a small amount with spotting. However, over the last month has become much more steady. She states yesterday she had very heavy flow that filled up the toilet bowl associated with heavy cramping. The patient was very concerned and considered going into theemergency room. She states the bleeding has slowed down a little bit now. Has become worse with heavy flow with cramps. She denies any abdominal pain or distention, change in appetite, denies any change in weight. Patient is otherwise healthy, denies any history of MT DVT or pulmonary embolism. The patient is very scared to go home due to the amount of bleeding she has had over the last 2 days. Patient is here today with her son and . They are very concerned about going home today. Shehad a large amount of bleeding and they do live in a fairly remote site. Past Medical History: Diagnosis Date Back pain Fractured coccyx (HCC) Past Surgical History: Procedure Laterality Date APPENDECTOMY BACK SURGERY LAPAROTOMY EXPLORATORY (HISTORICAL) Surgery for abdominal wall laxity Family History Problem Relation Name Age of Onset Stroke Mother Cancer Father laryngeal Heart attack Father Hypertension Sister Breast cancer Maternal Grandmother No colon or uterine cancer Social History Socioeconomic History Marital status: Tobacco Use Smoking status: Never Smokeless tobacco: Never Substance and Sexual Activity Alcohol use: Never Drug use: Never Current Outpatient Medications Medication Sig Dispense Refill APPLE CIDER VINEGAR PO Take by mouth. Ascorbic Acid (vitamin C) 100 MG tablet Take 100 mg by mouth daily. CRANBERRY PO Take by mouth. cyanocobalamin (Vitamin B-12) 100 MCG tablet Take 500 mcg by mouth daily. magnesium 30 MG tablet Take 30 mg by mouth 2 times daily. No current facility-administered medications for this visit. Allergies as of 06/25/2023 (No Known Allergies) Review of Systems: Review of Systems Constitutional: Negative for appetite change and unexpected weight change. Gastrointestinal: Negative for abdominal distention and abdominal pain. Genitourinary: Positive for pelvic pain and vaginal bleeding. Hematological: Negative for adenopathy. BP (!) 179/80 Pulse 71 Ht 1.575 m (5' 2) Wt 66.2 kg (146 lb) LMP 06/23/2023 BMI 26.70 kg/m Physical Exam: Physical Exam Vitals and nursing note reviewed. Exam conducted with a unemployment insurance hearing officer present. Constitutional: Appearance: Normal appearance. Cardiovascular: Rate and Rhythm: Normal rate. Rhythm irregular. Pulmonary: Effort: Pulmonary effort is normal. Breath sounds: Normal breath sounds. Abdominal: General: Abdomen is flat. A surgical scar is present. Palpations: Abdomen is soft. Comments: Well-healed lower transverse incision Genitourinary: General: Normal vulva. Labia: Right: No lesion. Left: No lesion. Urethra: No urethral lesion. Vagina: Bleeding present. Cervix: Cervical bleeding present. No lesion. Uterus: Enlarged and tender. Adnexa: Right adnexa normal and left adnexa normal. Comments: Uterus is about 10 to 12 weeks size. The cervical os is completely closed. Moderate amount of blood in the vaginal vault. No cervical lesions noted. Musculoskeletal: Right lower leg: No edema. Left lower leg: No edema. Lymphadenopathy: Upper Body: Right upper body: No supraclavicular adenopathy. Left upper body: No supraclavicular adenopathy. Lower Body: No right inguinal adenopathy. No left inguinal adenopathy. Skin: General: Skin is warm and dry. Neurological: Mental Status: She is alert. Psychiatric: Mood and Affect: Mood normal. Behavior: Behavior normal. CT scan has been reviewed showing a somewhat enlarged uterus. Ultrasound is also personally been reviewed and it does show a large amount of tissue inside the endometrial cavity, very suspicious for endometrial cancer Labs: No components found for: CBC No components found for: CMP Pathology: : ASSESSMENT/PLAN: Diagnosis Plan 1. Increased endometrial stripe thickness 2. PMB (postmenopausal bleeding) Cervical stenosis precluding endometrial biopsy. The patient and her are very hesitant to go home due to the amount of bleeding that they have and they do live in a fairly remote site. We diddiscuss admitting to the hospital today, undergoing CITLALLI/BSO possible lymph node sampling. Discussedrisk of major abdominal surgery to include bleeding infection and damage to other organs. Total time spent in evaluation of patient coordination of care with operating room and admission as well as personal counseling with patient was 35 minutes a decision for surgery was also made today. documented in this [facility]10-04-2023 Telephone encounter Note* Telephone Encounter - Nesha Mata - 06/25/2023 9:30 AM EDT SX: 06.25.2023 at 2 pm arrival at 12 Post op 07.11.2023 at 9:45 am Folder and instructions given. [id number] Miscellaneous Notes* Telephone Encounter - Nesha Mata - 06/25/2023 9:30 AM EDT SX: 06.25.2023 at 2 pm arrival at 12 Post op 07.11.2023 at 9:45 am Folder and instructions given. documented in this [facility]10-04-2023 History of Present illness Narrative* Lenny Paulino MD - 06/25/2023 9:00 AM EDT Images from the original note were not included. HPI: Doni Nova is a pleasant 73 y.o. female who presents in consultation from Dr. Tirado for further evaluation and management of postmenopausal bleeding with thickened endometrial stripe. She initiallypresented with Postmenopausal bleeding that started back in October. Patient underwent a CT scan of the abdomen pelvis which does show an enlarged uterus. Ultrasound shows a uterus that measures 10 cm in size witha 38 mm endometrial stripe. First noted PMB in Oct, initially was just a small amount with spotting. However, over the last month has become much more steady. She states yesterday she had very heavy flow that filled up the toilet bowl associated with heavy cramping. The patient was very concerned [facility] She states the bleeding has slowed down a little bit now. Has become worse with heavy flow with cramps. She denies any abdominal pain or distention, change in appetite, denies any change in weight. Patient is otherwise healthy, denies any history of MT DVT or pulmonary embolism. The patient is very scared to go home due to the amount of bleeding she has had over the last 2 days. Patient is here today with her son and . They are very concerned about going home today. Shehad a large amount of bleeding and they do live in a fairly remote site. Past Medical History: Diagnosis Date Back pain Fractured coccyx (HCC) Past Surgical History: Procedure Laterality Date APPENDECTOMY BACK SURGERY LAPAROTOMY EXPLORATORY (HISTORICAL) Surgery for abdominal wall laxity Family History Problem Relation Name Age of Onset Stroke Mother Cancer Father laryngeal Heart attack Father Hypertension Sister Breast cancer Maternal Grandmother No colon or uterine cancer Social History Socioeconomic History Marital status: Tobacco Use Smoking status: Never Smokeless tobacco: Never Substance and Sexual Activity Alcohol use: Never Drug use: Never Current Outpatient Medications Medication Sig Dispense Refill APPLE CIDER VINEGAR PO Take by mouth. Ascorbic Acid (vitamin C) 100 MG tablet Take 100 mg by mouth daily. CRANBERRY PO Take by mouth. cyanocobalamin (Vitamin B-12) 100 MCG tablet Take 500 mcg by mouth daily. magnesium 30 MG tablet Take 30 mg by mouth 2 times daily. No current facility-administered medications for this visit. Allergies as of 06/25/2023 (No Known Allergies) Review of Systems: Review of Systems Constitutional: Negative for appetite change and unexpected weight change. Gastrointestinal: Negative for abdominal distention and abdominal pain. Genitourinary: Positive for pelvic pain and vaginal bleeding. Hematological: Negative for adenopathy. BP (!) 179/80 Pulse 71 Ht 1.575 m (5' 2) Wt 66.2 kg (146 lb) LMP 06/23/2023 BMI 26.70 kg/m Physical Exam: Physical Exam Vitals and nursing note reviewed. Exam conducted with a unemployment insurance hearing officer present. Constitutional: Appearance: Normal appearance. Cardiovascular: Rate and Rhythm: Normal rate. Rhythm irregular. Pulmonary: Effort: Pulmonary effort is normal. Breath sounds: Normal breath sounds. Abdominal: General: Abdomen is flat. A surgical scar is present. Palpations: Abdomen is soft. Comments: Well-healed lower transverse incision Genitourinary: General: Normal vulva. Labia: Right: No lesion. Left: No lesion. Urethra: No urethral lesion. Vagina: Bleeding present. Cervix: Cervical bleeding present. No lesion. Uterus: Enlarged and tender. Adnexa: Right adnexa normal and left adnexa normal. Comments: Uterus is about 10 to 12 weeks size. The cervical os is completely closed. Moderate amount of blood in the vaginal vault. No cervical lesions noted. Musculoskeletal: Right lower leg: No edema. Left lower leg: No edema. Lymphadenopathy: Upper Body: Right upper body: No supraclavicular adenopathy. Left upper body: No supraclavicular adenopathy. Lower Body: No right inguinal adenopathy. No left inguinal adenopathy. Skin: General: Skin is warm and dry. Neurological: Mental Status: She is alert. Psychiatric: Mood and Affect: Mood normal. Behavior: Behavior normal. CT scan has been reviewed showing a somewhat enlarged uterus. Ultrasound is also personally been reviewed and it does show a large amount of tissue inside the endometrial cavity, very suspicious for endometrial cancer Labs: No components found for: CBC No components found for: CMP Pathology: : ASSESSMENT/PLAN: Diagnosis Plan 1. Increased endometrial stripe thickness 2. PMB (postmenopausal bleeding) Cervical stenosis precluding endometrial biopsy. The patient and her are very hesitant to go home due to the amount of bleeding that they have and they do live in a fairly remote site. We diddiscuss admitting to the hospital today, undergoing CITLALLI/BSO possible lymph node sampling. Discussedrisk of major abdominal surgery to include bleeding infection and damage to other organs. Total time spent in evaluation of patient coordination of care with operating room and admission as well as personal counseling with patient was 35 minutes a decision for surgery was also made today. documented in this [place] [address]-03-2023 Telephone encounter Note* Telephone Encounter - Clair Canchola - 06/24/2023 8:05 AM EDT Name of caller: Doni Contact phone number: [phone] Relationship to Patient: pt Provider: Practice: [facility] Chief Complaint/Reason for Call: Caller is needing to make new patient appt please advise Best time of day caller can be reached: any Patient advised that office/PCP has 24-48 business hours to return their call: No [place] [id number] Miscellaneous Notes* Telephone Encounter - Clair Canchola - 06/24/2023 8:05 AM EDT Name of caller: Doni Contact phone number: [phone] Relationship to Patient: pt Provider: Practice: [facility] Chief Complaint/Reason for Call: Caller is needing to make new patient appt please advise Best time of day caller can be reached: any Patient advised that office/PCP has 24-48 business hours to return their call: No documented in this [facility] note* Diagnosis Onset Date Resolution Status Colon cancer screening declined noneactive Immunization declined noneac tive Screening for cardiovascular condition noneactive Establishing care with new doctor, encounter for noneactive Abdominal cramping noneactiv e 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 Abdominal cramping noneactiv e Hematuria noneactive Vaginal bleeding noneactive [facility] Work Phone: Evaluation note* Diagnosis Increased endometrial stripe thickness- Primary Nonspecific (abnormal) findings on radiological and other examination of genitourinary organs PMB (postmenopausal bleeding) Postmenopausal bleeding documented in this encounter [facility] note* Diagnosis Increased endometrial stripe thickness- Primary Nonspecific (abnormal) findings on radiological and other examination of genitourinary organs Increased endometrial stripe thickness Nonspecific (abnormal) findings on radiological and other examination of genitourinary organs Bleeding Unspecified hemorrhage Post-menopausal bleeding Postmenopausal bleeding documented in this encounter [facility] [place] [facility]* Diagnosis Endometrial cancer (CMS/HCC) (HCC)- Primary Malignant neoplasm of corpus uteri, except isthmus Vaginal lesion Other specified noninflammatory disorder of vagina documented in this encounter [facility] [place] [facility]* Diagnosis Endometrial cancer (CMS/HCC) (HCC)- Primary Malignant neoplasm of corpus uteri, except isthmus Secondary malignancy of vagina (CMS/HCC) (HCC) documented in this encounter [facility] note* Diagnosis Recurrent carcinoma of endometrium (HCC)- Primary documented in this encounter [facility] [place] [facility]* Diagnosis Endometrial cancer (Multi)- Primary Malignant neoplasm of corpus uteri, except isthmus documented in this encounter [facility] Work Phone: Evaluation note* Diagnosis Recurrent carcinoma of endometrium (HCC)- Primary documented in this encounter [facility] [place] [facility]* Diagnosis Recurrent carcinoma of endometrium (HCC) documented in this encounter [facility] note* Diagnosis Recurrent carcinoma of endometrium (HCC)- Primary documented in this encounter [facility] note* Diagnosis Malignant neoplasm of overlapping sites of corpus uteri (Multi) documented in this encounter [facility] Work Phone: Evaluation note* Diagnosis Endometrial cancer (Multi)- Primary Malignant neoplasm of corpus uteri, except isthmus documented in this encounter [facility] Work Phone: Evaluation note* Diagnosis Primary malignant neoplasm of overlapping sites of corpus uteri (Multi) documented in this encounter [facility] Work Phone: Evaluation note* Diagnosis Encounter for antineoplastic radiation therapy- Primary Malignant neoplasm of overlapping sites of corpus uteri (Multi) documented in this encounter [facility] Work Phone: Evaluation note* Diagnosis Endometrial cancer (Multi) Malignant neoplasm of corpus uteri, except isthmus documented in this encounter [facility] Work Phone: Evaluation note* Diagnosis Encounter for antineoplastic radiation therapy- Primary Malignant neoplasm of overlapping sites of corpus uteri (Multi) documented in this encounter [facility] Work Phone: Evaluation note* Diagnosis Malignant neoplasm of overlapping sites of corpus uteri (Multi) documented in this encounter [facility] Work Phone: Evaluation note* Diagnosis Malignant neoplasm of overlapping sites of corpus uteri (Multi) documented in this encounter [facility] Work Phone: Evaluation note* Diagnosis Malignant neoplasm of overlapping sites of corpus uteri (Multi) documented in this encounter [facility] Work Phone: Evaluation note* Diagnosis Malignant neoplasm of overlapping sites of corpus uteri (Multi) documented in this encounter [facility] Work Phone: Evaluation note* Diagnosis Endometrial cancer (Multi) Malignant neoplasm of corpus uteri, except isthmus documented in this encounter [facility] Work Phone: Evaluation note* Diagnosis Endometrial cancer (Multi) Malignant neoplasm of corpus uteri, except isthmus documented in this encounter [facility] Work Phone: Evaluation note* Diagnosis Endometrial cancer (CMS/HCC) (HCC)- Primary Malignant neoplasm of corpus uteri, except isthmus documented in this encounter [facility] note Author Timur Blake [facility] Note Date/Time February 23, 2025 9:38a [facility] [address] [address] OFFICE VISIT Date of Service: 02/23/25921 MR#: [id number] Acct: [id number] Name: DONI NOVA Rep #: [id number] : 1950 From: Timur garcia DO Age/Sex: 75/F Location[place] [facility] Status: Signed Intake Vital Signs 01/26/25 08:47 02/16/25 09:26 02/23/25 09:24 Height 5 ft 2 in 5 ft 2 in 5 ft 2 in Weight: 181 lb 7 oz 182 lb 6 oz BMI 33.2 33.3 BP 150/84 H 168/89 H Blood Pressure Location Rt brachial Rt brachial Position Sitting Sitting Respiration 16 16 Pulse 64 61 Pulse Source Monitor Monitor Temp 96.9 F L 97.1 F L Temperature Source Temporal Artery Temporal Artery Pulse Oximetry (%) 96 98 Oxygen Delivery Method room air room air Intake Visit Reasons: OTV Is patient in pain?: No Allergies No Known Allergies Allergy (Verified 02/23/25 09:25) Medications ?Medication ?Instructions ?Recorded ?Confirmed ?Type apple cider vinegar 300 mg tablet 450 mg PO 02/25/23 0 02/23/25 History ascorbate calcium (vitamin C) 500 500 mg PO DAILY 03/1402/23/25 History mg tablet cranberry extract 200 mg capsule 200 mg PO DAILY 02/2502/23/25 History echinacea 380 mg capsule 760 mg PO DAILY 02/25/2301/14 History magnesium 250 mg tablet 250 mg PO DAILY 02/25/2301/14 History mecobalamin (vitamin B12) 1,000 1,000 mcg PO DAILY 03/1402/23/25 History mcg chewable tablet calcium carbonate 600 mg PO QDAY 01/26/2501/14 History cholecalciferol (vitamin D3) 50 50 mcg PO QDAY 5 02/23/25 History mcg (2,000 unit) capsule Have you fallen in the past year?: No PFSH PFSH Medical History Fractured coccyx History of back problems Home Medications ?Medication ?Instructions ?Recorded ?Last Taken ?Type apple cider vinegar 300 mg tablet 450 mg PO 02/25/23 U nknown History ascorbate calcium (vitamin C) 500 500 mg PO DAILY 03/14 Unknown History mg tablet cranberry extract 200 mg capsule 200 mg PO DAILY 02/25 Unknown History echinacea 380 mg capsule 760 mg PO DAILY 02/25/23 Unk nown History magnesium 250 mg tablet 250 mg PO DAILY 02/25/23 Unk nown History mecobalamin (vitamin B12) 1,000 1,000 mcg PO DAILY 03/14 Unknown History mcg chewable tablet calcium carbonate 600 mg PO QDAY 01/26/25 Unkn own History cholecalciferol (vitamin D3) 50 50 mcg PO QDAY 5 Unknown History mcg (2,000 unit) capsule Allergy/AdvReac Type Severity Reaction Status Date / Time No Known Allergies Allergy Verified 02/23/25 09:25 Family History Grandmother Breast cancer Father Cancer laryngeal Myocardial infarction, Onset Age: 68 Mother CVA (cerebral vascular accident) Sister Hypertension Other Seizures Surgical History H/O total hysterectomy History of appendectomy History of surgical procedure S/P laparotomy History of back surgery Social History household members: spouse current occupational status: unemployed 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 Plan: Plan was made to complete salvage radiation therapy consisting of 4500 cGy delivered in 25 fractions to the entire length of the vaginal canal, at risk pelvic adenopathy as well as bilateral inguinal lymph node stations and she is planning to proceed with brachytherapy following external beam treatment. Treatment Data: Treatment Site: Pelvis Current total dose/Total dose planned: 2160 cGy / 4500 cGy Fraction number: Chemotherapy: none Subjective: Pain: 0 / 10 Fatigue: none Skin: no erythema, rash, desquamation GI: no diarrhea/constipation. No rectal pain or bleeding. No bloating or increased gas : no increase urinary symptoms. No dysuria or hematuria SHOULDER PUNCHER: essentially no more vaginal bleeding, Objective: Weight: 182 lbs 6 oz Physical Exam: Gen: NAD Skin: no erythema, rash, desquamation. Labs: None Assessment & Plan Assessment/Plan (1) Recurrent carcinoma of endometrium: PLAN: Plan Assessment: Tolerating treatment well overall.? I reviewed and approved all treatment associated imaging. No treatment associated toxicities are noted at this time Plan: Continue treatment as planned.? I have reviewed potential treatment associated toxicities as well as timing for resolution and management. Skin: Skin care reviewed, continue lotion prn Follow up next week or sooner if needed. Thank you for allowing me to participate in the management and care of your patient. If I may answer any questions in the interim, please do not hesitate tocontact me at any time. Timur Blake DO, MS Microarray Analyst, Department of Radiation Oncology [facility] Coding Level of Care Code Radiation Tx Management x5 Diagnoses Recurrent carcinoma of endometrium C54.1 02/23/25 0938 <Electronically signed by Timur Blake DO> Date _ Timur Melton Signature: Date (if applicable) CC: ~ [facility] Work Phone: Reason for referral (narrative)No reason for referral information [facility] Work Phone: Reason for visit Narrative* Imaging (Routine) - Closed Specialty Diagnoses / Procedures Referred By Lupe sesay Referred To Contact Radiology Diagnoses Recurrent carcinoma of endometrium (HCC) Procedures MR pelvis w and wo contrast Agustina Agudelo MD [address] [place] [address] Phone: tel: fax: Referral ID Status Reason Start Date Expiration Date Visits Re quested Visits Authorized [id number] Closed 02/09/2025 02/09/2026 1 1 [facility] N[facility]ative* Auth/Cert (Routine) Specialty Diagnoses / Procedures Referred By Contac t Referred To Contact Diagnoses NO PRE-CERT REQUIRED FOR [facility] Procedures NO PRE-CERT REQUIRED FOR [facility] [address] [place] [address] Phone: tel: fax: Referral ID Status Reason Start Date Expiration Date Visits Re quested Visits Authorized [id number] 1 1 [facility] Work Phone: Reason for visit Narrative* Auth/Cert (Routine) Specialty Diagnoses / Procedures Referred By Contac t Referred To Contact Diagnoses NO PRE-CERT REQUIRED FOR [facility] Procedures NO PRE-CERT REQUIRED FOR [facility] [address] [place] [address] Phone: tel: fax: Referral ID Status Reason Start Date Expiration Date Visits Re quested Visits Authorized [id number] 1 1 [facility] Work Phone: Chief Complaint and Reason for Visit 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 in lower back/abdomin Reason for Visit Colon cancer screeni ng declined Immunization declined Screening for cardiovascular condition Establishing care with new doctor, encounter for Abdominal cramping Prolapse of female pelvic organs Abdominal cramping Hematuria Vaginal bleeding Chief Complaint Admit Date 6 M December 29, 2024 8:06 am ENDOMETRIAL January 11, 2025 8:4 3am Reason for Visit Admit Date Colon cancer screening declined December 8:06am Immunization declined December 29, 2024 8: 06am Annual physical exam December 29, 2024 8:0 6am Mixed hyperlipidemia December 29, 2024 8:0 6am Endometrial cancer December 29, 2024 8:06 am Chief Complaint Admit Date 6 M December 29, 2024 8:06 am ENDOMETRIAL January 11, 2025 8:4 3am Amb Documentation January 18, 2025 2:4 7pm ENDOMETRIAL CA January 20, 2025 9:28am ENDOMETRIAL CA January 21, 2025 8:16am NEW-ENDOMETRUM CANCER January 26, 2025 7:40 am OTV February 09, 2025 8:34a m . February 09, 2025 9:00a m Reason for Visit Admit Date Colon cancer screening declined December 8:06am Immunization declined December 29, 2024 8: 06am Annual physical exam December 29, 2024 8:0 6am Mixed hyperlipidemia December 29, 2024 8:0 6am Endometrial cancer December 29, 2024 8:06 am Recurrent carcinoma of endometrium January 212024 8:16am Recurrent carcinoma of endometrium January 262024 7:40am Recurrent carcinoma of endometrium January 212024 8:34am Chief Complaint Admit Date 6 M December 29, 2024 8:06 am ENDOMETRIAL January 11, 2025 8:4 3am Amb Documentation January 18, 2025 2:4 7pm ENDOMETRIAL CA January 20, 2025 9:28am ENDOMETRIAL CA January 21, 2025 8:16am NEW-ENDOMETRUM CANCER January 26, 2025 7:40 am OTV February 09, 2025 8:34a m OTV February 16, 2025 8:40a m Reason for Visit Admit Date Colon cancer screening declined December 8:06am Immunization declined December 29, 2024 8: 06am Annual physical exam December 29, 2024 8:0 6am Mixed hyperlipidemia December 29, 2024 8:0 6am Endometrial cancer December 29, 2024 8:06 am Recurrent carcinoma of endometrium January 212024 8:16am Recurrent carcinoma of endometrium January 262024 7:40am Recurrent carcinoma of endometrium January 212024 8:34am Recurrent carcinoma of endometrium January 212024 8:40am Chief Complaint Admit Date 6 M December 29, 2024 8:06 am ENDOMETRIAL January 11, 2025 8:4 3am Amb Documentation January 18, 2025 2:4 7pm ENDOMETRIAL CA January 20, 2025 9:28am ENDOMETRIAL CA January 21, 2025 8:16am NEW-ENDOMETRUM CANCER January 26, 2025 7:40 am OTV February 09, 2025 8:34a m OTV February 16, 2025 8:40a m OTV February 23, 2025 8:30a m OTV March 02, 2025 8:40 am . March 02, 2025 9:00 am Reason for Visit Admit Date Colon cancer screening declined December 8:06am Immunization declined December 29, 2024 8: 06am Annual physical exam December 29, 2024 8:0 6am Mixed hyperlipidemia December 29, 2024 8:0 6am Endometrial cancer December 29, 2024 8:06 am Recurrent carcinoma of endometrium January 212024 8:16am Recurrent carcinoma of endometrium January 262024 7:40am Recurrent carcinoma of endometrium January 212024 8:34am Recurrent carcinoma of endometrium January 212024 8:40am Recurrent carcinoma of endometrium February 23, 2025 8:30am Recurrent carcinoma of endometrium March 02, 2025 8:40am Chief Complaint Admit Date 6 M December 29, 2024 8:06 am ENDOMETRIAL January 11, 2025 8:4 3am Amb Documentation January 18, 2025 2:4 7pm ENDOMETRIAL CA January 20, 2025 9:28am ENDOMETRIAL CA January 21, 2025 8:16am NEW-ENDOMETRUM CANCER January 26, 2025 7:40 am OTV February 09, 2025 8:34a m OTV February 16, 2025 8:40a m OTV February 23, 2025 8:30a m . February 23, 2025 9:00a m Reason for Visit Admit Date Colon cancer screening declined December 8:06am Immunization declined December 29, 2024 8: 06am Annual physical exam December 29, 2024 8:0 6am Mixed hyperlipidemia December 29, 2024 8:0 6am Endometrial cancer December 29, 2024 8:06 am Recurrent carcinoma of endometrium January 212024 8:16am Recurrent carcinoma of endometrium January 262024 7:40am Recurrent carcinoma of endometrium January 212024 8:34am Recurrent carcinoma of endometrium January 212024 8:40am Recurrent carcinoma of endometrium February 23, 2025 8:30am Chief Complaint Admit Date 6 M December 29, 2024 8:06 am ENDOMETRIAL January 11, 2025 8:4 3am Amb Documentation January 18, 2025 2:4 7pm ENDOMETRIAL CA January 20, 2025 9:28am ENDOMETRIAL CA January 21, 2025 8:16am NEW-ENDOMETRUM CANCER January 26, 2025 7:40 am OTV February 09, 2025 8:34a m OTV February 16, 2025 8:40a m OTV February 23, 2025 8:30a m OTV March 02, 2025 8:40 am OTV March 09, 2025 8:02 am . March 09, 2025 9:00 am Reason for Visit Admit Date Colon cancer screening declined December 8:06am Immunization declined December 29, 2024 8: 06am Annual physical exam December 29, 2024 8:0 6am Mixed hyperlipidemia December 29, 2024 8:0 6am Endometrial cancer December 29, 2024 8:06 am Recurrent carcinoma of endometrium January 212024 8:16am Recurrent carcinoma of endometrium January 262024 7:40am Recurrent carcinoma of endometrium January 212024 8:34am Recurrent carcinoma of endometrium January 212024 8:40am Recurrent carcinoma of endometrium February 23, 2025 8:30am Recurrent carcinoma of endometrium March 02, 2025 8:40am Recurrent carcinoma of endometrium March 09, 2025 8:02am Chief Complaint Admit Date 6 M December 29, 2024 8:06 am ENDOMETRIAL January 11, 2025 8:4 3am Amb Documentation January 18, 2025 2:4 7pm ENDOMETRIAL CA January 20, 2025 9:28am ENDOMETRIAL CA January 21, 2025 8:16am NEW-ENDOMETRUM CANCER January 26, 2025 7:40 am OTV February 09, 2025 8:34a m OTV February 16, 2025 8:40a m OTV February 23, 2025 8:30a m OTV March 02, 2025 8:40 am OTV March 09, 2025 8:02 am OTV March 14, 2025 8:44 am . March 14, 2025 9:00 am Reason for Visit Admit Date Colon cancer screening declined December 8:06am Immunization declined December 29, 2024 8: 06am Annual physical exam December 29, 2024 8:0 6am Mixed hyperlipidemia December 29, 2024 8:0 6am Endometrial cancer December 29, 2024 8:06 am Recurrent carcinoma of endometrium January 212024 8:16am Recurrent carcinoma of endometrium January 262024 7:40am Recurrent carcinoma of endometrium January 212024 8:34am Recurrent carcinoma of endometrium January 212024 8:40am Recurrent carcinoma of endometrium February 23, 2025 8:30am Recurrent carcinoma of endometrium March 02, 2025 8:40am Recurrent carcinoma of endometrium March 09, 2025 8:02am Recurrent carcinoma of endometrium March 14, 2025 8:44am Chief Complaint Admit Date 6 M December 29, 2024 8:06 am ENDOMETRIAL January 11, 2025 8:4 3am Amb Documentation January 18, 2025 2:4 7pm ENDOMETRIAL CA January 20, 2025 9:28am ENDOMETRIAL CA January 21, 2025 8:16am NEW-ENDOMETRUM CANCER January 26, 2025 7:40 am OTV February 09, 2025 8:34a m OTV February 16, 2025 8:40a m OTV February 23, 2025 8:30a m OTV March 02, 2025 8:40 am OTV March 09, 2025 8:02 am OTV March 14, 2025 8:44 am Amb Documentation March 15, 2025 9:49 am . March 15, 2025 2:00 pm 1 MONTH F/U POST RT April 12, 2025 9:17 am Family History No Family History Records Found Relationship Condition Age at Onset Recorded Date/T zach Not Specified Seizure Unknown grandmother Malignant neoplasm of breast Unknown father Malignant neoplasm Unknown Myocardial infarction 69 mother Cerebrovascular accident (CVA) Unknown sister Hypertension Unknown Advance Directives No Advanced Directives Records FoundLatest Code Status on File Code Status Date Activated Date Inactivated Comments Full Code 06/25/2023 10:01 AM Latest Code Status on File Code Status Date Activated Date Inactivated Comments Full Code 06/25/2023 10:01 AM 06/27/2023 12:36 PM Latest Code Status on File Code Status Date Activated Date Inactivated Comments Full Code 06/25/2023 10:01 AM 06/27/2023 12:36 PM Date Activated Date Inactivated Comments 06/25/2023 10:01 AM 06/27/2023 12:36 PM Date Activated Date Inactivated Comments 06/25/2023 10:01 AM 06/27/2023 12:36 PM Summary Purpose Additional Source Comments Care Teams (unrecognized sec tion and content) Team Status: Active Member Role Status Dates Dr. Uriel Gipson MD Primary Care Provider Active Team Status: Inactive Member Role Status Dates Dr. Uriel Gipson MD Attending Provider Active Team Status: Inactive Member Role Status Dates Dr. Uriel Gipson MD Primary Care Pro vider, Attending Provider, Referring Provider Active Engineering Professor Relationship Specialty Start Date End Date Uriel Gipson MD [address] [place], [place] [id number] PCP - General Internal Medicine 06/25/23 Lenny Paulino MD [facility] [employer] [place] [place], [place] [phone] Consulting Physician Gynecologic Oncology 06/24/23 Engineering Professor Relationship Specialty Start Date End Date Uriel Gipson MD [address] [place], [place] [id number] PCP - General Internal Medicine 06/25/23 Lenny Paulino MD [facility] [employer] [place] [place], [place] [phone] Consulting Physician Gynecologic Oncology 06/24/23 Engineering Professor Relationship Specialty Start Date End Date Uriel Gpison MD [address] [place], [place] [phone] PCP - General Internal Medicine 06/25/23 Lenny Paulino MD [facility] [employer] [place] [place], [place] [phone] Consulting Physician Gynecologic Oncology 06/24/23 Engineering Professor Relationship Specialty Start Date End Date Uriel Gipson MD [address] [place], [place] [address] PCP - General Internal Medicine 06/25/23 Lenny Paulino MD [address] [facility] [place] [place], [place] [phone] Consulting Physician Gynecologic Oncology 06/24/23 Engineering Professor Relationship Specialty Start Date End Date Uriel Gipson MD [address] [place], [place] [address] PCP - General Internal Medicine 06/25/23 Lenny Paulino MD [address] [facility] [address] [place] [address] Consulting Physician Gynecologic Oncology 06/24/23 Engineering Professor Relationship Specialty Start Date End Date Uriel Gipson MD [address] [place], [place] [address] PCP - General Internal Medicine 06/25/23 Lenny Paulino MD [address] [facility] [address] [place] [address] Consulting Physician Gynecologic Oncology 06/24/23 Engineering Professor Relationship Specialty Start Date End Date Uriel Gipson MD [address] [place] [address] PCP - General Internal Medicine 06/25/23 Lenny Paulino MD [address] [facility] [address] [place] [address] Consulting Physician Gynecologic Oncology 06/24/23 Engineering Professor Relationship Specialty Start Date End Date Uriel Gipson MD [address] [place] [address] PCP - General Internal Medicine 06/25/23 Lenny Paulino MD [address] [facility] [address] [place] [address] Consulting Physician Gynecologic Oncology 06/24/23 Engineering Professor Relationship Specialty Start Date End Date Uriel Gipson MD [address] [place] [address] PCP - General Internal Medicine 06/25/23 Lenny Paulino MD [address] [facility] [address] [place], [place] [phone] Consulting Physician Gynecologic Oncology 06/24/23 Engineering Professor Relationship Specialty Start Date End Date Uriel Gpison MD [address] [place], [place] [address] PCP - General Internal Medicine 06/25/23 Lenny Paulino MD [address] [facility] [place] [address] [place], [place] [phone] Consulting Physician Gynecologic Oncology 06/24/23 Team Status: Inactive Member Role Status Dates Dr. Uriel Gipson MD Primary Care Provider Active Start: December 29, 2024 End: December 29, 2024 Dr. Uriel Gipson MD Attending Provider Active Start: December 29, 2024 End: December 29, 2024 Dr. Uriel Gipson MD Referring Provider Active Start: December 29, 2024 End: December 29, 2024 Team Status: Inactive Member Role Status Dates Dr. Uriel Gipson MD Primary Care Provider Active Start: January 11, 2025 End: January 11, 2025 Dr. Lenny Paulino MD Attending Provider Active Start: January 11, 2025 End: January 11, 2025 Dr. Lenny Paulino MD Referring Provider Active Start: January 11, 2025 End: January 11, 2025 Engineering Professor Relationship Specialty Start Date End Date Uriel Gipson MD [address] [place], [place] [address] PCP - General Internal Medicine 06/25/23 Lenny Paulino MD [address] [facility] [address] [place], [place] [id number] Consulting Physician Gynecologic Oncology 06/24/23 Agustina Agudelo MD [address] [place] [address] Radiation Oncologist Radiation Oncology 01/27/25 Engineering Professor Relationship Specialty [place] [address] [address] Department [place] [address] Radiation Oncologist Radiation Oncology 02/07/25 Team Status: Active Member Role Status Dates Dr. Uriel Gipson MD Primary Care Provider Active Start: January 18, 2025 Sara Marrero Attending Provider Active Start: January 18, 2025 Team Status: Inactive Member Role Status Dates Dr. Uriel Gipson MD Primary Care Provider Active Start: January 20, 2025 End: January 20, 2025 Dr. Timur Blake DO Attending Provider Active Start: January 20, 2025 End: January 20, 2025 Dr. Timur Blake DO Referring Provider Active Start: January 20, 2025 End: January 20, 2025 Team Status: Inactive Member Role Status Dates Dr. Uriel Gipson MD Primary Care Provider Active Start: January 21, 2025 End: January 21, 2025 Dr. Timur Blake DO Attending Provider Active Start: January 21, 2025 End: January 21, 2025 Dr. Lenny Paulino MD Referring Provider Active Start: January 21, 2025 End: January 21, 2025 Team Status: Inactive Member Role Status Dates Dr. Uriel Gipson MD Primary Care Provider Active Start: January 26, 2025 End: January 26, 2025 Dr. Uriel Gipson MD Referring Provider Active Start: January 26, 2025 End: January 26, 2025 Dr. Anthony Harper MD Attending Provider Active S tart: January 26, 2025 End: January 26, 2025 Team Status: Active Member Role Status Dates Dr. Uriel Gipson MD Primary Care Provider Active Start: January 26, 2025 Dr. Timur Blake DO Attending Provider Active Start: January 26, 2025 Team Status: Active Member Role Status Dates Dr. Uriel Gipson MD Primary Care Provider Active Start: February 03, 2025 Dr. Timur Blake DO Attending Provider Active Start: February 03, 2025 Team Status: Inactive Member Role Status Dates Dr. Uriel Gipson MD Primary Care Provider Active Start: February 09, 2025 End: February 09, 2025 Dr. Uriel Gipson MD Referring Provider Active Start: February 09, 2025 End: February 09, 2025 Dr. Timur Blake DO Attending Provider Active Start: February 09, 2025 End: February 09, 2025 Team Status: Active Member Role Status Dates Dr. Uriel Gipson MD Primary Care Provider Active Start: February 09, 2025 Dr. Timur Blake DO Attending Provider Active Start: February 09, 2025 Dr. Timur Blake DO Referring Provider Active Start: February 09, 2025 Engineering Professor Relationship Specialty Start Date End Date Uriel Gipson MD [address] [place] [address] PCP - General Internal Medicine 06/25/23 Lenny Paulino MD [address] [facility] [address] [place] [address] Consulting Physician Gynecologic Oncology 06/24/23 Agustina Agudelo MD [address] [place] [address] Radiation Oncologist Radiation Oncology 01/27/25 Team Status: Inactive Member Role Status Dates Dr. Uriel Gipson MD Primary Care Provider Active Start: February 16, 2025 End: February 16, 2025 Dr. Uriel Gipson MD Referring Provider Active Start: February 16, 2025 End: February 16, 2025 Dr. Timur Blake DO Attending Provider Active Start: February 16, 2025 End: February 16, 2025 Team Status: Active Member Role Status Dates Dr. Uriel Gipson MD Primary Care Provider Active Start: January 26, 2025 Dr. Timur Blake DO Attending Provider Active Start: January 26, 2025 Dr. Timur Blake DO Referring Provider Active Start: January 26, 2025 Team Status: Inactive Member Role Status Dates Dr. Uriel Gipson MD Primary Care Provider Active Start: February 23, 2025 End: February 23, 2025 Dr. Uriel Gipson MD Referring Provider Active Start: February 23, 2025 End: February 23, 2025 Dr. Timur Blake DO Attending Provider Active Start: February 23, 2025 End: February 23, 2025 Team Status: Inactive Member Role Status Dates Dr. Uriel Gipson MD Primary Care Provider Active Start: March 02, 2025 End: March 02, 2025 Dr. Uriel Gipson MD Referring Provider Active Start: March 02, 2025 End: March 02, 2025 Dr. Allen Nichols MD Attending Provider Active Start: March 02, 2025 End: March 02, 2025 Team Status: Active Member Role Status Dates Dr. Uriel Gipson MD Primary Care Provider Active Start: March 02, 2025 Dr. Timur Blake DO Attending Provider Active Start: March 02, 2025 Dr. Timur Blake DO Referring Provider Active Start: March 02, 2025 Team Status: Active Member Role Status Dates Dr. Uriel Gipson MD Primary Care Provider Active Start: February 23, 2025 Dr. Timur Blake DO Attending Provider Active Start: February 23, 2025 Dr. Timur Blake DO Referring Provider Active Start: February 23, 2025 Team Status: Active Member Role Status Dates Dr. Uriel Gipson MD Primary Care Provider Active Start: February 03, 2025 Dr. Timur Blake DO Attending Provider Active Start: February 03, 2025 Dr. Timur Blake DO Referring Provider Active Start: February 03, 2025 Team Status: Inactive Member Role Status Dates Dr. Uriel Gipson MD Primary Care Provider Active Start: March 09, 2025 End: March 09, 2025 Dr. Timur Blake DO Attending Provider Active Start: March 09, 2025 End: March 09, 2025 Team Status: Active Member Role Status Dates Dr. Uriel Gipson MD Primary Care Provider Active Start: March 09, 2025 Dr. Timur Blake DO Attending Provider Active Start: March 09, 2025 Dr. Timur Blake DO Referring Provider Active Start: March 09, 2025 Engineering Professor Relationship Specialty Start Date End Date Uriel Gipson MD [address] [place] [address] PCP - General Internal Medicine 06/25/23 Lenny Paulino MD [address] [place] [address] Consulting Physician Gynecologic Oncology 06/24/23 Agustina Agudelo MD [address] [place] [address] Radiation Oncologist Radiation Oncology 01/27/25 Engineering Professor Relationship Specialty Start Date End Date Uriel Gipson MD [address] [place] [address] PCP - General Internal Medicine 06/25/23 Lenny Paulino MD [address] [place] [address] Consulting Physician Gynecologic Oncology 06/24/23 Agustina Agudelo MD [address] [place] [address] Radiation Oncologist Radiation Oncology 01/27/25 Team Status: Inactive Member Role Status Dates Dr. Uriel Gipson MD Primary Care Provider Active Start: February 09, 2025 End: February 09, 2025 Dr. Timur Blake DO Attending Provider Active Start: February 09, 2025 End: February 09, 2025 Dr. Timur Blake DO Referring Provider Active Start: February 09, 2025 End: February 09, 2025 Team Status: Inactive Member Role Status Dates Dr. Uriel Gipson MD Primary Care Provider Active Start: March 14, 2025 End: March 14, 2025 Dr. Timur Blake DO Attending Provider Active Start: March 14, 2025 End: March 14, 2025 Team Status: Active Member Role Status Dates Dr. Uriel Gipson MD Primary Care Provider Active Start: March 14, 2025 Dr. Timur Blake DO Attending Provider Active Start: March 14, 2025 Dr. Timur Blake DO Referring Provider Active Start: March 14, 2025 Engineering Professor Relationship Specialty Start Date End Date Uriel Gipson MD [address] [place] [phone] PCP - General Internal Medicine 03/15/25 Humaira Rosenberg MD Radiation Oncologist Radiation Oncology 02/07/25 Engineering Professor Relationship Specialty Start Date End Date Uriel Gipson MD [address] [place] [phone] PCP - General Internal Medicine 03/15/25 Humaira Rosenberg MD Radiation Oncologist Radiation Oncology 02/07/25 Engineering Professor Relationship Specialty Start Date End Date Uriel Gipson MD [address] [place] [address] PCP - General Internal Medicine 03/15/25 Humaira Rosenberg MD Radiation Oncologist Radiation Oncology 02/07/25 Engineering Professor Relationship Specialty Start Date End Date Uriel Gipson MD [address] [place] [address] [facility] [place] [address] PCP - General Internal Medicine 03/15/25 Humaira Rosenberg MD Radiation Oncologist Radiation Oncology 02/07/25 Engineering Professor Relationship Specialty Start Date End Date Uriel Gipson MD [address] [place] [phone] PCP - General Internal Medicine 03/15/25 Humaira Rosenberg MD Radiation Oncologist Radiation Oncology 02/07/25 Engineering Professor Relationship Specialty Start Date End Date Uriel Gipson MD [address] [place] [phone] PCP - General Internal Medicine 03/15/25 Humaira Rosenberg MD Radiation Oncologist Radiation Oncology 02/07/25 Engineering Professor Relationship Specialty Start Date End Date Uriel Gipson MD [address] [address] [address] [phone] PCP - General Internal Medicine 03/15/25 Humaira Rosenberg MD Radiation Oncologist Radiation Oncology 02/07/25 Engineering Professor Relationship Specialty Start Date End Date Uriel Gipson MD [address] [place] [phone] PCP - General Internal Medicine 03/15/25 Humaira Rosenberg MD Radiation Oncologist Radiation Oncology 02/07/25 Engineering Professor Relationship Specialty Start Date End Date Uriel Gipson MD [address] [place] [phone] PCP - General Internal Medicine 03/15/25 Humaira Rosenberg MD Radiation Oncologist Radiation Oncology 02/07/25 Engineering Professor Relationship Specialty Start Date End Date Uriel Gipson MD [address] [place] [phone] PCP - General Internal Medicine 03/15/25 Humaira Rosenberg MD Radiation Oncologist Radiation Oncology 02/07/25 Engineering Professor Relationship Specialty Start Date End Date Uriel Gipson MD [address] [place] [phone] PCP - General Internal Medicine 03/15/25 Humaira Rosenberg MD Radiation Oncologist Radiation Oncology 02/07/25 Engineering Professor Relationship Specialty Start Date End Date Uriel Gipson MD [address] [place] [phone] PCP - General Internal Medicine 03/15/25 Humaira Rosenberg MD Radiation Oncologist Radiation Oncology 02/07/25 Engineering Professor Relationship Specialty Start Date End Date Uriel Gipson MD [address] [place] [phone] PCP - General Internal Medicine 03/15/25 Humaira Rosenberg MD Radiation Oncologist Radiation Oncology 02/07/25 Team Status: Active Member Role/Relationship Status Dates Dr. Uriel Gipson MD Primary Care Provider Active Team Status: Inactive Member Role/Relationship Status Dates Dr. Uriel Gipson MD Primary Care Provider Active Start: December 29, 2024 End: December 29, 2024 Dr. Uriel Gipson MD Attending Provider Active Start: December 29, 2024 End: December 29, 2024 Dr. Uriel Gipson MD Referring Provider Active Start: December 29, 2024 End: December 29, 2024 Team Status: Inactive Member Role/Relationship Status Dates Dr. Uriel Gipson MD Primary Care Provider Active Start: January 11, 2025 End: January 11, 2025 Dr. Lenny Paulino MD Attending Provider Active Start: January 11, 2025 End: January 11, 2025 Dr. Lenny Paulino MD Referring Provider Active Start: January 11, 2025 End: January 11, 2025 Team Status: Active Member Role/Relationship Status Dates Dr. Uriel Gipson MD Primary Care Provider Active Start: January 18, 2025 Sara Marrero Attending Provider Active Start: January 18, 2025 Team Status: Inactive Member Role/Relationship Status Dates Dr. Uriel Gipson MD Primary Care Provider Active Start: January 20, 2025 End: January 20, 2025 Dr. Timur Blake DO Attending Provider Active Start: January 20, 2025 End: January 20, 2025 Dr. Timur Blake DO Referring Provider Active Start: January 20, 2025 End: January 20, 2025 Team Status: Inactive Member Role/Relationship Status Dates Dr. Uriel Gipson MD Primary Care Provider Active Start: January 21, 2025 End: January 21, 2025 Dr. Timur Blake DO Attending Provider Active Start: January 21, 2025 End: January 21, 2025 Dr. Lenny Paulino MD Referring Provider Active Start: January 21, 2025 End: January 21, 2025 Team Status: Inactive Member Role/Relationship Status Dates Dr. Uriel Gipson MD Primary Care Provider Active Start: January 26, 2025 End: January 26, 2025 Dr. Uriel Gipson MD Referring Provider Active Start: January 26, 2025 End: January 26, 2025 Dr. Anthony Harper MD Attending Provider Active S tart: January 26, 2025 End: January 26, 2025 Team Status: Active Member Role/Relationship Status Dates Dr. Uriel Gipson MD Primary Care Provider Active Start: January 26, 2025 Dr. Timur Blake DO Attending Provider Active Start: January 26, 2025 Dr. Timur Blake DO Referring Provider Active Start: January 26, 2025 Team Status: Active Member Role/Relationship Status Dates Dr. Uriel Gipson MD Primary Care Provider Active Start: February 03, 2025 Dr. Timur Blake DO Attending Provider Active Start: February 03, 2025 Dr. Timur Blake DO Referring Provider Active Start: February 03, 2025 Team Status: Inactive Member Role/Relationship Status Dates Dr. Uriel Gipson MD Primary Care Provider Active Start: February 09, 2025 End: February 09, 2025 Dr. Timur Blake DO Attending Provider Active Start: February 09, 2025 End: February 09, 2025 Dr. Timur Blake DO Referring Provider Active Start: February 09, 2025 End: February 09, 2025 Team Status: Inactive Member Role/Relationship Status Dates Dr. Uriel Gipson MD Primary Care Provider Active Start: February 16, 2025 End: February 16, 2025 Dr. Timur Blake DO Attending Provider Active Start: February 16, 2025 End: February 16, 2025 Dr. Timur Blake DO Referring Provider Active Start: February 16, 2025 End: February 16, 2025 Team Status: Inactive Member Role/Relationship Status Dates Dr. Uriel Gipson MD Primary Care Provider Active Start: February 23, 2025 End: February 23, 2025 Dr. Timur Blake DO Attending Provider Active Start: February 23, 2025 End: February 23, 2025 Dr. Timur Blake DO Referring Provider Active Start: February 23, 2025 End: February 23, 2025 Team Status: Inactive Member Role/Relationship Status Dates Dr. Uriel Gipson MD Primary Care Provider Active Start: March 02, 2025 End: March 02, 2025 Dr. Timur Blake DO Attending Provider Active Start: March 02, 2025 End: March 02, 2025 Dr. Timur Blake DO Referring Provider Active Start: March 02, 2025 End: March 02, 2025 Team Status: Inactive Member Role/Relationship Status Dates Dr. Uriel Gipson MD Primary Care Provider Active Start: March 09, 2025 End: March 09, 2025 Dr. Timur Blake DO Attending Provider Active Start: March 09, 2025 End: March 09, 2025 Dr. Timur Blake DO Referring Provider Active Start: March 09, 2025 End: March 09, 2025 Team Status: Inactive Member Role/Relationship Status Dates Dr. Uriel Gipson MD Primary Care Provider Active Start: March 14, 2025 End: March 14, 2025 Dr. Timur Blake DO Attending Provider Active Start: March 14, 2025 End: March 14, 2025 Dr. Timur Blake DO Referring Provider Active Start: March 14, 2025 End: March 14, 2025 Team Status: Active Member Role/Relationship Status Dates Dr. Uriel Gipson MD Primary Care Provider Active Start: March 15, 2025 Dr. Timur Blake DO Attending Provider Active Start: March 15, 2025 Team Status: Active Member Role/Relationship Status Dates Dr. Uriel Gipson MD Primary Care Provider Active Start: March 15, 2025 Dr. Timur Blake DO Attending Provider Active Start: March 15, 2025 Dr. Timur Blake DO Referring Provider Active Start: March 15, 2025 Team Status: Inactive Member Role/Relationship Status Dates Dr. Uriel Gipson MD Primary Care Provider Active Start: March 22, 2025 Dr. Cindi Tirado MD Attending Provider Active Start: March 22, 2025 Team Status: Inactive Member Role/Relationship Status Dates Dr. Uriel Gipson MD Primary Care Provider Active Start: April 12, 2025 End: April 12, 2025 Dr. Uriel Gipson MD Referring Provider Active Start: April 12, 2025 End: April 12, 2025 Dr. Timur Blake DO Attending Provider Active Start: April 12, 2025 End: April 12, 2025 Engineering Professor Relationship Specialty Start Date End Date Uriel Gipson MD [address] [place], [place] [id number] PCP - General Internal Medicine 06/25/23 Lenny Paulino MD [address] [facility] [address] [place] [address] Consulting Physician Gynecologic Oncology 06/24/23 Agustina Agudelo MD [address] [facility] [place] [address] Radiation Oncologist Radiation Oncology 01/27/25 Engineering Professor Relationship Specialty Start Date End Date Uriel Gipson MD [address] [place] [address] PCP - General Internal Medicine 06/25/23 Lenny Paulino MD [address] [facility] [address] [place] [address] Consulting Physician Gynecologic Oncology 06/24/23 Agustina Agudelo MD [address] [place] [address] Radiation Oncologist Radiation Oncology 01/27/25 Engineering Professor Relationship Specialty Start Date End Date Uriel Gipson MD [address] [place] [id number] PCP - General Internal Medicine 03/15/25 Humaira Rosenberg MD Radiation Oncologist Radiation Oncology 02/07/25 Engineering Professor Relationship Specialty Start Date End Date Uriel Gipson MD [address] [place] [address] PCP - General Internal Medicine 06/25/23 Lenny Paulino MD [address] [place] [address] Consulting Physician Gynecologic Oncology 06/24/23 Agustina Agudelo MD [address] [place] [address] Radiation Oncologist Radiation Oncology 01/27/25 Engineering Professor Relationship Specialty Start Date End Date Uriel Gipson MD [address] [place] [address] PCP - General Internal Medicine 06/25/23 Lenny Paulino MD [address] [place] [address] Consulting Physician Gynecologic Oncology 06/24/23 Agustina Agudelo MD [address] [place] [address] Radiation Oncologist Radiation Oncology 01/27/25 Engineering Professor Relationship Specialty Start Date End Date Uriel Gipson MD [address] [place] [address] PCP - General Internal Medicine 06/25/23 Lenny Paulino MD [address] [place] [address] Consulting Physician Gynecologic Oncology 06/24/23 Agustina Agudelo MD [address] [place] [address] Radiation Oncologist Radiation Oncology 01/27/25 Goals (unrecognized section and content) Goals may be documented in a n alternate sectionGoals may be documented in an alternate sectionGoals may be documented in an alternate sectionGoals may be documented in an alternate sectionGoals may be documented in an alternate sectionGoals may be documented in an alternate sectionGoals may be documented in an alternate sectionGoals may be documented in an alternate sectionGoals may be documented in an alternate section Reason for Visit (unrecogniz ed section and content) Reason Comments New Patient Specialty Diagnoses / Procedures Referred By Lupe t Referred To Contact Gynecologic Oncology Diagnoses Abnormal uterine and vaginal bleeding, unspecified Right lower quadrant pain Left lower quadrant pain Nocturia Urge incontinence Constipation, unspecified Procedures OUTPATIENT SERVICES-GENERAL Cindi Tirado MD [address] [facility] [address] [place] [address] [facility] Engineer Fishing Vessel Onc [address] [facility] [address] [place] [address] Referral ID Status Reason Start Date Expiration Date V isits Requested Visits Authorized [id number] Pending Review 06/23/2023 06/22/2024 1 1 Reason Onset Date Comments surgery scheduling 06/25/2023 Scheduled at [facility] Reason Onset Date Comments new pt appt needed 06/24/2023 Specialty Diagnoses / Procedures Referred By Lupe t Referred To Contact Diagnoses Bleeding Post-menopausal bleeding Bleeding [R58] Procedures DE EXPLORATORY LAPAROTOMY CELIOTOMY W/WO BIOPSY SPX DE INJ RADIOACTIVE TRACER FOR ID OF SENTINEL NODE Lenny Paulino MD [address] [facility] [place] [address] Referral ID Status Reason Start Date Expiration Date Visits Re quested Visits Authorized [id number] 06/25/2023 1 1 Reason Comments Endometrial Cancer Reason Comments Consult Consult with Dr. Agudelo . Specialty Diagnoses / Procedures Referred By Lupe t Referred To Contact Radiation Oncology Diagnoses Malignant neoplasm of endometrium (HCC) Procedures DE OFFICE/OUTPATIENT NEW HIGH MDM 60 MINUTES Pily Blake [address] [facility] [place] [address] [place] [address] Phone: tel: fax: Agustina Agudelo MD [address] [place] [address] Phone: tel: fax: Referral ID Status Reason Start Date Expiration Date V isits Requested Visits Authorized [id number] Pending Review 01/24/2025 01/24/2026 1 1 Reason Comments New Patient Visit Specialty Diagnoses / Procedures Referred By Contac t Referred To Contact Diagnoses NO PRE-CERT REQUIRED FOR [facility] Procedures NO PRE-CERT REQUIRED FOR [facility] [address] [place] [address] [place] [address] Phone: tel: fax: Referral ID Status Reason Start Date Expiration Date Visits Re quested Visits Authorized [id number] 1 1 Reason Comments Follow-up Specialty Diagnoses / Procedures Referred By Contac t Referred To Contact Diagnoses NO PRE-CERT REQUIRED FOR [facility] Procedures NO PRE-CERT REQUIRED FOR [facility] [address] [place] [address] [place] [phone] Phone: tel: fax: Scheduled Active and Recently Administ ered Medications (unrecognized section and content) Medication Order 06/25/2023 06/26/2023 06/27/2023 acetaminophen (Tylenol) tablet 1,000 mg (COMPLETED) 1,000 mg, Oral, Once, On Fri06/25/23 at 1015, For 1 dose, Preprocedure, Maximum dose of acetaminophen is 4000 mg from all sources in 24 hours. Do not administer if patient has taken tylenol <4 hours earlier. Do not give if contraindicated ie. patient has active liver disease or cirrhosis. 1036 (Given - Provider: Carina Jones RN) acetaminophen (Tylenol) tablet 1,000 mg 1,000 mg, Oral, Every 8 hours, First dose on Fri06/25/23 at 1700, Maximum dose of acetaminophen is 4000 mg from all sources in 24 hours. 1700 (Not Given - Provider: Amanda May LPN - Reason: Patient not available) 0100 (Not Given - Provider: Amanda May LPN - Reason: Patient/family refused)0949 (Given - Provider: Mihir Coleman RN)1749 (Given - Provider: Mihir Coleman RN) 0100 (Not Given - Provider: Amanda May LPN - Reason: Patient/family refused)0846 (Given - Provider: Indira Chavez, CHIO) ceFAZolin in dextrose 4% (Ancef) IVPB 2,000 mg (COMPLETED) 2,000 mg, IntraVENous, Administer over 30 Minutes, Workers' Compensation Commissioner to O.R., On Fri06/25/23 at 1015, For 1 dose, Preprocedure, Administer within 1 hour prior to incision. premix bag, Suspected Indication (Select all that apply): Surgical Prophylaxis 151 (Given - Provider: uHe Castro, FUEL CELL BUILDER - ENRICHMENT SPECIALIST) ceFAZolin in dextrose 4% (Ancef) IVPB 2,000 mg (COMPLETED) 2,000 mg, IntraVENous, Administer over 30 Minutes, Every 8 hours, First dose on Fri06/26/23 at 0000, For 2 doses, premix bag, Suspected Indication (Select all that apply): Surgical Prophylaxis 0003 (New Bag - Provider: Amanda May LPN)0033 (Stopped - Provider: Amanda May LPN)0949 (New Bag - Provider: Mihir Coleman RN)1019 (Stopped - Provider: Mihir Coleman RN) docusate sodium (Colace) capsule 100 mg 100 mg, Oral, 2 times daily, First dose on Fri06/26/23 at 0900, Do not crush or break. 0949 (Given - Provider: Mihir Coleman RN)2054 (Given - Provider: Amanda May LPN) 0847 (Given - Provider: Indira Chavez, CHIO) enoxaparin (Lovenox) syringe 40 mg 40 mg, SubCUTAneous, Every 24 hours scheduled (Daily), First dose on Fri06/26/23 at 0900, Indication of Use: Prophylaxis-DVT/PE, Indications: Prophylaxis of Venous Thromboembolism 0949 (Given - Provider: Mihir Coleman RN) 0847 (Given - Provider: Indira Chavez, CHIO) famotidine (Pepcid) tablet 20 mg (COMPLETED) 20 mg, Oral, Once, On Fri06/25/23 at 1015, For 1 dose, Preprocedure 1036 (Given - Provider: Carina Jones, CHIO) ibuprofen tablet 600 mg 600 mg, Oral, Every 6 hours, First dose on Shea 06/26/23 at 2100 2054 (Given - Provider: Amanda May LPN) 0407 (Given - Provider: Amanda May LPN)0847 (Given - Provider: Indira Chavez RN) ketorolac (Toradol) injection 15 mg (CANCELED) 15 mg, IntraVENous, Every 6 hours scheduled (4 times per day), First dose on Shea 06/26/23 at 0000, For 4 doses 2351 (Given - Provider: Tracy Diaz, RN) 0549 (Given - Provider: Tracy Diaz RN)1230 (Given - Provider: Mihir Coleman, CHIO) sodium chloride 0.9% (NS) flush 10 mL 10 mL, IntraVENous, Every 12 hours scheduled (2 times per day), First dose on Fri06/25/23 at 2100, Phase II/On Unit 2099 (Not Given - Provider: Amanda May LPN - Reason: IV Fluids Infusing) 0949 (Given - Provider: Mihir Coleman, CHIO)2054 (Given - Provider: Amanda May LPN) 0900 (Canceled Entry - Provider: Automatic Discharge Provider - Comment: Automatically canceled at discontinue of medication order) Continuous Medication Order 06/25/2023 06/26/2023 06/27/2023 lactated Ringer's (LR) infusion (CANCELED) 50 mL/hr, IntraVENous, Continuous, Starting on Fri06/25/23 at 1015, Preprocedure, Upon admission to sameday - please start iv if patient does not have iv access. Use 500ml NS for patients on dialysis. 1036 (New Bag - Provider: Carina Jones RN)1509 (Continued by Anesthesia - Provider: Hue Castro APRN - ENRICHMENT SPECIALIST)1640 (Stopped - Provider: Lisa Hensley APRN - ENRICHMENT SPECIALIST) lactated Ringer's infusion (CANCELED) 75 mL/hr, IntraVENous, Continuous, Starting on Fri06/25/23 at 1700, For 10 hours 2108 (New Bag - Provider: Amanda May LPN) 0200 (Stopped - Provider: Amanda May LPN) PRN Medication Order 06/25/2023 06/26/2023 06/27/2023 HYDROmorphone (Dilaudid) injection 0.5 mg (CANCELED) 0.5 mg, IntraVENous, Every 5 min PRN, severe pain (7-10), Starting on Fri06/25/23 at 1704, For 4 doses, Recovery (only), Phase I and Phase II- Initial therapy for severe pain (7-10). Restricted to a 90 minute time frame starting when the patient can verbally state their pain score. If after 2 doses the pain score does not decrease by more than one point, then call the provider. If oral meds are utilized, do not return to initial therapy medications. 1720 (Given - Provider: Leia Rios RN)1741 (Given - Provider: Nickie Rodriguez RN) indocyanine green (IC-Green) injection (CANCELED) As needed, Starting on Fri06/25/23 at 1534, Intraprocedure 1534 (Given - Provider: Lenny Paulino MD) ondansetron (Zofran) injection 4 mg(Linked Group 1) 4 mg, IntraVENous, Every 6 hours PRN, nausea, vomiting, Starting on Fri06/25/23 at 1857, Phase II/On Unit, 1st Line. Give IV if patient is unable to take orally. If inadequate response within 60 minutes, proceed to next-line agent or contact provider if no further options ordered. ondansetron ODT (Zofran-ODT) disintegrating tablet 4 mg(Linked Group 1) 4 mg, Oral, Every 8 hours PRN, nausea, vomiting, Starting on Fri06/25/23 at 1857, Phase II/On Unit, 1st Line. If inadequate response within 60 minutes, proceed to next-line agent or contact provider if no further options ordered. Patient should allow tablet to dissolve on tongue. Do not remove from blister pack until just before administering. oxyCODONE (Roxicodone) immediate release tablet 10 mg(Linked Group 2) 10 mg, Oral, Every 4 hours PRN, severe pain (7-10), Starting on Fri06/25/23 at 1857, Phase II/On Unit oxyCODONE (Roxicodone) immediate release tablet 5 mg(Linked Group 2) 5 mg, Oral, Every 4 hours PRN, moderate pain (4-6), Starting on Fri06/25/23 at 1857, Phase II/On Unit polyethylene glycol (PEG) 3350 (Miralax) packet 17 g 17 g, Oral, Daily PRN, constipation, Starting on Fri06/25/23 at 1857, Phase II/On Unit, 1st line for treatment of constipation - give scheduled if no bowel movement in past 24 hours. simethicone (Mylicon) chewable tablet 80 mg 80 mg, Oral, PRN, flatulence, Starting on Shea 06/26/23 at 0558 sodium chloride 0.9 % infusion 5-250 mL/hr, IntraVENous, PRN, if patient receiving piggyback infusions and maintenance fluids are not ordered OR KVO fluids to protect IV site / prevent frequent line interruptions/ long duration, Starting on Fri06/25/23 at 1857, Phase II/On Unit, For piggyback infusion, administer at same rate as piggyback for a total of 25 mL. Enter 25 mL into dose field and piggyback rate into rate field of order. If piggyback is infusing at a rate less than 100 mL/hr, enter 25 mL into dose field and 100 mL/hr into rate field of order. For KVO fluids, enter rate of 20 mL/hr or less into rate field of order. sodium chloride 0.9 % irrigation solution (CANCELED) As needed, Starting on Fri06/25/23 at 1535, Intraprocedure 1534 (Given - Provider: Lenny Paulino MD)1535 (Given - Provider: Lenny Paulino MD - Comment: IRRIGATION) sodium chloride 0.9% (NS) flush 10 mL 10 mL, IntraVENous, PRN, line care, Starting on Fri06/25/23 at 1857, Phase II/On Unit, After every IV line use sterile water irrigation solution (CANCELED) As needed, Starting on Fri06/25/23 at 1534, Intraprocedure 1534 (Given - Provider: Lenny Paulino MD - Comment: IN BASIN FOR INSTRUMENTS) Linked Groups Order Group 1: ondansetron ODT (Zofran-ODT) disintegrating tablet 4 mgJump to med 4 mg, Oral, Every 8 hours PRN, nausea, vomiting, Starting on Fri06/25/23 at 1857, Phase II/On Unit, 1st Line. If inadequate response within 60 minutes, proceed to next-line agent or contact provider if no further options ordered. Patient should allow tablet to dissolve on tongue. Do not remove from blister pack until just before administering. Or ondansetron (Zofran) injection 4 mgJump to med 4 mg, IntraVENous, Every 6 hours PRN, nausea, vomiting, Starting on Fri06/25/23 at 1857, Phase II/On Unit, 1st Line. Give IV if patient is unable to take orally. If inadequate response within 60 minutes, proceed to next-line agent or contact provider if no further options ordered. Group 2: oxyCODONE (Roxicodone) immediate release tablet 5 mgJump to med 5 mg, Oral, Every 4 hours PRN, moderate pain (4-6), Starting on Fri06/25/23 at 1857, Phase II/On Unit Or oxyCODONE (Roxicodone) immediate release tablet 10 mgJump to med 10 mg, Oral, Every 4 hours PRN, severe pain (7-10), Starting on Fri06/25/23 at 1857, Phase II/On Unit INFORMATION SOURCE (unrecogn ized section and content) DATE CREATED AUTHOR 05/20/2025 [facility] DATE CREATED AUTHOR AUTHOR'S ORGANIZ ATION 05/22/2025 [facility] DATE CREATED AUTHOR AUTHOR'S ORGANIZ ATION 07/17/2025 [facility] FOR RECORDS PERTAINING TO PATIENTS WHO ARE OR HAVE BEEN ENROLLED IN A CHEMICAL DEPENDENCY/SUBSTANCEABUSE PROGRAM, SOME INFORMATION MAY BE OMITTED. This clinical summary was aggregated from multiple sources. Caution should be exercised in using it in the provision of clinical care. This summary normalizes information from multiple sources, and as a consequence, information in this document may materially change the coding, format and clinical context of patient data. In addition, data may be omitted in some cases. CLINICAL DECISIONS SHOULD BE BASED ON THE PRIMARY CLINICAL RECORDS. [employer] [facility]. provides no warranty or guarantee of the accuracy or completeness of information in this document.
--- OUTSIDE RECORDS SUMMARY | 2025-07-19 07:27 | XMS RPT_ITS | CCD ---
Author Organization [facility] Care Team Providers Care Mold Release Worker Name Role Phone Dr. Uriel Gipson Attending [...] Candida MELO, Dr. Puente Attending Provider MELE, [facility] Attending Unavailable LEONELA, URIEL CHARITY Primary Care Unavailable LEONELA, URIEL CHARITY Primary Care Unavailable [facility], [facility] Attending Unavailable [facility] Referring Unavailable LEONELA, URIEL CHARITY Primary Care [facility] Referring Unavailable LEONELA, URIEL CHARITY Primary Care Un[facility] Referring Unavailable LEONELA, URIEL CHARITY Primary Care Unavailable [facility] Referring Unavailable LEONELA, URIEL CHARITY Primary Care Unavailable [facility], [facility] Referring Unavailable LEONELA, URIEL CHARITY Primary Care Unavailable [facility], [facility] Referring Unavailable LEONELA, URIEL CHARITY Primary Care Unavailable [facility] Referring Unavailable LOENELA, URIEL CHARITY Primary Care Unavailable [facility], [facility] Referring Unavailable LEONELA, URIEL CHARITY Primary Care Unavailable [facility], [facility] Referring Unavailable LEONELA, URIEL CHARITY Primary Care Unavailable [facility] Referring Unavailable LEONELA, URIEL CHARITY Primary Care Unavailable [facility], [facility] Attending Unavailable [facility] Referring Unavailable LEONELA, URILE CHARITY Primary Care Unavailable AGUSTINA AGUDELO Attending Unavailable LEONELA, URIEL Primary Care Unavailable LOUPILY Referring Unavailable LEONELA, URIEL Primary Care Unavailable PILY BLAKE Referring Unavailable MAGNUSAGUSTINA Attending Unavailable LEONELA, URIEL Primary Care Unavailable LENNY PAULINO Attending Unavailable AGUSTINA AGUDELO Attending Unavailable LEONELA, URIEL Primary Care Unavailable MAGNUSAGUSTINA Referring Unavailable Yale, Uriel Referring Unavailable Leonela, Uriel Attending Unavailable Leonela, Uriel Primary Care Unavailable Yale, Uriel Primary Care Unavailable Peña Blakee Referring Unavailable Timur Blake Attending Unavailable Timur Blake Attending Unavailable Yale, Uriel Primary Care Unavailable Lenny Paulino Referring Unavailable Yale, Uriel Primary Care Unavailable Lou Timur Referring Unavailable Peña Blakee Attending Unavailable Yale, Uriel Primary Care Unavailable Lou, Timur Referring Unavailable Lou Timur Attending Unavailable Lou, Timur Referring Unavailable Lou, Timur Attending Unavailable Leonela, Uriel Primary Care Unavailable Lenny Paulino Attending Unavailable Leonela, Uriel Primary Care Unavailable Lenny Paulino Referring Unavailable Timur Blake Attending Unavailable Timur Blake Referring Unavailable Yale, Uriel Primary Care Unavailable Yale, Uriel Primary Care Unavailable Lenny Paulino Attending Unavailable Lenny Paulino Referring Unavailable Timur Blake Attending Unavailable Timur Blake Referring Unavailable Yale, Uriel Primary Care Unavailable Timur Blake Referring Unavailable Timur Blake Attending Unavailable Yale, Uriel Primary Care Unavailable Timur Blake Attending Unavailable Leonela, Uriel Primary Care Unavailable Timur Blake Referring Unavailable Yale, Uriel Referring Unavailable Leonela, Uriel Primary Care Unavailable Anthony Harper Attending Unavailable Timur Blake Attending Unavailable Yale, Uriel Primary Care Unavailable Timur Blake Referring Unavailable Yale, Uriel Primary Care Unavailable Timur Blake Attending Unavailable Leonela, Uriel Primary Care Unavailable Sara Marrero Attending Unavailable Timur Blake Attending Unavailable Leonela, Uriel Primary Care Unavailable Timur Blake Referring Unavailable Yale, Uriel Referring Unavailable Yale, Uriel Primary Care Unavailable Timur Blake Attending [...] 8:29am Start: 06-27-2023 take 2 tablets by [facility] every six hours acetaminophen (Tylenol) 500 MG [...] disintegrating tablet 4 mg polyethylene glycol 3350 03013 mg powder for oral solution (2 sources) [...] request, order was sent via fax to [facility] for the pet scan. They stated they will call patient to get scheduled after review. [facility] 05-16-2025 36 Pt believes she need s CT before her 07/29 appt but there is no current order. Please call Pt to advise. Thank you [facility] 05-06-2025 36 Spoke to patient and she is going to see Dr. Paulino in July. She is not having any medical issues and is going to postpone that appointment for now with her PCP until she sees Dr. Paulino. [facility] 36 Patient returning mi ssed call, please contact when able, thank you [facility] 36on 05-04-2025 36 Left vm for pt to ca ll back, not sure what pcp appt is for. [facility] 36 Pt has PCP appt same week as her 07/29 appt and wanted to know if she can cancel her PCP appt or if she should still keep it since she will be followed up with here. Please call Pt to discuss. Thank you [facility] Radiation Oncology Visiton 0 04-12-2025 Radiation Oncology Visit [facility] 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 01/11/2025: Patient completed PET scan.??? This demonstrated ill-defined hypermetabolic (more content not included)... Normal [facility] No Panel Informationon 04-01 Actual Fractions Delivered 5 [facility] Actual Session Delivered Dose 600 cGray [facility] Actual Total Dose 3000 cGray [facility] Course Number 1 [facility] Elapsed Days [facility] Last Date 04/01/2025 [facility] Prescribed Fractional Dose 600 cGray [facility] Prescribed Number of Fractions 5 [facility] Prescribed Total Dose 3000 cGray [facility] Prescription Pattern Comment Multi channel [facility] Start Date 03/21/2025 [facility] Treatment Site Vaginal Cuff [facility] No Panel Informationon 03-30 Actual Fractions Delivered 4 [facility] Actual Session Delivered Dose 600 cGray [facility] Actual Total Dose 2400 cGray [facility] Course Number 1 [facility] Elapsed Days 9 [facility] Last Date 03/30/2025 [facility] Prescribed Fractional Dose 600 cGray [facility] Prescribed Number of Fractions 5 [facility] Prescribed Total Dose 3000 cGray [facility] Prescription Pattern Comment Multi channel [facility] Start Date 03/21/2025 [facility] Treatment [facility]inal [facility] No Panel Informationon 03-28 Actual Fractions Delivered 3 [facility] Actual Session Delivered Dose 600 cGray [facility] Actual Total Dose 1800 cGray [facility] Course Number 1 [facility] Elapsed Days 7 [facility] Last Date 03/28/2025 [facility] Prescribed Fractional Dose 600 cGray [facility] Prescribed Number of Fractions 5 [facility] Prescribed Total Dose 3000 cGray [facility] Prescription Pattern Comment Multi channel [facility] Start Date 03/21/2025 [facility] Treatment Site Vaginal [facility]uff [facility] No Panel Informationon 03-24 Actual Fractions Delivered 2 [facility] Actual Session Delivered Dose 600 cGray [facility] Actual Total Dose 1200 cGray [facility] Course Number 1 [facility] Elapsed Days 3 [facility] Last Date 03/24/2025 [facility] Prescribed Fractional Dose 600 cGray [facility] Prescribed Number of Fractions 5 [facility] Prescribed Total Dose 3000 cGray [facility] Prescription Pattern Comment Multi channel [facility] Start Date 03/21/2025 [facility] Treatment Site Vaginal Cuff [facility] MR Prostateon 03-21-2025 These images are not reportable by radiology and will not be interpreted by Radiologists. IMAGING MR TREATMENT PLANNING PROSTA TE PELVISon 03-21-2025 MR TREATMENT PLANNING PROSTATE PELVIS These images are not reportable by radiology and will not be interpreted by Radiologists. Normal [facility] No Panel Informationon 03-21 Actual Fractions Delivered 1 [facility] Actual Session Delivered Dose 600 cGray [facility] Actual Total Dose 600 cGray [facility] Course Number 1 [facility] Elapsed Days 0 [facility] Last Date 03/21/2025 [facility] Prescribed Fractional Dose 600 cGray [facility] Prescribed Number of Fractions 5 [facility] Prescribed Total Dose 3000 cGray [facility] Prescription Pattern Comment Multi channel [facility] Start Date 03/21/2025 [facility] Treatment Site Vaginal Cuff [facility] RAD ONC CT SIM IMAGES ONLYon 03-21-[address] SIM IMAGES ONLY These images are not reportable by radiology and will not be interpreted by Radiologists. Normal [facility] Rad Onc CT Sim Imageson 02-22 These images are not reportable by radiology and will not be interpreted by Radiologists. IMAGING CBC W Auto Differential pane l (Bld)on 03-15-2025 Basophils (Bld) [#/Vol] 0.03 x10*3/uL Normal 0.00-0.10 [facility] Comment on above: Performed By: #### 5 7021-8 #### ALYSSA Hinojosa ([id number]) [facility] ([facility]) [address] [place] [address] Basophils/100 WBC (Bld) 0.7 % Normal 0.0-2.0 [facility] Comment on above: Performed By: #### 5 7021-8 #### ALYSSA Hinojosa ([id number]) [facility] ([facility]) [address] [place] [address] Eosinophils (Bld) [#/Vol] 0.10 x10*3/uL Normal 0.00-0.40 [facility] Comment on above: Performed By: #### 5 7021-8 #### ALYSSA Hinojosa ([id number]) [facility] ([facility]) [address] [place] [address] 22468 Eosinophils/100 WBC (Bld) 2.4 % Normal 0.0-6.0 [facility] Comment on above: Performed By: #### 5 7021-8 #### ALYSSA Hinojosa ([id number]) [facility] ([facility]) [address] [place] [address] 13840 Erythrocyte distribution width (RBC) [Ratio] 14.5 % Normal 11.5-14.5 [facility] Comment on above: Performed By: #### 5 7021-8 #### ALYSSA Hinojosa ([id number]) [facility] ([facility]) [address] [place] [address] 26398 Hematocrit (Bld) [Volume fraction] 41.4 % Normal 36.0-46.0 [facility] Comment on above: Performed By: #### 5 7021-8 #### ALYSSA Hinojosa ([id number]) [facility] ([facility]) [address] [place] [address] 13563 Hemoglobin (Bld) [Mass/Vol] 13.1 g/dL Normal 12.0-16.0 [facility] Comment on above: Performed By: #### 5 7021-8 #### ALYSSA Hinojosa ([id number]) [facility] ([facility]) [address] [place] [address] 58559 Immature granulocytes (Bld) [#/Vol] 0.02 x10*3/uL Normal 0.00-0.50 [facility] Comment on above: Performed By: #### 5 7021-8 #### ALYSSA Hinojosa ([id number]) [facility] ([facility]) [address] [place] [address] 81656 Immature granulocytes/100 WBC (Bld) 0.5 % Normal 0.0-0.9 [facility] Comment on above: Result Comment: Ekta ture Granulocyte Count (IG) includes promyelocytes, myelocytes and metamyelocytes but does not include bands. Percent differential counts (%) should be interpreted in the context of the absolute cell counts (cells/UL). Performed By: #### 5 7021-8 #### ALYSSA Hinojosa ([id number]) [facility] ([facility]) [address] [place] [address] Lymphocytes (Bld) [#/Vol] 0.34 x10*3/uL Low 0.80-3.00 [facility] Comment on above: Performed By: #### 5 7021-8 #### ALYSSA Hinojosa ([id number]) [facility] ([facility]) [address] [place] [address]65 Lymphocytes/100 WBC (Bld) 8.3 % Normal 13.0-44.0 [facility] Comment on above: Performed By: #### 5 7021-8 #### ALYSSA Hinojosa ([id number]) [facility] ([facility]) [address] [place] [address] 20825 MCH (RBC) [Entitic mass] 30.6 pg Normal 26.0-34.0 [facility] Comment on above: Performed By: #### 5 7021-8 #### ALYSSA Hinojosa ([id number]) [facility] ([facility]) [address] [place] [address] MCHC (RBC) [Mass/Vol] 31.6 g/dL Low 32.0-36.0 [facility] Comment on above: Performed By: #### 5 7021-8 #### ALYSSA Hinojosa ([id number]) [facility] ([facility]) [address] [place] [address] MCV (RBC) [Entitic vol] 97 fL Normal 80-100 [facility] Comment on above: Performed By: #### 5 7021-8 #### ALYSSA Hinojosa ([id number]) [facility] ([facility]) [address] [place] [address] Monocytes (Bld) [#/Vol] 0.41 x10*3/uL Normal 0.05-0.80 [facility] Comment on above: Performed By: #### 5 7021-8 #### ALYSSA Hinojosa ([id number]) [facility] ([facility]) [address] [place] [address]184 Monocytes/100 WBC (Bld) 10.0 % Normal 2.0-10.0 [facility] Comment on above: Performed By: #### 5 7021-8 #### ALYSSA Hinojosa ([id number]) [facility] ([facility]) [address] [place] [address] 53635 Neutrophils (Bld) [#/Vol] 3.21 x10*3/uL Normal 1.60-5.50 [facility] Comment on above: Result Comment: Perc ent differential counts (%) should be interpreted in the context of the absolute cell counts (cells/uL). Performed By: #### 5 7021-8 #### ALYSSA Hinojosa ([id number]) [facility] ([facility]) [address] [place] [address] 05937 Neutrophils/100 WBC (Bld) 78.1 % Normal 40.0-80.0 [facility] Comment on above: Performed By: #### 5 7021-8 #### ALYSSA Hinojosa ([id number]) [facility] ([facility]) [address] [place] [address] 66234 Nucleated RBC/100 WBC (Bld) [Ratio] 0.0 /100 WBCs Normal 0.0-0.0 [facility] Comment on above: Performed By: #### 5 7021-8 #### ALYSSA Hinojosa ([id number]) [facility] ([facility]) [address] [place] [address] Platelets (Bld) [#/Vol] 187 x10*3/uL Normal 150-450 [facility] Comment on above: Performed By: #### 5 7021-8 #### ALYSSA Hinojosa ([id number]) [facility] ([facility]) [address] [place] [address] 11028 RBC (Bld) [#/Vol] 4.28 x10*6/uL Normal 4.00-5.20 [facility] Comment on above: Performed By: #### 5 7021-8 #### ALYSSA Hinojosa ([id number]) [facility] ([facility]) [address] [place] [address] 42337 WBC (Bld) [#/Vol] 4.1 x10*3/uL Low 4.4-11.3 [facility] Comment on above: Performed By: #### 5 7021-8 #### ALYSSA Hinojosa ([id number]) [facility] ([facility]) [address] [place] [address] 54919 Comprehensive metabolic 2000 panelon 03-15-2025 Albumin BCP dye [Mass/Vol] 4.5 g/dL Normal 3.4-5.0 [facility] Comment on above: Performed By: #### 2 4323-8 #### ALYSSA Hinojosa ([id number]) [facility] ([facility]) [address] [place] [address] 93775 ALP [Catalytic activity/Vol] 56 U/L Normal 33-136 [facility] Comment on above: Performed By: #### 2 4323-8 #### ALYSSA Hinojosa ([id number]) [facility] ([facility]) [address] [place] [address] 21492 ALT With P-5'-P [Catalytic activity/Vol] 12 U/L Normal 7-45 [facility] Comment on above: Result Comment: Zoe ents treated with Sulfasalazine may generate falsely decreased results for ALT. Performed By: #### 2 4323-8 #### ALYSSA Hinojosa ([id number]) [facility] ([facility]) [address] [place] [address] Anion gap [Moles/Vol] 14 mmol/L Normal 10-20 [facility] Comment on above: Performed By: #### 2 4323-8 #### ALYSSA Hinojosa ([id number]) [facility] ([facility]) [address] [place] [address] 40701 AST With P-5'-P [Catalytic activity/Vol] 17 U/L Normal 9-39 [facility] Comment on above: Performed By: #### 2 4323-8 #### ALYSSA Hinojosa ([id number]) [facility] ([facility]) [address] [place] [address] 60654 Bilirubin [Mass/Vol] 1.0 mg/dL Normal 0.0-1.2 [facility] Comment on above: Performed By: #### 2 4323-8 #### ALYSSA Hinojosa ([id number]) [facility] ([facility]) [address] [place] [address] 80765 Calcium [Mass/Vol] 9.9 mg/dL Normal 8.6-10.6 [facility] Comment on above: Performed By: #### 2 4323-8 #### ALYSSA Hinojosa ([id number]) [facility] ([facility]) [address] [place] [address] 52073 Chloride [Moles/Vol] 105 mmol/L Normal 98-107 [facility] Comment on above: Performed By: #### 2 4323-8 #### ALYSSA Hinojosa ([id number]) [facility] ([facility]) [address] [place] [address] 07614 CO2 [Moles/Vol] 25 mmol/L Normal 21-32 [facility] Comment on above: Performed By: #### 2 4323-8 #### ALYSSA Hinojosa ([id number]) [facility] ([facility]) [address] [place] [address] 94884 Creatinine [Mass/Vol] 0.80 mg/dL Normal 0.50-1.05 [facility] Comment on above: Performed By: #### 2 4323-8 #### ALYSSA Hinojosa ([id number]) [facility] ([facility]) [address] [place] [address] 78267 Glomerular filtration rate/1.73 sq M.predicted 77 mL/min/1.73m*2 Normal >60 [facility] Comment on above: Result Comment: Calc ulations of estimated GFR are performed using the 2020 CKD-EPI Study Refit equation without the race variable for the IDMS-Traceable creatinine methods. https://jasn.asnjournals.org/content//ASN.08021 13688 Performed By: #### 2 4323-8 #### ALYSSA Hinojosa ([id number]) [facility] ([facility]) [address] [place] [address] Glucose [Mass/Vol] 104 mg/dL High 74-99 [facility] Comment on above: Performed By: #### 2 4323-8 #### ALYSSA AVITIA L ([id number]) [facility] ([facility]) [address] [place] [address] 63001 Potassium [Moles/Vol] 4.3 mmol/L Normal 3.5-5.3 [facility] Comment on above: Performed By: #### 2 4323-8 #### ALYSSA AVITIA L ([id number]) [facility] ([facility]) [address] [place] [address] 31104 Protein [Mass/Vol] 7.1 g/dL Normal 6.4-8.2 [facility] Comment on above: Performed By: #### 2 4323-8 #### ALYSSA AVITIA L ([id number]) [facility] ([facility]) [address] [place] [address] 38247 Sodium [Moles/Vol] 140 mmol/L Normal 136-145 [facility] Comment on above: Performed By: #### 2 4323-8 #### ALYSSA RAMESHMOTZER L ([id number]) [facility] ([facility]) [address] [place] [address] 53532 Urea nitrogen [Mass/Vol] 14 mg/dL Normal -23 [facility] Comment on above: Performed By: #### 2 4323-8 #### ALYSSA ALONZOTZMICKIE L ([id number]) [facility] ([facility]) [address] [place] [address] 33465 Magnesiumon 03-15-2025 Magnesium [Mass/Vol] 2.40 mg/dL Normal 1.60-2.40 [facility] Comment on above: Performed By: #### 1 9123-9 #### ALYSSA Hinojosa ([id number]) [facility] ([facility]) [address] [place] [address] Phosphateon 03-15-2025 Phosphate [Mass/Vol] 3.9 mg/dL Normal 2.5-4.9 [facility] Comment on above: Performed By: #### 2 777-1 #### LAYSSA Hinojosa ([id number]) [facility] ([facility]) [address] [place] [address] SIM IMAGES ONLYon 03-15-[address] SIM IMAGES ONLY These images are not reportable by radiology and will not be interpreted by Radiologists. [facility] Rad Onc CT Sim Imageson 02-21 These images are not reportable by radiology and will not be interpreted by Radiologists. IMAGING Radiation Oncology Visiton 0 03-15-2025 Radiation Oncology Visit [address] [address] OFFICE VISIT Date of Service: 03/15/2549 MR#: [id number] Acct: [id number] Name: DONI NOVA Rep #: [id number] : 1950 From: Timur Blake DO Age/Sex: 75/F Location: [facility] Status: Signed End of Treatment Summary: Diagnosis: [...] with endometrioid carcinoma positive for ER and ND. 01/11/2025: Patient completed PET scan.??? This demonstrated [...] this patient. Sincerely, Timur Blake DO, MS Technical Sales Representative, Department of Radiation Oncology [facility] 03/15/25 4016 Date Timur Blake DO [facility] Signature: Date (if applicable) CC: Dr. Uriel Gipson MD [facility] Staphylococcus aureus.methic illin resistant isolateon 03-15-2025 MRSA isol Org specific cx Ql (Nose) Test: Staphylococcus aureus/MRSA colonization, Culture Specimen Source: Anterior Nares Specimen Type: Swab Specimen Date: 03/15/2025 1003 Result Date: 03/16/2025 1420 Result Status: Final result Abnormal: No Resulting Lab: [facility] [address] [address] CULTURE No Staphylococcus aureus isolated [facility] Comment on above: Performed By: #### 5 [id number] #### ALYSSA Hinojosa ([id number]) [facility] ([facility]) [id number] [place] [address] Radiation Oncology Visiton 0 03-14-2025 Radiation Oncology Visit [address] 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 Labs: None Assessment Plan Assessment/Plan (1) Recurrent carcinoma of endometrium: PLAN: Plan Assessment: Tolerating treatment well overall.??? I reviewed and approved all treatment associated imaging. No t (more content not included)... [facility] 29on 03-11-2025 29 Encounter addended b y: Rosie Hill RN on: 03/11/2025 3:24 PM Actions taken: Clinical Note Signed [facility] Hospital Encounteron 025 Hospital Encounter [id number] Doni Nova 1950 F Date Provider Department Center 03/11/2025 98714-SMMAGUSTINA AGUDELO None Family History Problem Relation Age of Onset Stroke Mother Cancer Father Comments: laryngeal Heart attack Father Hypertension Sister Breast cancer Maternal Grandmother Family Status - Relation Status Age at Mother Father Sister Maternal Grandmother Level of Service:66642 [place] OFFICE/OUTPATIENT ESTABLISHED MOD MDM 30 MIN [facility] Nursing Noteon 03-11-2025 Nursing Note Patient here at [facility] Rad Onc for follow up to consult with Dr. Agudelo on 01/27/2025. She is currently receiving external pelvic radiation at [facility] - Dr. Blake. She had MRI pelvis on 03/08/2025 and is here to discuss result to facilitate further treatment planning. She denies any vaginal bleeding/discharge, or urination/bowel issues. She reports mild tenderness to margoth area due to radiation. Patient prepped for pelvic exam - this RN assisted Dr. Agudelo with exam . Medications updated via patient recall. [facility] Progress Noteon 03-11-2025 Progress Note RADIATION ONCOLOGY [...] of the visit. Agustina Agudelo MD [facility] [place] Department of Radiation Oncology is an Accredited Facility of the [employer] (ACR). This document was [...] on 01/27/2025) (more content not included)... 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 Labs: None Assessment Plan Assessment/Plan (1) Recurrent carcinoma of endometrium: PLAN: Plan Assessment: Tolerating treatment well overall.??? I reviewed and approved all treatment associated imaging. No treatment associated toxici (more content not included)... 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 Labs: None Assessment Plan Assessment/Plan (1) Recurrent carcinoma of endometrium: (more content not included)... 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 Labs: None Assessment Plan Assessment/Plan (1) Recurrent carcinoma of endomet (more content not included)... Normal [facility] Radiation Oncology Visiton 0 02-16-2025 Radiation Oncology Visit [facility] [address] [place] [address]. 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 Labs: None Assessment Plan Assessment/Plan (1) Recurrent carcinoma of endometrium: PLAN: Plan Assessment: Tolerating treatment well overall.??? I reviewed and approved all treatment associated imagin (more content not included)... 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 Labs: None Assessment Plan Assessment/Plan (1) Recurrent carcinoma of endometrium: PLAN: Plan Assessment (more content not included)... Normal [facility] 37on 01-27-2025 37 Oncology Binder given Normal [facility] Cancer Antigen 125on 025 CA 125 15.4 U/mL Normal 0.0-38.1 [facility] Comment on above: Result Comment: [employer] Electrochemiluminescence Immunoassay (ECLIA) Values obtained with different assay methods or kits cannot be used interchangeably. Results cannot be interpreted as absolute evidence of the presence or absence of malignant disease. Performed at: [facility] [address] [id number] Cloth Designer: Anand Menard PhD, Phone: [phone] Performed By: #### L 3100.5000 #### [facility] [address] [place], [place], [address] Hospital Encounteron 025 Hospital Encounter [id number] Doni Nova 1950 F Date Provider Department Center 01/27/2025 07528-OHCAGUSTINA AGUDELO None Family History Problem Relation Age of Onset Stroke Mother Cancer Father Comments: laryngeal Heart attack Father Hypertension Sister Breast cancer Maternal Grandmother Family Status - Relation Status Age at Mother Father Sister Maternal Grandmother Level of Service:91105 [place] OFFICE/OUTPATIENT NEW HIGH [facility] 60 MINUTES Reason for Visit and Comments: Consult [484] - Consult with Dr. Agudelo. Normal [facility] Nursing Noteon 01-27-2025 Nursing Note Here alone at [facility] Ra cotton for consult with Dr. Agudelo. She reports good energy and denies pain. She was having severe lower abdominal pain and bleeding and was diagnosed with endometrial cancer in June 2023. She was treated with hysterectomy and bx. She had follow up with Dr. Waters in [place] who referred her to Dr. Paulino. She will have a PET Scan in the future - not scheduled as of yet. She denies any other hx of cancer, chemo, radiation. She denies any implantable devices/pacemaker. Medications reviewed and updated via patient recall. Normal [facility] Cancer antigen 125 (CA-125) measurementOrdered By: Anthony Harper on 01-26-2025 Cancer antigen 125 (CA-125) measurement 15.4 U/mL 0.0-38.1 [facility] Comment on above: [employer] El ectrochemiluminescence Immunoassay(ECLIA)Values obtained with different assay methods or kits cannotbe used interchangeably. Results cannot be interpreted asabsolute evidence of the presence or absence of malignantdisease.Performed at: [facility] [id number] Director: Anand Menard PhD, Phone: [phone] Oncology Visit Reporton Oncology Visit Report [facility] 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 01/11/2025: Patient completed PET scan.??? This demonstrated [...] probably correlat (more content not included)... Normal [facility] Pelvis W/WO Contraston 01-20 Pelvis W/WO Contrast [facility] [address] [place] [address] Pelvis W/WO Contrast MR#: [id number] Acct: [id number] Name: DONI NOVA Rep #: [id number] : 1950 F 74 From: Baljinder Rae MD PCP: Dr. Uriel Gipson MD Status: REG CLI Study: Pelvis W/WO Contrast Date of Exam: 01/20/25 Exam# [id number] Ordering Dr: Timur Blake DO PROCEDURE: PELVIS [...] 5. Additional description as above. Reading Location: [id number] CC: Dr. Uriel Gipson MD; Dr. Timur Blake DO Investment Banker: Signed Normal [place] [address]on 01-18-2025 36 Pt called with PET [place] [address]on 01-12-[address] Blake at [phone] via rightfax. Confirmation scanned within media [facility] 36 ----- Message from Rodney Paulino MD sent at 01/12/2025 2:31 PM EDT ----- Plz fax to Dr Timur Blake Rad Onc at [facility] ----- Message ----- From: [employer] Janet UserPadmini Sent: 01/12/2025 9:31 AM EDT To: Lenny Paulino MD [facility] 36 [email or web address] [facility] PET/CT Tumor Base -Thigh Ini ton 01-11-2025 PET/CT Tumor Base -Thigh Init [facility] Imaging Services [address] [place] [address] PET/CT Tumor Base -Thigh Init MR#: [id number] Acct: [id number] Name: DONI NOVA Rep #: [id number] : 1950 F 74 From: Sheree Bronson nd, MD PCP: Dr. Uriel Gipson MD Status: REG CLI Study: PET/CT Tumor Base -Thigh Init Date of Exam: Exam# [id number] Ordering Dr: Lenny Paulino MD EXAM: PET/CT [...] PET will be reported separately. Reading Location: [facility] CC: Dr. Uriel Gipson MD; Dr. Lenny Paulino MD Investment Banker: Signed Normal [facility] Office Visiton 01-03-2025 Follow-up visit [id number] Doni Nova 1950 F Date Provider Department Center 01/03/2025 73501-XSKRSWFLENNY PAULINO J [facility] SALES SERVICE REP None Family History Problem Relation Age of Onset Stroke Mother Cancer Father Comments: laryngeal Heart attack Father Hypertension Sister Breast cancer Maternal Grandmother Family Status - Relation Status Age at Mother Father Sister Maternal Grandmother Level of Service:68328 [place] OFFICE/OUTPATIENT ESTABLISHED LOW MDM 20 MIN (25) Reason for Visit and Comments: Endometrial Cancer [562] Normal [facility] Progress Noteon 01-03-2025 Progress Note Tv Host was offere d to the patient for exam. Patient accepted, medical insurance clerk in room during exam Pt left without second BP. Normal [facility] Progress Note Surg CC: stage I B [...] nursing note reviewed. Exam conducted with a spin table operator present. Constitutional: Appearance: Normal appearance. Abdominal: General: [...] radiation therapy which can be done in [place]. If evidence of other systemic spread would also need chemotherapy. All the patient's and 's questions were answered to the best my ability and total time spent in [id number] counseling review of EMR was 25 minutes [facility] 36on 12-30-2024 36 Patient to call back with availability [facility] 36on 12-29-2024 36 LVM to schedule foll ow up with Dr. Paulino next week [facility] [address] Jenkins 's office stated that pelvic exam was performed and the tissue was friable and there was minor bleeding. Office note to be faxed. Will route to provider once it comes in. With further questions, callback is [phone] [facility] 36 [place] from [facility] on Internal Medicine called to report Pt has changes seen in pelvic exam and Dr will be faxing office notes for possible exam/consult here. Thank you [facility] Internal Medicine Office Vis jl 12-28-2024 Internal Medicine Office Visit [facility] [address] [place] [address] [place] [address] OFFICE VISIT Date of Service: 12/29/24 MR#: [id number] Acct: [id number] Name: DONI NOVA Rep #: [id number] : 1950 Provider: Dr. 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 HPI HPI Chief Complaint: 7 M Details: [...] PHQ-2/Depression screen (more content not included)... Normal [facility] ABO and Rh group Confirm Nom (Bld)on 06-25-2023 ABO group Nom (Bld) B [employer] D Ag Ql (RBC) Positive [facility] [employer] Blood type and Crossmatch pa ceci (Bld)on 06-25-2023 ABO group Nom (Bld) B [facility] [employer] Blood group antibody screen GEL Ql Negative [employer] D Ag Ql (RBC) Positive [facility] [employer] CBC panel Auto (Bld)on 06-25 Erythrocyte distribution width (RBC) [Ratio] 13.9 % 11.5 - 14.5 % [employer] Hematocrit (Bld) [Volume fraction] 41.7 % 35.0 - 47.0 % [facility] Hemoglobin (Bld) [Mass/Vol] 14.2 g/dL 11.7 - 16.0 g/dL [facility] Interpretation and review of laboratory results Normal [facility] MCH (RBC) [Entitic mass] 31.4 pg 26.0 - 34.0 pg [facility] MCHC (RBC) [Mass/Vol] 33.9 % 32.0 - 36.0 % [facility] MCV (RBC) [Entitic vol] 92.6 fL 80.0 - 98.0 fL [facility] Platelet mean volume (Bld) [Entitic vol] 8.1 fL 7.4 - 12.4 fL [facility] Platelets (Bld) [#/Vol] 244 10*3/uL 140 - 440 10*3/uL [facility] RBC (Bld) [#/Vol] 4.51 10*6/uL 3.8 - 5.20 10*6/uL [facility] WBC (Bld) [#/Vol] 9.4 10*3/uL 3.6 - 10.7 10*3/uL [facility] Basophil percentageOrdered B y: Uriel Gipson on 06-05-2023 Basophil percentage 0-5 SEEN /hpf 0-5 [facility] Bilirubin Test strip Ql (U)O rdered By: Uriel Gipson on 06-05-2023 Bilirubin Ql (U) Negative Negative [facility] Culture, urineOrdered By: Al eric Gipson on 06-05-2023 Bacteria identified Cx Nom (U) Positive [facility] Ketones Test strip Ql (U)Ord ered By: Uriel Leonela on 06-05-2023 Ketones Ql (U) Negative Negative [facility] Mucus LM Ql (Urine sed)Order ed By: Urieleric Gipson on 06-05-2023 Mucus Ql (Urine sed) 0 SEEN /hpf [facility] Nitrite Test strip Ql (U)Ord ered By: Uriel Leonela on 06-05-2023 Nitrite Ql (U) Negative Negative [facility] Protein Test strip Ql (U)Ord ered By: Uriel Leoenla on 09-14-2023 Protein Ql (U) Negative Negative [facility] Squamous epithelial cells de tection in urine sediment by light microscopyOrdered By: Uriel Gipson on 06-05-2023 Epithelial cells.squamous LM Ql (Urine sed) 0 SEEN /hpf 5-10 [facility] Urine blood detectionOrdered By: Uriel Gipson on 06-05-2023 RBC Ql (U) 25 /ul Negative [facility] RBC Ql (U) 0-5 SEEN /hpf 0-5 [facility] Urine clarityOrdered By: John Gipson on 06-05-2023 Clarity (U) Clear Clear [facility] Urine color determinationOrd ered By: Uriel Gipson on 06-05-2023 Color (U) Yellow Yellow [facility] Urine glucose detectionOrder ed By: Uriel Gipson on 06-05-2023 Glucose Ql (U) Normal mg/dl Normal [facility] Urine leukocyte esterase det ection by dipstickOrdered By: Uriel Gipson on 06-05-2023 Leukocyte esterase Test strip Ql (U) Negative Negative [facility] Urine pHOrdered By: Uriel chaparro on 06-05-2023 pH (U) 7.0 [pH] 5.0 - 8.0 [facility] Urine sediment bacteria coun t by microscopy (number/high power field)Ordered By: Uriel Gipson on 06-05-2023 Bacteria LM.HPF (Urine sed) [#/Area] 0 /[HPF] None Seen [facility] Urine specific gravity measu rementOrdered By: Uriel Gipson on 06-05-2023 Specific gravity (U) [Rel density] 1.010 1.002-1.030 [facility] Urobilinogen Auto test strip Ql (U)Ordered By: Uriel Gipson on 06-05-2023 Urobilinogen Ql (U) Normal mg/dl Normal [facility] Absolute lymphocyte countOrd ered By: Uriel Gipson on 02-25-2023 Lymphocytes Auto (Unsp spec) [#/Vol] 1.33 10*3/uL 0.83-4.51 [facility] Basophil percentageOrdered B y: Uriel Gipson on 02-25-2023 Basophil percentage 25-50 SEEN /hpf 0-5 [facility] Basophils/100 WBC (Bld) 0.9 % 0-1 [facility] Bilirubin [Mass/Vol] 1.00 mg/dL 0.20-1.00 [facility] Comment on above: For patients on eltr ombopag therapy, use of [employer] [place] TBIL is not recommended. Chloride [Moles/Vol] 108 mmol/L 98-107 [facility] Cholesterol [Mass/Vol] 226 mg/dL <200 [facility] Comment on above: <200 mg/dL Desirable 200-240 mg/dL Borderline >240 mg/dL High Risk Eosinophils/100 WBC (Bld) 2.5 % 0-5 [facility] Glucose [Mass/Vol] 96 mg/dL 74-106 [facility] Neutrophils (Bld) [#/Vol] 5.8 10*3/uL 2.0-7.7 [facility] Neutrophils/100 WBC (Bld) 74.2 % 47-70 [facility] Potassium [Moles/Vol] 3.9 mmol/L 3.5-5.1 [facility] Protein [Mass/Vol] 7.6 g/dL 6.4-8.2 [facility] Sodium [Moles/Vol] 139 mmol/L 136-145 [facility] Triglyceride [Mass/Vol] 111 mg/dL <199 [facility] Comment on above: The drugs N-Acetylcy steine and Metamizole may falsely depress this assay.Serum Triglycerides Reference Interval Normal <150 mg/dL Borderline high 150 - 199 mg/dL High 200 - 499 mg/dL Very High > or = 500 mg/dL WBC (Bld) [#/Vol] 7.9 10*3/uL 4.4-11.0 [facility] Bilirubin Test strip Ql (U)O rdered By: Uriel Gipson on 02-25-2023 Bilirubin Ql (U) Negative Negative [facility] Blood erythrocytes count (nu mber/volume)Ordered By: Uriel Gipson on 02-25-2023 RBC (Bld) [#/Vol] 4.38 10*6/uL 4.2-5.4 [facility] Blood hemoglobin measurement (mass/volume)Ordered By: Uriel Gipson on 02-25-2023 Hemoglobin (Bld) [Mass/Vol] 13.6 g/dL 12.0-15.0 [facility] Blood lymphocytes/100 leukoc ytesOrdered By: Uriel Gipson on 02-25-2023 Lymphocytes/100 WBC (Bld) 16.9 % 19-41 [facility] Blood monocytes/100 leukocyt esOrdered By: Uriel Gipson on 02-25-2023 Monocytes/100 WBC (Bld) 5.2 % 0-10 [facility] Blood platelet mean volumeOr dered By: Uriel Gipson on 02-25-2023 Platelet mean volume (Bld) [Entitic vol] 11.1 fL 6.2-12.0 [facility] Determination of erythrocyte mean corpuscular volume (MCV)Ordered By: Uriel Gipson on 02-25-2023 MCV (RBC) [Entitic vol] 96.6 fL 81-99 [facility] Hematocrit Auto (Bld) [Volum e fraction]Ordered By: Uriel Gipson on 02-25-2023 Hematocrit (Bld) [Volume fraction] 42.3 % 37-47 [facility] Ketones Test strip Ql (U)Ord ered By: Uriel Gipson on 02-25-2023 Ketones Ql (U) Negative Negative [facility] Laboratory - Chemistry and C hemistry - challengeOrdered By: Uriel Gipson on 02-25-2023 ALP [Catalytic activity/Vol] 78 U/L 45-117 [facility] ALT [Catalytic activity/Vol] 20 U/L 13-56 [facility] CO2 [Moles/Vol] 25.0 mmol/L 21.0-32.0 [facility] Globulin (S) [Mass/Vol] 3.7 g/dL 2.2-4.2 [facility] Urea nitrogen/Creatinine [Mass ratio] 16.2 mg/mg 10-20 [facility] - Hematology and Cell countsOrdered By: Ureil Gipson on 02-25-2023 Erythrocyte distribution width (RBC) [Entitic vol] 48.2 fL 35.1-43.9 [facility] Erythrocyte distribution width (RBC) [Ratio] 13.4 % 11.6-14.6 [facility] Immature granulocytes/100 WBC (Bld) 0.300 % 0.0-0.9 [facility] Comment on above: IG% - Immature Granu locytes (promyelocytes, myelocytes and metamyelocytes) > 1% indicates that a LEFT SHIFT is Present. MCH (RBC) [Entitic mass] 31.1 pg 27.0-32.0 [facility] Nucleated RBC/100 WBC (Bld) [Ratio] 0 % 0-5 [facility] MCHC Auto (RBC) [Mass/Vol]Or dered By: Uriel Gipson on 02-25-2023 MCHC (RBC) [Mass/Vol] 32.2 g/dL 32-36 [facility] Mucus LM Ql (Urine sed)Order ed By: Uriel Gipson on 02-25-2023 Mucus Ql (Urine sed) 0 SEEN /hpf [facility] Nitrite Test strip Ql (U)Ord ered By: Uriel Gipson on 02-25-2023 Nitrite Ql (U) Negative Negative [facility] No Panel InformationOrdered By: Uriel Gipson on 02-25-2023 Estimated GFR (MDRD) Amer 83 mL/min >60 [facility] Comment on above: GFR Calc Estimated GFR (MDRD) Non-Af Amer 68 mL/min >60 [facility] Comment on above: Non- GFR Calc Platelets bldOrdered By: John Gipson on 02-25-2023 Platelets (Bld) [#/Vol] 226 10*3/uL 150-450 [facility] Protein Test strip Ql (U)Ord ered By: Uriel Gipson on 02-25-2023 Protein Ql (U) 15 mg/dl Negative [facility] Serum or plasma albumin jose martin urement (mass/volume)Ordered By: Uriel Gipson on 02-25-2023 Albumin [Mass/Vol] 3.9 g/dL 3.2-5.0 [facility] Serum or plasma albumin/glob ulin mass ratioOrdered By: Uriel Gipson on 02-25-2023 Albumin/Globulin [Mass ratio] 1.1 {ratio} 0.9-2.4 [facility] Serum or plasma calcium jose martin urement (mass/volume)Ordered By: Uriel Gipson on 02-25-2023 Calcium [Mass/Vol] 9.5 mg/dL 8.5-10.1 [facility] Serum or plasma cholesterol in HDL measurement (mass/volume)Ordered By: Uriel Gipson on 02-25-2023 Cholesterol in HDL [Mass/Vol] 80 mg/dL >40 [facility] Comment on above: The drugs N-Acetylcy steine and Metamizole may falsely depress this assay. Reference Range HDL <40 mg/dL Low HDL Cholesterol HDL >or= 60 mg/dL High HDL Cholesterol Serum or plasma cholesterol in VLDL measurement (mass/volume)Ordered By: Uriel Gipson on 02-25-2023 Cholesterol in VLDL [Mass/Vol] 22 mg/dL 5-40 [facility] Serum or plasma creatinine m easurement (mass/volume)Ordered By: Uriel Gipson on 02-25-2023 Creatinine [Mass/Vol] 0.87 mg/dL 0.55-1.02 [facility] Comment on above: The validity of the calculated GFR & GFRAA in patients over 70 years has not been determined. Clinical correlation is essential. Serum or plasma low density lipoprotein (LDL) cholesterol measurement (mass/volume)Ordered By: Uriel Gipson on 02-25-2023 Cholesterol in LDL [Mass/Vol] 124 mg/dL 0-130 [facility] Serum or plasma urea nitroge n measurement (mass/volume)Ordered By: Uriel Gipson on 02-25-2023 Urea nitrogen [Mass/Vol] 14 mg/dL 7-18 [facility] Squamous epithelial cells de tection in urine sediment by light microscopyOrdered By: Uriel Gipson on 02-25-2023 Epithelial cells.squamous LM Ql (Urine sed) 0-5 SEEN /hpf 5-10 [facility] Thin prep Papanicolaou smear with manual screeningOrdered By: Uriel Gipson on 02-25-2023 Thin prep Papanicolaou smear with manual screening 16 U/L 15-37 [facility] Thin prep Papanicolaou smear with manual screening 6 5-15 [facility] Urine blood detectionOrdered By: Uriel Gipson on 02-25-2023 RBC Ql (U) 150 /ul Negative [facility] RBC Ql (U) 10-25 SEEN /hpf 0-5 [facility] Urine clarityOrdered By: John Gipson on 02-25-2023 Clarity (U) Sl. Cloudy Clear [facility] Urine color determinationOrd ered By: Uriel Gipson on 02-25-2023 Color (U) Yellow Yellow [facility] Urine glucose detectionOrder ed By: Uriel Gipson on 02-25-2023 Glucose Ql (U) Normal mg/dl Normal [facility] Urine leukocyte esterase det ection by dipstickOrdered By: Uriel Gipson on 02-25-2023 Leukocyte esterase Test strip Ql (U) 500 /ul Negative [facility] Urine pHOrdered By: Uriel chaparro on 02-25-2023 pH (U) 6.5 [pH] 5.0 - 8.0 [facility] Urine sediment bacteria coun t by microscopy (number/high power field)Ordered By: Uriel Gipson on 02-25-2023 Bacteria LM.HPF (Urine sed) [#/Area] 1 /[HPF] None Seen [facility] Urine specific gravity measu rementOrdered By: Uriel Gipson on 02-25-2023 Specific gravity (U) [Rel density] 1.010 1.002-1.030 [facility] Urobilinogen Auto test strip Ql (U)Ordered By: Uriel Gipson on 02-25-2023 Urobilinogen Ql (U) Normal mg/dl Normal [facility] Vital Signs Date Time Vital Sign Value Performing Clinician Facility 05-03-2025 10:34-0400 Body mass index (BMI) [Ratio] 32.96 kg/m2 Humaira Rosenberg MD Work Phone: [facility] 05-03-2025 10:34-0400 Body temperature 97.3 [degF] Humaira Rosenberg MD Work Phone: [facility] 05-03-2025 10:34-0400 Body weight 81.74 kg Humaira Rosenberg MD Work Phone: [facility] 05-03-2025 10:34-0400 Diastolic blood pressure 77 mm[Hg] Humaira Rosenberg MD Work Phone: [facility] 05-03-2025 10:34-0400 Heart rate 71 /min Humaira Rosenberg MD Work Phone: [facility] 05-03-2025 10:34-0400 Respiratory rate 18 /min Humaira Rosenberg MD Work Phone: [facility] 05-03-2025 10:34-0400 SaO2% (BldA) [Mass fraction] 96 % Humaira Rosenberg MD Work Phone: [facility] 05-03-2025 10:34-0400 Systolic blood pressure 184 mm[Hg] Humaira Rosenberg MD Work Phone: [facility] 04-12-2025 09:21-0400 Body height 157.[address] Uriel Gipson MD Work Phone: [facility] 04-12-2025 09:21-0400 Body mass index (BMI) [Ratio] 32.8 kg/m2 Dr. Uriel Gipson MD Work Phone: [facility] 04-12-2025 09:21-0400 Body temperature 96.9 [degF] Dr. Uriel Gipson MD Work Phone: [facility] 04-12-2025 09:21-0400 Body weight 81.[address] Uriel Gipson MD Work Phone: [facility] 04-12-2025 09:21-0400 Diastolic blood pressure 88 mm[Hg] Dr. Uriel Gipson MD Work Phone: [facility] 04-12-2025 09:21-0400 Heart rate 55 /min Dr. Uriel Gipson MD Work Phone: [facility] 04-12-2025 09:21-0400 Respiratory rate 16 /min Dr. Uriel Gipson MD Work Phone: [facility] 04-12-2025 09:21-0400 SaO2% (BldA) [Mass fraction] 97 % Dr. Uriel Gipson MD Work Phone: [facility] 04-12-2025 09:21-0400 Systolic blood pressure 165 mm[Hg] Dr. Uriel Gipson MD Work Phone: [facility] 03-21-2025 08:27-0400 Body temperature 97.5 [degF] [facility] 03-21-2025 08:27-0400 Diastolic blood pressure 63 mm[Hg] [facility] 03-21-2025 08:27-0400 Heart rate 75 /min [facility] 03-21-2025 08:27-0400 Respiratory rate 18 /min [facility] 03-21-2025 08:27-0400 SaO2% (BldA) [Mass fraction] 98 % [facility] 03-21-2025 08:27-0400 Systolic blood pressure 144 mm[Hg] [facility] 03-21-2025 08:20-0400 Body temperature 97.5 [degF] [facility] 03-21-2025 08:20-0400 Diastolic blood pressure 63 mm[Hg] [facility] 03-21-2025 08:20-0400 Heart rate 75 /min [facility] 03-21-2025 08:20-0400 Respiratory rate 18 /min [facility] 03-21-2025 08:20-0400 SaO2% (BldA) [Mass fraction] 98 % [facility] 03-21-2025 08:20-0400 Systolic blood pressure 144 mm[Hg] [facility] 03-15-2025 10:29-0400 Body mass index (BMI) [Ratio] 32.74 kg/m2 Humaira Rosenberg MD Work Phone: [facility] 03-15-2025 10:29-0400 Body temperature 97.9 [degF] Humaira Rosenberg MD Work Phone: [facility] 03-15-2025 10:29-0400 Body weight 81.19 kg Humaira Rosenberg MD Work Phone: [facility] 03-15-2025 10:29-0400 Diastolic blood pressure 80 mm[Hg] Humaira Rosenberg MD Work Phone: [facility] 03-15-2025 10:29-0400 Heart rate 58 /min Humaira Rosenberg MD Work Phone: [facility] 03-15-2025 10:29-0400 Respiratory rate 18 /min Humaira Rosenberg MD Work Phone: [facility] 03-15-2025 10:29-0400 SaO2% (BldA) [Mass fraction] 98 % Humaira Rosenberg MD Work Phone: [facility] 03-15-2025 10:29-0400 Systolic blood pressure 136 mm[Hg] Humaira Rosenberg MD Work Phone: [facility] 03-14-2025 08:58-0400 Body height 157.[address] Uriel Gipson MD Work Phone: [facility] 03-14-2025 08:58-0400 Body mass index (BMI) [Ratio] 33 kg/m2 Dr. Uriel Gipson MD Work Phone: [facility] 03-14-2025 08:58-0400 Body temperature 96.5 [degF] Dr. Uriel Gipson MD Work Phone: [facility] 03-14-2025 08:58-0400 Body weight 82.[address] Uriel Gipson MD Work Phone: [facility] 03-14-2025 08:58-0400 Diastolic blood pressure 84 mm[Hg] Dr. Uriel Gipson MD Work Phone: [facility] 03-14-2025 08:58-0400 Heart rate 61 /min Dr. Uriel Gipson MD Work Phone: [facility] 03-14-2025 08:58-0400 Respiratory rate 16 /min Dr. Uriel Gipson MD Work Phone: [facility] 03-14-2025 08:58-0400 SaO2% (BldA) [Mass fraction] 97 % Dr. Uriel Gipson MD Work Phone: [facility] 03-14-2025 08:58-0400 Systolic blood pressure 148 mm[Hg] Dr. Uriel Gipson MD Work Phone: [facility] 03-11-2025 10:41-0400 Body height 157.5 cm Agustina Agudelo MD Work Phone: [facility] 03-11-2025 10:41-0400 Body mass index (BMI) [Ratio] 32.7 kg/m2 Agustina Agudelo MD Work Phone: [facility] 03-11-2025 10:41-0400 Body temperature 97.11 [degF] Agustina Agudelo MD Work Phone: [facility] 03-11-2025 10:41-0400 Body weight 81.1 kg Agustina Agudelo MD Work Phone: [facility] 03-11-2025 10:41-0400 Diastolic blood pressure 76 mm[Hg] Agustina Agudelo MD Work Phone: [facility] 03-11-2025 10:41-0400 Heart rate 70 /min Agustina Agudelo MD Work Phone: [facility] 03-11-2025 10:41-0400 Respiratory rate 16 /min Agustina Agudelo MD Work Phone: [facility] 03-11-2025 10:41-0400 SaO2% (BldA) [Mass fraction] 98 % Agustina Agudelo MD Work Phone: [facility] 03-11-2025 10:41-0400 Systolic blood pressure 143 mm[Hg] Agustina Agudelo MD Work Phone: [facility] 03-09-2025 08:32-0400 Body height 157.[address] Uriel Gipson MD Work Phone: [facility] 03-09-2025 08:32-0400 Body mass index (BMI) [Ratio] 33 kg/m2 Dr. Uriel Gipson MD Work Phone: [facility] 03-09-2025 08:32-0400 Body temperature 97.7 [degF] Dr. Uriel Gipson MD Work Phone: [facility] 03-09-2025 08:32-0400 Body weight 81.[address] Uriel Gipson MD Work Phone: [facility] 03-09-2025 08:32-0400 Diastolic blood pressure 79 mm[Hg] Dr. Uriel Gipson MD Work Phone: [facility] 03-09-2025 08:32-0400 Heart rate 61 /min Dr. Uriel Gipson MD Work Phone: [facility] 03-09-2025 08:32-0400 Respiratory rate 18 /min Dr. Uriel Gipson MD Work Phone: [facility] 03-09-2025 08:32-0400 SaO2% (BldA) [Mass fraction] 98 % Dr. Uriel Gipson MD Work Phone: [facility] 03-09-2025 08:32-0400 Systolic blood pressure 134 mm[Hg] Dr. Uriel Gipson MD Work Phone: [facility] 03-02-2025 09:02-0400 Body height 157.[address] Uriel Gipson MD Work Phone: [facility] 03-02-2025 09:02-0400 Body mass index (BMI) [Ratio] 34 kg/m2 Dr. Uriel Gipson MD Work Phone: [facility] 03-02-2025 09:02-0400 Body temperature 96.9 [degF] Dr. Uriel Gipson MD Work Phone: [facility] 03-02-2025 09:02-0400 Body weight 84.[address] Uriel Gipson MD Work Phone: [facility] 03-02-2025 09:02-0400 Diastolic blood pressure 72 mm[Hg] Dr. Uriel Gipson MD Work Phone: [facility] 03-02-2025 09:02-0400 Heart rate 55 /min Dr. Uriel Gipson MD Work Phone: [facility] 03-02-2025 09:02-0400 Respiratory rate 18 /min Dr. Uriel Gipson MD Work Phone: [facility] 03-02-2025 09:02-0400 SaO2% (BldA) [Mass fraction] 98 % Dr. Uriel Gipson MD Work Phone: [facility] 03-02-2025 09:02-0400 Systolic blood pressure 156 mm[Hg] Dr. Uriel Gipson MD Work Phone: [facility] 02-23-2025 09:24-0400 Body height 157.[address] Uriel Gipson MD Work Phone: [facility] 02-23-2025 09:24-0400 Body mass index (BMI) [Ratio] 33.3 kg/m2 Dr. Uriel Gipson MD Work Phone: [facility] 02-23-2025 09:24-0400 Body temperature 97.1 [degF] Dr. Uriel Gipson MD Work Phone: [facility] 02-23-2025 09:24-0400 Body weight 82.[address] Uriel Gipson MD Work Phone: [facility] 02-23-2025 09:24-0400 Diastolic blood pressure 89 mm[Hg] Dr. Uriel Gipson MD Work Phone: [facility] 02-23-2025 09:24-0400 Heart rate 61 /min Dr. Uriel Gipson MD Work Phone: [facility] 02-23-2025 09:24-0400 Respiratory rate 16 /min Dr. Uriel Gipson MD Work Phone: [facility] 02-23-2025 09:24-0400 SaO2% (BldA) [Mass fraction] 98 % Dr. Uriel Gipson MD Work Phone: [facility] 02-23-2025 09:24-0400 Systolic blood pressure 168 mm[Hg] Dr. Uriel Gipson MD Work Phone: [facility] 02-16-2025 09:26-0400 Body height 157.[address] Uriel Gipson MD Work Phone: [facility] 02-16-2025 09:26-0400 Body mass index (BMI) [Ratio] 33.2 kg/m2 Dr. Uriel Gipson MD Work Phone: [facility] 02-16-2025 09:26-0400 Body temperature 96.9 [degF] Dr. Uriel Gipson MD Work Phone: [facility] 02-16-2025 09:26-0400 Body weight 82.[address] Uriel Gipson MD Work Phone: [facility] 02-16-2025 09:26-0400 Diastolic blood pressure 84 mm[Hg] Dr. Uriel Gipson MD Work Phone: [facility] 02-16-2025 09:26-0400 Heart rate 64 /min Dr. Uriel Gipson MD Work Phone: [facility] 02-16-2025 09:26-0400 Respiratory rate 16 /min Dr. Uriel Gipson MD Work Phone: [facility] 02-16-2025 09:26-0400 SaO2% (BldA) [Mass fraction] 96 % Dr. Uriel Gipson MD Work Phone: [facility] 02-16-2025 09:26-0400 Systolic blood pressure 150 mm[Hg] Dr. Uriel Gipson MD Work Phone: [facility] 02-09-2025 09:18-0400 Body height 157.[address] Uriel Gipson MD Work Phone: [facility] 02-09-2025 09:18-0400 Body mass index (BMI) [Ratio] 33.5 kg/m2 Dr. Uriel Gipson MD Work Phone: [facility] 02-09-2025 09:18-0400 Body temperature 96.7 [degF] Dr. Uriel Gipson MD Work Phone: [facility] 02-09-2025 09:18-0400 Body weight 83.[address] Uriel Gipson MD Work Phone: [facility] 02-09-2025 09:18-0400 Diastolic blood pressure 79 mm[Hg] Dr. Uriel Gipson MD Work Phone: [facility] 02-09-2025 09:18-0400 Heart rate 67 /min Dr. Uriel Gipson MD Work Phone: [facility] 02-09-2025 09:18-0400 Respiratory rate 18 /min Dr. Uriel Gipson MD Work Phone: [facility] 02-09-2025 09:18-0400 SaO2% (BldA) [Mass fraction] 99 % Dr. Uriel Gipson MD Work Phone: [facility] 02-09-2025 09:18-0400 Systolic blood pressure 162 mm[Hg] Dr. Uriel Gipson MD Work Phone: [facility] 02-08-2025 09:41-0400 Body temperature 97.2 [degF] Humaira Rosenberg MD Work Phone: [facility] 02-08-2025 09:41-0400 Body weight 82.3 kg Humaira Rosenberg MD Work Phone: [facility] 02-08-2025 09:41-0400 Diastolic blood pressure 85 mm[Hg] Humaira Rosenberg MD Work Phone: [facility] 02-08-2025 09:41-0400 Heart rate 68 /min Humaira Rosenberg MD Work Phone: [facility] 02-08-2025 09:41-0400 Respiratory rate 18 /min Humaira Rosenberg MD Work Phone: [facility] 02-08-2025 09:41-0400 SaO2% (BldA) [Mass fraction] 98 % Humaira Rosenberg MD Work Phone: [facility] 02-08-2025 09:41-0400 Systolic blood pressure 183 mm[Hg] Humaira Rosenberg MD Work Phone: [facility] 01-27-2025 09:04-0400 Body height 157.5 cm Agustina Agudelo MD Work Phone: [employer] [facility] [employer] 01-27-2025 09:04-0400 Body mass index (BMI) [Ratio] 33.43 kg/m2 Agustina Agudelo MD Work Phone: [employer] [facility] 01-27-2025 09:04-0400 Body temperature 98.01 [degF] Agustina Agudelo MD Work Phone: [facility] [facility] 01-27-2025 09:04-0400 Body weight 82.92 kg Agustina Agudelo MD Work Phone: [facility] 01-27-2025 09:04-0400 Diastolic blood pressure 76 mm[Hg] Agustina Agudelo MD Work Phone: [facility] 01-27-2025 09:04-0400 Heart rate 66 /min Agustina Agudelo MD Work Phone: [facility] 01-27-2025 09:04-0400 Respiratory rate 18 /min Agustina Agudelo MD Work Phone: [facility] 01-27-2025 09:04-0400 SaO2% (BldA) [Mass fraction] 95 % Agustina Agudelo MD Work Phone: [facility] 01-27-2025 09:04-0400 Systolic blood pressure 160 mm[Hg] Agustina Agudelo MD Work Phone: [facility] 01-26-2025 08:47-0400 Body mass index (BMI) [Ratio] 33.7 kg/m2 Dr. Uriel Gipson MD Work Phone: [facility] 01-26-2025 08:47-0400 Body temperature 97.7 [degF] Dr. Uriel Gipson MD Work Phone: [facility] 01-26-2025 08:47-0400 Body weight 83.[address] Uriel Gipson MD Work Phone: [facility] 01-26-2025 08:47-0400 Diastolic blood pressure 100 mm[Hg] Dr. Uriel Gipson MD Work Phone: [facility] 01-26-2025 08:47-0400 Heart rate 74 /min Dr. Uriel Gipson MD Work Phone: [facility] 01-26-2025 08:47-0400 Respiratory rate 16 /min Dr. Uriel Gipson MD Work Phone: [facility] 01-26-2025 08:47-0400 SaO2% (BldA) [Mass fraction] 98 % Dr. Uriel Gipson MD Work Phone: [facility] 01-26-2025 08:47-0400 Systolic blood pressure 177 mm[Hg] Dr. Uriel Gipson MD Work Phone: [facility] 01-21-2025 08:25-0400 Body mass index (BMI) [Ratio] 33.7 kg/m2 Dr. Uriel Gipson MD Work Phone: [facility] 01-21-2025 08:25-0400 Body temperature 96.6 [degF] Dr. Uriel Gipson MD Work Phone: [facility] 01-21-2025 08:25-0400 Body weight 83.[address] Uriel Gipson MD Work Phone: [facility] 01-21-2025 08:25-0400 Diastolic blood pressure 89 mm[Hg] Dr. Uriel Gipson MD Work Phone: [facility] 01-21-2025 08:25-0400 Heart rate 60 /min Dr. Uriel Gipson MD Work Phone: [facility] 01-21-2025 08:25-0400 Respiratory rate 16 /min Dr. Uriel Gipson MD Work Phone: [facility] 01-21-2025 08:25-0400 SaO2% (BldA) [Mass fraction] 98 % Dr. Uriel Gipson MD Work Phone: [facility] 01-21-2025 08:25-0400 Systolic blood pressure 165 mm[Hg] Dr. Uriel Gipson MD Work Phone: [facility] 01-03-2025 13:20-0400 Body height 157.5 cm Lenny Paulino MD Work Phone: [facility] 01-03-2025 13:20-0400 Body mass index (BMI) [Ratio] 33.97 kg/m2 Lenny Paulino MD Work Phone: [facility] 01-03-2025 13:20-0400 Body weight 84.28 kg Lenny Paulino MD Work Phone: [facility] 01-03-2025 13:20-0400 Diastolic blood pressure 100 mm[Hg] Lenny Paulino MD Work Phone: [facility] 01-03-2025 13:20-0400 Heart rate 76 /min Lenny Paulino MD Work Phone: [facility] 01-03-2025 13:20-0400 SaO2% (BldA) [Mass fraction] 96 % Lenny Paulino MD Work Phone: [facility] 01-03-2025 13:20-0400 Systolic blood pressure 180 mm[Hg] Lenny Paulino MD Work Phone: [facility] 12-29-2024 08:12-0400 Body height 157.[address] Uriel Gipson MD Work Phone: [facility] 12-29-2024 08:12-0400 Body mass index (BMI) [Ratio] 34.2 kg/m2 Dr. Uriel Gipson MD Work Phone: [facility] 12-29-2024 08:12-0400 Body temperature 97.8 [degF] Dr. Uriel Gipson MD Work Phone: [facility] 12-29-2024 08:12-0400 Body weight 84.[address] Uriel Gipson MD Work Phone: [facility] 12-29-2024 08:12-0400 Diastolic blood pressure 80 mm[Hg] Dr. Uriel Gipson MD Work Phone: [facility] 12-29-2024 08:12-0400 Heart rate 64 /min Dr. Uriel Gipson MD Work Phone: [facility] 12-29-2024 08:12-0400 Respiratory rate 18 /min Dr. Uriel Gipson MD Work Phone: [facility] 12-29-2024 08:12-0400 SaO2% (BldA) [Mass fraction] 98 % Dr. Uriel Gipson MD Work Phone: [facility] 12-29-2024 08:12-0400 Systolic blood pressure 132 mm[Hg] Dr. Uriel Gipson MD Work Phone: [facility] 06-27-2023 05:10-0400 Body temperature 97.9 [degF] Lenny Paulino MD Work Phone: [facility] 06-27-2023 05:10-0400 Diastolic blood pressure 69 mm[Hg] Lenny Paulino MD Work Phone: [facility] 06-27-2023 05:10-0400 Heart rate 58 /min Lenny Paulino MD Work Phone: [facility] 06-27-2023 05:10-0400 Respiratory rate 20 /min Lenny Paulino MD Work Phone: [facility] 06-27-2023 05:10-0400 SaO2% (BldA) [Mass fraction] 94 % Lenny Paulino MD Work Phone: [facility] 06-27-2023 05:10-0400 Systolic blood pressure 136 mm[Hg] Lenny Paulino MD Work Phone: [facility] 06-25-2023 10:04-0400 Body height 157.5 cm Lenny Paulino MD Work Phone: [facility] 06-25-2023 10:04-0400 Body mass index (BMI) [Ratio] 32.92 kg/m2 Lenny Paulino MD Work Phone: [facility] 06-25-2023 10:04-0400 Body weight 81.65 kg Lenny Paulino MD Work Phone: [facility] 06-25-2023 08:29-0400 Body height 157.5 cm Lenny Paulino MD Work Phone: [facility] 06-25-2023 08:29-0400 Body mass index (BMI) [Ratio] 26.7 kg/m2 Lenny Paulino MD Work Phone: [facility] 06-25-2023 08:29-0400 Body weight 66.22 kg Lenny Paulino MD Work Phone: [facility] 06-25-2023 08:29-0400 Diastolic blood pressure 80 mm[Hg] Lenny Paulino MD Work Phone: [facility] 06-25-2023 08:29-0400 Heart rate 71 /min Lenny Paulino MD Work Phone: [facility] 06-25-2023 08:29-0400 Systolic blood pressure 179 mm[Hg] Lenny Paulino MD Work Phone: [facility] 06-05-2023 07:31-0400 Body height 157.[address] Uriel Gipson Work Phone: [facility] 06-05-2023 07:31-0400 Body mass index (BMI) [Ratio] 33.6 kg/m2 Dr. Uriel Gipson Work Phone: [facility] 06-05-2023 07:31-0400 Body temperature 98.2 [degF] Dr. Uriel Gipson Work Phone: [facility] 06-05-2023 07:31-0400 Body weight 83.[address] Uriel Gipson Work Phone: [facility] 06-05-2023 07:31-0400 Diastolic blood pressure 78 mm[Hg] Dr. Uriel Gipson Work Phone: [facility] 06-05-2023 07:31-0400 Heart rate 51 /min Dr. Uriel Gipson Work Phone: [facility] 06-05-2023 07:31-0400 Respiratory rate 18 /min Dr. Uriel Gipson Work Phone: [facility] 06-05-2023 07:31-0400 SaO2% (BldA) [Mass fraction] 98 % Dr. Uriel Gipson Work Phone: [facility] 06-05-2023 07:31-0400 Systolic blood pressure 112 mm[Hg] Dr. Uriel Gipson Work Phone: [facility] 02-25-2023 08:33-0400 Body mass index (BMI) [Ratio] 34.4 kg/m2 Dr. Uriel Gipson Work Phone: [facility] 02-25-2023 08:33-0400 Body temperature 97.6 [degF] Dr. Uriel Gipson Work Phone: [facility] 02-25-2023 08:33-0400 Body weight 85.[address] Uriel Gipson Work Phone: [facility] 02-25-2023 08:33-0400 Diastolic blood pressure 82 mm[Hg] Dr. Uriel Gipson Work Phone: [facility] 02-25-2023 08:33-0400 Heart rate 62 /min Dr. Uriel Gipson Work Phone: [facility] 02-25-2023 08:33-0400 Respiratory rate 14 /min Dr. Uriel Gipson Work Phone: [facility] 02-25-2023 08:33-0400 SaO2% (BldA) [Mass fraction] 99 % Dr. Uriel Gipson Work Phone: [facility] 02-25-2023 08:33-0400 Systolic blood pressure 140 mm[Hg] Dr. Uriel Gipson Work Phone: [facility] Encounters Encounter Date Encounter Type Care Provider Facility Start: 07-19-2025 ambulatory Uriel Gipson Facility :[facility] Start: 05-16-2025 End: 05-16-2025 Orders Only Lenny Paulino MD Work Phone: [facility] [place] Comment on above: Endometrial cancer ( CMS/HCC) (HCC) (Primary Dx) Start: 05-04-2025 End: 05-04-2025 Telephone encounter Lenny Paulino MD Work Phone: [facility] [place] Start: 05-03-2025 End: 05-03-2025 Office outpatient visit 40 minutes Humaira Rosenberg MD Work Phone: [facility] Comment on above: Endometrial cancer ( Multi) Start: 05-03-2025 End: 05-03-2025 Subsequent hospital visit by physician Humaira Rosenberg MD Work Phone: [facility] Comment on above: Endometrial cancer ( Multi) Start: 05-03-2025 End: 05-03-2025 ambulatory [facility] Start: 04-12-2025 End: 04-12-[address] Timur Blake [facility] Work Phone: Start: 04-12-2025 End: 04-12-[address] Uriel Gipson MD Work Phone: [facility] Start: 04-01-2025 End: 04-01-2025 Subsequent hospital visit by physician [facility] Special [facility] Comment on above: Malignant neoplasm o f overlapping sites of corpus uteri (Multi) Start: 04-01-2025 End: 04-01-2025 [facility] Start: 03-30-2025 End: 03-30-2025 Subsequent hospital visit by physician [facility] Special [facility] Comment on above: Malignant neoplasm o f overlapping sites of corpus uteri (Multi) Start: 03-30-2025 End: 03-30-2025 ambulatory [facility] Start: 03-28-2025 End: 03-28-2025 Subsequent hospital visit by physician [facility] Special Procedures [facility] Comment on above: Malignant neoplasm o f overlapping sites of corpus uteri (Multi) Start: 03-28-2025 End: 03-28-2025 ambulatory [facility] Start: 03-24-2025 End: 03-24-2025 Subsequent hospital visit by physician [facility] Special Procedures [facility] Comment on above: Malignant neoplasm o f overlapping sites of corpus uteri (Multi) Start: 03-24-2025 End: 03-24-2025 [facility] Start: 03-22-2025 Non-patient / Non-visit Dr. Cindi mccann MD -[facility] Work Phone: Start: 03-21-2025 End: 03-21-2025 Subsequent hospital visit by physician [facility] Special Procedures [facility] Start: 03-21-2025 End: 03-21-2025 [facility] Start: 03-21-2025 End: 03-21-2025 Subsequent hospital visit by physician [facility] Special Procedures [facility] Comment on above: Encounter for antine oplastic radiation therapy (Primary Dx); Malignant neoplasm of overlapping sites of corpus uteri (Multi) Endometrial cancer ( Multi) Start: 03-21-2025 End: 03-21-2025 [facility] Start: 03-21-2025 End: 03-21-2025 [facility] Start: 03-21-2025 End: 03-21-2025 Subsequent hospital visit by physician Rad External Film [facility] Comment on above: Primary malignant ne oplasm of overlapping sites of corpus uteri (Multi) Start: 03-15-[address] Timur Stephen on DO -Radiation Oncology Start: 03-15-2025 End: 03-15-2025 Office outpatient visit 40 minutes Humaira Rosenberg MD Work Phone: [facility] Comment on above: Endometrial cancer ( Multi) (Primary Dx) Start: 03-15-2025 End: 03-15-2025 Subsequent hospital visit by physician Humaira Rosenberg MD Work Phone: [facility] Comment on above: Arrived Start: 03-15-2025 Non-patient / Non-visit Dr. Timur bowman DO [facility] Work Phone: Start: 03-15-2025 End: 03-15-2025 ambulatory [facility]IR[facility] Start: 03-15-2025 End: 03-15-2025 ambulatory URIEL [facility] Start: 03-15-2025 End: 03-15-2025 Encounter for other preprocedural examination [facility] Start: 03-15-2025 End: 03-15-2025 Subsequent hospital [...] ambulatory Dr. Uriel Gipson MD Work Phone: [employer] Work Phone: Start: 03-11-2025 End: 03-11-2025 Office outpatient visit 25 minutes Agustina Agudelo MD Work Phone: [facility] [place] Comment on above: Recurrent carcinoma of endometrium (HCC) (Primary Dx) Start: 03-11-2025 End: 03-11-2025 ambulatory [facility] Start: 03-09-[address] Timur Stephen on DO -Radiation Oncology Start: 03-09-2025 End: 03-09-[address] [facility] Work Phone: Start: 03-09-2025 End: 03-09-[address] Uriel Gipson MD Work Phone: [employer] Work Phone: Start: 03-08-2025 End: 03-08-2025 Subsequent hospital visit by physician Agustina Agudelo MD Work Phone: [facility] [address] Comment on above: Recurrent carcinoma of endometrium (HCC) Start: 03-08-2025 End: 03-08-2025 ambulatory [facility] Start: 03-02-[address] Timur Stephen on DO -Radiation Oncology Start: 03-02-2025 End: 03-02-[address] Allen Nichols MD -[facility] Work Phone: Start: 03-02-2025 End: 03-02-[address] Uriel Gipson MD Work Phone: [facility] Work Phone: Start: 02-23-[address] Timur Stephen on DO -Radiation Oncology Start: 02-23-2025 End: 02-23-[address] Timur Blake DO [facility] Work Phone: Start: 02-23-2025 End: 02-23-[address] Uriel Gipson MD Work Phone: [facility] [employer] Work Phone: Start: 02-16-2025 End: 02-16-[address] Uriel Gipson MD Work Phone: [facility] [employer] Work Phone: Start: 02-16-2025 End: 02-16-[address] [facility]ur [facility] Work Phone: Start: 02-09-[address] Timur Stephen on DO -Radiation Oncology Start: 02-09-2025 End: 02-09-[address] [facility]ur [facility] Work Phone: Start: 02-09-2025 End: 02-09-[address] Uriel Gipson MD Work Phone: [facility] Work Phone: Comment on above: Recurrent carcinoma of endometrium (HCC) (Primary Dx) Start: 02-08-2025 End: 02-08-2025 Office outpatient new 60 minutes Humaira Rosenberg MD Work Phone: [facility] Comment on above: Endometrial cancer ( Multi) (Primary Dx) Start: 02-08-2025 End: 02-08-2025 ambulatory [facility] Start: 02-03-2025 ambulatory Timur Blake Facility: [facility] Start: 02-03-2025 Non-patient / Non-visit Dr. Timur bowman DO [facility] Start: 01-27-2025 End: 01-27-2025 Office outpatient new 60 minutes Agustina Agudelo MD Work Phone: [facility] [place] Comment on above: Recurrent carcinoma of endometrium (HCC) (Primary Dx) Start: 01-27-2025 End: 01-27-2025 ambulatory [facility] Start: 01-26-2025 ambulatory [facility] Facility: [facility] Start: 01-26-2025 Non-patient / Non-visit Dr. Timur bowman DO [facility] Start: 01-26-2025 End: 01-26-[address] Anthony Harper MD -[facility] Work Phone: Start: 01-26-2025 End: 01-26-2025 ambulatory Uriel Leonela Facility:[facility] Start: 01-21-2025 End: 01-21-[address] Timur Blake DO [facility] Work Phone: Start: 01-21-2025 End: 01-21-2025 ambulatory Timur Lou Facility:[facility] Start: 01-20-2025 End: 01-20-[address] Timur Blake DO [facility] Work Phone: Start: 01-20-2025 End: 01-20-2025 ambulatory Timur Blake Facility:[facility] Start: 01-18-2025 Non-patient / Non-visit Sara hart -[facility] Work Phone: Start: 01-18-2025 ambulatory [facility] Facility :[facility] Start: 01-18-2025 End: 01-18-2025 Telephone encounter Lenny Paulino MD Work Phone: [facility] [place] Start: 01-12-2025 End: 01-12-2025 Telephone encounter Lenny Paulino MD Work Phone: [facility] Comment on above: Endometrial cancer ( CMS/HCC) (HCC) (Primary Dx); Secondary malignancy of vagina (CMS/HCC) (HCC) Start: 01-11-2025 End: 01-11-[address] Uriel Gipson MD Work Phone: [facility] Work Phone: Start: 01-11-2025 End: 01-11-[address] Lenny Paulino MD -[facility] Start: 01-11-2025 End: 01-11-2025 ambulatory Lenny Paulino Facility:[facility] Start: 01-03-2025 End: 01-03-2025 Office outpatient visit 15 minutes Lenny Paulino MD Work Phone: [facility] Comment on above: Endometrial cancer ( CMS/HCC) (HCC) (Primary Dx); Vaginal lesion Start: 01-03-2025 End: 01-03-2025 ambulatory [facility] Start: 12-29-2024 End: 12-29-2024 Telephone encounter Lenny Paulino MD Work Phone: [facility] Start: 12-29-2024 End: 12-29-[address] Uriel Gipson MD -[facility] Work Phone: Start: 12-29-2024 End: 12-29-2024 ambulatory [facility] Facility:[facility] Start: 07-01-[address] Fay Gipson MD Work Phone: [facility] Start: 07-08-2023 Telephone encounter Lenny Paulino MD Work Phone: [facility]ologic On[facility] Start: 06-25-2023 Telephone encounter Lenny Paulino MD Work Phone: [facility] Comment on above: surgery scheduling ( Scheduled at [facility]) Start: 06-25-2023 End: 06-27-2023 Evaluation and management of inpatient Lenny Paulino MD Work Phone: [facility] Comment on above: Increased endometria l stripe thickness (Primary Dx); Bleeding; Post-menopausal bleeding Start: 06-25-2023 End: 06-25-2023 Office outpatient new 30 minutes Lenny Paulino MD Work Phone: [facility]necologic Oncology Comment on above: Increased endometria l stripe thickness (Primary Dx); PMB (postmenopausal bleeding) Start: 06-24-2023 Telephone encounter Lenny Paulino MD Work Phone: [facility]necologic Oncology Comment on above: new pt appt needed Start: 06-05-2023 End: 06-05-[address] Uriel Gipson Work Phone: [facility] Work Phone: Start: 06-05-2023 End: 06-05-[address] Uriel Gipson Work Phone: [facility] Work Phone: Start: 02-25-2023 End: 02-25-[address] Uriel Gipson Work Phone: [facility] Start: 02-25-2023 End: 02-25-[address] Uriel Gipson Work Phone: [facility] Work Phone: Procedures Date Procedure [...] for Adults (1 - 1-dose 75+ series) [facility] Start: 07-29-2025 End: 07-29-2025 Patient encounter procedure 07/29/2025 8:30 AM EST Office Visit [facility] [place] [address] [place] [phone] Lenny Paulino MD [address] [place] [address] [facility] [place] Start: 07-06-2025 End: 05-16-2026 PET+CT Bone from skull base to mid-thigh W 18F-NaF IV PET/CT skull base to mid thigh Imaging Routine Endometrial cancer (CMS/HCC) (HCC) Expected: 07/06/2025, Expires: 05/16/2026 [facility] Work Phone: Comment on above: Expected: 07/06/2025 , Expires: 05/16/2026 Start: 05-23-2025 Influenza vaccination S [facility] Start: 05-09-2025 End: 05-09-2025 Patient encounter procedure 05/09/2025 9:00 AM EDT Appointment [facility] [address] [place] [address] Leia Trevizo, [employer] [address] Department [place] [address] [facility] Start: 04-01-2025 End: 04-01-2025 Patient encounter procedure 04/01/2025 9:30 AM EDT Appointment [facility] [address] [place] [address] [facility] Start: 03-30-2025 End: 03-30-2025 Patient encounter procedure 03/30/2025 12:00 PM EDT Appointment [facility] [address] [place] [address] [facility] Start: 03-28-2025 End: 03-28-2025 Patient encounter procedure 03/28/2025 2:30 PM EDT Appointment [facility] [address] [place] [address] [facility] Start: 03-28-2025 End: 08-11-2025 BRACHYTHERAPY Brachytherapy Procedures Routine Endometrial cancer (Multi) Expected: 03/28/2025 (Approximate), Expires: 08/11/2025 [facility] Work Phone: Comment on above: Expected: 03/28/2025 (Approximate), Expires: 08/11/2025 Start: 03-28-2025 End: 02-08-2026 MR Prostate MR treatment planning prostate pelvis Imaging Routine Endometrial cancer (Multi) Expected: 03/28/2025 (Approximate), Expires: 02/08/2026 [facility] Work Phone: Comment on above: Expected: 03/28/2025 (Approximate), Expires: 02/08/2026 Start: 03-24-2025 End: 03-24-2025 Patient encounter procedure 03/24/2025 10:00 AM EDT Appointment [facility] [address] [place] [address] [facility] Start: 03-23-2025 End: 03-23-2025 Patient encounter procedure [facility] Start: 03-22-2025 End: 03-22-2025 Patient encounter procedure [facility] Start: 03-21-2025 End: 03-21-2025 Patient encounter procedure [facility] Start: 03-14-2025 End: 02-08-2026 MR Pelvis WO and W contrast IV MR pelvis w and wo IV contrast Imaging Routine Endometrial cancer (Multi) Expected: 03/14/2025 (Approximate), Expires: 02/08/2026 [facility] Work Phone: Comment on above: Expected: 03/14/2025 (Approximate), Expires: 02/08/2026 Start: 03-11-2025 End: 03-11-2025 Patient encounter procedure 03/11/2025 10:30 AM EDT Appointment [facility] [place] [address] [place] [phone] Agustina Agudelo MD [address] [place] [address] [facility] [place] Start: 03-08-2025 End: 03-08-2025 Patient encounter procedure 03/08/2025 8:45 AM EDT Appointment [facility] [address] [place] [phone] Agustina Agudelo MD [address] [place], [place] [phone] [facility] [address] Start: 03-07-2025 End: 02-09-2026 MR Pelvis WO and W contrast IV MR pelvis w and wo contrast Imaging Routine Recurrent carcinoma of endometrium (HCC) Expected: 03/07/2025, Expires: 02/09/2026 [facility] Work Phone: Comment on above: Expected: 03/07/2025 , Expires: 02/09/2026 Start: 03-02-2025 End: 02-09-2026 Creatinine [Mass/volume] in Serum or Plasma Creatinine, Serum Lab Routine Recurrent carcinoma of endometrium (HCC) Expected: 03/02/2025 (Approximate), Expires: 02/09/2026 [facility] Comment on above: Expected: 03/02/2025 (Approximate), Expires: 02/09/2026 Start: 01-20-2025 Patient referral [facility] Work Phone: Start: 01-11-2025 Positron emission tomography with computed tomography [facility] Start: 01-03-2025 End: 01-03-2026 Biopsy vaginal Biopsy vaginal Procedures Routine Endometrial cancer (CMS/HCC) (HCC) Vaginal lesion Expected: 01/03/2025 (Approximate), Expires: 01/03/2026 [facility] Comment on above: Expected: 01/03/2025 (Approximate), Expires: 01/03/2026 Start: 01-03-2025 End: 01-03-2026 PET+CT Bone from skull base to mid-thigh W 18F-NaF IV PET/CT skull base to mid thigh Imaging Routine Endometrial cancer (CMS/HCC) (HCC) Vaginal lesion Expected: 01/03/2025, Expires: 01/03/2026 [facility] Comment on above: Expected: 01/03/2025 , Expires: 01/03/2026 Start: 01-03-2025 End: 01-03-2026 Tissue exam Tissue exam Pathology and Cytology Routine Endometrial cancer (CMS/HCC) (HCC) Vaginal lesion Expected: 01/03/2025 (Approximate), Expires: 01/03/2026 [facility] Work Phone: Comment on above: Expected: 01/03/2025 (Approximate), Expires: 01/03/2026 Start: 01-03-2025 End: 01-03-2025 Patient encounter procedure 01/03/2025 1:30 PM EDT Office Visit [facility] [place] [address] [place] [address] Lenny Paulino MD [address] [place], [place] [id number] [facility] [place] Start: 05-23-2024 COVID-19 Vaccine ( season) COVID-19 Vaccine ( season) [facility] Start: 07-11-2023 End: 07-11-2023 Patient encounter procedure 07/11/2023 9:45 AM EDT Office Visit [facility] [address] [place] [phone] Lenny Paulino MD [address] [place], [place] [phone] [facility]nec[facility] Oncology Start: 06-25-2023 End: 06-25-2023 Exploratory laparotomy celiotomy w/wo biopsy spx EXPLORATORY LAPAROTOMY Bleeding Post-menopausal bleeding 06/25/2023 3:[address] [facility] Operating Room Start: 06-25-2023 End: 06-25-2023 Inj radioactive tracer for id of sentinel node LYMPHANGIOGRAPHY FOR IDENTIFICATION SENTINEL NODE Bleeding Post-menopausal bleeding 06/25/2023 3:[address] [facility] Operating Room Start: 05-23-2023 Influenza vaccination Influenza Vacc ine (#1) [facility] Start: 02-02-2016 Pneumococcal Vaccine : 65+ Years (1 - PCV) Pneumococcal Vaccine: 65+ Years (1 - PCV) [facility] Start: 02-02-2016 Screening for osteoporosis Bone Density Scan [facility] Start: 2011 RSV High Risk: (Elde rly (60+) or Population) (1 - Risk 60-74 years 1-dose series) RSV High Risk: (Elderly (60+) or Population) (1 - Risk 60-74 years 1-dose series) [facility] Start: 2001 Pneumococcal Vaccine : 50+ Years (1 of 1 - PCV) Pneumococcal Vaccine: 50+ Years (1 of 1 - PCV) [facility] Start: 2001 Zoster Vaccines (1 o f 2) Zoster Vaccines (1 of 2) [facility] Start: 1991 Screening for malign ant neoplasm of breast Mammogram [facility] Start: 1973 DTaP/Tdap/Td Vaccine s (1 - Tdap) DTaP/Tdap/Td Vaccines (1 - Tdap) [facility] Start: 1970 DTaP/Tdap/Td Vaccine s (1 - Tdap) DTaP/Tdap/Td Vaccines (1 - Tdap) [facility] Start: 1970 Pneumococcal vaccination Pneumococcal Vaccine (1 of 2 - PCV) [facility] Start: 1970 Zoster Vaccines (1 o f 2) Zoster Vaccines (1 of 2) [facility] Start: 1969 Diabetes mellitus screening Diabetes Screening [facility] Start: 1969 Hepatitis C screening Hepatitis C Sc reening [facility] Start: 1963 Depression Screening Depression Scre ening [facility] Start: 02-02-1956 COVID-19 Vaccine (#1) COVID-19 Vacci ne (#1) [facility] Start: 02-02-1952 MMR Vaccines (1 of 1 - Standard series) MMR Vaccines (1 of 1 - Standard series) [facility] Start: 1951 COVID-19 Vaccine (#1) COVID-19 Vacci ne (#1) [facility] Start: 1951 Examination of skin Derm Melanoma Sk in Check [facility] Start: 1951 Lipid panel Lipid Panel [facility] Start: 1951 Screening for malign ant neoplasm of colon [facility] Start: 1951 Screening for osteoporosis Bone Density Scan [facility] Start: 1951 Skin Cancer Screening Skin Cancer Sc reening [facility] Start: 1950 Yearly Adult Physical Yearly Adult P hysical [facility] Cancer Ag 125 [Units/volume] in Serum or Plasma [facility] CT Abdomen and Pelvi s WO contrast [facility] End: 03-08-2025 MR Pelvis WO and W contrast IV [facility] Work Phone: Comment on above: Once for 1 Occurrenc es starting 03/08/2025 until 03/08/2025 Patient referral [facility] Work Phone: Rad Onc Intent to Treat Rad Onc Intent to Treat Radiation Oncology Routine Endometrial cancer (Multi) Ordered: 02/08/2025 [facility] Service Area Work Phone: Comment on above: Ordered: 02/08/2025 Tissue exam [facility] Work Phone: Comment on above: Release Upon Orderin g for 1 Occurrences starting 06/25/2023, 1 completed US Pelvis transvaginal [facility] Payers Date Payer Category Payer Unknown [id number] 2024 Self-pay 2024 Unknown [id number] 2023 [employer] [id number] 2023 Unknown [id number] 2022 Unknown [facility] FUN D [facility] FUND [id number] 2022-Present [phone] [place] [address] Commercial [id number] 09-22-2022 Commercial Managed C are - HMO [id number] 1950 Unknown [id number] 2.16.840.1.693856.3.579. 2.1244 1951 Unknown [id number] 2.16.840.1.655792.3.579. 2.1244 1951 Unknown [id number] 2.16.840.1.181137.3.579. 2.1244 1951 Unknown [id number] 2.16.840.1.885315.3.579. 2.1244 1951 Unknown [id number] 2.16.840.1.164344.3.579. 2.1244 1951 Unknown [id number] 2.16.840.1.038263.3.579. 2.1244 1951 Unknown [id number] 2.16.840.1.282281.3.579. 2.1244 1951 Unknown [id number] 2.16.840.1.475250.3.579. 2.1244 1951 Unknown [id number] 2.16.840.1.241582.3.579. 2.1244 1951 Unknown [id number] 2.16.840.1.671124.3.579. 2.1244 1950 Unknown [id number] 2.16.840.1.283934.3.579. 2.12441 Unknown [id number] 2.16.840.1.870735.3.579. 2.1245 1950 Unknown [id number] 2.16.840.1.805394.3.579. 2.1245 Unknown [id number] 2.16.840.1.010967.3.579. 2.462 Unknown [id number] 2.16840.1.773071.3.579. 2.462 Unknown [id number] 2.840.1.164305.3.579. 2.462 Unknown [id number] 2.840.1.814788.3.579. 2.462 Unknown [id number] 2.840.1.227639.3.579. 2.462 Unknown [id number] 2.840.1.159369.3.579. 2.462 Unknown [id number] 2.840.1.346550.3.579. 2.462 Unknown [id number] 2.840.1.094230.3.579. 2.462 Unknown [id number] 2.840.1.737257.3.579. 2.462 Unknown [id number] 2.840.1.217529.3.579. 2.462 Unknown [id number] 2.840.1.161323.3.579. 2.462 Unknown [id number] 2.840.1.723801.3.579. 2.462 Unknown [id number] 2.840.1.748779.3.579. 2.462 Unknown [id number] 2.16840.1.902750.3.579. 2.462 Unknown [id number] 2.16840.1.503272.3.579. 2.462 Unknown [id number] 2.840.1.417420.3.579. 2.462 Unknown [id number] 2.16.840.1.096002.3.579. 2.462 Unknown [id number] 2.16.840.1.138704.3.579. 2.462 Social History Date Type Detail Facility Start: 06-04-2023 Tobacco smoking stat us NHIS Unknown if ever smoked [facility] Start: 1950 Sex Assigned At Female [facility] Start: 06-24-2023 End: 02-08-2025 Tobacco smoking status NHIS Never smoked tobacco [facility] Start: 06-24-2023 End: 02-08-2025 Tobacco use and exposure Smokeless tobacco non-user [facility] Start: 06-25-2023 End: 01-27-2025 Alcohol intake Lifetime non-drinker (finding) [facility] Start: 06-25-2023 End: 01-27-2025 History of Social function [facility] Start: 06-25-2023 End: 01-27-2025 Tobacco use panel [facility] Start: 1950 Sex Assigned At Not on file S [facility] Start: 06-23-2023 End: 01-17-2025 Sex Female (finding) [facility] Start: 01-29-2025 End: 02-08-2025 Exposure to SARS-CoV-2 (event) Not sure [facility] Start: 2025 Sex Female [facility] Functional Status Date Assessment Result Facility 02-08-2025 Patient [facility] ionnaire 2 item (PHQ-2) [Reported] [facility] Work Phone: 02-08-2025 [facility] [facility] 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 They stated they will call patient to get scheduled after review. [facility] 05-20-2025 Miscellaneous Notes Spoke with patient and per her request, order was sent via fax to [facility] for the pet scan. They stated they [...] discuss. Thank you documented in this encounter [facility] 05-16-2025 Telephone encounter Note Pt believes she needs CT before her 07/29 appt but there is no current order. Please call Pt to advise. Thank you [facility] 05-16-2025 Miscellaneous Notes Pt believes she [...] discuss. Thank you documented in this encounter [facility] 05-06-2025 Telephone encounter Note Spoke to patient and she is going to see Dr. Paulino in July. She is not having any medical issues and is going to postpone that appointment for now with her PCP until she sees Dr. Paulino. [facility] 05-06-2025 Miscellaneous Notes Spoke to patient [...] discuss. Thank you documented in this encounter [facility] 05-06-2025 Telephone encounter Note Patient returning missed call, please contact when able, thank you [facility] 05-04-2025 Telephone encounter Note Left vm for pt to call back, not sure what pcp appt is for. [facility] 05-04-2025 Miscellaneous Notes Left vm for [...] discuss. Thank you documented in this encounter [facility] 05-04-2025 Telephone encounter Note Pt has PCP appt same week as her 07/29 appt and wanted to know if she can cancel her PCP appt or if she should still keep it since she will be followed up with here. Please call Pt to discuss. Thank you [facility] 05-03-2025 History of Present illness Narrative Images from the original note were not included. Radiation Oncology Outpatient Follow Up Patient Name: Doni Nova : 1950 Referring Provider: Agustina Agudelo MD Care Team: Pily Blake DO, Radiation Oncology, [facility] Agustina Agudelo MD, Radiation Oncology, [facility] Lenny Paulino MD, Gynecology Oncology, [facility] Date of Service: 05/03/2025 Diagnosis: -06/2023: Endometrial cancer, status post CITLALLI/BSO/LND, [id number], Grade 1-2, FIGO stage IB (MMI 65%, [...] tenderness. Genitourinary: Comments: Examined in presence of spin table operator (resident and RN). External genitalia: Normal external [...] performed by Dr. Paulino (Gynecologic Oncology) at [facility] . Endometrioid carcinoma, [id number], Grade 1-2, FIGO stage IB (MMI 65%, positive for lower uterine segment involvement, no cervical stromal involvement, no LVSI, 0/5 pelvic LNs, 0/2 para-aortic LNs). No adjuvant treatment. Patient underwent surveillance. -11/2024: Presented with vaginal bleeding. Biopsy 01/03/2025 confirmed recurrence of endometrial cancer in the anterior vaginal wall, positive ER/ND, dMMR (positive for MLH1) -01/11/2025: PET/CT at [facility] showed an ill-defined, hypermetabolic focus along the [...] -01/2025: Consulted by Dr. Pily Blake at [place]; plan for EBRT to the pelvis (starting on 02/07). - 01/27/2025 s/b Dr. Agudelo on 01/27/2025 for evaluation of adjuvant brachytherapy. Based on the tumor size and possible indication for interstitial brachytherapy, she was referred to Dr. Rosenberg at [facility] for further evaluation. Pathology Review: The pertinent [...] pN0 FIGO STAGE FIGO Stage: IB Comment(s): Material Yard Clerk tumor block: A12 Endometrium Biomarker Reporting Template [...] malignant cells stain positive with ER and ND. These findings are most compatible with a [...] Humaira Rosenberg MD, MMM Senior Attending Physician, [facility] Professor, [employer] Our [place]: To Heal, To Teach, To Discover. Phone (after hours): [phone] RN partner: Daniela Lagos Radiation Oncology (scheduling): [...] Moon Maharaj MD documented in this encounter [facility] Work Phone: 04-01-2025 Note [facility] Prescribed Technique HDR Procedure [facility] RADIATION ONCOLOGY 04-01-2025 Note [facility] Prescribed Technique HDR Procedure [facility] RADIATION ONCOLOGY 03-30-2025 Note [facility] Prescribed Technique HDR Procedure [facility] RADIATION ONCOLOGY 03-30-2025 Note [facility] Prescribed Technique HDR Procedure [facility] RADIATION ONCOLOGY 03-28-2025 Note [facility] Prescribed Technique HDR Procedure [facility] RADIATION ONCOLOGY 03-28-2025 Note [facility] Prescribed Technique HDR Procedure [facility] RADIATION ONCOLOGY 03-24-2025 Note [facility] Prescribed Technique HDR Procedure [facility] RADIATION ONCOLOGY 03-24-2025 Note [facility] Prescribed Technique HDR Procedure [facility] RADIATION ONCOLOGY 03-21-2025 Note [facility] Prescribed Technique HDR Procedure [facility] RADIATION ONCOLOGY 03-21-2025 Note [facility] Prescribed Technique HDR Procedure [facility] RADIATION ONCOLOGY [...] Care Team: Pily Blake DO, Radiation Oncology, [facility] Agustina Agudelo MD, Radiation Oncology, [facility] Lenny Paulino MD, Gynecology Oncology, [facility] Date of Service: 03/15/2025 Diagnosis: -06/2023: Endometrial cancer, status post CITLALLI/BSO/LND, rV2qX6G2, Grade 1-2, FIGO stage IB (MMI 65%, [...] performed by Dr. Paulino (Gynecologic Oncology) at [facility] . Endometrioid carcinoma, [id number], Grade 1-2, FIGO stage IB (MMI 65%, positive for lower uterine segment involvement, no cervical stromal involvement, no LVSI, 0/5 pelvic LNs, 0/2 para-aortic LNs). No adjuvant treatment. Patient underwent surveillance. -11/2024: Presented with vaginal bleeding. Biopsy 01/03/2025 confirmed recurrence of endometrial cancer in the anterior vaginal wall, positive ER/ND, dMMR (positive for MLH1) -01/11/2025: PET/CT at [place] [facility] showed an ill-defined, hypermetabolic focus along [...] -01/2025: Consulted by Dr. Pily Blake at [place]; plan for EBRT to the pelvis (starting on 02/07). - 01/27/2025 s/b Dr. Agudelo on 01/27/2025 for evaluation of adjuvant brachytherapy. Based on the tumor size and possible indication for interstitial brachytherapy, she was referred to Dr. Rosenberg at [facility] for further evaluation. Pathology Review: The pertinent [...] pN0 FIGO STAGE FIGO Stage: IB Comment(s): Material Yard Clerk tumor block: A12 Endometrium Biomarker Reporting Template [...] malignant cells stain positive with ER and ND. These findings are most compatible with a [...] tenderness. Genitourinary: Comments: Examined in presence of spin table operator (RN). External genitalia: Normal external genitalia, no [...] presents to discuss brachytherapy boost. PLAN: Ms. Nvoa's pertinent history, exam, imaging and pathology details [...] The patient will be treated at the [facility] location. Simulation will be done at the [place] location. Pain Management: Procedure under oral sedation. [...] Humaira Rosenberg MD, MMM Senior Attending Physician, [facility] Cancer [place] Professor, [employer] [place]: To Heal, To Teach, To Discover. Phone (after hours): [phone] RN partner: Daniela Lagos Radiation Oncology (scheduling): [...] Disp: , Rfl: documented in this encounter [facility] Work Phone: 03-14-2025 Progress note [facility] 03-14-2025 Progress note Note Date/Time March 14, 2025 9:15am [facility] [place] [facility] [address] [address] OFFICE VISIT Date of Service: 03/14/25 0856 MR#: [id number] Acct: [id number] Name: DONI NOVA Rep #: [id number] : 1950 From: Timur garcia DO Age/Sex: 75/F Location: [facility] Status: Signed Intake Vital Signs 01/26/25 08:47 [...] occupational status: unemployed 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 Timur Blake DO, MS Technical Sales Representative, Department of Radiation Oncology [facility] Coding Level of Care Code Radiation Tx Management x5 Diagnoses Recurrent carcinoma of endometrium C54.1 03/14/25 0915 <Electronically signed by Timur Blake DO> Date _ Timur Blake DO Cosigner Signature: Date (if applicable) CC: ~ [employer] Work Phone: 1(445) 791-679606-20-2025 History of Present illness Narrative* Agustina Agudelo [...] of the visit. Agustina Agudelo MD [facility] [place] Department of Radiation Oncology is an Accredited Facility of the [employer] (A[employer]). This document was [...] medications for this encounter. documented in this [facility]06-20-2025 Miscellaneous Notes* Addendum Note - Rosie Hill RN - 03/11/2025 10:30 AM EDTEncounter addended by: Rosie Hill RN on: 03/11/2025 3:24 PM Actions taken: Clinical Note Signed documented in this [facility]06-20-2025 Note* Addendum Note - Rosie Hill RN - 03/11/2025 10:30 AM EDTEncounter addended by: Rosie Hill RN on: 03/11/2025 3:24 PM Actions taken: Clinical Note [facility]igned [id number]* Addendum Note - Rosie Hill RN - 03/11/2025 10:30 AM EDTEncounter addended by: Rosie Hill RN on: 03/11/2025 3:24 PM Actions taken: Clinical Note Signed [id number] Nurse Note* Rosie Hill RN - 03/11/2025 10:30 AM EDT Patient here at [facility] for follow up to consult with Dr. Agudelo on 01/27/2025. She is currently receiving external pelvic radiation at [facility] - Dr. Blake. She had MRI pelvis on03/08/2025 and is here to discuss result to facilitate further treatment planning. She denies any vaginal bleeding/discharge, or urination/bowel issues. She reports mild tenderness to margoth area due toradiation. Patient prepped for pelvic exam - this RN assisted Dr. Agudelo with exam . Medications updated via patient recall. [id number] Nurse Note* Rosie Hill RN - 03/11/2025 10:30 AM EDT Patient here at [facility] Rad On[facility] for follow up to consult with Dr. Agudelo on 01/27/2025. She is currently receiving external pelvic radiation at [facility] [address] - Dr. Blake. She had MRI pelvis on03/08/2025 and is here to discuss result to facilitate further treatment planning. She denies any vaginal bleeding/discharge, or urination/bowel issues. She reports mild tenderness to margoth area due toradiation. Patient prepped for pelvic exam - this RN assisted Dr. Agudelo with exam . Medications updated via patient recall. documented in this [facility]06-18-2025 [facility] [address] [place] [address]. 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 Timru Blake DO, MS Technical Sales Representative, Department of Radiation Oncology [facility] Coding Level of Care Code Radiation Tx Management x5 Diagnoses Recurrent carcinoma of endometrium C54.1 03/09/25 0858 DO> Date _ Timur Blake DO Cosigner Signature: Date (if applicable) CC: ~ [facility]06-18-2025 Progress note Author Timur Lou [facility] Note Date/Time March 09, 2025 8:58 am [facility] [address] [place] [address] OFFICE VISIT Date of Service: 03/09/25829 MR#: [id number] Acct: [id number] Name: DONI NOVA Rep #: [id number] : 1950 From: Timur garcia DO Age/Sex: 75/F Location: [facility] Status: Signed Intake Vital Signs 01/26/25 08:47 [...] occupational status: unemployed 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 Timur Blake DO, MS Technical Sales Representative, Department of Radiation Oncology [facility] Coding Level of Care Code Radiation Tx Management x5 Diagnoses Recurrent carcinoma of endometrium C54.1 03/09/25 0858 <Electronically signed by Timur Blake DO> Date _ Timur Blake DO [facility] Signature: Date (if applicable) CC: ~ [employer] Work Phone: 1(348) 155-109406-11-2025 Progress [facility] [place] [address] OFFICE VISIT Date of Service: 03/02/25899 MR#: [id number] Acct: [id number] Name: DONI NOVA Rep #: [id number] : 1950 From: Allen shaikh MD Age/Sex: 75/F Location: [facility] Status: Signed Intake Vital Signs 01/26/25 08:47 [...] occupational status: unemployed 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: essentially no more vaginal bleeding, Objective: Weight: [...] shayy MELO> Date _ Allen Nichols MD [facility] Signature: Date (if applicable) CC: ~ [facility]06-11-2025 Progress note Author Allen Nichols [facility] Note Date/Time March 02, 2025 9:18 am [facility] [place] [facility] [address] [address] OFFICE VISIT Date of Service: 03/02/25899 MR#: [id number] Acct: [id number] Name: DONI NOVA Rep #: [id number] : 1950 From: Allen shaikh MD Age/Sex: 75/F Location: [facility] Status: Signed Intake Vital Signs 01/26/25 08:47 [...] occupational status: unemployed 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: essentially no more vaginal bleeding, Objective: Weight: [...] Perez Signature: Date (if applicable) CC: ~ [facility] Work Phone: 1(393) 979-471906-04-2025 [facility] [place] [address] OFFICE VISIT Date of Service: 02/23/25921 MR#: [id number] Acct: [id number] Name: DONI NOVA Rep #: [id number] : 1950 From: Timur garcia DO Age/Sex: 75/F Location: [facility] Status: Signed Intake Vital Signs 01/26/25 08:47 [...] occupational status: unemployed 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 Timur Blake DO, MS Technical Sales Representative, Department of Radiation Oncology [facility] Coding Level of Care Code Radiation Tx Management x5 Diagnoses Recurrent carcinoma of endometrium C54.1 02/23/25 0938 DO> Date _ Timur Mckenzieston DO [facility] Signature: Date (if applicable) CC: ~ [facility]05-28-2025 Progress [facility] [address] [place] [address] OFFICE VISIT Date of Service: 02/16/25923 MR#: [id number] Acct: [id number] Name: DONI NOVA Rep #: [id number] : 1950 From: Timur garcia DO Age/Sex: 75/F Location: [facility] Status: Signed Intake Vital Signs 01/26/25 08:47 [...] occupational status: unemployed 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 Timur Blake DO, MS Technical Sales Representative, Department of Radiation Oncology [facility] Coding Level of Care Code Radiation Tx Management x5 Diagnoses Recurrent carcinoma of endometrium C54.1 02/16/25 0946 DO> Date _ Timur Blake DO Cosigner Signature: Date (if applicable) CC: ~ [facility]05-28-2025 Progress note Author Timur Lou [facility] Note Date/Time February 16, 2025 9:46a m [facility] [address] [place] [address] OFFICE VISIT Date of Service: 02/16/25923 MR#: [id number] Acct: [id number] Name: DONI NOVA Rep #: [id number] : 1950 From: Timur garcia DO Age/Sex: 75/F Location: [facility] Status: Signed Intake Vital Signs 01/26/25 08:47 [...] occupational status: unemployed 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 Timur Blake DO, MS Technical Sales Representative, Department of Radiation Oncology [facility] Coding Level of Care Code Radiation Tx Management x5 Diagnoses Recurrent carcinoma of endometrium C54.1 02/16/25 0946 <Electronically signed by Timur Blake DO> Date _ Timur Watts Signature: Date (if applicable) CC: ~ [employer] Work Phone: 1(422) 212-627805-21-2025 Progress [facility] [address] [place] [address] OFFICE VISIT Date of Service: 02/09/25915 MR#: [id number] Acct: [id number] Name: DONI NOVA Rep #: [id number] : 1950 From: Timur Mckenziejacqueline garcia DO Age/Sex: 75/F Location: [facility] Status: Signed Intake Vital Signs 01/26/25 08:47 [...] occupational status: unemployed 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: mild vaginal bleeding, lessening Objective: Weight: 183 [...] at any time. Timur Blake DO, MS Technical Sales Representative, Department of Radiation Oncology [facility] Coding Level of Care Code Radiation Tx Management x5 Diagnoses Recurrent carcinoma of endometrium C54.1 02/09/25 0934 DO> Date _ Timur Blake DO Cosigner Signature: Date (if applicable) CC: ~ [facility]05-21-2025 Progress note Author Timur Blake [facility] Note Date/Time February 09, 2025 9:34a m [facility] [place] [address] 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: mild vaginal bleeding, lessening Objective: Weight: 183 [...] at any time. Timur Blake DO, MS Technical Sales Representative, Department of Radiation Oncology [facility] Coding Level of Care Code Radiation Tx Management x5 Diagnoses Recurrent carcinoma of endometrium C54.1 02/09/25 0934 <Electronically signed by Timur Blake DO> Date _ Timur Blake DO Cosigner Signature: Date (if applicable) CC: ~ [employer] Work Phone: 1(423) 960-701405-20-2025 History of Present illness Narrative* Humaira Rsoenberg MD - 02/08/2025 10:00 AM EDT Radiation Oncology Outpatient Consult Patient Name: Doni Nova : 1950 Referring Provider: Agustina Agudelo MD Care Team: Pily Blake DO, Radiation Oncology, [facility] Agustina Agudelo MD, Radiation Oncology, [facility] Lenny Paulino MD, Gynecology Oncology, [facility] Date of Service: 02/08/2025 Diagnosis: -06/2023: Endometrial cancer, status post CITLALLI/BSO/LND, qN2mG8C8, Grade 1-2, FIGO stage IB (MMI 65%,positive [...] performed by Dr. Paulino (Gynecologic Oncology) at [facility] . Endometrioid carcinoma, qI6pV4E2, Grade 1-2, FIGO stage IB (MMI 65%, positive for lower uterine segment involvement, no cervical stromal involvement, no LVSI, 0/5 pelvic LNs, 0/2 para-aortic LNs). No adjuvant treatment. Patient underwent surveillance. -11/2024: Presented with vaginal bleeding. Biopsy 01/03/2025 confirmed recurrence of endometrial cancer in the anterior vaginal wall, positive ER/ND, dMMR (positive for MLH1) -01/11/2025: PET/CT at [facility] showed an ill-defined, hypermetabolic focus along the [...] -01/2025: Consulted by Dr. Pily Blake at [place]; plan for EBRT to the pelvis (starting on 02/07). - 01/27/2025 s/b Dr. Agudelo on 01/27/2025 for evaluation of adjuvant brachytherapy. Based on the tumor size and possible indication for interstitial brachytherapy, she was referred to Dr. Rosenberg at [facility] for further evaluation. Today, the patient presented with her and [id number]. She began radiation therapy yesterday under the [...] pN0 FIGO STAGE FIGO Stage: IB Comment(s): Material Yard Clerk tumor block: A12 Endometrium Biomarker Reporting Template [...] malignant cells stain positive with ER and ND. These findings are most compatible with a [...] tenderness. Genitourinary: Comments: Examined in presence of spin table operator (RN and resident). External genitalia: Normal external [...] pathology details were reviewed. Accompanied by and [id number]. Treatment recommendations/Alternatives: NCCN Guidelines were applicable to guide this patients treatment plan. We reviewed the standard of care management for vaginal cuff recurrence from her endometrial cancer Based on the examination and biopsy results, we agree with Dr. Blake's treatment plan ([facility] Radiation Oncology) to proceed with whole pelvic radiation therapy to be followed by brachytherapy boost. The specific type of brachytherapy (intracavitary cylinder brachytherapy versus interstitial brachy therapy) will be determined based on the treatment response. In her consultation with Dr. Paulino (Gynecologic Oncology at [facility]), systemic therapy is not planned. Treatment [...] she will be cared for by the SALES SERVICE REP oncology service for pain control, hydration/calorie management, [...] proceeding with -EBRT with Dr. Blake at [place] -Plan week 5 for EOT MRI and exam. This could be done either at [facility] at [place] by Dr. Agudelo or here at [place]. Orders placed: 1) Radon intent to treat: Brachytherapy Network location: The patient will be treated at the [facility] location. Simulation will be done at the [place] location. Pain Management: Procedure under sedation, epidural support. Social Work: No acute needs Nutrition: No acute needs The patient was provided our contact information. Seen and Discussed with attending faculty, Dr. Rosenberg Orders Placed This Encounter Procedures Rad Onc Intent to Treat Is this for a new course of treatment?: Yes [1] Treatment Goal: Curative [95157] Treatment Site: Vagina [204578] Laterality: Midline [4] Treatment Technique: Brachytherapy [74515] Edmundo Olmos MD PGY-5, Radiation Oncology 02/08/2025 [...] Humaira Rosenberg MD, MMM Senior Attending Physician, [facility] Professor, [employer] Our [place]: To Heal, To Teach, To Discover. Phone (after hours): [phone] RN partner: Daniela Lagos Radiation Oncology (scheduling): [...] Psychiatric/Behavioral: Negative. Patient here with her and pnhvcfbh-rr-cup to discuss brachytherapy for endometrial cancer. Patient's only complaint it bleeding from the tumor with bowel movements. Patient started EBRT yesterday. Cosigned by Humaira Rosenebrg MD at 02/08/2025 9:50 PM EDT documented in this [facility] Work Phone: 1(623) 889-346605-08-2025 Consult note* Agustina Agudelo MD - 01/27/2025 [...] bleeding and returned for follow-up here at [facility] 01/03/2025. Exam showed anterior mid vaginal wall 4 cm nodular mass,mobile and not fixed. Biopsy consistent with recurrent endometrioid carcinoma. 01/11/25 PET/CT performed at [place] revealed ill-defined, hypermetabolic focus along the right [...] by radiation oncologist Dr. 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 Agustina Agudelo MD [facility] Department of Radiation Oncology is an Accredited Facility of the [employer] ([employer]). This document was [...] directly addressed to the provider for clarification. [facility] [id number] Consult note* Agustina Agudelo MD - 01/27/2025 [...] bleeding and returned for follow-up here at [facility] 01/03/2025. Exam showed anterior mid vaginal wall 4 cm nodular mass,mobile and not fixed. Biopsy consistent with recurrent endometrioid carcinoma. 01/11/25 PET/CT performed at [place] revealed ill-defined, hypermetabolic focus along the right [...] by radiation oncologist Dr. 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 Agustina Agudelo MD [facility] Department of Radiation Oncology is an Accredited Facility of the [employer] ([employer]). This document was [...] the provider for clarification. documented in this [facility]05-08-2025 Hospital Discharge instructions* Patient Instructions* Rosie Hill RN - 01/27/2025 9:00 AM EDT Oncology Binder given * Attachments The following attachments cannot be sent through Care Everywhere. * Radiation Therapy, External (Turkmen) documented in this [facility]05-08-2025 NoteRADIATION ONCOLOGY INITIAL CONSULTATION PATIENT: Doni Nova [...] bleeding and returned for follow-up here at [facility] 01/03/2025. Exam showed anterior mid vaginal wall 4 cm nodular mass, mobile and not fixed. Biopsy consistent with recurrent endometrioid carcinoma. 01/11/25 PET/CT performed at [place] revealed ill-defined, hypermetabolic focus along the right [...] by radiation oncologist Dr. Timur Blake at [place], who is planning for external beam radiation [...] 1 tablet (600 m (more content not included)...[facility] [id number] Nurse Note* Rosie Hill RN - 01/27/2025 9:00 AM EDT Here alone at [facility] for consult with Dr. Agudelo. She reports good energy and denies pain. She was having severe lower abdominal pain and bleeding and was diagnosed with endometrial cancer in June 2023. She was treated with hysterectomy and bx. She had follow up with Dr. Waters in [place] who referred her to Dr. Paulino. She will have a PET Scan in the future - not scheduled as of yet. She denies any other hx of cancer, chemo, radiation. She denies any implantable devices/pacemaker. Medications reviewed and updated via patient recall. [facility] [id number] Nurse Note* Rosie Hill RN - 01/27/2025 9:00 AM EDT Here alone at [facility] for consult with Dr. Agudelo. She reports good energy and denies pain. She was having severe lower abdominal pain and bleeding and was diagnosed with endometrial cancer in June 2023. She was treated with hysterectomy and bx. She had follow up with Dr. Waters in [place] who referred her to Dr. Paulino. She will have a PET Scan in the future - not scheduled as of yet. She denies any other hx of cancer, chemo, radiation. She denies any implantable devices/pacemaker. Medications reviewed and updated via patient recall. documented in this [facility]04-29-2025 Telephone encounter Note* Telephone Encounter - Lenny Paulino MD - 01/18/2025 10:25 AM EDT Pt called with PET [facility] HospitalRfhnps84-55-9873 Miscellaneous Notes* Telephone Encounter - Lenny Paulino MD - 01/18/2025 10:25 AM EDT Pt called with PET documented in this [facility]04-23-2025 Telephone encounter Note* Telephone Encounter - Hay Godoy - 01/12/2025 4:00 PM EDT Faxed to Dr. Blake at [phone] via [facility]. Confirmation scanned within media [facility] HospitalJkqrjp07-84-2211 Telephone encounter Note* Telephone Encounter - Hay Godoy - 01/12/2025 4:00 PM EDT ----- Message from Lenny Paulino MD sent at 01/12/2025 2:31 PM EDT ----- Plz fax to Dr Timur Blake Rad Onc at [facility] ----- Message ----- From: [employer] User Wiliammichael Sent: 01/12/2025 9:31 AM EDT To: Lenny Paulino MD [facility] HospitalGcbbzb53-00-7374 Miscellaneous Notes* Telephone Encounter - Hay Jayne - 01/12/2025 4:00 PM EDT Faxed to Dr. Blake at [phone] via [facility]. Confirmation scanned within media * Telephone Encounter - Hay Godoy - 01/12/2025 4:00 PM EDT ----- Message from Lenny Paulino MD sent at 01/12/2025 2:31 PM EDT ----- Plz fax to Dr Timur Blake Rad Onc at [facility] ----- Message ----- From: [employer] UserPadmini Sent: 01/12/2025 9:31 AM EDT To: Lenny Paulino MD documented in this encounterSThe [facility] SystemObhzcn11-41-0721 Telephone encounter Note* Telephone Encounter - Lenny Paulino MD - 01/12/2025 11:59 AM EDT lvmtcob [place] [id number] Miscellaneous Notes* Telephone Encounter - Lenny Paulino MD - 01/12/2025 11:59 AM EDT lvmtcob documented in this [facility]04-14-2025 History of Present illness Narrative* Lenny Paulino [...] nursing note reviewed. Exam conducted with a spin table operator present. Constitutional: Appearance: Normal appearance. Abdominal: General: [...] my ability and total time spent in hlfx-qp-wxkj counseling review of EMR was 25 minutes * Jaqui Mckenzie MA - 01/03/2025 1:30 PM EDT Tv Host was offered to the patient for exam. Patient accepted, medical insurance clerk in room during exam Pt left without second BP. documented in this [facility]04-10-2025 Telephone encounter Note* Telephone Encounter - Hay Jayne - 12/30/2024 11:54 AM EDT Patient to call back with availability [facility] HospitalXxvobq05-26-1448 Miscellaneous Notes* Telephone Encounter - Hay Godoy [...] comes in. With further questions, callback is [phone] * Telephone Encounter - Serene Groves - 12/29/2024 10:44 AM EDT [place] from [facility] called to report Pt has changes seen in pelvic exam and Katt be faxing office notes for possible exam/consult here. Thank you documented in this encounterSThe MetroHealth SystemKgpwqq30-71-7820 Telephone encounter Note* Telephone Encounter - Hay Jayne - 12/29/2024 12:51 PM EDT LVM to schedule follow up with Dr. Paulino next week [place] [id number] Miscellaneous Notes* Telephone Encounter - Hay Godoy [...] comes in. With further questions, callback is [phone] * Telephone Encounter - Serene Germain - 12/29/2024 10:44 AM EDT [place] from [facility] called to report Pt has changes seen in pelvic exam and Katt be faxing office notes for possible exam/consult here. Thank you documented in this encounterSThe MetroHealth SystemSlsmzg50-18-8087 Telephone encounter Note* Telephone Encounter - Hay Kingelidia - 12/29/2024 10:55 AM EDT Mamta from Dr. Jenkins's office stated that pelvic exam was performed and the tissue was friable and there was minor bleeding. Office note to be faxed. Will route to provider once it comes in. With further questions, callback is [phone] [facility] HospitalRjryjq25-97-1923 Telephone encounter Note* Telephone Encounter - Serene Groves - 12/29/2024 10:44 AM EDT [place] from [facility] called to report Pt has changes seen in pelvic exam and Katt swain faxing office notes for possible exam/consult here. Thank you [place] [id number] Evaluation note* Diagnosis Onset Date Resolution Status Admit Date Colon cancer screening declined none active December 29, 2024 8:06am Immunization declined noneactive Apr il 2024 8:06am Annual physical exam noneactive Apri l 2024 8:06am Mixed hyperlipidemia noneactive Apri l 2024 8:06am Endometrial cancer noneactive December 29, 2024 8:06am [facility] Work Phone: 1(994) 659-261804-09-2025 Evaluation note* Diagnosis Onset Date Resolution Status [...] endometrium acute February 09, 2025 8 :34am [facility] Work Phone: 1(678) 344-497304-09-2025 Evaluation note* Diagnosis Onset Date Resolution Status [...] endometrium acute February 16, 2025 8 :40am [facility] Work Phone: 1(727) 849-225004-09-2025 Evaluation note* Diagnosis Onset Date Resolution Status [...] of endometrium acute March 02, 2025 8:40am [facility] Work Phone: 1(752) 927-579704-09-2025 Evaluation note* Diagnosis Onset Date Resolution Status Admit Date Colon cancer screening declined none active December 29, 2024 8:06am Immunization declined noneactive Apr wa 2024 8:06am Annual physical exam noneactive Apri [...] endometrium acute February 23, 2025 8 :30am [facility] Work Phone: 1(319) 267-477404-09-2025 Evaluation note* Diagnosis Onset Date Resolution Status [...] of endometrium acute March 09, 2025 8:02am [facility] Work Phone: 1([phone]) 455-8374203237-65-8364 Evaluation note* Diagnosis Onset Date Resolution Status [...] of endometrium acute March 14, 2025 8:44am [facility] Work Phone: 1(735) [phone] Telephone encounter Note* Telephone Encounter - Hermila Gant RN - 07/28/2023 11:28 AM EST Called pt back with lymph nodes were negative. [facility] HospitalQzmxmt94-85-8640 Miscellaneous Notes* Telephone Encounter - Hermila Gant [...] Pt called with path documented in this [facility]11-06-2023 Telephone encounter Note* Telephone Encounter - Hermila Gant RN - 07/28/2023 8:49 AM EST Called pt and she is doing well from surgery on 06/25/23. [address] Paulino told her that her lymph nodes were hard and she is questioning the reason why they were hard. Pt would like call back. [facility] HospitalPmmneo12-79-6858 Telephone encounter Note* Telephone Encounter - Katie Richardson - 07/28/2023 8:32 AM EST Patient mentioned that she had surgery 4 weeks ago (Jun 25). Patient mentioned that some of her lymph nodes are hard. Patient wants to know the cause of them to be hard. Patient would like a call back. [facility] HospitalHqouae91-80-2742 Telephone encounter Note* Telephone Encounter - Lenny Paulino MD - 07/08/2023 9:28 AM EDT Pt called with path [place] [id number] Miscellaneous Notes* Telephone Encounter - Lenny Paulino MD - 07/08/2023 9:28 AM EDT Pt called with path documented in this [facility]10-06-2023 Hospital course Narrative* Lenny Paulino MD - 06/27/2023 10:23 AM EDT Images from the original note were not included. Carburetor Expert Discharge Summary Patient Name: Doni Nova Patient [...] & Procedures: Total Abdominal Hysterectomy, Bilateral Salpingoophorectomy, [place] Lymph Node Sampling on 06/25/2023 Consultations: None [...] Your Medications These medications were sent to [address] [address] acetaminophen 500 MG tablet apixaban 2.5 MG [...] MD 06/27/2023, 10:23 AM documented in this [facility]10-06-2023 History of Present illness Narrative* Leia Anand - 06/27/2023 8:39 AM EDT Nutrition rescreen completed. Chart reviewed. Patient to be monitored and followed by the diet solar fabrication technician. NGA Barrientos * Beverly Benjamin MD - 06/27/2023 5:30 AM EDT Images from the original note were not included. SALES SERVICE REP Progress Note Date: 06/27/2023 Time: 5:31 AM [...] be d/w Dr. Paulino Please page the [facility] SALES SERVICE REP ONC Call RES group via Secure Chat for any questions or concerns. Beverly Benjamin MD 06/27/2023, 5:31 AM Associated attestation - Lenny Paulino MD - 06/27/2023 11:09 AM EDT Patient doing well after surgery. Okay to discharge to home * Beverly Benjamin MD - 06/26/2023 5:41 AM EDT Images from the original note were not included. SALES SERVICE REP ONC Progress Note Date: 06/26/2023 Time: 5:42 [...] Beverly Benjamin MD, 15 mg at 06/25/23 8679 ondansetron ODT (Zofran-ODT) disintegrating tablet 4 mg, [...] be d/w Dr. Paulino Please page the [facility] SALES SERVICE REP ONC Call RES group via Secure Chat [...] well. Continue postop care documented in this [facility]10-06-2023 Hospital Discharge instructions* Discharge Instructions* Beverly Benjamin MD - 06/27/2023 5:33 AM EDT Please follow your post operative care instructions given to you by your Contracts Intern Oncologist's office at your pre operative visit. Please call the office with questions or concerns and be sure to follow up at your scheduled post operative visit. documented in this [facility]10-05-2023 Note* Care Coordination - Bee Blackburn RN - 06/26/2023 10:24 AM EDT Care Managment Initial Assessment Date: 06/26/2023 Patient Name: Doni Nova : 1950 Patient Information Source of Information: Patient, Patient Material Yard Clerk Name/Contact Information: Jame Nova ([facility]), Camryn Cognition/Language: WFL - Within Functional Limits Permission given to speak with patient retail customer service representative/caregiver as indicated: Yes Confirmation of Payer with patient/family: Yes Payer Name: [facility] [place]: Confirmation of Primary Care Physician: Confirmed PCP [...] Daily Living Prescription Coverage: Yes Pharmacy Used: [facility] Medication Management: Independent Transportation/Shopping: Independent Transportation [...] Information: Chart reviewed. Patient admitted to s/p [facility] BSO. Reg diet, IVABX, pain management, voiding trials. Initial Assessment: Spoke with patient and family at bedside. Introduced myself and role as TCC. Patient and family states that they have a confirmed ride home. Patient and family have not questions or concerns at this time. Discharge Plan: Home with family. Transport per family. Will continue to follow with . Bee Blackburn RN [facility]10-05-2023 Note* Care Coordination - Bee Blackburn RN - 06/26/2023 10:24 AM EDT Care Managment Initial Assessment Date: 06/26/2023 Patient Name: Doni Nova : 1950 Patient Information Source of Information: Patient, Patient Material Yard Clerk Name/Contact Information: Jame Nova ([facility]), Camryn Cognition/Language: WFL - Within Functional Limits Permission given to speak with patient retail customer service representative/caregiver as indicated: Yes Confirmation of Payer with patient/family: Yes Payer Name: [facility] : Confirmation of Primary Care Physician: Confirmed PCP Name: Uriel Gipson MD Seen in last 2 years?: Yes Primary Caregiver: Self If assistance needed, confirmed caregiver ready, willing and able to care for patient at discharge:Yes Confirmed with: Jame ([facility]) and Camryn (dtr) Living Arrangements Current Residence: [...] Information: Chart reviewed. Patient admitted to s/p [facility] BSO. Reg diet, IVABX, pain management, voiding trials. Initial Assessment: Spoke with patient and family at bedside. Introduced myself and role as TCC. Patient and family states that they have a confirmed ride home. Patient and family have not questions or concerns at this time. Discharge Plan: Home with family. Transport per family. Will continue to follow with SW. Bee Blackburn RN [facility] HospitalRihpzf09-44-0397 Miscellaneous Notes* Care Coordination - Bee Blackburn RN - 06/26/2023 10:24 AM EDT Care Managment Initial Assessment Date: 06/26/2023 Patient Name: Doni Nova : 1950 Patient Information Source of Information: Patient, Patient Material Yard Clerk Name/Contact Information: Jame Nova (eryn), Camryn Cognition/Language: WFL - Within Functional Limits Permission given to speak with patient retail customer service representative/caregiver as indicated: Yes Confirmation of Payer with patient/family: Yes Payer Name: [employer] : Confirmation of Primary Care Physician: Confirmed [...] Information: Chart reviewed. Patient admitted to s/p [facility] B[facility]. Reg diet, IVABX, pain management, [...] of pelvic lymph nodes Surgery performed was [facility]/BSO lymph node dissection Surgeon Jefferson anesthesia [...] was closed with an interrupted 0 Vicryl agjbyr-eq-krbdf. Pararectal and paravesical spaces were further opened, [...] 06/25/2023 3:09 PM EDT Date: 06/25/2023 Location: [facility] OR Name: Doni Nova, : 1950, [...] Description: RIGHT PELVIC LYMPH NODE Implants Staff: Lining Feller Blindstitch: Anita Blank RN Relief Scrub: Sherly Myrick; [...] receiving Vancomycin or flouroquinolone) documented in this [facility]10-04-2023 Note* Perioperative Nursing Note - Nickie Rodriguez RN - 06/25/2023 6:15 PM EDT Updated family with room number [place] [id number] Note* Perioperative Nursing Note - Nickie Rodriguez RN - 06/25/2023 6:15 PM EDT Updated family with room number [place] [id number] Note* Perioperative Nursing Note - Nickie Rodriguez RN - 06/25/2023 6:13 PM EDT Report to bill [place] [id number] Note* Perioperative Nursing Note - Nickie Rodriguez RN - 06/25/2023 6:13 PM EDT Report to bill [place] [id number] Note* Perioperative Nursing Note - Leai Rios RN - 06/25/2023 5:28 PM EDT Patient family/visitor updated by RN at this time. [place] [id number] Note* Perioperative Nursing Note - Leia Rios RN - 06/25/2023 5:28 PM EDT Patient family/visitor updated by RN at this time. [facility] [id number] Attending History and physical note* Lenny Paulino MD [...] is otherwise healthy, denies any history of MN DVT or pulmonary embolism. The patient is [...] nursing note reviewed. Exam conducted with a spin table operator present. Constitutional: Appearance: Normal appearance. Cardiovascular: Rate [...] decision for surgery was also made today. [facility] [id number] Note* Op Note - Lenny Paulino MD [...] was closed with an interrupted 0 Vicryl mgnwxx-gu-mypzc. Pararectal and paravesical spaces were further opened, [...] stable condition with EBL about 150 cc. [facility] HospitalRvrgvn37-09-4385 Note* Brief Op Note - Lenny Paulino [...] Description: RIGHT PELVIC LYMPH NODE Implants Staff: Lining Feller Blindstitch: Anita Blank RN Relief Scrub: Sherly Myrick; [...] (two hours if receiving Vancomycin or flouroquinolone) [facility] [id number] Note* Op Note - Lenny Paulino MD [...] was closed with an interrupted 0 Vicryl juhzqd-le-ofzjc. Pararectal and paravesical spaces were further opened, [...] stable condition with EBL about 150 cc. [facility] HospitalQzevrp71-60-0638 Note* Brief Op Note - Lenny Paulino [...] Description: RIGHT PELVIC LYMPH NODE Implants Staff: Lining Feller Blindstitch: Anita Blank RN Relief Scrub: Sherly Bowden [...] (two hours if receiving Vancomycin or flouroquinolone) [employer] [id number] History and physical note* Lenny Paulino MD [...] is otherwise healthy, denies any history of MN DVT or pulmonary embolism. The patient is [...] nursing note reviewed. Exam conducted with a spin table operator present. Constitutional: Appearance: Normal appearance. Cardiovascular: Rate [...] was also made today. documented in this [facility]10-04-2023 Telephone encounter Note* Telephone Encounter - Nesha Mata - 06/25/2023 9:30 AM EDT SX: 06.25.2023 at 2 pm arrival at 12 Post op 07.11.2023 at 9:45 am Folder and instructions given. [facility] HospitalDztany20-24-7589 Miscellaneous Notes* Telephone Encounter - Nesha Mata - 06/25/2023 9:30 AM EDT SX: 06.25.2023 at 2 pm arrival at 12 Post op 07.11.2023 at 9:45 am Folder and instructions given. documented in this [facility]10-04-2023 History of Present illness Narrative* Lenny Paulino [...] was very concerned [facility] She states the bleeding has slowed down a little bit now. Has become worse with heavy flow with cramps. She denies any abdominal pain or distention, change in appetite, denies any change in weight. Patient is otherwise healthy, denies any history of MN DVT or pulmonary embolism. The patient is [...] nursing note reviewed. Exam conducted with a spin table operator present. Constitutional: Appearance: Normal appearance. Cardiovascular: Rate [...] was also made today. 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 Chief Complaint/Reason for Call: Caller is needing to make new patient appt please advise Best time of day caller can be reached: any Patient advised that office/PCP has 24-48 business hours to return their call: No [place] [id number] Miscellaneous Notes* Telephone Encounter - Clair Canchola - 06/24/2023 8:05 AM EDT Name of caller: Doni Contact phone number: [phone] Relationship to Patient: pt Provider: Practice: [facility]ES [facility] Chief Complaint/Reason for Call: Caller is needing to make new patient appt please advise Best time of day caller can be reached: any Patient advised that office/PCP has 24-48 business hours to return their call: No documented in this [facility] note* Diagnosis Onset Date Resolution Status Colon cancer screening declined noneactive Immunization declined noneac tive Screening for cardiovascular condition noneactive Establishing care with new doctor, encounter for noneactive Abdominal cramping noneactiv e 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 Abdominal cramping noneactiv e Hematuria noneactive Vaginal bleeding noneactive [facility] Work Phone: Evaluation note* Diagnosis Increased endometrial stripe thickness- Primary Nonspecific (abnormal) findings on radiological and other examination of genitourinary organs PMB (postmenopausal bleeding) Postmenopausal bleeding documented in this encounter [facility] note* Diagnosis Increased endometrial stripe thickness- Primary Nonspecific (abnormal) findings on radiological and other examination of genitourinary organs Increased endometrial stripe thickness Nonspecific (abnormal) findings on radiological and other examination of genitourinary organs Bleeding Unspecified hemorrhage Post-menopausal bleeding Postmenopausal bleeding documented in this encounter [facility]* Diagnosis Endometrial cancer (CMS/HCC) (HCC)- Primary Malignant neoplasm of corpus uteri, except isthmus Vaginal lesion Other specified noninflammatory disorder of vagina documented in this encounter [facility]* Diagnosis Endometrial cancer (CMS/HCC) (HCC)- Primary Malignant neoplasm of corpus uteri, except isthmus Secondary malignancy of vagina (CMS/HCC) (HCC) documented in this encounter [facility] note* Diagnosis Recurrent carcinoma of endometrium (HCC)- Primary documented in this encounter [facility]* Diagnosis Endometrial cancer (Multi)- Primary Malignant neoplasm of corpus uteri, except isthmus documented in this encounter [facility] Work Phone: Evaluation note* Diagnosis Recurrent carcinoma of endometrium (HCC)- Primary documented in this encounter [facility]* Diagnosis Recurrent carcinoma of endometrium (HCC) documented in this encounter [facility] note* Diagnosis Recurrent carcinoma of endometrium (HCC)- Primary documented in this encounter [facility] note* Diagnosis Malignant neoplasm of overlapping sites of corpus uteri (Multi) documented in this encounter [facility] Work Phone: Evaluation note* Diagnosis Endometrial cancer (Multi)- Primary Malignant neoplasm of corpus uteri, except isthmus documented in this encounter [facility] Work Phone: Evaluation note* Diagnosis Primary malignant neoplasm of overlapping sites of corpus uteri (Multi) documented in this encounter [facility] Work Phone: Evaluation note* Diagnosis Encounter for antineoplastic radiation therapy- Primary Malignant neoplasm of overlapping sites of corpus uteri (Multi) documented in this encounter [facility] Work Phone: Evaluation note* Diagnosis Endometrial cancer (Multi) Malignant neoplasm of corpus uteri, except isthmus documented in this encounter [facility] Work Phone: Evaluation note* Diagnosis Encounter for antineoplastic radiation therapy- Primary Malignant neoplasm of overlapping sites of corpus uteri (Multi) documented in this encounter [facility] Work Phone: Evaluation note* Diagnosis Malignant neoplasm of overlapping sites of corpus uteri (Multi) documented in this encounter [facility] Work Phone: Evaluation note* Diagnosis Malignant neoplasm of overlapping sites of corpus uteri (Multi) documented in this encounter [facility] Work Phone: Evaluation note* Diagnosis Malignant neoplasm of overlapping sites of corpus uteri (Multi) documented in this encounter [facility] Work Phone: Evaluation note* Diagnosis Malignant neoplasm of overlapping sites of corpus uteri (Multi) documented in this encounter [facility] Work Phone: Evaluation note* Diagnosis Endometrial cancer (Multi) Malignant neoplasm of corpus uteri, except isthmus documented in this encounter [facility] Work Phone: Evaluation note* Diagnosis Endometrial cancer (Multi) Malignant neoplasm of corpus uteri, except isthmus documented in this encounter [facility] Work Phone: Evaluation note* Diagnosis Endometrial cancer (CMS/HCC) (HCC)- Primary Malignant neoplasm of corpus uteri, except isthmus documented in this encounter [facility] note Author Timur Blake [facility] Note Date/Time February 23, 2025 9:38a [facility] [address] [address] OFFICE VISIT Date of Service: 02/23/25921 MR#: [id number] Acct: [id number] Name: DONI NOVA Rep #: [id number] : 1950 From: Timur garcia DO Age/Sex: 75/F Location: [facility] Status: Signed Intake Vital Signs 01/26/25 08:47 [...] occupational status: unemployed 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 Timur Blake DO, MS Technical Sales Representative, Department of Radiation Oncology [facility] Coding Level of Care Code Radiation Tx Management x5 Diagnoses Recurrent carcinoma of endometrium C54.1 02/23/25 0938 <Electronically signed by Timur Blake DO> Date _ iTmur Melton Signature: Date (if applicable) CC: ~ [facility] Work Phone: Reason for referral (narrative)No reason for referral information availableW[facility] Work Phone: Reason for visit Narrative* Imaging (Routine) - Closed Specialty Diagnoses / Procedures Referred By Lupe sesay Referred To Contact Radiology Diagnoses Recurrent carcinoma of endometrium (HCC) Procedures MR pelvis w and wo contrast Agustina Agudelo MD [address] [place] [address] Phone: tel: fax: Referral ID Status Reason Start Date Expiration Date Visits Re quested Visits Authorized [id number] Closed 02/09/2025 02/09/2026 1 1 [facility] N[facility]* Auth/Cert (Routine) Specialty Diagnoses / Procedures Referred By Contac t Referred To Contact Diagnoses NO PRE-CERT REQUIRED FOR [facility] Procedures NO PRE-CERT REQUIRED FOR [facility] [address] [place] [address] Phone: tel: fax: Referral ID Status Reason Start Date Expiration Date Visits Re quested Visits Authorized [id number] 1 1 [facility] Work Phone: Reason for visit Narrative* Auth/Cert (Routine) Specialty Diagnoses / Procedures Referred By Contac t Referred To Contact Diagnoses NO PRE-CERT REQUIRED FOR [facility] Procedures NO PRE-CERT REQUIRED FOR [facility] [address] [place] [address] Phone: tel: fax: Referral ID Status Reason Start Date Expiration Date Visits Re quested Visits Authorized [id number] 1 1 [facility] Work Phone: Chief Complaint and Reason for Visit 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 [...] Pro vider, Attending Provider, Referring Provider Active Mold Release Worker Relationship Specialty Start Date End Date Uriel Gipson MD [address] [place], [place] [id number] PCP - General Internal Medicine 06/25/23 Lenny Paulino MD [facility] [address] [place], [place] [phone] Consulting Physician Gynecologic Oncology 06/24/23 Mold Release Worker Relationship Specialty Start Date End Date Uriel Gipson MD [address] [place], [place] [address] PCP - General Internal Medicine 06/25/23 Lenny Paulino MD [facility] [address] [employer] [place], [place] [phone] Consulting Physician Gynecologic Oncology 06/24/23 Mold Release Worker Relationship Specialty Start Date End Date Uriel Gipson MD [address] [place], [place] [address] PCP - General Internal Medicine 06/25/23 Lenny Paulino MD [facility] [address] [employer] [place], [place] [phone] Consulting Physician Gynecologic Oncology 06/24/23 Mold Release Worker Relationship Specialty Start Date End Date Uriel Gipson MD [address] [place], [place] [address] PCP - General Internal Medicine 06/25/23 Lenny Paulino MD [address] [facility] [address] [place], [place] [phone] Consulting Physician Gynecologic Oncology 06/24/23 Mold Release Worker Relationship Specialty Start Date End Date Uriel Gipson MD [address] [place], [place] [address] PCP - General Internal Medicine 06/25/23 Lenny Paulino MD [address] [facility] [address] [place] [address] Consulting Physician Gynecologic Oncology 06/24/23 Mold Release Worker Relationship Specialty Start Date End Date Uriel Gipson MD [address] [place], [place] [address] PCP - General Internal Medicine 06/25/23 Lenny Paulino MD [address] [facility] [address] [place] [address] Consulting Physician Gynecologic Oncology 06/24/23 Mold Release Worker Relationship Specialty Start Date End Date Uriel Gipson MD [address] [place] [address] PCP - General Internal Medicine 06/25/23 Lenny Paulino MD [address] [facility] [address] [place] [address] Consulting Physician Gynecologic Oncology 06/24/23 Mold Release Worker Relationship Specialty Start Date End Date Uriel Gipson MD [address] [place] [address] PCP - General Internal Medicine 06/25/23 Lenny Paulino MD [address] [facility] [address] [place] [address] Consulting Physician Gynecologic Oncology 06/24/23 Mold Release Worker Relationship Specialty Start Date End Date Uriel Gipson MD [address] [place] [address] PCP - General Internal Medicine 06/25/23 Lenny Paulino MD [address] [facility] [address] [place], [place] [phone] Consulting Physician Gynecologic Oncology 06/24/23 Mold Release Worker Relationship Specialty Start Date End Date Uriel Gipson MD [address] [place], [place] [address] PCP - General Internal Medicine 06/25/23 Lenny Paulino MD [address] [facility] [address] [place], [place] [phone] Consulting Physician Gynecologic Oncology 06/24/23 Team Status: [...] January 11, 2025 End: January 11, 2025 Mold Release Worker Relationship Specialty Start Date End Date Uriel Gipson MD [address] [place], [place] [address] PCP - General Internal Medicine 06/25/23 Lenny Paulino MD [address] [facility] [address] [place], [place] [phone] Consulting Physician Gynecologic Oncology 06/24/23 Agustina Agudelo MD [address] [place] [address] Radiation Oncologist Radiation Oncology 01/27/25 Mold Release Worker Relationship Specialty [place] [address] Department [place] [address] Radiation Oncologist Radiation Oncology 02/07/25 Team Status: [...] 20, 2025 End: January 20, 2025 Dr. iTmur Blake DO Referring Provider Active Start: January [...] Referring Provider Active Start: February 09, 2025 Mold Release Worker Relationship Specialty Start Date End Date Uriel Gipson MD [address] [place] [address] PCP - General Internal Medicine 06/25/23 Lenny Paulino MD 161 [facility] [address] [place] [address] Consulting Physician Gynecologic Oncology 06/24/23 Agustina Agudelo MD [address] [place] [address] Radiation Oncologist Radiation Oncology 01/27/25 Team Status: [...] Referring Provider Active Start: March 09, 2025 Mold Release Worker Relationship Specialty Start Date End Date Uriel Gipson MD [address] [place] [address] PCP - General Internal Medicine 06/25/23 Lenny Paulino MD [address] [place] [address] Consulting Physician Gynecologic Oncology 06/24/23 Agustina Agudelo MD [address] [place] [address] Radiation Oncologist Radiation Oncology 01/27/25 Mold Release Worker Relationship Specialty Start Date End Date Uriel Gipson MD [address] [place] [address] PCP - General Internal Medicine 06/25/23 Lenny Paulino MD [address] [place] [address] Consulting Physician Gynecologic Oncology 06/24/23 Agustina Agudelo MD [address] [place] [address] Radiation Oncologist Radiation Oncology 01/27/25 Team Status: Inactive Member Role Status Dates Dr. Uriel Gipsno MD Primary Care Provider Active Start: February [...] Referring Provider Active Start: March 14, 2025 Mold Release Worker Relationship Specialty Start Date End Date Uriel Gipson MD [address] [place] [phone] PCP - General Internal Medicine 03/15/25 Humaira Rosenberg MD Radiation Oncologist Radiation Oncology 02/07/25 Mold Release Worker Relationship Specialty Start Date End Date Uriel Gipson MD [address] [place] [phone] PCP - General Internal Medicine 03/15/25 Humaira Rosenberg MD Radiation Oncologist Radiation Oncology 02/07/25 Mold Release Worker Relationship Specialty Start Date End Date Uriel Gipson MD [address] [place] [address] PCP - General Internal Medicine 03/15/25 Humaira Rosenberg MD Radiation Oncologist Radiation Oncology 02/07/25 Mold Release Worker Relationship Specialty Start Date End Date Uriel Gipson MD [address] [facility] [place] [address] PCP - General Internal Medicine 03/15/25 Humaira Rosenberg MD Radiation Oncologist Radiation Oncology 02/07/25 Mold Release Worker Relationship Specialty Start Date End Date Uriel Gipson MD [address] [place] [phone] PCP - General Internal Medicine 03/15/25 Humaira Rosenberg MD Radiation Oncologist Radiation Oncology 02/07/25 Mold Release Worker Relationship Specialty Start Date End Date Uriel Gipson MD [address] [place] [phone] PCP - General Internal Medicine 03/15/25 Humaira Rosenberg MD Radiation Oncologist Radiation Oncology 02/07/25 Mold Release Worker Relationship Specialty Start Date End Date Uriel Gipson MD [address] [place] [phone] PCP - General Internal Medicine 03/15/25 Humaira Rosenberg MD Radiation Oncologist Radiation Oncology 02/07/25 Mold Release Worker Relationship Specialty Start Date End Date Uriel Gipson MD [address] [place] [phone] PCP - General Internal Medicine 03/15/25 Humaira Rosenberg MD Radiation Oncologist Radiation Oncology 02/07/25 Mold Release Worker Relationship Specialty Start Date End Date Uriel Gipson MD [address] [place] [phone] PCP - General Internal Medicine 03/15/25 Humaira Rosenberg MD Radiation Oncologist Radiation Oncology 02/07/25 Mold Release Worker Relationship Specialty Start Date End Date Uriel Gipson MD [address] [place] [phone] PCP - General Internal Medicine 03/15/25 Humaira Rosenberg MD Radiation Oncologist Radiation Oncology 02/07/25 Mold Release Worker Relationship Specialty Start Date End Date Uriel Gipson MD [address] [place] [phone] PCP - General Internal Medicine 03/15/25 Humaira Rosenberg MD Radiation Oncologist Radiation Oncology 02/07/25 Mold Release Worker Relationship Specialty Start Date End Date Uriel Gipson MD [address] [place] [address] PCP - General Internal Medicine 03/15/25 Humaira Rosenberg MD Radiation Oncologist Radiation Oncology 02/07/25 Mold Release Worker Relationship Specialty Start Date End Date Uriel Gipson MD [address] [place] [phone] PCP - General Internal Medicine 03/15/25 Humaira [...] April 12, 2025 End: April 12, 2025 Mold Release Worker Relationship Specialty Start Date End Date Uriel Gipson MD [address] [place], [place] [address] PCP - General Internal Medicine 06/25/23 Lenny Paulino MD [address] [facility] [address] [place] [address] Consulting Physician Gynecologic Oncology 06/24/23 Agustina Agudelo MD [address] [facility] [place] [facility] [place] [address] Radiation Oncologist Radiation Oncology 01/27/25 Mold Release Worker Relationship Specialty Start Date End Date Uriel Gipson MD [address] [place] [address] PCP - General Internal Medicine 06/25/23 Lenny Paulino MD [address] [facility] [address] [place] [address] Consulting Physician Gynecologic Oncology 06/24/23 Agustina Agudelo MD [address] [place] [address] Radiation Oncologist Radiation Oncology 01/27/25 Mold Release Worker Relationship Specialty Start Date End Date Uriel Gipson MD [address] [place] [phone] PCP - General Internal Medicine 03/15/25 Humaira Rosenberg MD Radiation Oncologist Radiation Oncology 02/07/25 Mold Release Worker Relationship Specialty Start Date End Date Uriel Gipson MD [address] [place] [address] PCP - General Internal Medicine 06/25/23 Lenny Paulino MD [address] [place] [address] Consulting Physician Gynecologic Oncology 06/24/23 Agustina Agudelo MD [address] [place] [address] Radiation Oncologist Radiation Oncology 01/27/25 Mold Release Worker Relationship Specialty Start Date End Date Uriel Gipson MD [address] [place] [address] PCP - General Internal Medicine 06/25/23 Lenny Paulino MD [address] [place] [address] Consulting Physician Gynecologic Oncology 06/24/23 Agustina Agudelo MD [address] [place] [address] Radiation Oncologist Radiation Oncology 01/27/25 Mold Release Worker Relationship Specialty Start Date End Date Uriel Gipson MD [address] [place] [address] PCP - General Internal Medicine 06/25/23 Lenny Paulino MD [address] [place] [address] Consulting Physician Gynecologic Oncology 06/24/23 Agustina Agudelo MD [address] [place] [address] Radiation Oncologist Radiation Oncology 01/27/25 Goals (unrecognized [...] Procedures OUTPATIENT SERVICES-GENERAL Cindi Tirado MD [address] [facility] [address] [place] [address] [facility] Carburetor Expert Onc [address] [facility] [address] [place] [address] Referral ID Status Reason Start Date Expiration Date V isits Requested Visits Authorized [id number] Pending Review 06/23/2023 06/22/2024 1 1 Reason Onset Date Comments surgery scheduling 06/25/2023 Scheduled at [facility] Reason Onset Date Comments new pt appt needed 06/24/2023 Specialty Diagnoses / Procedures Referred By Lupe t Referred To Contact Diagnoses Bleeding Post-menopausal bleeding Bleeding [R58] Procedures ND EXPLORATORY LAPAROTOMY CELIOTOMY W/WO BIOPSY SPX ND INJ RADIOACTIVE TRACER FOR ID OF SENTINEL NODE Lenny Paulino MD [address] [facility], [address] [place] [address] Referral ID Status Reason Start Date Expiration Date Visits Re quested Visits Authorized [id number] 06/25/2023 1 1 Reason Comments Endometrial Cancer Reason Comments Consult Consult with Dr. Agudelo . Specialty Diagnoses / Procedures Referred By Lupe t Referred To Contact Radiation Oncology Diagnoses Malignant neoplasm of endometrium (HCC) Procedures ND OFFICE/OUTPATIENT NEW HIGH MDM 60 MINUTES Pily Blake [address] [address] [place] [address] Phone: tel: fax: Agustina Agudelo MD [address] [place] [address] Phone: tel: fax: Referral ID Status Reason Start Date Expiration Date V isits Requested Visits Authorized [id number] Pending Review 01/24/2025 01/24/2026 1 1 Reason Comments New Patient Visit Specialty Diagnoses / Procedures Referred By Contac t Referred To Contact Diagnoses NO PRE-CERT REQUIRED FOR [facility] Procedures NO PRE-CERT REQUIRED FOR [facility] [address] [place] [address] Phone: tel: fax: Referral ID Status Reason Start Date Expiration Date Visits Re quested Visits Authorized [id number] 1 1 Reason Comments Follow-up Specialty Diagnoses / Procedures Referred By Contac t Referred To Contact Diagnoses NO PRE-CERT REQUIRED FOR [facility] Procedures NO PRE-CERT REQUIRED FOR [facility] [address] [place] [address] Phone: tel: fax: Scheduled Active and Recently [...] 2,000 mg, IntraVENous, Administer over 30 Minutes, Software Tester to O.R., On Fri06/25/23 at 1015, For 1 dose, Preprocedure, Administer within 1 hour prior to incision. premix bag, Suspected Indication (Select all that apply): Surgical Prophylaxis 151 (Given - Provider: Hue Castro, MONTESSORI TEACHER - VISION CARE ASSOCIATE) ceFAZolin in dextrose 4% (Ancef) IVPB 2,000 [...] Anesthesia - Provider: Hue Castro APRN - VISION CARE ASSOCIATE)1640 (Stopped - Provider: Lisa Hensley APRN - VISION CARE ASSOCIATE) lactated Ringer's infusion (CANCELED) 75 mL/hr, IntraVENous, [...] Provider: Leia Rios RN)1741 (Given - Provider: Nikcie Rodriguez RN) indocyanine green (IC-Green) injection (CANCELED) [...] section and content) DATE CREATED AUTHOR 05/20/2025 [facility] DATE CREATED AUTHOR AUTHOR'S ORGANIZ ATION 05/22/2025 [facility] DATE CREATED AUTHOR AUTHOR'S ORGANIZ ATION 07/17/2025 [facility] FOR RECORDS PERTAINING TO PATIENTS WHO [...] BE BASED ON THE PRIMARY CLINICAL RECORDS. [employer] [facility]. provides no warranty or guarantee of the accuracy or completeness of information in this document.
--- NOTE | 2025-07-19 07:30 | PET_ITS ---
PROCEDURE: PET/CT TUMOR BASE -THIGH SUBS 07/19/2025 REASON FOR EXAM: 75 y/o F with ENDOMETRIAL carcinoma. TECHNIQUE: Procedure Code: PETPTCTSUB Modality: PT Procedure: PET/CT TUMOR BASE -THIGH SUBS Following the intravenous administration of radionucleotide, image acquisition on a dedicated PET/CT unit was performed at one hour post injection. A preliminary CT study encompassing the Skull base, neck, chest, abdomen, pelvis, and proximal thighs was performed for purposes of attenuation correction and anatomic localization. The proximal thighs were also included. The patient's blood glucose level was 103 mg/dL (allowable range: 50-180 mg/dL). RADIOPHARMACEUTICAL: 14.894 mCi 18F-FDG (Fluorodeoxyglucose F18) IV was injected into he patient. RADIATION DOSE SUMMARY: Effective Dose: Approximately 7 mSv for a standard whole-body PET scan Organ Doses: Varies by organ, with higher doses typically to the bladder, liver, and brain COMPARISON: COMPARISON FROM CT, PET OR OTHER PERTINENT EXAMS: PET-CT 01/11/2025.. FINDINGS: Physiologic uptake: There may be expected metabolic uptake within the brain, tongue and floor of the mouth and larynx/vocal cords, heart, lm (many normal individuals have hilar uptake in less than 3 nodes with mildly avid hilar nodes less than 2.7 SUV), liver and spleen, system, and GI tract and symmetric muscle uptake. FDG AVID AND NON-AVID LESIONS. Reported avid SUV values (g/mL*) are maximum SUV. NECK: There are no significant neck abnormalities. CHEST: Chest wall- There are no significant chest wall abnormalities. Axilla- There are no significant axillary abnormalities. Lung parenchyma- There are no significant lung parenchyma abnormalities. Mediastinum- There are no significant hilar or mediastinal adenopathy. Pleura- There are no significant pleural abnormalities. ABDOMEN: Moderate aortic calcification; no evidence of abdominal aortic aneurysm. Stomach- No significant abnormalities. Liver- No significant abnormalities. Spleen- No significant abnormalities. Pancrease- No significant abnormalities. Kidneys- No significant abnormalities. Bowel- Normal bowel activity. Spine- No significant abnormalities. PELVIS: Bowel- Normal physiologic bowel activity is identified. Masses- There are no pelvic masses. Bones- With the use of bone window settings, there are no osteolytic or osteoblastic lesions. There are no FDG avid lesions within the visualized portion of the axial skeleton. PET/PET/CT Tumor Base -Thigh Subs IMPRESSION: FDG avid- No significant avid lesions. Other: Moderate aortic calcification; no evidence of abdominal aortic aneurysm. Please note the low-dose CT scan was performed to facilitate PET image reconstr uction and anatomic localization and does not replace a diagnostic CT. Any diagnostic CT requested and performed at the time of the PET will be reported separately. Reading Location: [place] [address]
== END | disposition home or self-care (01) ==
LOC: ONC 07:12
PROVIDERS: PCP Internal Medicine; Referring Provider Obstetrics & Gynecology Gynecologic Oncology; Visit Provider Obstetrics & Gynecology Gynecologic Oncology
DX: C54.1 Malignant neoplasm of endometrium (principal); C79.82 Secondary malignant neoplasm of genital organs
CPT/HCPCS: 78815; A9552